=== PATIENT | female | born 1975 | race Caucasian/White ===

== ENCOUNTER → 2018-01-26 15:21 | Outpatient (CLI) | payer OTHER, SELFPAY ==
[2018-01-26 17:11] LABS: Absolute Lymphocyte Count 3.21 X10^3/ul (0.83-4.51); Absolute Neutrophil Count 6.3 X10^3/uL (2.0-7.7); Basophil# 0.03 X10^3/uL; Basophil% 0.3 % (0-1); Eosinophils% 2.8 % (0-5); Hematocrit 43.5 % (37-47); Hemoglobin 15.3 g/dl (12.0-15.0); Lymphocyte # 3.21 X10^3/ul (4.0); Lymphocyte % 29.6 % (19-41); Mean Corp Hgb Conc 35.2 g/gl (32-36); Mean Corpuscular Hgb 32.5 pg (27.0-32.0); Mean Corpuscular Volume 92.4 fL (81-99); Monocyte# 0.94 X10^3/uL; Monocyte% 8.7 % (0-10); Neutrophil # 6.32 X10^3/uL (2.7-7.7); Neutrophil % 58.3 % (47-70); Platelet Count 271 K/mm3 (150-450); RBC Distribution Width CV 12.1 % (11.6-14.6); RBC Distribution Width SD 40.4 fl (35.1-43.9); Red Blood Count 4.71 M/mm3 (4.2-5.4); White Blood Count 10.8 K/mm3 (4.4-11.0)
[2018-01-26 17:47] LABS: POSITIVE COUNT NO; POSITIVE DIFFERENTIAL NO; POSITIVE MORPHOLOGY NO; Thyroid Stim Hormone (TSH) 2.59 uIU/mL (0.358-3.74)
== END ==
PROVIDERS: Visit Provider Nurse Practitioner Women's Health
DX: R53.83 Other fatigue (principal)
CPT/HCPCS: 36415; 84443; 85025

== ENCOUNTER → 2018-02-17 11:28 | Outpatient (CLI) | payer OTHER, SELFPAY ==
--- NOTE | 2018-02-17 11:31 | US_ITS ---
STUDY: ULTRASOUND OF THE FEMALE PELVIS - COMPLETE REASON FOR EXAM: Female, 42 years old. ABNORMAL BLEEDING MERENA IUD TECHNIQUE: Transvaginal COMPARISON: None. FINDINGS: The uterus is retroverted and is in a midline position. The uterus measures 9.4x7.4x6.5 cm. There is a Nabothian cyst of the cervix. The endometrium measures 7.9 mm in thickness, and is hyperechoic. There is no demonstrated endometrial mass. Fibroid visualized measuring 66 x 50 x 40 mm. I.U.D. - The patient does have an I.U.D. The right ovary is visualized. The right ovary measures 3.2x2.1x1.7 cm. There is no right ovarian cyst or ovarian mass. There is no visualized right adnexal mass or complex lesion. There is normal arterial and normal venous vascularity. The left ovary is visualized. The left ovary measures 2.4x1.9x1.6 cm. There is no left ovarian cyst or ovarian mass. There is no visualized left adnexal mass or complex lesion. There is normal arterial and normal venous vascularity. There is no fluid in the cul-de-sac. The pre void volume of the bladder was 869 ml. US/Transvaginal Non- IMPRESSION: Fibroid uterus. An intrauterine device is identified within the uterus. There are Nabothian cysts of the cervix. Electronically Signed: Brown Pena MD at 21:44 EDT , Service support ,
--- NOTE | 2018-02-17 11:31 | US_ITS ---
STUDY: ULTRASOUND OF THE FEMALE PELVIS - COMPLETE REASON FOR EXAM: Female, 42 years old. ABNORMAL BLEEDING MERENA IUD TECHNIQUE: Transvaginal COMPARISON: None. FINDINGS: The uterus is retroverted and is in a midline position. The uterus measures 9.4x7.4x6.5 cm. There is a Nabothian cyst of the cervix. The endometrium measures 7.9 mm in thickness, and is hyperechoic. There is no demonstrated endometrial mass. Fibroid visualized measuring 66 x 50 x 40 mm. I.U.D. - The patient does have an I.U.D. The right ovary is visualized. The right ovary measures 3.2x2.1x1.7 cm. There is no right ovarian cyst or ovarian mass. There is no visualized right adnexal mass or complex lesion. There is normal arterial and normal venous vascularity. The left ovary is visualized. The left ovary measures 2.4x1.9x1.6 cm. There is no left ovarian cyst or ovarian mass. There is no visualized left adnexal mass or complex lesion. There is normal arterial and normal venous vascularity. There is no fluid in the cul-de-sac. The pre void volume of the bladder was 869 ml. US/Pelvic (Non ) IMPRESSION: Fibroid uterus. An intrauterine device is identified within the uterus. There are Nabothian cysts of the cervix. Electronically Signed: Brown Pena MD at 21:44 EDT , Service support ,
== END ==
LOC: US 11:29
PROVIDERS: Referring Provider Nurse Practitioner Women's Health; Visit Provider Nurse Practitioner Women's Health
DX: Z30.431 Encounter for routine checking of intrauterine contraceptive device (principal)
CPT/HCPCS: 76830; 76856; 93976

== ENCOUNTER → 2018-02-18 12:24 | Outpatient (CLI) | payer OTHER, SELFPAY ==
--- NOTE | 2018-02-18 12:26 | BI_ITS ---
MAMMOGRAPHY - BILATERAL SCREENING REASON FOR EXAM: Female, 42 years old. Routine annual screening examination. PERTINENT HISTORY: Grandmother with breast cancer. Aunt with breast cancer. TECHNIQUE: Digital bilateral breast avinash (3D mammographic acquisition) in the CC and MLO projections. 2-D mediolateral oblique (MLO) and craniocaudad (CC) views of both breasts were obtained. CAD: Full Field Digital Mammography with Computer Added Detection was performed. COMPARISON: Comparison is made with prior study dated December 25, 2016 and October 07, 2015. FINDINGS: Breast Composition: The breasts are heterogeneously dense, which may obscure small masses. There are no dominant masses or suspicious calcifications. No other significant abnormalities are identified. There has been no significant change since the prior study. BI/SCREENING MAMM (CAD), BILAT IMPRESSION: Stable bilateral screening mammogram. Yearly follow-up mammogram recommended. (A) ASSESSMENT CATEGORY: BIRADS Category 1: Negative. A letter regarding these results will be sent to the patient by the facility within 30 days. Approximately 10% of breast cancers are not detected by mammography. A normal mammogram should not delay biopsy of a clinically suspicious abnormality. [id number] Electronically Signed: Mk Cornelius MD at 14:21 EDT Tel [phone], Service support ,
== END ==
PROVIDERS: Referring Provider Nurse Practitioner Women's Health; Visit Provider Nurse Practitioner Women's Health
DX: Z12.31 Encounter for screening mammogram for malignant neoplasm of breast (principal)
CPT/HCPCS: 77063; 77067

== ENCOUNTER 2018-09-27 09:59 | Observation (INO) | payer OTHER, SELFPAY ==
[2018-09-27 10:00] VITALS: BP 159/70; PULSE 98; RESP 18; TEMP 37; O2SAT 99; BMI 23.1
[2018-09-27 10:43] VITALS: BP 125/52; PULSE 76; PULSE 89; RESP 16; TEMP 37.4; O2SAT 100
--- NOTE | 2018-09-27 10:46 | ED.VIS.GEN ---
History of Present Illness Chief Complaint: Abscess Informant: Patient Onset: Days Context: Sudden Onset Timing: Continuous Quality: Facial swelling, skin redness dental abscess Location: Right lower molar Current Severity: Moderate Maximum Severity: Moderate Worsened by: Progression of infection Relieved by: Nothing Associated Symptoms: Change in voice and avoid open mouth Narrative: Patient is a 43-year-old woman who was seen at urgent care yesterday for dental infection. She was prescribed clindamycin. She is taking a total of 3 doses. She was seen by dentist. Dental x-rays were obtained. She was informed that she would need root canal. She presents because of swelling, inability to open mouth and change in voice. She denies a traumatic fever, murmur, SPE, IV drug use or being immune suppressed. Patient states noted redness anterior neck this morning. There was no redness yesterday. Prior similar symptoms: Yes Recent Illness/Hospitalization: Yes - Past Medical History (1) No significant past medical history Status: Acute Past Medical History - Allergies and Home Meds Allergies/Adverse Reactions: Allergies Penicillins Allergy (Mild, Verified 09/27/18 10:02) severe vomiting Sulfa (Sulfonamide Antibiotics) Allergy (Mild, Verified 09/27/18 10:02) hives Primary Care Physician: Care Physician,No Primary [Primary Care Provider] - Prior records reviewed: No Past Medical History: None Surgical History: - - Breast biopsy Lives: Spouse/ Significant Other Smoking Status: Current every day smoker Alcohol: Rare Drugs: None Review of Systems General: Denies: Chills, Fever, Subjective, Sweats Eyes: Denies: Visual changes - bilaterally, Blurred Vision - bilaterally, Diplopia ENT: Reports: - - Read narrative. Denies: Bilateral ear pain, Rhinorrhea, Sore throat Cardiovascular: Denies: Chest pain, Palpitations Respiratory: Denies: Dyspnea, Cough, Dyspnea on exertion Gastrointestinal: Denies: Abdominal pain, Nausea, Vomiting Musculoskeletal: Denies: Myalgias, Arthralgias, Neck pain, Back pain, Swelling, Extremity Pain Skin: Reports: Rash, Abscess. Denies: Abrasions, Wounds Neurological: Denies: Headache, Weakness, Parasthesia Hematologic: Denies: Easy bruising, Easy bleeding Allergy: Denies: Uticaria Physical Exam Vital Signs/Narrative: Vital Signs Temp Pulse Resp BP Pulse Ox 09/27/18 10:00 98.6 F 98 18 159/70 H 99 Inital Vital Signs reviewed: Yes General: Well nourished, Well developed, No Acute Distress Head: Normocephalic, Atraumatic Eyes: Perrl, EOMI. Negative for: Pale conjunctiva, Scleral icterus ENT: Moist mucous membranes, No rhinorrhea, TM's clear, - - Able to stick only my index finger between her incisors. There is swelling of the mouth on the right side. Palpation reveals area to be firm. Patient did report her tongue feels raised. There is also soft tissue swelling with firmness near the angle of the mandible on the right side. There is evidence of cellulitis. Trachea is midline. There is no stridor. Neck: Supple, No JVD. Negative for: Nontender, No lymphadenopathy Cardiovascular: Regular rate, Regular rhythm, No murmurs, Normal S1, Normal S2 Respiratory: No distress, CTA bilaterally, Chest nontender Extremities: Nontender, No edema Skin: Normal color, Rash - Described in the neck portion of the physical exam.. Negative for: Cyanosis, Jaundice Neurological: Alert, Oriented x3, Cranial nerves II-XII grossly intact, Normal Strength, Normal Sensation Psychological: Normal affect, Normal Mood Diagnostic/Tx/Re-eval 09/27/18 11:32 CT Neck [Soft Tissue Neck WITH Contrast] [CT] Stat Laboratory Results 09/27/18 09/27/18 09/27/18 10:36 10:36 10:36 WBC 16.1 H RBC 4.60 Hgb 14.7 Hct 42.5 MCV 92.4 MCH 32.0 MCHC 34.6 RDW 13.0 RDW Differential 43.7 Plt Count 276 MPV 10.2 Immature Gran % (Auto) 0.200 Neut % (Auto) 80.0 H Lymph % (Auto) 8.1 L [place] % (Auto) 11.1 H Eos % (Auto) 0.4 Baso % (Auto) 0.2 Absolute Neuts (auto) 12.9 H Absolute Lymphs (auto) 1.30 Total Counted Not Reportable Diff Path Review September Sodium 139 Potassium 3.6 Chloride 109 H Carbon Dioxide 26.0 Anion Gap 4 L BUN 10 Creatinine 0.74 Estim Creat Clear Calc 84.65 Est GFR (MDRD) Af Amer 111 Est GFR (MDRD) Non-Af 92 BUN/Creatinine Ratio 13.6 Glucose 94 Lactic Acid 1.0 Calcium 9.2 - Medical Decision Making Patient has progression of abscess. Concern for masseter muscle space infection. Concern for development of Elieser's angina. Since patient has trismus and failure of appropriate outpatient antibiotics call was placed to Dr. Joy. Spoke with office staff. She states she would call back. She was administered 900 mg clindamycin. Awaiting callback from Dr. Joy regarding imaging and admission. Case was discussed with Dr. Alden Joy. Agrees with CT imaging. He will review images and determine appropriate intervention. Spoke with hospitalist. Plan is to admit to the hospital. With concern for airway, trismus patient has been made n.p.o. ED Disposition - Plan for ED Patient: Diagnosis: Masseter space infection, Dental abscess, Sepsis, Cellulitis and abscess of face Referrals: Care Physician,No Primary [Primary Care Provider] -
[2018-09-27 10:51] LABS: Absolute Neutrophil Count 12.9 X10^3/uL (2.0-7.7); Basophil# 0.03 X10^3/uL; Basophil% 0.2 % (0-1); Eosinophil# 0.06 X10^3/uL; Eosinophils% 0.4 % (0-5); Hematocrit 42.5 % (37-47); Hemoglobin 14.7 g/dl (12.0-15.0); Lymphocyte % 8.1 % (19-41); Mean Corp Hgb Conc 34.6 g/gl (32-36); Mean Corpuscular Volume 92.4 fL (81-99); Mean Platelet Vol. 10.2 fl (6.2-12.0); Monocyte# 1.79 X10^3/uL; Monocyte% 11.1 % (0-10); Neutrophil # 12.87 X10^3/uL (2.7-7.7); Platelet Count 276 K/mm3 (150-450); RBC Distribution Width SD 43.7 fl (35.1-43.9); White Blood Count 16.1 K/mm3 (4.4-11.0)
[2018-09-27 10:52] LABS: Differential Indicated SCAN CRITERIA MET; POSITIVE COUNT NO; POSITIVE DIFFERENTIAL YES; POSITIVE MORPHOLOGY NO
[2018-09-27 11:01] LABS: Anion Gap 4 (5-15); BUN 10 mg/dL (7-18); BUN/Creat Ratio 13.6 RATIO (10-20); Calcium,Total 9.2 mg/dL (8.5-10.1); Chloride 109 mmol/L (98-107); Creatinine, Serum 0.74 mg/dL (0.55-1.02); EST Glomerular Filtration Rate 92 mL/min (>60); Est Glom Filt Rate - Afr Amer 111 mL/min (>60); Estimated Creatinine Clearance 84.65 ml/min; Glucose 94 mg/dL (74-106); Potassium 3.6 mmol/L (3.5-5.1); Sodium Level 139 mmol/L (136-145)
--- NOTE | 2018-09-27 11:32 | CT_ITS ---
STUDY: CT SOFT TISSUE NECK WITH CONTRAST REASON FOR EXAM: Female, 43 years old. Neck swelling and pain. History of dental abscess. RADIATION DOSAGE (If Supplied By Facility): CTDIvol = ( 14.66 ) mGy, DLP = ( 424.51 ) mGycm TECHNIQUE: The patient was scanned in a multi-detector CT scanner. High resolution transaxial imaging was performed following intravenous administration of 75 IV Isovue 300. Sagittal and coronal images were reconstructed. Individualized dose optimization techniques were used for this CT. COMPARISON: None. FINDINGS: Normal bilateral parotid glands. Normal bilateral commissary steward spaces. Normal bilateral parapharyngeal spaces. Normal bilateral carotid spaces. There is inhomogeneous enlargement of the right submandibular gland. Focal area of increased contrast enhancement involving the anterior and inferior aspect of the left submandibular gland with overlying subcutaneous edema on the right side and skin thickening. These may represent focal areas of phlegmon although no focal abscess is seen at this time. Normal visualized nasopharynx. Normal retropharyngeal space. Normal perivertebral space. Normal visualized bilateral faucial tonsils. The visualized tongue, tongue base and oropharynx are normal. The visualized cervical lymph nodes (levels I-) are within normal size limits, and maintain normal morphology. There is no demonstrated solid or cystic mass lesion. There is no abnormal contrast enhancement. Normal epiglottis, bilateral vallecula and hypopharynx. The pre-epiglottic and paraglottic adipose spaces are normal. Normal visualized bilateral piriform sinuses, aryepiglottic folds, vocal cords, and arytenoid-cricoid articulations. Normal subglottic trachea. Normal bilateral lobes of the thyroid gland. Normal visualized pulmonary apices. Partial opacification of the left maxillary sinus. Nodular mucosal thickening of the right maxillary sinus. Beam hardening artifacts limits assessment of the mandibular and maxillary bones. CT/Soft Tissue Neck WITH Contrast IMPRESSION: Inhomogeneous enlargement and enhancement of the right submandibular gland with the surrounding edema suggestive of phlegmon. Overlying skin thickening and infiltration of the subcutaneous fat. Electronically Signed: Mk Cornelius, at 12:26 EDT , Service support ,
--- NOTE | 2018-09-27 12:13 | HP.PCM_ITS ---
History of Present Illness Date of Admission: 09/27/18 Chief Complaint: right jaw swelling and pain The patient is a 43 year old F with no significant past medical history. She was admitted through the ED on 09/27/2018 with a complaint of right jaw swelling and pain. Patient states she is had a toothache and started having right upper jaw pain a few days ago. She called her dentist and was scheduled for an appointment 1 day ago. However symptoms worsen and so she went to an urgent care center where she was started on p.o. clindamycin. She saw her dentist yesterday and was scheduled for 3 Wood canals in 2 days time. However symptoms progressively worsened and swelling got bigger and warmer and she was having difficulty swallowing and drinking due to pain. She did not have any difficulty with breathing or any wheezing or stridor. She also denied any fever chills, nausea vomiting. Review of systems otherwise negative. In the ED, vitals were significant for temperature of 99.3 Fahrenheit. CBC showed leukocytosis of 16.1 and BMP was within normal limits. She had a soft tissue neck CT. She is being admitted to be managed for cellulitis of right jaw. [] Past Medical History Medical History: Medical History (Last Reviewed 03/02/18 @ 13:05 by Bella Garcia) Acute colitis K52.9 Allergies Penicillins Allergy (Mild, Verified 09/27/18 10:02) severe vomiting Sulfa (Sulfonamide Antibiotics) Allergy (Mild, Verified 09/27/18 10:02) hives Home Medications: Ambulatory Orders Medication Instructions Recorded levonorgestrel 20 mcg/24 hours (5 1 insert INTRAUTERINE ONCE 01/26/18 yrs) 52 mg intrauterine device Multivitamin [One-Daily 1 each PO DAILY 09/27/18 Multi-Vitamin] Surgical History: Surgical History (Last Reviewed 03/02/18 @ 13:05 by Bella Garcia) History of lumpectomy of left breast Z98.890 S/P trigger finger release Z98.890 right fing finger Surgical History: no surgical history, - - Breast biopsy 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 Denies: Difficulty Hearing, Head Aches, Sinus Congestion, Sinus Drainage Cardiovascular: Denies: Chest Pain, Palpitations Respiratory: Denies: Cough, Shortness of Breath, Shortness of breath at rest, Shortness of breath upon exertion, Sputum production Gastrointestinal: Denies: Abdominal Pain, Nausea, Vomiting Genitourinary: Denies: Dysuria Musculoskeletal: Denies: Joint Pain, Joint Tenderness Skin: Denies: Rash, Wounds Neurological: Denies: Numbness, Tingling, Focal weakness Psychiatric: Denies: Anxiety, Depression, Homicidal Ideations, Suicidal Ideations Hematologic/ Lymphatic: Denies: Easy Bruising, Easy Bleeding VTE Information - Inpt Only VTE Present on Admission: No VTE Pharm Prophylaxis ordered?: Yes Patient Problems: Active and Suspected Problems (Last Reviewed 03/02/18 @ 13:05 by Bella Garcia) No significant past medical history (Acute) Dental abscess (Acute) Sepsis (Acute) Cellulitis and abscess of face (Acute) - Physical Exam General: Alert, Oriented x3, Cooperative, No apparent distress HEENT: Atraumatic, PERRLA, EOMI, Normocephalic, - Oral: Dry Mucosa, - - right jaw and right submandibular region swollen, tender to touch, with mild differential warmth. No obvious drainage visualised in oral cavity; less than optimal dentition Neck: Supple, No JVD, Negative Carotid Bruits Lungs: Clear to auscultation, Normal air movement, No rhonchi, No wheeze, No rales Cardiovascular: Regular rate, Regular Rhythm, Normal S1, Normal S2, No murmurs Abdomen: Bowel Sounds Present, Soft, Non Tender, Non-Distended, No Hepato- splenomegaly Extremities: No clubbing, No cyanosis, No edema, Capillary Refill Less than 3 Seconds Skin: No rashes, No breakdown Musculoskeletal: No Tenderness to Palpation of Joints or Extremities Lymphatic: No Cervical, Supraclavicular, or Inguinal Adenopathy Neurological: Cranial nerves II-XII grossly intact, Neuro grossly intact, Motor Exam 5/5 strength throughout Psych/Mental Status: Normal Affect, Appropriate, Alert and oriented to time, place, person, mood and affect Vital Signs Temp Pulse Resp BP Pulse Ox 99.3 F H 89 16 125/52 H 100 09/27/18 10:43 09/27/18 10:43 09/27/18 10:43 09/27/18 10:43 09/27/18 10:43 Oxygen Delivery Method Room Air Weight: 135 lb Body Mass Index (BMI) 23.1 Laboratory Tests Past 24 Hrs 09/27/18 09/27/18 09/27/18 10:36 10:36 10:36 WBC 16.1 H RBC 4.60 Hgb 14.7 Hct 42.5 MCV 92.4 MCH 32.0 MCHC 34.6 RDW 13.0 RDW Differential 43.7 Plt Count 276 MPV 10.2 Immature Gran % (Auto) 0.200 Neut % (Auto) 80.0 H Lymph % (Auto) 8.1 L [place] % (Auto) 11.1 H Eos % (Auto) 0.4 Baso % (Auto) 0.2 Absolute Neuts (auto) 12.9 H Absolute Lymphs (auto) 1.30 Total Counted Not Reportable Diff Path Review September foll Sodium 139 Potassium 3.6 Chloride 109 H Carbon Dioxide 26.0 Anion Gap 4 L BUN 10 Creatinine 0.74 Estim Creat Clear Calc 84.65 Est GFR (MDRD) Af Amer 111 Est GFR (MDRD) Non-Af 92 BUN/Creatinine Ratio 13.6 Glucose 94 Lactic Acid 1.0 Calcium 9.2 Diagnostic Data Soft Tissue Neck CT 09/27/18 11:32 IMPRESSION: Inhomogeneous enlargement and enhancement of the right submandibular gland with the surrounding edema suggestive of phlegmon. Overlying skin thickening and infiltration of the subcutaneous fat. Electronically Signed: Mk Cornelius, at 12:26 EDT , Service support , Assessment/Plan All Active Problems (Last Reviewed 03/02/18 @ 13:05 by Bella Garcia) No significant past medical history (Acute) Dental abscess (Acute) Sepsis (Acute) Cellulitis and abscess of face (Acute) 43 y/o female admitted with a complaint of right jaw swelling and pain. 1Right submandibular cellulitis with possible abscess formation * likely due to dental caries as patient says she has been told by her dentist that she needs 3 root canals on * has leucocytosis with wbc of 16.1; had mild fever on admission * CT soft tissue neck: inhomogenous enlargement and enhancement of right submandibular gland with surrounding edema suggestive of phlegmon with overlying skin thickening and infiltration of subtendinous fat * Admit to MedSurg. * Started on IV clindamycin. Will continue. * Consultoral maxillofacial surgeon * Keep n.p.o. for now. * hydrate with IVF * DVT prophylaxis; heparin Code Visit OBSV E&M: 64094 Initial observation care L3
--- NOTE | 2018-09-27 12:51 | CASEMGMT ---
RN CM Assessment Introduced role of RN CM to patient and patient father Myles at bedside.? Patient is alert, oriented and able?to participate in RN CM Assessment. ?Care providers, pharmacy, and demographics verified. Presentation: Dentist- Needs Root Canal, went to yesterday for dental infection and given Rx Clindamycin-took total 3 doses, C/o swelling, inability to open mouth & change in voice. noticed redness to Neck this morning. Admit Dx: Oral Abscess Re-Admit: No Barriers/Issues: None PCP: No PCP, Would like list Specialists: Undercoat Sprayer- Dr Torres & Dr Lira [facility] Insurance: MMO Rx Benefit: Yes? LNOK: Darryl Frankie LW/HPOA: Yes-LW. Would like info on HPOA Living Arrangements:? Lives with her in a SS home, 4 steps to enter ADL?s: Independent with ambulation and ADL's Transportation: Patient drives, DC with father DME: None HHC: None, No preference on Agency if HHC needed. SNF: None Goal: Home DC PLAN: Home with possible HH RN with surgery done to drain Abscess. Myke Bone RNCM
[2018-09-27 13:11] VITALS: BP 111/66; PULSE 78; PULSE 84; RESP 17; TEMP 37.4; O2SAT 100
[2018-09-27 13:34] VITALS: BMI 23.2; BMI 23.9
[2018-09-27] MEDS: Acetaminophen 325 MG Tablet 650 MG PO (13:50)
[2018-09-27] MEDS: 0.9% Normal Saline 1,000 ML 120 ML IV ×2 (13:50→23:42)
--- NOTE | 2018-09-27 17:02 | CON.PCM_ITS ---
Reason for Consult History of Present Illness: The patient is a 43 year old Female admitted for abscess lower jaw from teeth with abscess extending into right submandibular region. Past Medical History Medical History: Medical History (Last Reviewed 03/02/18 @ 13:05 by Bella Garcia) Acute colitis K52.9 Allergies Penicillins Allergy (Mild, Verified 09/27/18 10:02) severe vomiting Sulfa (Sulfonamide Antibiotics) Allergy (Mild, Verified 09/27/18 10:02) hives Home Medications: Ambulatory Orders Medication Instructions Recorded levonorgestrel 20 mcg/24 hours (5 1 insert INTRAUTERINE ONCE 01/26/18 yrs) 52 mg intrauterine device Multivitamin [One-Daily 1 each PO DAILY 09/27/18 Multi-Vitamin] Surgical History: Surgical History (Last Reviewed 03/02/18 @ 13:05 by Bella Garcia) History of lumpectomy of left breast Z98.890 S/P trigger finger release Z98.890 right fing finger Surgical History: no surgical history, - - Breast biopsy 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 Lives: Spouse/ Significant Other Smoking Status: Current every day smoker Tobacco Use: Cigarettes Alcohol: Occasional Drugs: None - *Family History Maternal Family History: Family History (Last Reviewed 03/02/18 @ 13:06 by Bella Garcia) Father Hypertension Grandmother Diabetes Breast cancer Mother Cervical cancer Aunt Breast cancer Patient Problems: Active and Suspected Problems (Last Reviewed 03/02/18 @ 13:05 by Bella Garcia) No significant past medical history (Acute) Dental abscess (Acute) Sepsis (Acute) Cellulitis and abscess of face (Acute) - Physical Exam General: Alert, Oriented x3, Cooperative, No apparent distress HEENT: Atraumatic, EOMI Oral: Moist Mucosa, No Gingival or Mucosal Lesions/ Ulcerations Neck: Supple, No Nodes, Trachea Midline Extremities: No clubbing, No cyanosis, No edema Neurological: Cranial nerves II-XII grossly intact Psych/Mental Status: Normal Affect, Appropriate Vital Signs Temp Pulse Resp BP Pulse Ox 99.3 F H 84 17 111/66 100 09/27/18 13:11 09/27/18 13:11 09/27/18 13:11 09/27/18 13:11 09/27/18 13:11 Oxygen Delivery Method Room Air Weight: 63.231 kg Body Mass Index (BMI) 23.9 Laboratory Tests Past 24 Hrs 09/27/18 09/27/18 09/27/18 10:36 10:36 10:36 WBC 16.1 H RBC 4.60 Hgb 14.7 Hct 42.5 MCV 92.4 MCH 32.0 MCHC 34.6 RDW 13.0 RDW Differential 43.7 Plt Count 276 MPV 10.2 Immature Gran % (Auto) 0.200 Neut % (Auto) 80.0 H Lymph % (Auto) 8.1 L [place] % (Auto) 11.1 H Eos % (Auto) 0.4 Baso % (Auto) 0.2 Absolute Neuts (auto) 12.9 H Absolute Lymphs (auto) 1.30 Total Counted Not Reportable Diff Path Review May foll Sodium 139 Potassium 3.6 Chloride 109 H Carbon Dioxide 26.0 Anion Gap 4 L BUN 10 Creatinine 0.74 Estim Creat Clear Calc 84.65 Est GFR (MDRD) Af Amer 111 Est GFR (MDRD) Non-Af 92 BUN/Creatinine Ratio 13.6 Glucose 94 Lactic Acid 1.0 Calcium 9.2 Assessment/Plan All Active Problems (Last Reviewed 03/02/18 @ 13:05 by Bella Garcia) No significant past medical history (Acute) Dental abscess (Acute) Sepsis (Acute) Cellulitis and abscess of face (Acute) Patient seen and examined and my findings are an odontogenic source for her right submandibular, right sublingual and right masseteric space infection. She is tolerating secretions well and no airway embarassment. Trismus is marked at 10 mm of opening which suggest involvement of deeper fascial plane infection developing. Will allow small sips of water for comfort and strict NPO after midnight for possible I and D in OR tomorrow
[2018-09-27] MEDS: Ketorolac 30 MG/ML Syringe IV (17:55)
[2018-09-27] MEDS: 0.9% NaCl Peripheral Flush Adult/Peds IV (17:55)
[2018-09-27 21:00] VITALS: BP 114/51; PULSE 79; RESP 16; TEMP 37.7; O2SAT 99
[2018-09-28] VITALS (10 sets, daily range): BP systolic 98–125; BP diastolic 45–66; PULSE 68–88; RESP 16; TEMP 36.9–37.8; O2SAT 92–100; BMI 23.8
[2018-09-28] MEDS: Ketorolac 30 MG/ML Syringe IV ×3 (02:30→17:50)
[2018-09-28 05:59] LABS: Absolute Lymphocyte Count 1.91 X10^3/ul (0.83-4.51); Absolute Neutrophil Count 11.1 X10^3/uL (2.0-7.7); Basophil# 0.02 X10^3/uL; Basophil% 0.1 % (0-1); Eosinophil# 0.03 X10^3/uL; Eosinophils% 0.2 % (0-5); Hematocrit 37.7 % (37-47); Hemoglobin 12.8 g/dl (12.0-15.0); Lymphocyte # 1.91 X10^3/ul (4.0); Lymphocyte % 13.4 % (19-41); Mean Corpuscular Hgb 31.4 pg (27.0-32.0); Mean Corpuscular Volume 92.6 fL (81-99); Mean Platelet Vol. 10.6 fl (6.2-12.0); Monocyte% 8.4 % (0-10); Neutrophil % 77.6 % (47-70); Platelet Count 257 K/mm3 (150-450); RBC Distribution Width CV 12.9 % (11.6-14.6); RBC Distribution Width SD 43.2 fl (35.1-43.9); Red Blood Count 4.07 M/mm3 (4.2-5.4); White Blood Count 14.3 K/mm3 (4.4-11.0)
[2018-09-28 06:04] LABS: POSITIVE COUNT NO; POSITIVE DIFFERENTIAL NO; POSITIVE MORPHOLOGY NO
[2018-09-28 06:32] LABS: Anion Gap 9 (5-15); BUN 16 mg/dL (7-18); BUN/Creat Ratio 29.1 RATIO (10-20); Calcium,Total 8.3 mg/dL (8.5-10.1); Chloride 113 mmol/L (98-107); Creatinine, Serum 0.55 mg/dL (0.55-1.02); EST Glomerular Filtration Rate 128 mL/min (>60); Est Glom Filt Rate - Afr Amer 155 mL/min (>60); Estimated Creatinine Clearance 113.89 ml/min; Glucose 70 mg/dL (74-106); Potassium 3.9 mmol/L (3.5-5.1); Sodium Level 143 mmol/L (136-145)
--- NOTE | 2018-09-28 08:53 | PCM.PN.HOSP ---
Patient Problems: Active and Suspected Problems (Last Reviewed 03/02/18 @ 13:05 by Bella Garcia) No significant past medical history (Acute) Dental abscess (Acute) Sepsis (Acute) Cellulitis and abscess of face (Acute) Subjective: Patient seen and examined. She is still does complain of some pain in the area of the jaw swelling. Child has no difficulty with breathing but does complain of pain with swallowing just like before. She denies any fever chills, nausea vomiting, chest pain or diarrhea. Review of systems otherwise negative. General surgeon saw him she is due for I&D today. Labs and vitals reviewed. Vitals/I&O's: Vital Signs Temp Pulse Resp BP Pulse Ox 98.9 F 82 16 120/52 L 97 09/28/18 07:24 09/28/18 07:24 09/28/18 07:24 09/28/18 07:24 09/28/18 07:24 Oxygen Delivery Method Room Air Weight: 139 lb 6.4 oz Body Mass Index (BMI) 23.9 Intake and Output for Last 24 Hours 09/26/18 09/27/18 09/28/18 23:59 23:59 23:59 Intake Total 593 / 593 1631 / 1631 Balance 593 / 593 1631 / 1631 General: Alert, Oriented x3, Cooperative, No apparent distress HEENT: Atraumatic, PERRLA, EOMI, Normocephalic, - Oral: Dry Mucosa, - - right jaw and right submandibular region swollen, tender to touch, with mild differential warmth. Neck: Supple, No JVD, Negative Carotid Bruits Lungs: Clear to auscultation, Normal air movement, No rhonchi, No wheeze, No rales Cardiovascular: Regular rate, Regular Rhythm, Normal S1, Normal S2, No murmurs Abdomen: Bowel Sounds Present, Soft, Non Tender, Non-Distended, No Hepato-splenomegaly Extremities: No clubbing, No cyanosis, No edema, Capillary Refill Less than 3 Seconds Skin: No rashes, No breakdown Musculoskeletal: No Tenderness to Palpation of Joints or Extremities Lymphatic: No Cervical, Supraclavicular, or Inguinal Adenopathy Neurological: Cranial nerves II-XII grossly intact, Neuro grossly intact, Motor Exam 5/5 strength throughout Psych/Mental Status: Normal Affect, Appropriate, Alert and oriented to time, place, person, mood and affect Laboratory Results 09/27/18 10:36: WBC 16.1 H, RBC 4.60, Hgb 14.7, Hct 42.5, MCV 92.4, MCH 32.0, MCHC 34.6, RDW 13.0, RDW Differential 43.7, Plt Count 276, MPV 10.2, Immature Gran % (Auto) 0.200, Neut % (Auto) 80.0 H, Lymph % (Auto) 8.1 L, [place] % (Auto) 11.1 H, Eos % (Auto) 0.4, Baso % (Auto) 0.2, Absolute Neuts (auto) 12.9 H, Absolute Lymphs (auto) 1.30, Total Counted Not Reportable, Diff Path Review September09/27/18 10:36: Sodium 139, Potassium 3.6, Chloride 109 H, Carbon Dioxide 26.0, Anion Gap 4 L, BUN 10, Creatinine 0.74, Estim Creat Clear Calc 84.65, Est GFR (MDRD) Af Amer 111, Est GFR (MDRD) Non-Af 92, BUN/Creatinine Ratio 13.6, Glucose 94, Calcium 9.2 09/27/18 10:36: Lactic Acid 1.0 09/28/18 05:46: WBC 14.3 H, RBC 4.07 L, Hgb 12.8, Hct 37.7, MCV 92.6, MCH 31.4, MCHC 34.0, RDW 12.9, RDW Differential 43.2, Plt Count 257, MPV 10.6, Immature Gran % (Auto) 0.300, Neut % (Auto) 77.6 H, Lymph % (Auto) 13.4 L, [place] % (Auto) 8.4, Eos % (Auto) 0.2, Baso % (Auto) 0.1, Absolute Neuts (auto) 11.1 H, Absolute Lymphs (auto) 1.91, Total Counted Not Reportable 09/28/18 05:46: Sodium 143, Potassium 3.9, Chloride 113 H, Carbon Dioxide 21.0, Anion Gap 9, BUN 16, Creatinine 0.55, Estim Creat Clear Calc 113.89, Est GFR (MDRD) Af Amer 155, Est GFR (MDRD) Non-Af 128, BUN/Creatinine Ratio 29.1 H, Glucose 70 L, Calcium 8.3 L Current Medications Acetaminophen (Tylenol) 650 mg PO Q6H PRN PRN PRN Reason: Mild Pain (1-3)/Temp > 100.7 F Last Admin: 09/27/18 13:50 Dose: 650 mg Dextrose (D50w Syringe) 0 gm IV X1 PRN; Protocol PRN Reason: Hypoglycemia Enoxaparin Sodium (Lovenox) 40 mg SC DAILY@1000 APRIL Glucagon () 1 mg IM .X1 PRN PRN Reason: Hypoglycemia Ketorolac Tromethamine (Toradol) 30 mg IV Q8H APRIL Stop: 09/28/18 17:46 Last Admin: 09/28/18 02:30 Dose: 30 mg Sodium Chloride () 5 - 15 ml IV UD PRN PRN Reason: SALINE FLUSH Last Admin: 09/27/18 17:55 Dose: 10 ml Medical Necessity - Tobacco Use Smoking Status: Current every day smoker Tobacco Use: Cigarettes Assessment/Plan All Active Problems (Last Reviewed 03/02/18 @ 13:05 by Bella Garcia) No significant past medical history (Acute) Dental abscess (Acute) Sepsis (Acute) Cellulitis and abscess of face (Acute) 43 y/o female admitted with a complaint of right jaw swelling and pain. 1. Right submandibular cellulitis and abscess still complains of pain in right jaw area wbc has trended down to 14.3 CT soft tissue neck: inhomogenous enlargement and enhancement of right submandibular gland with surrounding edema suggestive of phlegmon with overlying skin thickening and infiltration of subtendinous fat on IV clindamycin oral surgeon on board; for I& D today keep NPO; continue hydrating with IVF. DVT prophylaxis: heparin Code Visit OBSV E&M: 57287 Subsequent observation care L2
--- NOTE | 2018-09-28 08:57 | PN_ITS ---
Patient Problems: Active and Suspected Problems (Last Reviewed 03/02/18 @ 13:05 by Bella Garcia) No significant past medical history (Acute) Dental abscess (Acute) Sepsis (Acute) Cellulitis and abscess of face (Acute) Subjective: Patient seen and examined. She is still does complain of some pain in the area of the jaw swelling. Child has no difficulty with breathing but does complain of pain with swallowing just like before. She denies any fever chills, nausea vomiting, chest pain or diarrhea. Review of systems otherwise negative. General surgeon saw him she is due for I&D today. Labs and vitals reviewed. Vitals/I&O's: Vital Signs Temp Pulse Resp BP Pulse Ox 98.9 F 82 16 120/52 L 97 09/28/18 07:24 09/28/18 07:24 09/28/18 07:24 09/28/18 07:24 09/28/18 07:24 Oxygen Delivery Method Room Air Weight: 139 lb 6.4 oz Body Mass Index (BMI) 23.9 Intake and Output for Last 24 Hours 09/26/18 09/27/18 09/28/18 23:59 23:59 23:59 Intake Total 593 / 593 1631 / 1631 Balance 593 / 593 1631 / 1631 General: Alert, Oriented x3, Cooperative, No apparent distress HEENT: Atraumatic, PERRLA, EOMI, Normocephalic, - Oral: Dry Mucosa, - - right jaw and right submandibular region swollen, tender to touch, with mild differential warmth. Neck: Supple, No JVD, Negative Carotid Bruits Lungs: Clear to auscultation, Normal air movement, No rhonchi, No wheeze, No ra les Cardiovascular: Regular rate, Regular Rhythm, Normal S1, Normal S2, No murmurs Abdomen: Bowel Sounds Present, Soft, Non Tender, Non-Distended, No Hepato- splenomegaly Extremities: No clubbing, No cyanosis, No edema, Capillary Refill Less than 3 Seconds Skin: No rashes, No breakdown Musculoskeletal: No Tenderness to Palpation of Joints or Extremities Lymphatic: No Cervical, Supraclavicular, or Inguinal Adenopathy Neurological: Cranial nerves II-XII grossly intact, Neuro grossly intact, Motor Exam 5/5 strength throughout Psych/Mental Status: Normal Affect, Appropriate, Alert and oriented to time, place, person, mood and affect Laboratory Results 09/27/18 10:36: WBC 16.1 H, RBC 4.60, Hgb 14.7, Hct 42.5, MCV 92.4, MCH 32.0, MCHC 34.6, RDW 13.0, RDW Differential 43.7, Plt Count 276, MPV 10.2, Immature Gran % (Auto) 0.200, Neut % (Auto) 80.0 H, Lymph % (Auto) 8.1 L, [place] % (Auto) 11.1 H, Eos % (Auto) 0.4, Baso % (Auto) 0.2, Absolute Neuts (auto) 12.9 H, Absolute Lymphs (auto) 1.30, Total Counted Not Reportable, Diff Path Review September09/27/18 10:36: Sodium 139, Potassium 3.6, Chloride 109 H, Carbon Dioxide 26.0, Anion Gap 4 L, BUN 10, Creatinine 0.74, Estim Creat Clear Calc 84.65, Est GFR (MDRD) Af Amer 111, Est GFR (MDRD) Non-Af 92, BUN/Creatinine Ratio 13.6, Glucose 94, Calcium 9.2 09/27/18 10:36: Lactic Acid 1.0 09/28/18 05:46: WBC 14.3 H, RBC 4.07 L, Hgb 12.8, Hct 37.7, MCV 92.6, MCH 31.4, MCHC 34.0, RDW 12.9, RDW Differential 43.2, Plt Count 257, MPV 10.6, Immature Gran % (Auto) 0.300, Neut % (Auto) 77.6 H, Lymph % (Auto) 13.4 L, [place] % (Auto) 8.4, Eos % (Auto) 0.2, Baso % (Auto) 0.1, Absolute Neuts (auto) 11.1 H, Absolute Lymphs (auto) 1.91, Total Counted Not Reportable 09/28/18 05:46: Sodium 143, Potassium 3.9, Chloride 113 H, Carbon Dioxide 21.0, Anion Gap 9, BUN 16, Creatinine 0.55, Estim Creat Clear Calc 113.89, Est GFR (MDRD) Af Amer 155, Est GFR (MDRD) Non-Af 128, BUN/Creatinine Ratio 29.1 H, Glucose 70 L, Calcium 8.3 L Current Medications Acetaminophen (Tylenol) 650 mg PO Q6H PRN PRN PRN Reason: Mild Pain (1-3)/Temp > 100.7 F Last Admin: 09/27/18 13:50 Dose: 650 mg Dextrose (D50w Syringe) 0 gm IV X1 PRN; Protocol PRN Reason: Hypoglycemia Enoxaparin Sodium (Lovenox) 40 mg SC DAILY@1000 APRIL Glucagon () 1 mg IM .X1 PRN PRN Reason: Hypoglycemia Ketorolac Tromethamine (Toradol) 30 mg IV Q8H APRIL Stop: 09/28/18 17:46 Last Admin: 09/28/18 02:30 Dose: 30 mg Sodium Chloride () 5 - 15 ml IV UD PRN PRN Reason: SALINE FLUSH Last Admin: 09/27/18 17:55 Dose: 10 ml Medical Necessity - Tobacco Use Smoking Status: Current every day smoker Tobacco Use: Cigarettes Assessment/Plan All Active Problems (Last Reviewed 03/02/18 @ 13:05 by Bella Garcia) No significant past medical history (Acute) Dental abscess (Acute) Sepsis (Acute) Cellulitis and abscess of face (Acute) 43 y/o female admitted with a complaint of right jaw swelling and pain. 1. Right submandibular cellulitis and abscess * still complains of pain in right jaw area * wbc has trended down to 14.3 * CT soft tissue neck: inhomogenous enlargement and enhancement of right submandibular gland with surrounding edema suggestive of phlegmon with overlying skin thickening and infiltration of subtendinous fat * on IV clindamycin * oral surgeon on board; for I& D today * keep NPO; continue hydrating with IVF. * DVT prophylaxis: heparin Code Visit OBSV E&M: [id number] Subsequent observation care L2
[2018-09-28] MEDS: 0.9% NaCl Peripheral Flush Adult/Peds IV (11:45)
[2018-09-28 13:23] LABS: Internal QC Validated? YES +Cl - CLEAR BKGD; Pregnancy, Urine Negative Negative
[2018-09-28] MEDS: Bupivacaine Mpf 0.5% 30 ML VIAL (15:00)
[2018-09-28 15:02] LABS: Pathologist Review Reviewed
--- NOTE | 2018-09-28 15:31 | PCM.OPRPT ---
Report of Operation Date of Procedure: 09/28/18 Pre-Operative Diagnosis: Right Welcome Desk Agent space abscess Post-Operative Diagnosis: Same Surgery/Procedure Performed:: Incision and drainage right cloth printing inspector spaces Type of Anesthesia:: General Specimen's removed: Purulent exudate sent for cultures Drains: right submandibular and sublingual spaces Estimated Blood Loss (mL): minimal Description of Procedure: Taken to OR after consent obtained. Placed in supine position. Anesthesia induced and oral intubation performed without complications. Draped after sterile prepping. 18 ga needle for aspiration for cultures. Local anestheisa administered by right mandibular block injections. Right submandibular approach with sharp/blunt dissection into right cloth printing inspector spaces and also intra-oral approach to same spaces. Purulent exudate expressed. Drains placed and offending tooth 31 extracted. Sutured drains and intra-oral incisions after copious irrigation. Awakened and extubated and taken to PACU in stable condition. All sponge andneedl counts correct. - Complications None
--- NOTE | 2018-09-28 15:37 | OP.PCM_ITS ---
Report of Operation Date of Procedure: 09/28/18 Pre-Operative Diagnosis: Right Conventional Mortgage Underwriter space abscess Post-Operative Diagnosis: Same Surgery/Procedure Performed:: Incision and drainage right signal worker helper spaces Type of Anesthesia:: General Specimen's removed: Purulent exudate sent for cultures Drains: right submandibular and sublingual spaces Estimated Blood Loss (mL): minimal Description of Procedure: Taken to OR after consent obtained. Placed in supine position. Anesthesia induced and oral intubation performed without complications. Draped after sterile prepping. 18 ga needle for aspiration for cultures. Local anestheisa administered by right mandibular block injections. Right submandibular approach with sharp/blunt dissection into right signal worker helper spaces and also intra-oral approach to same spaces. Purulent exudate expressed. Drains placed and offending tooth 31 extracted. Sutured drains and intra-oral incisions after copious ir rigation. Awakened and extubated and taken to PACU in stable condition. All sponge andneedl counts correct. - Complications None
--- NOTE | 2018-09-28 15:39 | CASEMGMT ---
Social Work Note Per RN ADRIAN Bone's note, pt would like information regarding advanced directives. SW attempted to meet with pt, pt currently off floor for procedure. SW left advanced directives documents and social service rac card on pt's table in room. SW will attempt to meet with pt tomorrow in regards to advanced directives. Nai Márquez FILLING SEPARATOR, FIRE CAPTAIN MARINE
[2018-09-28] MEDS: Acetaminophen 325 MG Tablet 650 MG PO (19:00)
[2018-09-29 02:24] VITALS: BP 102/58; PULSE 57; RESP 16; TEMP 36.6; O2SAT 97
[2018-09-29] MEDS: Acetaminophen 325 MG Tablet 650 MG PO ×2 (05:25→14:58)
[2018-09-29 05:53] LABS: Absolute Lymphocyte Count 0.86 X10^3/ul (0.83-4.51); Absolute Neutrophil Count 12.6 X10^3/uL (2.0-7.7); Hematocrit 35.1 % (37-47); Hemoglobin 12.1 g/dl (12.0-15.0); Lymphocyte # 0.86 X10^3/ul (4.0); Mean Corp Hgb Conc 34.5 g/gl (32-36); Mean Corpuscular Hgb 31.6 pg (27.0-32.0); Mean Corpuscular Volume 91.6 fL (81-99); Mean Platelet Vol. 10.9 fl (6.2-12.0); Monocyte# 0.87 X10^3/uL; Monocyte% 6.1 % (0-10); Neutrophil # 12.58 X10^3/uL (2.7-7.7); Neutrophil % 87.7 % (47-70); Platelet Count 263 K/mm3 (150-450); RBC Distribution Width CV 12.6 % (11.6-14.6); RBC Distribution Width SD 41.7 fl (35.1-43.9); Red Blood Count 3.83 M/mm3 (4.2-5.4); White Blood Count 14.3 K/mm3 (4.4-11.0)
[2018-09-29 06:00] LABS: POSITIVE COUNT NO; POSITIVE DIFFERENTIAL NO; POSITIVE MORPHOLOGY NO
[2018-09-29 06:06] LABS: Anion Gap 9 (5-15); BUN 16 mg/dL (7-18); Calcium,Total 8.6 mg/dL (8.5-10.1); Chloride 110 mmol/L (98-107); Creatinine, Serum 0.59 mg/dL (0.55-1.02); EST Glomerular Filtration Rate 117 mL/min (>60); Est Glom Filt Rate - Afr Amer 142 mL/min (>60); Estimated Creatinine Clearance 106.17 ml/min; Glucose 132 mg/dL (74-106); Potassium 4.3 mmol/L (3.5-5.1); Sodium Level 140 mmol/L (136-145)
[2018-09-29 08:30] VITALS: BP 122/48; PULSE 55; RESP 16; TEMP 37; O2SAT 97
[2018-09-29] MEDS: Enoxaparin 40 MG/0.4 ML Syringe SC (09:24)
--- NOTE | 2018-09-29 10:09 | PCM.PN.HOSP ---
Patient Problems: Active and Suspected Problems (Last Reviewed 03/02/18 @ 13:05 by Bella Garcia) No significant past medical history (Acute) Dental abscess (Acute) Sepsis (Acute) Cellulitis and abscess of face (Acute) Subjective: Patient seen and examined. Pain in right jaw is much better. She had I&D of the right program writer spaces yesterday. Purulent exudate sent for culture. Pain is well controlled. Review of systems otherwise negative. She is able to swallow but with a little pain in her breathing has remained stable. Labs and vitals reviewed. Vitals/I&O's: Vital Signs Temp Pulse Resp BP Pulse Ox 98.6 F 55 L 16 122/48 H 97 09/29/18 08:30 09/29/18 08:30 09/29/18 08:30 09/29/18 08:30 09/29/18 08:30 Oxygen Delivery Method Room Air Weight: 139 lb 5.314 oz Body Mass Index (BMI) 23.8 Intake and Output for Last 24 Hours 09/27/18 09/28/18 09/29/18 23:59 23:59 23:59 Intake Total 593 / 593 2331 / 2331 786 / 786 Output Total 450 / 450 200 / 200 Balance 593 / 593 1881 / 1881 586 / 586 General: Alert, Oriented x3, Cooperative, No apparent distress HEENT: Atraumatic, PERRLA, EOMI, Normocephalic, - Oral: Dry Mucosa, - - right jaw swelling has improved significantly; has dressing over right jaw with drain in situ. Neck: Supple, No JVD, Negative Carotid Bruits Lungs: Clear to auscultation, Normal air movement, No rhonchi, No wheeze, No rales Cardiovascular: Regular rate, Regular Rhythm, Normal S1, Normal S2, No murmurs Abdomen: Bowel Sounds Present, Soft, Non Tender, Non-Distended, No Hepato-splenomegaly Extremities: No clubbing, No cyanosis, No edema, Capillary Refill Less than 3 Seconds Skin: No rashes, No breakdown Musculoskeletal: No Tenderness to Palpation of Joints or Extremities Lymphatic: No Cervical, Supraclavicular, or Inguinal Adenopathy Neurological: Cranial nerves II-XII grossly intact, Neuro grossly intact, Motor Exam 5/5 strength throughout Psych/Mental Status: Normal Affect, Appropriate, Alert and oriented to time, place, person, mood and affect Laboratory Results 09/27/18 10:36: Diff Path Review Reviewed 09/28/18 10:55: Urine Test Negative 09/29/18 05:25: WBC 14.3 H, RBC 3.83 L, Hgb 12.1, Hct 35.1 L, MCV 91.6, MCH 31.6, MCHC 34.5, RDW 12.6, RDW Differential 41.7, Plt Count 263, MPV 10.9, Immature Gran % (Auto) 0.200, Neut % (Auto) 87.7 H, Lymph % (Auto) 6.0 L, [place] % (Auto) 6.1, Eos % (Auto) 0.0, Baso % (Auto) 0.0, Absolute Neuts (auto) 12.6 H, Absolute Lymphs (auto) 0.86, Total Counted Not Reportable 09/29/18 05:25: Sodium 140, Potassium 4.3, Chloride 110 H, Carbon Dioxide 21.0, Anion Gap 9, BUN 16, Creatinine 0.59, Estim Creat Clear Calc 106.17, Est GFR (MDRD) Af Amer 142, Est GFR (MDRD) Non-Af 117, BUN/Creatinine Ratio 27.0 H, Glucose 132 H, Calcium 8.6 Diagnostic Data Soft Tissue Neck CT 09/27/18 11:32 IMPRESSION: Inhomogeneous enlargement and enhancement of the right submandibular gland with the surrounding edema suggestive of phlegmon. Overlying skin thickening and infiltration of the subcutaneous fat. Electronically Signed: Mk Cornelius, at 12:26 EDT , Service support , Current Medications Acetaminophen (Tylenol) 650 mg PO Q6H PRN PRN PRN Reason: Mild Pain (1-3)/Temp > 100.7 F Last Admin: 09/29/18 05:25 Dose: 650 mg Dextrose (D50w Syringe) 0 gm IV X1 PRN; Protocol PRN Reason: Hypoglycemia Enoxaparin Sodium (Lovenox) 40 mg SC DAILY@1000 APRIL Last Admin: 09/29/18 09:24 Dose: 40 mg Glucagon () 1 mg IM .X1 PRN PRN Reason: Hypoglycemia Clindamycin Phosphate 600 mg/ (Dextrose) 54 mls @ 100 mls/hr IV Q6 APRIL Last Admin: 09/29/18 05:26 Dose: 100 mls/hr Sodium Chloride () 5 - 15 ml IV UD PRN PRN Reason: SALINE FLUSH Last Admin: 09/28/18 11:45 Dose: 10 ml Medical Necessity - Tobacco Use Smoking Status: Current every day smoker Tobacco Use: Cigarettes Assessment/Plan All Active Problems (Last Reviewed 03/02/18 @ 13:05 by Bella Garcia) No significant past medical history (Acute) Dental abscess (Acute) Sepsis (Acute) Cellulitis and abscess of face (Acute) 43 y/o female admitted with a complaint of right jaw swelling and pain. 1. Right submandibular cellulitis and abscess s/p I&D; today is POD 1 wbc is 14.3 today on IV clindamycin blood cultures pending; wound cultures and swab pending on clear liquid diet now; advance as tolerated. oral surgeon on board DVT prophylaxis: heparin Disposition: dc home today, to follow up with oral surgeon in his office tomorrow for removal of drains. Will dc home on PO clindamycin for 7 days Code Visit OBSV E&M: [id number] Subsequent observation care L2
--- NOTE | 2018-09-29 10:12 | PN_ITS ---
Patient Problems: Active and Suspected Problems (Last Reviewed 03/02/18 @ 13:05 by Bella Garcia) No significant past medical history (Acute) Dental abscess (Acute) Sepsis (Acute) Cellulitis and abscess of face (Acute) Subjective: Patient seen and examined. Pain in right jaw is much better. She had I&D of the right joint supervisor spaces yesterday. Purulent exudate sent for culture. Pain is well controlled. Review of systems otherwise negative. She is able to swallow but with a little pain in her breathing has remained stable. Labs and vitals reviewed. Vitals/I&O's: Vital Signs Temp Pulse Resp BP Pulse Ox 98.6 F 55 L 16 122/48 H 97 09/29/18 08:30 09/29/18 08:30 09/29/18 08:30 09/29/18 08:30 09/29/18 08:30 Oxygen Delivery Method Room Air Weight: 139 lb 5.314 oz Body Mass Index (BMI) 23.8 Intake and Output for Last 24 Hours 09/27/18 09/28/18 09/29/18 23:59 23:59 23:59 Intake Total 593 / 593 2331 / 2331 786 / 786 Output Total 450 / 450 200 / 200 Balance 593 / 593 1881 / 1881 586 / 586 General: Alert, Oriented x3, Cooperative, No apparent distress HEENT: Atraumatic, PERRLA, EOMI, Normocephalic, - Oral: Dry Mucosa, - - right jaw swelling has improved significantly; has dressing over right jaw with drain in situ. Neck: Supple, No JVD, Negative Carotid Bruits Lungs: Clear to auscultation, Normal air movement, No rhonchi, No wheeze, No rales Cardiovascular: Regular rate, Regular Rhythm, Normal S1, Normal S2, No murmurs Abdomen: Bowel Sounds Present, Soft, Non Tender, Non-Distended, No Hepato- splenomegaly Extremities: No clubbing, No cyanosis, No edema, Capillary Refill Less than 3 Seconds Skin: No rashes, No breakdown Musculoskeletal: No Tenderness to Palpation of Joints or Extremities Lymphatic: No Cervical, Supraclavicular, or Inguinal Adenopathy Neurological: Cranial nerves II-XII grossly intact, Neuro grossly intact, Motor Exam 5/5 strength throughout Psych/Mental Status: Normal Affect, Appropriate, Alert and oriented to time, place, person, mood and affect Laboratory Results 09/27/18 10:36: Diff Path Review Reviewed 09/28/18 10:55: Urine Test Negative 09/29/18 05:25: WBC 14.3 H, RBC 3.83 L, Hgb 12.1, Hct 35.1 L, MCV 91.6, MCH 31.6, MCHC 34.5, RDW 12.6, RDW Differential 41.7, Plt Count 263, MPV 10.9, Immature Gran % (Auto) 0.200, Neut % (Auto) 87.7 H, Lymph % (Auto) 6.0 L, [place] % (Auto) 6.1, Eos % (Auto) 0.0, Baso % (Auto) 0.0, Absolute Neuts (auto) 12.6 H, Absolute Lymphs (auto) 0.86, Total Counted Not Reportable 09/29/18 05:25: Sodium 140, Potassium 4.3, Chloride 110 H, Carbon Dioxide 21.0, Anion Gap 9, BUN 16, Creatinine 0.59, Estim Creat Clear Calc 106.17, Est GFR (MDRD) Af Amer 142, Est GFR (MDRD) Non-Af 117, BUN/Creatinine Ratio 27.0 H, Glucose 132 H, Calcium 8.6 Diagnostic Data Soft Tissue Neck CT 09/27/18 11:32 IMPRESSION: Inhomogeneous enlargement and enhancement of the right submandibular gland with the surrounding edema suggestive of phlegmon. Overlying skin thickening and infiltration of the subcutaneous fat. Electronically Signed: Mk Cornelius, at 12:26 EDT , Service support , Current Medications Acetaminophen (Tylenol) 650 mg PO Q6H PRN PRN PRN Reason: Mild Pain (1-3)/Temp > 100.7 F Last Admin: 09/29/18 05:25 Dose: 650 mg Dextrose (D50w Syringe) 0 gm IV X1 PRN; Protocol PRN Reason: Hypoglycemia Enoxaparin Sodium (Lovenox) 40 mg SC DAILY@1000 APRIL Last Admin: 09/29/18 09:24 Dose: 40 mg Glucagon () 1 mg IM .X1 PRN PRN Reason: Hypoglycemia Clindamycin Phosphate 600 mg/ (Dextrose) 54 mls @ 100 mls/hr IV Q6 APRIL Last Admin: 09/29/18 05:26 Dose: 100 mls/hr Sodium Chloride () 5 - 15 ml IV UD PRN PRN Reason: SALINE FLUSH Last Admin: 09/28/18 11:45 Dose: 10 ml Medical Necessity - Tobacco Use Smoking Status: Current every day smoker Tobacco Use: Cigarettes Assessment/Plan All Active Problems (Last Reviewed 03/02/18 @ 13:05 by Bella Garcia) No significant past medical history (Acute) Dental abscess (Acute) Sepsis (Acute) Cellulitis and abscess of face (Acute) 43 y/o female admitted with a complaint of right jaw swelling and pain. 1. Right submandibular cellulitis and abscess * s/p I&D; today is POD 1 * wbc is 14.3 today * on IV clindamycin * blood cultures pending; wound cultures and swab pending * on clear liquid diet now; advance as tolerated. * oral surgeon on board * DVT prophylaxis: heparin Disposition: dc home today, to follow up with oral surgeon in his office to [place] for removal of drains. Will dc home on PO clindamycin for 7 days Code Visit OBSV E&M: [id number] Subsequent observation care L2
--- NOTE | 2018-09-29 11:45 | CASEMGMT ---
Social Work Note SW in to speak with pt regarding Advanced Directives. SW met with pt, introduced self and role at [facility]. Pt is alert and orientated x4. Pt completed HCPOA, but denied completing LW at this time. Pt states she thinks she already completed LW. SW provided pt with social service rac card in the event she hasn't completed LW and would like to schedule an appointment to complete LW. Pt states understanding. SW placed copy of HCPOA on pt's chart, provided pt with original. Nai Márquez EDUCATION REP, PHILOSOPHY FACULTY
--- NOTE | 2018-09-29 13:05 | PCM.DC ---
- Discharge Diagnoses Current Active Problems: Current Active and Chronic Problems (Last Reviewed 03/02/18 @ 13:05 by Bella Garcia) No significant past medical history (Acute) Dental abscess (Acute) Sepsis (Acute) Cellulitis and abscess of face (Acute) You will use the following diet at home:: Clear liquid Your liquids should be the consistency of: Regular/Thin Discharge Activity: Return to Normal Activity Weight Bearing Status: Weight bearing as tolerated Call your doctor if your incision/area has: Continuous Slow Oozing, Sudden Increased Bleeding, Increased Pain/ Swelling, Increased Redness, Foul Smelling Discharge, Swelling at the incision site Call your doctor if you observe: Fever of 101 or Higher, Shortness of breath Instructions: Abscess Drainage, Discharge Instructions for Cellulitis, ED Dental Abscess Facial Cellulitis Additional Instructions: to drink clear liquids only. Allergies/Adverse Reactions: Allergies Penicillins Allergy (Mild, Verified 09/27/18 10:02) severe vomiting Sulfa (Sulfonamide Antibiotics) Allergy (Mild, Verified 09/27/18 10:02) hives Medications to take at Discharge levonorgestrel 20 mcg/24 hours (5 yrs) 52 mg intrauterine device 1 insert INTRAUTERINE ONCE 01/26/18 Multivitamin [One-Daily Multi-Vitamin] 1 each PO DAILY 09/27/18 Acetaminophen [Tylenol Tablet] 650 mg PO Q6H PRN PRN #20 tablet 09/29/18 Clindamycin HCl 300 mg PO 4X/DAY #28 capsule 09/29/18 The following prescriptions were given: Acetaminophen [Tylenol Tablet] 650 mg PO Q6H PRN PRN #20 tablet PRN Reason: Mild Pain (1-3)/Temp > 100.7 F Clindamycin HCl 300 mg PO 4X/DAY #28 capsule Primary Care Physician: Care Physician,No Primary [Primary Care Provider] - Test Results: Test results from this visit will be discussed in further detail at your follow-up appointment, if applicable. Please Follow Up With: Alden Joy, NUPUR - [phone] When: tomorrow in his office to remove drain Proposed Discharge Date: 09/29/18
--- NOTE | 2018-09-29 13:09 | DCINST_ITS ---
- Discharge Diagnoses Current Active Problems: Current Active and Chronic Problems (Last Reviewed 03/02/18 @ 13:05 by Bella Garcia) No significant past medical history (Acute) Dental abscess (Acute) Sepsis (Acute) Cellulitis and abscess of face (Acute) You will use the following diet at home:: Clear liquid Your liquids should be the consistency of: Regular/Thin Discharge Activity: Return to Normal Activity Weight Bearing Status: Weight bearing as tolerated Call your doctor if your incision/area has: Continuous Slow Oozing, Sudden Increased Bleeding, Increased Pain/ Swelling, Increased Redness, Foul Smelling Discharge, Swelling at the incision site Call your doctor if you observe: Fever of 101 or Higher, Shortness of breath Instructions: Abscess Drainage, Discharge Instructions for Cellulitis, ED Dental Abscess Facial Cellulitis Additional Instructions: to drink clear liquids only. Allergies/Adverse Reactions: Allergies Penicillins Allergy (Mild, Verified 09/27/18 10:02) severe vomiting Sulfa (Sulfonamide Antibiotics) Allergy (Mild, Verified 09/27/18 10:02) hives Medications to take at Discharge levonorgestrel 20 mcg/24 hours (5 yrs) 52 mg intrauterine device 1 insert INTRAUTERINE ONCE 01/26/18 Multivitamin [One-Daily Multi-Vitamin] 1 each PO DAILY 09/27/18 Acetaminophen [Tylenol Tablet] 650 mg PO Q6H PRN PRN #20 tablet 09/29/18 Clindamycin HCl 300 mg PO 4X/DAY #28 capsule 09/29/18 The following prescriptions were given: Acetaminophen [Tylenol Tablet] 650 mg PO Q6H PRN PRN #20 tablet PRN Reason: Mild Pain (1-3)/Temp > 100.7 F Clindamycin HCl 300 mg PO 4X/DAY #28 capsule Primary Care Physician: Care Physician,No Primary [Primary Care Provider] - Test Results: Test results from this visit will be discussed in further detail at your follow- up appointment, if applicable. Please Follow Up With: Alden Joy, NUPUR - [phone] When: tomorrow in his office to remove drain Proposed Discharge Date: 09/29/18
--- NOTE | 2018-09-29 13:13 | PCM.DC.SUM ---
Discharge Date and Diagnosis - Problem List Patient Problems: Active and Suspected Problems (Last Reviewed 03/02/18 @ 13:05 by Bella Garcia) No significant past medical history (Acute) Dental abscess (Acute) Sepsis (Acute) Cellulitis and abscess of face (Acute) Date of Admission: 09/27/18 Date of Discharge: 09/29/18 - Primary Discharge Diagnosis Active and Suspected Problems (Last Reviewed 03/02/18 @ 13:05 by Bella Garcia) No significant past medical history (Acute) Dental abscess (Acute) Sepsis (Acute) Cellulitis and abscess of face (Acute) Hospital Course and Treatment Imaging Results: Diagnostic Data Soft Tissue Neck CT 09/27/18 11:32 IMPRESSION: Inhomogeneous enlargement and enhancement of the right submandibular gland with the surrounding edema suggestive of phlegmon. Overlying skin thickening and infiltration of the subcutaneous fat. 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 She was admitted through the ED on 09/27/2018 with a complaint of right jaw swelling and pain. Patient states she is had a toothache and started having right upper jaw pain a few days prior to presentation. She called her dentist and was scheduled for an appointment 1 day ago. However symptoms worsen and so she went to an urgent care center where she was started on p.o. clindamycin. She saw her dentist yesterday and was scheduled for 3 Wood canals in 2 days time. However symptoms progressively worsened and swelling got bigger and warmer and she was having difficulty swallowing and drinking due to pain. She did not have any difficulty with breathing or any wheezing or stridor. She also denied any fever chills, nausea or vomiting. Review of systems otherwise negative. In the ED, vitals were significant for temperature of 99.3 Fahrenheit. CBC showed leukocytosis of 16.1 and BMP was within normal limits. She had a soft tissue neck CT which showed inhomogenous enlargement and enhancement of the right submandibular gland with surrounding edema suggestive of phlegmon, as well as overlying skin thickening and infiltration of the subcutaneous fat . She was admitted to be managed for cellulitis of right jaw with submandibular abscess. She was started on IV clindamycin. She was hydrated with IV fluids and given pain meds. She went for incision and drainage of the account manager employee benefits space abscess on 09/28/2018. She had a drain left in place after the procedure. Patient tolerated procedure well and remained stable. She was discharged home on 09/29/2018 with a prescription for p.o. clindamycin. She is to follow-up with oral maxillofacial surgeon on 09/30/2018 for possible removal of drains. She is to be on a clear liquid diet until she is evaluated by maxillofacial surgeon. Patient seen and examined. She felt well and only complained of mild sore throat due to intubation for procedure. Pain in the right shoulder improved significantly and purulent exudate had been sent for culture. Review of systems otherwise negative. Labs and vitals reviewed. Home medications reviewed and reconciled. o/e: Vital Signs Height 5 ft 4.17 in Weight: 139 lb 5.314 oz Weight in Pounds 139.3 lbs Pulse Ox 97 Temperature 98.6 F Pulse Rate 55 Respiratory Rate 16 Blood Pressure 122/48 Blood Pressure Position Sitting General: Alert, Oriented x3, Cooperative, No apparent distress HEENT: Atraumatic, PERRLA, EOMI, Normocephalic, - Oral: Dry Mucosa, - - right jaw swelling has improved significantly; has dressing over right jaw with drain in situ. Neck: Supple, No JVD, Negative Carotid Bruits Lungs: Clear to auscultation, Normal air movement, No rhonchi, No wheeze, No rales Cardiovascular: Regular rate, Regular Rhythm, Normal S1, Normal S2, No murmurs Abdomen: Bowel Sounds Present, Soft, Non Tender, Non-Distended, No Hepato-splenomegaly Extremities: No clubbing, No cyanosis, No edema, Capillary Refill Less than 3 Seconds Skin: No rashes, No breakdown Musculoskeletal: No Tenderness to Palpation of Joints or Extremities Lymphatic: No Cervical, Supraclavicular, or Inguinal Adenopathy Neurological: Cranial nerves II-XII grossly intact, Neuro grossly intact, Motor Exam 5/5 strength throughout Psych/Mental Status: Normal Affect, Appropriate, Alert and oriented to time, place, person, mood and affect Plan is to dc hjome today, to follow up with oral maxillofacial surgeon Dr Joy tomorrow. Patient Problems: Active and Suspected Problems (Last Reviewed 03/02/18 @ 13:05 by Bella Garcia) No significant past medical history (Acute) Dental abscess (Acute) Sepsis (Acute) Cellulitis and abscess of face (Acute) - Physical Exam Vital Signs Temp Pulse Resp BP Pulse Ox 98.6 F 55 L 16 122/48 H 97 09/29/18 08:30 09/29/18 08:30 09/29/18 08:30 09/29/18 08:30 09/29/18 08:30 Oxygen Delivery Method Room Air Weight: 139 lb 5.314 oz Body Mass Index (BMI) 23.8 Intake and Output for Last 24 Hours 09/27/18 09/28/18 09/29/18 23:59 23:59 23:59 Intake Total 593 / 593 2331 / 2331 786 / 786 Output Total 450 / 450 200 / 200 Balance 593 / 593 1881 / 1881 586 / 586 Laboratory Tests Past 24 Hrs 09/27/18 09/28/18 09/29/18 10:36 10:55 05:25 WBC 14.3 H RBC 3.83 L Hgb 12.1 Hct 35.1 L MCV 91.6 MCH 31.6 MCHC 34.5 RDW 12.6 RDW Differential 41.7 Plt Count 263 MPV 10.9 Immature Gran % (Auto) 0.200 Neut % (Auto) 87.7 H Lymph % (Auto) 6.0 L [place] % (Auto) 6.1 Eos % (Auto) 0.0 Baso % (Auto) 0.0 Absolute Neuts (auto) 12.6 H Absolute Lymphs (auto) 0.86 Total Counted Not Reportable Diff Path Review Reviewed Sodium Potassium Chloride Carbon Dioxide Anion Gap BUN Creatinine Estim Creat Clear Calc Est GFR (MDRD) Af Amer Est GFR (MDRD) Non-Af BUN/Creatinine Ratio Glucose Calcium Urine Test Negative 09/29/18 05:25 WBC RBC Hgb Hct MCV MCH MCHC RDW RDW Differential Plt Count MPV Immature Gran % (Auto) Neut % (Auto) Lymph % (Auto) [place] % (Auto) Eos % (Auto) Baso % (Auto) Absolute Neuts (auto) Absolute Lymphs (auto) Total Counted Diff Path Review Sodium 140 Potassium 4.3 Chloride 110 H Carbon Dioxide 21.0 Anion Gap 9 BUN 16 Creatinine 0.59 Estim Creat Clear Calc 106.17 Est GFR (MDRD) Af Amer 142 Est GFR (MDRD) Non-Af 117 BUN/Creatinine Ratio 27.0 H Glucose 132 H Calcium 8.6 Urine Test Discharge Diet: - - clear liquid diet till review by surgeon and drains are removed. Discharge Activity: Return to Normal Activity Weight Bearing Status: Weight bearing as tolerated Call your doctor if your incision/area has: Continuous Slow Oozing, Sudden Increased Bleeding, Increased Pain/ Swelling, Increased Redness, Foul Smelling Discharge, Swelling at the incision site Call your doctor if you observe: Fever of 101 or Higher, Shortness of breath Home Medications: Medications to take at Discharge levonorgestrel 20 mcg/24 hours (5 yrs) 52 mg intrauterine device 1 insert INTRAUTERINE ONCE 01/26/18 Multivitamin [One-Daily Multi-Vitamin] 1 each PO DAILY 09/27/18 Acetaminophen [Tylenol Tablet] 650 mg PO Q6H PRN PRN #20 tablet 09/29/18 Clindamycin HCl 300 mg PO 4X/DAY #28 capsule 09/29/18 Following Prescrptions Were Given to Patient: Acetaminophen [Tylenol Tablet] 650 mg PO Q6H PRN PRN #20 tablet PRN Reason: Mild Pain (1-3)/Temp > 100.7 F Clindamycin HCl 300 mg PO 4X/DAY #28 capsule Primary Care Physician: Care Physician,No Primary [Primary Care Provider] - Please Follow Up With: Alden Joy, KIRANS - [phone] When: tomorrow in his office to remove drain Patient Instructions: Abscess Drainage, Discharge Instructions for Cellulitis, ED Dental Abscess Facial Cellulitis Disposition: Home Minutes spent on discharge:: 45 Patient Condition:: Stable Medical Necessity - Tobacco Use Smoking Status: Current every day smoker Tobacco Use: Cigarettes Meaningful Use Info Meaningful Use Diagnoses (Choose all that apply): None applicable Code Visit Inpatient E&M: 03256 Disch Hosp
--- NOTE | 2018-09-29 13:16 | DS.PCM_ITS ---
Discharge Date and Diagnosis - Problem List Patient Problems: Active and Suspected Problems (Last Reviewed 03/02/18 @ 13:05 by Bella Garcia) No significant past medical history (Acute) Dental abscess (Acute) Sepsis (Acute) Cellulitis and abscess of face (Acute) Date of Admission: 09/27/18 Date of Discharge: 09/29/18 - Primary Discharge Diagnosis Active and Suspected Problems (Last Reviewed 03/02/18 @ 13:05 by Bella Garcia) No significant past medical history (Acute) Dental abscess (Acute) Sepsis (Acute) Cellulitis and abscess of face (Acute) Hospital Course and Treatment Imaging Results: Diagnostic Data Soft Tissue Neck CT 09/27/18 11:32 IMPRESSION: Inhomogeneous enlargement and enhancement of the right submandibular gland with the surrounding edema suggestive of phlegmon. Overlying skin thickening and infiltration of the subcutaneous fat. Electronically Signed: Mk Adryan, at 12:26 EDT , Service support , oral maxillofacial surgeon Operations: - - incision and drainage of right hand potter spaces Summary of Care Provided: The patient is a 43 year old F with no significant past medical history. She was admitted through the ED on 09/27/2018 with a complaint of right jaw swelling and pain. Patient states she is had a toothache and started having right upper jaw pain a few days prior to presentation. She called her dentist and was scheduled for an appointment 1 day ago. However symptoms worsen and so she went to an urgent care center where she was started on p.o. clindamycin. She saw her dentist yesterday and was scheduled for 3 Wood canals in 2 days time. However symptoms progressively worsened and swelling got bigger and warmer and she was having difficulty swallowing and drinking due to pain. She did not have any difficulty with breathing or any wheezing or stridor. She also denied any fever chills, nausea or vomiting. Review of systems otherwise negative. In the ED, vitals were significant for temperature of 99.3 Fahrenheit. CBC showed leukocytosis of 16.1 and BMP was within normal limits. She had a soft tissue neck CT which showed inhomogenous enlargement and enhancement of the right submandibular gland with surrounding edema suggestive of phlegmon, as well as overlying skin thickening and infiltration of the subcutaneous fat . She was admitted to be managed for cellulitis of right jaw with submandibular abscess. She was started on IV clindamycin. She was hydrated with IV fluids and given pain meds. She went for incision and drainage of the hand potter space abscess on 09/28/2018. She had a drain left in place after the procedure. Patient tolerated procedure well and remained stable. She was discharged home on 09/29/2018 with a prescription for p.o. clindamycin. She is to follow-up with oral maxillofacial surgeon on 09/30/2018 for possible removal of drains. She is to be on a clear liquid diet until she is evaluated by maxillofacial surgeon. Patient seen and examined. She felt well and only complained of mild sore throat due to intubation for procedure. Pain in the right shoulder improved significantly and purulent exudate had been sent for culture. Review of systems otherwise negative. Labs and vitals reviewed. Home medications reviewed and reconciled. o/e: Vital Signs Height 5 ft 4.17 in Weight: 139 lb 5.314 oz Weight in Pounds 139.3 lbs Pulse Ox 97 Temperature 98.6 F Pulse Rate 55 Respiratory Rate 16 Blood Pressure 122/48 Blood Pressure Position Sitting General: Alert, Oriented x3, Cooperative, No apparent distress HEENT: Atraumatic, PERRLA, EOMI, Normocephalic, - Oral: Dry Mucosa, - - right jaw swelling has improved significantly; has dressing over right jaw with drain in situ. Neck: Supple, No JVD, Negative Carotid Bruits Lungs: Clear to auscultation, Normal air movement, No rhonchi, No wheeze, No rales Cardiovascular: Regular rate, Regular Rhythm, Normal S1, Normal S2, No murmurs Abdomen: Bowel Sounds Present, Soft, Non Tender, Non-Distended, No Hepato- splenomegaly Extremities: No clubbing, No cyanosis, No edema, Capillary Refill Less than 3 Seconds Skin: No rashes, No breakdown Musculoskeletal: No Tenderness to Palpation of Joints or Extremities Lymphatic: No Cervical, Supraclavicular, or Inguinal Adenopathy Neurological: Cranial nerves II-XII grossly intact, Neuro grossly intact, Motor Exam 5/5 strength throughout Psych/Mental Status: Normal Affect, Appropriate, Alert and oriented to time, place, person, mood and affect Plan is to dc hjome today, to follow up with oral maxillofacial surgeon Dr Joy tomorrow. Patient Problems: Active and Suspected Problems (Last Reviewed 03/02/18 @ 13:05 by Bella Garcia) No significant past medical history (Acute) Dental abscess (Acute) Sepsis (Acute) Cellulitis and abscess of face (Acute) - Physical Exam Vital Signs Temp Pulse Resp BP Pulse Ox 98.6 F 55 L 16 122/48 H 97 09/29/18 08:30 09/29/18 08:30 09/29/18 08:30 09/29/18 08:30 09/29/18 08:30 Oxygen Delivery Method Room Air Weight: 139 lb 5.314 oz Body Mass Index (BMI) 23.8 Intake and Output for Last 24 Hours 09/27/18 09/28/18 09/29/18 23:59 23:59 23:59 Intake Total 593 / 593 2331 / 2331 786 / 786 Output Total 450 / 450 200 / 200 Balance 593 / 593 1881 / 1881 586 / 586 Laboratory Tests Past 24 Hrs 09/27/18 09/28/18 09/29/18 10:36 10:55 05:25 WBC 14.3 H RBC 3.83 L Hgb 12.1 Hct 35.1 L MCV 91.6 MCH 31.6 MCHC 34.5 RDW 12.6 RDW Differential 41.7 Plt Count 263 MPV 10.9 Immature Gran % (Auto) 0.200 Neut % (Auto) 87.7 H Lymph % (Auto) 6.0 L [place] % (Auto) 6.1 Eos % (Auto) 0.0 Baso % (Auto) 0.0 Absolute Neuts (auto) 12.6 H Absolute Lymphs (auto) 0.86 Total Counted Not Reportable Diff Path Review Reviewed Sodium Potassium Chloride Carbon Dioxide Anion Gap BUN Creatinine Estim Creat Clear Calc Est GFR (MDRD) Af Amer Est GFR (MDRD) Non-Af BUN/Creatinine Ratio Glucose Calcium Urine Test Negative 09/29/18 05:25 WBC RBC Hgb Hct MCV MCH MCHC RDW RDW Differential Plt Count MPV Immature Gran % (Auto) Neut % (Auto) Lymph % (Auto) [place] % (Auto) Eos % (Auto) Baso % (Auto) Absolute Neuts (auto) Absolute Lymphs (auto) Total Counted Diff Path Review Sodium 140 Potassium 4.3 Chloride 110 H Carbon Dioxide 21.0 Anion Gap 9 BUN 16 Creatinine 0.59 Estim Creat Clear Calc 106.17 Est GFR (MDRD) Af Amer 142 Est GFR (MDRD) Non-Af 117 BUN/Creatinine Ratio 27.0 H Glucose 132 H Calcium 8.6 Urine Test Discharge Diet: - - clear liquid diet till review by surgeon and drains are removed. Discharge Activity: Return to Normal Activity Weight Bearing Status: Weight bearing as tolerated Call your doctor if your incision/area has: Continuous Slow Oozing, Sudden Increased Bleeding, Increased Pain/ Swelling, Increased Redness, Foul Smelling Discharge, Swelling at the incision site Call your doctor if you observe: Fever of 101 or Higher, Shortness of breath Home Medications: Medications to take at Discharge levonorgestrel 20 mcg/24 hours (5 yrs) 52 mg intrauterine device 1 insert INTRAUTERINE ONCE 01/26/18 Multivitamin [One-Daily Multi-Vitamin] 1 each PO DAILY 09/27/18 Acetaminophen [Tylenol Tablet] 650 mg PO Q6H PRN PRN #20 tablet 09/29/18 Clindamycin HCl 300 mg PO 4X/DAY #28 capsule 09/29/18 Following Prescrptions Were Given to Patient: Acetaminophen [Tylenol Tablet] 650 mg PO Q6H PRN PRN #20 tablet PRN Reason: Mild Pain (1-3)/Temp > 100.7 F Clindamycin HCl 300 mg PO 4X/DAY #28 capsule Primary Care Physician: Care Physician,No Primary [Primary Care Provider] - Please Follow Up With: Alden Joy, KIRANS - [phone] When: tomorrow in his office to remove drain Patient Instructions: Abscess Drainage, Discharge Instructions for Cellulitis, ED Dental Abscess Facial Cellulitis Disposition: Home Minutes spent on discharge:: 45 Patient Condition:: Stable Medical Necessity - Tobacco Use Smoking Status: Current every day smoker Tobacco Use: Cigarettes Meaningful Use Info Meaningful Use Diagnoses (Choose all that apply): None applicable Code Visit Inpatient E&M: 25253 Disch Hosp
[2018-09-29 14:56] VITALS: BP 116/58; PULSE 60; RESP 16; TEMP 36.7; O2SAT 99
[2018-09-29] MEDS: 0.9% NaCl Peripheral Flush Adult/Peds IV (17:05)
== END 2018-09-29 18:09 | disposition home or self-care (01) ==
LOC: ED 12:31 → MS3 12:44
PROVIDERS: Anesthesiology; Dentist Oral and Maxillofacial Surgery; Admitting Provider Student in an Organized Health Care Education/Training Program; Emergency Provider Emergency Medicine; Referring Provider Student in an Organized Health Care Education/Training Program; Visit Provider Student in an Organized Health Care Education/Training Program
PROC: (CPT 41009; principal; 2018-09-28 13:50)
DX: K04.7 Periapical abscess without sinus (principal); L03.211 Cellulitis of face; F17.210 Nicotine dependence, cigarettes, uncomplicated
CPT/HCPCS: 41009; 36415; 70491; 80048; 81025; 83605; 85025; 87015; 87040; 87070; 87075; 87076; 87077; 87102; 87116; 87186; 87205; 87206; 96361; 96365; 96366; 96372; 96375; 96376; 99218; 99285; 99406; J7030; J7050; Q9967; A4216; G0378; J2405

== ENCOUNTER → 2019-07-19 10:14 | Outpatient (CLI) | payer OTHER, SELFPAY ==
[2018-09-28 11:55] VITALS: BMI 23.8
--- NOTE | 2019-07-19 10:15 | BI_ITS ---
MAMMOGRAPHY - BILATERAL SCREENING REASON FOR EXAM: Female, 44 years old. Routine annual screening examination. PERTINENT HISTORY: Grandmother had breast cancer TECHNIQUE: Digital bilateral breast schuyler (3D mammographic acquisition) in the CC and MLO projections. 2-D mediolateral oblique (MLO) and craniocaudad (CC) views of both breasts were obtained. CAD: Full Field Digital Mammography with Computer Added Detection was performed. COMPARISON: Previously obtained on 02/11/2020 FINDINGS: Breast Composition: Dense internal breath structures noted in the breasts bilaterally. There are no dominant masses or suspicious calcifications. No other significant abnormalities are identified. BI/SCREEN MAMM (CAD) W/SCHUYLER BILAT IMPRESSION: Stable bilateral screening mammogram. Yearly follow-up mammogram recommended. (A) ASSESSMENT CATEGORY: BIRADS Category 1: Negative. A letter regarding these results will be sent to the patient by the facility within 30 days. Approximately 10% of breast cancers are not detected by mammography. A normal mammogram should not delay biopsy of a clinically suspicious abnormality. [id number] Electronically Signed: Walter Sequeira, at 16:58 EST Tel , Service support ,
== END ==
PROVIDERS: Referring Provider Obstetrics & Gynecology; Visit Provider Obstetrics & Gynecology
DX: Z12.31 Encounter for screening mammogram for malignant neoplasm of breast (principal)
CPT/HCPCS: 77063; 77067

== ENCOUNTER → 2020-05-03 14:28 | Outpatient (CLI) | payer OTHER, SELFPAY ==
[2018-09-28 11:55] VITALS: BMI 23.8
== END ==
PROVIDERS: PCP Internal Medicine; Referring Provider Nurse Practitioner Family; Visit Provider Nurse Practitioner Family
DX: R19.7 Diarrhea, unspecified (principal)
CPT/HCPCS: 87635; U0003

== ENCOUNTER → 2020-05-15 11:05 | Outpatient (CLI) | payer OTHER, SELFPAY ==
[2020-05-15 12:48] LABS: Hematocrit 39.5 % (37-47); Hemoglobin 13.6 g/dL (12.0-15.0); Mean Corp Hgb Conc 34.4 g/dL (32-36); Mean Corpuscular Hgb 31.6 pg (27.0-32.0); Mean Corpuscular Volume 91.9 fL (81-99); Mean Platelet Vol. 10.4 fl (6.2-12.0); Platelet Count 341 K/mm3 (150-450); RBC Distribution Width CV 12.1 % (11.6-14.6); RBC Distribution Width SD 40.6 fl (35.1-43.9); White Blood Count 10.1 K/mm3 (4.4-11.0)
[2020-05-15 13:22] LABS: CRP < 2.90 mg/L (0.0-3.0)
[2020-05-16 20:07] LABS: Endomysial Antibody IgA Negative (Negative)
[2020-05-16 21:39] LABS: Immunoglobulin A 115 mg/dL (87-352); t-Transglutaminase IgA <2 U/mL (0-3)
== END ==
PROVIDERS: PCP Internal Medicine; Referring Provider Internal Medicine Gastroenterology; Visit Provider Internal Medicine Gastroenterology
DX: R19.7 Diarrhea, unspecified (principal)
CPT/HCPCS: 36415; 82784; 83516; 85027; 86140; 86255

== ENCOUNTER → 2020-06-10 10:07 | Outpatient (CLI) | payer OTHER, SELFPAY ==
[2020-06-10 09:51] VITALS: BMI 23.1
[2020-06-10 13:03] LABS: BUN 12 mg/dL (7-18); Creatinine, Serum 0.66 mg/dL (0.55-1.02); Glucose 75 mg/dL (74-106)
[2020-06-10 13:04] LABS: ALB/GLOB Ratio 1.2 RATIO (0.9-2.4); AST(SGOT) 18 U/L (15-37); Alanine Aminotransfer ALT/SGPT 24 U/L (13-56); Albumin, Serum 4.2 g/dL (3.2-5.0); Alkaline Phosphatase 70 U/L (45-117); Anion Gap 5 (5-15); BUN/Creat Ratio 18.3 RATIO (10-20); Calcium,Total 9.1 mg/dL (8.5-10.1); Chloride 104 mmol/L (98-107); EST Glomerular Filtration Rate 104 mL/min (>60); Est Glom Filt Rate - Afr Amer 126 mL/min (>60); Globulin 3.4 g/dL (2.2-4.2); Protein, Total 7.6 g/dL (6.4-8.2); Sodium Level 138 mmol/L (136-145)
== END ==
PROVIDERS: PCP Internal Medicine; Visit Provider Internal Medicine
DX: K52.839 Microscopic colitis, unspecified (principal)
CPT/HCPCS: 36415; 80053

== ENCOUNTER → 2020-07-22 10:24 | Outpatient (CLI) | payer OTHER, SELFPAY ==
[2020-06-10 09:51] VITALS: BMI 23.1
--- NOTE | 2020-07-22 12:00 | NEURO ---
NCS and/or EMG Patient Report Ordering Doctor: AnandadarrelFostersergionorma DATE OF SERVICE: 07/22/20 Indication: Bilateral hand pain, numbness, tingling intermittently. 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 Bracing has helped. Evaluate for median neuropathy across the wrist. Findings: Nerve conduction studies were performed in the right and left upper extremities. The right median motor study recording the abductor pollicis brevis showed a normal amplitude, borderline distal latency and normal conduction velocity. The right ulnar motor study recording the abductor digiti minimi showed a normal amplitude, normal distal latency and normal conduction velocity. No conduction block or focal slowing was present across the elbow. Right median-ulnar lumbrical / interosseous motor latencies showed a prolonged median latency compared to the ulnar. The right median sensory response recording digit two showed a normal amplitude, prolonged latency and slowed conduction velocity. The right ulnar sensory response recording digit five showed a normal amplitude, latency and conduction velocity. The right radial sensory response recording over the extensor snuff box showed a normal amplitude, latency and conduction velocity. The left median motor study recording the abductor pollicis brevis showed a normal amplitude, prolonged distal latency and borderline conduction velocity. The left ulnar motor study recording the abductor digiti minimi showed a normal amplitude, normal distal latency and normal conduction velocity. No conduction block or focal slowing was present across the elbow. Left median-ulnar lumbrical / interosseous motor latencies showed a prolonged median latency compared to the ulnar. The left median sensory response recording digit two showed a normal amplitude, prolonged latency and slowed conduction velocity. The left ulnar sensory response recording digit five showed a normal amplitude, latency and conduction velocity. The left radial sensory response recording over the extensor snuff box showed a normal amplitude, latency and conduction velocity. Needle EMG of the right upper extremity and cervical paraspinal muscles was performed. No denervation was seen in any muscle. The motor units in the abductor pollicis brevis were polyphasic, but otherwise unremarkable. All other examined muscles demonstrated normal motor unit morphology, activation and recruitment patterns. Needle EMG of the left abductor pollicis brevis muscle was performed. No denervation was seen. Motor unit morphology, activation and recruitment patterns were normal. Impression: This is an abnormal study. 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 The pathophysiology is predominately demyelination. These findings would be compatible with the clinical diagnosis of carpal tunnel syndrome. In addition, there is no electrophysiologic evidence of a superimposed cervical radiculopathy in the right upper extremity. Sage Sauceda D.O.
== END ==
LOC: PSN 10:27
PROVIDERS: PCP Internal Medicine; Referring Provider Internal Medicine; Visit Provider Internal Medicine
DX: G56.03 Carpal tunnel syndrome, bilateral upper limbs (principal)
CPT/HCPCS: 95885; 95886; 95913

== ENCOUNTER → 2021-02-11 12:01 | Outpatient (CLI) | payer OTHER, SELFPAY ==
[2021-02-11 13:12] LABS: Prolactin 4.9 ng/mL; Thyroid Stim Hormone (TSH) 2.98 uIU/mL (0.358-3.74)
[2021-02-15 21:19] LABS: Testosterone Free 0.7 pg/mL (0.0-4.2)
[2021-02-17 21:48] LABS: HPV APTIMA, High Risk Negative (Negative)
== END ==
PROVIDERS: PCP Internal Medicine; Referring Provider Nurse Practitioner Women's Health; Visit Provider Nurse Practitioner Women's Health
DX: Z12.4 Encounter for screening for malignant neoplasm of cervix (principal); N92.6 Irregular menstruation, unspecified; L68.0 Hirsutism
CPT/HCPCS: 36415; 82627; 84146; 84402; 84443; 87624; 88175; 82626; G0145

== ENCOUNTER → 2021-02-18 13:22 | Outpatient (CLI) | payer OTHER, SELFPAY ==
--- NOTE | 2021-02-18 13:25 | BI_ITS ---
MAMMOGRAPHY - BILATERAL SCREENING REASON FOR EXAM: Female, 45 years old. Routine annual screening examination. PERTINENT HISTORY: Grandmother with breast cancer. Aunt with breast cancer. TECHNIQUE: Digital bilateral breast schuyler (3D mammographic acquisition) in the CC and MLO projections. 2-D mediolateral oblique (MLO) and craniocaudad (CC) views of both breasts were obtained. CAD: Full Field Digital Mammography with Computer Added Detection was performed. COMPARISON: Comparison is made with prior study dated 07/19/2019 and 02/18/2018. FINDINGS: Breast Composition: The breasts are extremely dense, which lowers the sensitivity of mammography. There are no dominant masses or suspicious calcifications. No other significant abnormalities are identified. There has been no significant change since the prior study. BI/SCRN MAMM (CAD)W/SCHUYLER BILAT IMPRESSION: Stable bilateral screening mammogram. Yearly follow-up mammogram recommended. (A) ASSESSMENT CATEGORY: BIRADS Category 1: Negative. A letter regarding these results will be sent to the patient by the facility within 30 days. Approximately 10% of breast cancers are not detected by mammography. A normal mammogram should not delay biopsy of a clinically suspicious abnormality. [id number] Electronically Signed: Mk Cornelius MD at 15:18 EDT , Service support ,
--- NOTE | 2021-02-18 13:25 | US_ITS ---
STUDY: ULTRASOUND OF THE FEMALE PELVIS - COMPLETE REASON FOR EXAM: Female, 45 years old. AUB -- patient has IUD LMP: 02/04/2021 TECHNIQUE: Transabdominal and Transvaginal TECHNICAL QUALITY: Adequate. COMPARISON: None. FINDINGS: The uterus is retroverted and is in a midline position. The uterus measures 12.8 x 7.7 cm. Normal uterine cervix. The endometrium measures 5 mm in thickness, and is hyperechoic. There is no demonstrated endometrial mass. There is a large posterior fibroid. I.U.D. - The patient does have an I.U.D. Shadowing from fibroid makes it difficult to evaluate location of IUD. The right ovary is visualized. The right ovary measures 3.9 x 2.4 x 2.7 cm. 2.5 x 1.6 x 1.7 cm ovarian cyst. There is no visualized right adnexal mass or complex lesion. There is normal arterial and normal venous vascularity. The left ovary is visualized. The left ovary measures 3.4 x 1.8 x 1.7 cm. There is no left ovarian cyst or ovarian mass. There is no visualized left adnexal mass or complex lesion. There is normal arterial and normal venous vascularity. There is no fluid in the cul-de-sac. The pre void volume of the bladder was 434 ml. US/Transvaginal Non- IMPRESSION: Large uterine fibroid. Normal appearing endometrium. Electronically Signed: Waldemar Art MD at 5:22 EDT Tel , Service support ,
--- NOTE | 2021-02-18 13:25 | US_ITS ---
STUDY: ULTRASOUND OF THE FEMALE PELVIS - COMPLETE REASON FOR EXAM: Female, 45 years old. AUB -- patient has IUD LMP: 02/04/2021 TECHNIQUE: Transabdominal and Transvaginal TECHNICAL QUALITY: Adequate. COMPARISON: None. FINDINGS: The uterus is retroverted and is in a midline position. The uterus measures 12.8 x 7.7 cm. Normal uterine cervix. The endometrium measures 5 mm in thickness, and is hyperechoic. There is no demonstrated endometrial mass. There is a large posterior fibroid. I.U.D. - The patient does have an I.U.D. Shadowing from fibroid makes it difficult to evaluate location of IUD. The right ovary is visualized. The right ovary measures 3.9 x 2.4 x 2.7 cm. 2.5 x 1.6 x 1.7 cm ovarian cyst. There is no visualized right adnexal mass or complex lesion. There is normal arterial and normal venous vascularity. The left ovary is visualized. The left ovary measures 3.4 x 1.8 x 1.7 cm. There is no left ovarian cyst or ovarian mass. There is no visualized left adnexal mass or complex lesion. There is normal arterial and normal venous vascularity. There is no fluid in the cul-de-sac. The pre void volume of the bladder was 434 ml. US/Pelvic (Non ) IMPRESSION: Large uterine fibroid. Normal appearing endometrium. Electronically Signed: Waldemar Art MD at 5:22 EDT Tel , Service support ,
== END ==
PROVIDERS: PCP Internal Medicine; Visit Provider Nurse Practitioner Women's Health
DX: Z12.31 Encounter for screening mammogram for malignant neoplasm of breast (principal); N92.6 Irregular menstruation, unspecified; N85.2 Hypertrophy of uterus
CPT/HCPCS: 76830; 76856; 77063; 77067

== ENCOUNTER 2021-05-20 05:22 | Day surgery (SDC) | payer OTHER, SELFPAY ==
--- NOTE | 2021-05-19 10:37 | EKG12_ITS ---
Test Reason : PREOP Blood Pressure : / mmHG Vent. Rate : 082 BPM Atrial Rate : 082 BPM P-R Int : 132 ms QRS Dur : 082 ms QT Int : 350 ms P-R-T Axes : 070 066 065 degrees QTc Int : 408 ms Normal sinus rhythm Normal ECG Confirmed by MAY MONDRAGON, LÓPEZ ([id number]), purchase request editor KIM MCLAUGHLIN ([id number]) on 05/20/2021 9:22:43 AM Referred By: Brigette Arboleda Confirmed By:LÓPEZ OLVERA MD
[2021-05-19 11:30] LABS: Absolute Lymphocyte Count 0.95 X10^3/uL (0.83-4.51); Absolute Neutrophil Count 4.6 X10^3/uL (2.0-7.7); Basophil# 0.05 X10^3/uL; Basophil% 0.7 % (0-1); Eosinophil# 0.25 X10^3/uL; Eosinophils% 3.7 % (0-5); Hematocrit 42.3 % (37-47); Hemoglobin 14.2 g/dL (12.0-15.0); Lymphocyte # 0.95 X10^3/ul (0.83-4.51); Lymphocyte % 13.9 % (19-41); Mean Corp Hgb Conc 33.6 g/dL (32-36); Mean Corpuscular Hgb 31.3 pg (27.0-32.0); Mean Corpuscular Volume 93.4 fL (81-99); Mean Platelet Vol. 10.4 fl (6.2-12.0); Monocyte# 0.96 X10^3/uL; Monocyte% 14.1 % (0-10); NRBC Flagged by Analyzer 0 % (0-5); Neutrophil % 67.3 % (47-70); Platelet Count 273 K/mm3 (150-450); RBC Distribution Width CV 12.6 % (11.6-14.6); RBC Distribution Width SD 43.4 fl (35.1-43.9); Red Blood Count 4.53 M/mm3 (4.2-5.4); White Blood Count 6.8 K/mm3 (4.4-11.0)
[2021-05-19 11:43] LABS: Magnesium 2.1 mg/dL (1.6-2.6)
[2021-05-20] VITALS (17 sets, daily range): BP systolic 95–114; BP diastolic 48–64; PULSE 60–92; RESP 16–17; TEMP 36.2–37.6; O2SAT 95–100; BMI 22.3
[2021-05-20 06:00] LABS: Internal QC Validated? YES +Cl - CLEAR BKGD; Pregnancy, Urine Negative Negative
[2021-05-20 06:05] LABS: Bedside Glucose 59 mg/dL (70-110)
[2021-05-20] MEDS: Lactated Ringers 1,000 ML 40 ML IV (06:17)
[2021-05-20] MEDS: Enoxaparin 40 MG/0.4 ML Syringe SC (06:18)
[2021-05-20] MEDS: dexAMETHasone 10 MG/ML Vial 8 MG IV (06:19)
[2021-05-20] MEDS: Gabapentin 600 MG Tablet PO (06:19)
[2021-05-20] MEDS: Scopolamine 1mg/72hr Patch 1 PATCH TD (06:19)
[2021-05-20] MEDS: Acetaminophen 500 MG Tablet 1000 MG PO (06:20)
[2021-05-20] MEDS: Celecoxib 200 MG Capsule 400 MG PO (06:20)
[2021-05-20] MEDS: Phenazopyridine 95 MG Tablet 190 MG PO (06:20)
--- NOTE | 2021-05-20 06:44 | PCM.HP.BLA ---
History and Physical Date of Admission: 05/20/21 Vital Signs 05/05/21 15:46 Height 5 ft 4 in Weight: 137 lb BMI 23.5 BP 120/70 Intake Visit Reasons: ART BS Is patient in pain?: No Allergies Penicillins Allergy (Mild, Verified 05/05/21 15:46) severe vomiting Sulfa (Sulfonamide Antibiotics) Allergy (Mild, Verified 05/05/21 15:46) hives Medications levonorgestrel 20 mcg/24 hours (7 yrs) 52 mg intrauterine device 1 insert INTRAUTERINE ONCE 01/26/18 [History Confirmed 05/05/21] multivitamin 1 ea PO DAILY 09/27/18 [History Confirmed 05/05/21] diphenhydramine HCl 25 mg capsule 25 mg PO QHS PRN 06/10/20 [History Confirmed 05/05/21] fexofenadine 60 mg tablet 60 mg PO BID PRN 06/10/20 [History Confirmed 05/05/21] omeprazole 40 mg capsule,delayed release 40 mg PO DAILY #90 cap 09/09/20 [Rx Confirmed 05/05/21] dicyclomine 20 mg tablet 20 mg PO TID PRN #90 tablet 10/03/20 [Rx Confirmed 05/05/21] Post menopausal: No Patient : No : No [facility] Medical History Acute colitis Arthritis Back problem bladder/ uti infection Enlarged uterus Sciatica Seasonal allergies Shoulder pain Surgical History History of dental surgery History of endoscopy History of lumpectomy of left breast S/P trigger finger release Family History Father Hypertension Grandmother Diabetes Breast cancer Mother Cervical cancer Aunt Breast cancer Social History Smoking Status: Current every day smoker alcohol intake: current details: occasionally substance use type: does not use caffeine: Yes what type of physical activity do you participate in: other details: work- [employer] seatbelt use: always do you feel safe at home: Yes additional social history: [employer] Patient works at [employer] KARIE Details: AURE CARRERA is a 45 year old who presents for preop visit planning hysterectomy for enlarged uterus with multiple fibroids Female Reproductive History Menopausal Symptoms: No hot flashes, No night sweats, No difficulty concentrating and No change in libido Pregancy History 1 Elective abortions Hx Para Spontaneous abortions Hx # Term Pregnancies Ectopic pregnancies Hx # Pregnancies Multiple births # of living children Past Pregnancies Del. Date Name GA/Weeks Outcome Route Bth Weight Infant Gen [facility] F[facility] Unknown Radha-2001 ROS Const Constitutional: Denies fatigue, night sweats, weight gain or weight loss ENT ENT: Reports system reviewed and no additional complaints, except as documented Cardio Card: Denies chest pain Resp Resp: Denies cough or dyspnea GI GI: Reports as per HPI and change in stool character; Denies constipation, nausea or vomiting : Reports as per HPI; Denies hot flashes, nipple discharge, vaginal discharge, vaginal dryness, vaginal odor or vaginal pruritus Musc Musc: Denies arthralgias, back pain or muscle weakness Skin Skin/Breast: Denies alopecia, change in hair, dry skin, breast mass, breast pain, breast skin changes or nipple discharge Neuro Neuro: Reports system reviewed and no additional complaints, except as documented Psych Psych: Reports system reviewed and no additional complaints, except as documented; Denies change in libido or difficulty concentrating Endo Endo: Denies cold intolerance, excessive sweating, heat intolerance or polydipsia Guillermo/Lymph Hematologic/Lymphatic: Denies easy bleeding, Denies easy bruising and Denies lymphadenopathy Exam Const General: cooperative, healthy appearing, comfortable, no acute distress and well developed Orientation: alert [facility] Head: normal to inspection and normocephalic Ears: hearing grossly normal bilaterally and external ears normal Nose: external nose normal and nares normal Face and sinus: normal facial exam Neck Neck: normal visual inspection and no lymphadenopathy Thyroid: thyroid normal Chest Chest palpation & inspection: normal inspection of the chest Resp Effort & Inspection: normal respiratory effort Auscultation: clear to auscultation bilaterally Cardio Rate: regular rate Rhythm: regular rhythm Heart Sounds: S1 normal and S2 normal GI Inspection: normal to inspection and non-distended Palpation: soft and no hepatosplenomegaly General: bladder normal to palpation External Female Exam: normal external appearance and normal appearance of the urethra Urethra: normal appearance of the urethra, normal palpation and no discharge Speculum Exam - Vagina: normal appearance of the vagina and normal vaginal discharge Speculum Exam - Cervix: normal appearance of the cervix and nontender Bimanual Exam- Vagina & Uterus: normal bimanual exam, bladder normal to palpation, No tender, uterine mobility normal, normal palpation, non-tender, displaced, enlarged (14 week with posterior fibroid) and nodular Bimanual Exam- Adnexa, other: normal adnexae, adnexae mobile, no masses and normal Pelvic Support: normal Musc Other: gross motor intact no deficits, full bilateral strength Skin General: no rashes or lesions noted Neuro General: patient alert, patient awake, moves all extremities and no focal motor deficits Motor: muscle tone normal throughout Extrem General: normal to inspection and no pedal edema Psych Appearance: grossly normal Mental Status: mental status grossly normal Affect: normal affect Speech and Movement: speech and movement normal Coding Level of Care Code No Charge Diagnoses Enlarged uterus N85.2 Assessment and Plan Assessment and Plan (1) Enlarged uterus: Status: Acute Comment: 12 cm with 6 cm fibroid, iud in. plan [facility] Plan - Dr. Brigette Arboleda MD: After discussing the patient's diagnosis and treatment plan options, patient wishes to proceed with surgical management. I have discussed with the patient the risks, benefits, and alternatives of the procedure which include but are not limited to risks of anesthesia, bleeding, infection, possible damage to bowel, bladder, or surrounding vasculature which could lead to additional surgery to evaluate any complications. Patient agrees to procedure and wishes to proceed. ACOG/uptodate references given for additional information regarding procedure. UPDATE- I have seen the patient and performed any clinically relevant updates to the history and physical exam. Brigette Arboleda MD
--- NOTE | 2021-05-20 07:30 | HYST_PTH ---
PATIENT: AURE CARRERA LOC: [facility] [place] U#:[id number] AGE/SX: 45/F ROOM: RE05/20/[address]: Dr. Brigette Arboleda MD : [id number] BED: DIS: 05/20/2021 SPEC #: [id number] RECD: 05/20/21 11:38 STATUS: ALEXIS GARZA #: [id number] AMY: 05/20/21 07:[address]: Brigette Arboleda DEPT: SURGICAL PATHOLOGY RECD BY: Bhavana Perez ENTERED: 05/20/21 13:08 SP TYPE: HYSTERECT OTHR DR: Dr. Nino Pearson MD Tissues: Uterus, NOS Procedures: Surgery Specimen Level V HEADER OPERATION: ERAS, laparoscopic assisted vaginal hysterectomy, bilateral salpingectomy PRE-OP DIAGNOSIS: Enlarged uterus TISSUE SUBMITTED: Uterus, cervix and bilateral fallopian tubes MICROSCOPIC DIAGNOSIS Uterus, cervix and bilateral fallopian tubes, vaginal hysterectomy and bilateral salpingectomy: Cervix ? chronic inflammation. Endometrium ? consistent with exogenous hormone effects. Myometrium ? intramural and subserosal leiomyomas (largest measuring 4 cm in diameter). - Focal adenomyosis. Bilateral fallopian tubes - no pathologic diagnosis. SJ:reilly 05/21/2021 MICROSCOPIC DESCRIPTION Slides are reviewed. GROSS DESCRIPTION Received in fixative is one container labeled with the patient's name and designated uterus, cervix, bilateral fallopian tubes. The specimen consists of a hysterectomy specimen consisting of uterus with cervix and attached bilateral fallopian tubes. The uterus with cervix weighs 173 gm and measures 9 x 7 x 7 cm. The body of the uterus is deformed due to presence of masses. A few subserosal masses are also noted. The serosal surface is thompson, glistening. The ectocervical mucosa is congested. The external os is slit-like in contour. The endocervical canal measures 3 cm in length and the endocervical mucosa is unremarkable. The endometrial cavity measures 4.4 cm in length and up to 3 cm in width. The endometrium is thompson, glistening without any mass lesion and measures 0.1 cm in thickness. Sections of the uterine wall reveal multiple intramural and subserosal nodular masses. The largest mass is intramural in location and measures 4 cm in diameter. The largest mass is present in the posterior uterine wall. The uninvolved uterine wall measures up to 2.5 cm in thickness. Sections of these masses reveal thompson whorled cut surfaces without areas of hemorrhage, necrosis or cystic degeneration. The right fallopian tube measures 6.5 cm in length and 0.5 cm in diameter. The fimbrial end is identified. Sections reveal unremarkable cut surfaces. The left fallopian tube is similar appearance to right and measures 6 cm in length and 0.7 cm in diameter. Fight Manager sections are submitted in ten cassettes as follows: 1??anterior cervix, 2 - posterior cervix, 3 & 4 - anterior uterine wall, 5 & 6 - posterior uterine wall, largest nodular mass, 8 - smaller and intermediate sized intramural and subserosal nodular masses, 9 - right fallopian tube, 10 - left fallopian tube. / KRISTOPHER:reilly 05/20/21 TC:1 CPT: 88991
--- NOTE | 2021-05-20 07:34 | OP.PCM_ITS ---
Problems Associated Problem List Diagnoses (1) Enlarged uterus: Report of Operation Date of Procedure: 05/20/21 Pre-Operative Diagnosis: AUB Post-Operative Diagnosis: same Surgery/Procedure Performed:: JAMES Description of Surgical Findings:: enlarged fibroid uterus brush washer: Venessa Wade Type of Anesthesia: General Specimen's removed: uterus, tubes Drains: tucker Estimated Blood Loss (mL): 50 Fluids Replaced: crystalloid Description of Procedure: Patient received preoperative antibiotics and SCDs were on preoperatively. Patient was taken back to the operating room and placed in the dorsal lithotomy position. General anesthesia was induced and patient was prepped and draped in normal sterile fashion. Uterine manipulator was placed inside the uterus and Tucker catheter placed in the bladder. The umbilicus was grasped with towel clamps and an intraumbilical incision was made after injecting with quarter percent Marcaine and a Veress needle entered into the abdomen confirmed to be intra-abdominal with a low opening pressure. Abdomen was insufflated with CO2 gas and the Veress needle removed and the 5 mm trocar was placed under direct visualization without complication. Right and left lower quadrants were transilluminated and injected with quarter percent Marcaine and 5 mm ports placed under direct visualization. Pelvis was well visualized see operative findings for additional information. Bilateral fallopian tubes were identified and transected with the LigaSure device across the mesosalpinx to the level of the utero-ovarian ligament which was also transe cted with the LigaSure device. The broad ligament was opened up by transecting the round ligament bilaterally and skeletonizing the uterine vessels bilaterally and creating a bladder flap using the LigaSure device. The uterine arteries were transected bilaterally with good visualization of the bladder and the ureters were seen to be inferior lateral to the operative area. Attention was then paid to the vaginal portion of the procedure and the cervix was grasped with Chasity clamps and circumferentially injected with dilute vasopressin. A circumferential incision was made and the vaginal mucosa was mobilized off posteriorly and the cul-de-sac entered into sharply and a longneck speculum placed. The anterior cul-de-sac was then identified and entered into sharply. The uterosacral ligaments were clamped cut and suture ligated with 0 Monocryl bilaterally followed by the cardinal ligaments which were clamped cut and suture ligated bilaterally with 0 Monocryl. The uterus serially descended and was removed without difficulty. Pelvic sidewall pedicles were checked and noted to have excellent hemostasis. The vaginal mucosa was reapproximated incorporating the posterior peritoneum. This was reapproximated using 0 Vicryl [id number] sutures. Excellent hemostasis was noted. The pelvis and cul-de-sac were well visualized and no significant active bleeding noted but some raw areas were seen on the peritoneum and therefore floseal was applied. Pressure was taken down and the areas visualized and noted of excellent hemostasis. All ports were removed under direct visualization without complication and the abdomen was desufflated of air. The instruments were removed from the abdomen and the vaginal sweep was negative. Port sites on the abdomen were closed with 4-0 Monocryl interrupted sutures and Steri's and windows were applied. She was awoken and taken recovery in stable condition. Grafts/Implants Used: none Complications none Admit VTE Documentation VTE Present on Admission: No VTE Mechan Device Prophylaxis: SCD's VTE Pharm Prophylaxis ordered?: Yes Procedures Urinary/Genital 52xxx-59xxx: 46096 LAVH+BS/O <250gr Uterus
--- NOTE | 2021-05-20 07:35 | PCM.DC ---
Discharge Instructions Diet Discharge Diet: No restrictions Activity May resume sexual activity in: 6 weeks Weight Bearing Status: Full weight bearing Dressing / Incision Call your doctor if your incision/area has: Continuous Slow Oozing, Sudden Increased Bleeding, Increased Pain/ Swelling, Increased Redness and Foul Smelling Discharge Call your doctor if you observe: Fever of 101 or Higher, Using more than 1 pad per hour, Shortness of breath, Chest pain and Uncontrolled pain Suture Line Care: Avoid Pulling/Pushing and Avoid Pinching/Bending Remove Dressing in: 1 week (if present) Cleanse incision/area with: Soap & Water and Keep Dressing Clean & Dry Follow Up Care Please Follow Up With: Brigette Arboleda MD When: Call to make an appointment with your doctor for a postop visit in 2 and 6 weeks. Test Results: Test results from this visit will be discussed in further detail at your follow-up appointment, if applicable. Discharge Plan Admission Primary Reason for Your Visit: HYSTERECTOMY Attending Provider: Brigette Arboleda Primary Care Provider: Nino Pearson Discharge Orders/Prescriptions Prescriptions: New naproxen 250 MG tablet 250 - 500 mg PO Q8H PRN PRN (Reason: MILD PAIN) Qty: 30 RF: 1 oxycodone-acetaminophen [Percocet] 5-325 mg tablet 1 tab PO Q6H PRN (Reason: pain) 7 Days Qty: 20 RF: 0 Continued multivitamin 1 EACH powder in packet 1 ea PO DAILY RF: 0 No Action levonorgestrel [Mirena] 20 mcg/24 hr (5 years) intrauterine device 1 insert Intrauterine ONCE RF: 0 Referrals / Follow Up: Nino Pearson MD [Primary Care Provider] - Disposition Disposition (needs filled in before D/C Order can be placed): Home, Self Care
[2021-05-20] MEDS: Vasopressin 20 UNITS/ML Vial (08:30)
[2021-05-20] MEDS: Bupivacaine 0.25% 30 ML Vial (09:00)
[2021-05-20] MEDS: Ondansetron 4 MG/2 ML Vial IV (09:13)
[2021-05-20] MEDS: Lactated Ringers 1,000 ML 70 ML IV (10:23)
[2021-05-20] MEDS: Ketorolac 30 MG/ML Syringe IV (10:26)
[2021-05-20 12:25] LABS: Hematocrit 35.8 % (37-47); Hemoglobin 12.1 g/dL (12.0-15.0); Mean Corp Hgb Conc 33.8 g/dL (32-36); Mean Corpuscular Hgb 31.4 pg (27.0-32.0); Mean Platelet Vol. 10.5 fl (6.2-12.0); Platelet Count 205 K/mm3 (150-450); RBC Distribution Width CV 12.4 % (11.6-14.6); RBC Distribution Width SD 42.5 fl (35.1-43.9); Red Blood Count 3.85 M/mm3 (4.2-5.4); White Blood Count 6.3 K/mm3 (4.4-11.0)
[2021-05-20 13:49] LABS: Hematocrit 35.9 % (37-47); Hemoglobin 12.2 g/dL (12.0-15.0); Mean Corpuscular Hgb 31.6 pg (27.0-32.0); Mean Platelet Vol. 10.2 fl (6.2-12.0); Platelet Count 211 K/mm3 (150-450); RBC Distribution Width CV 12.7 % (11.6-14.6); RBC Distribution Width SD 43.3 fl (35.1-43.9); Red Blood Count 3.86 M/mm3 (4.2-5.4); White Blood Count 6.2 K/mm3 (4.4-11.0)
[2021-05-20] MEDS: Lactated Ringers 1,000 ML 999 ML IV (15:30)
== END 2021-05-20 17:55 | disposition home or self-care (01) ==
LOC: SDC 05:23 → AC 05:23
PROVIDERS: Anesthesiology; PCP Internal Medicine; Referring Provider Obstetrics & Gynecology; Visit Provider Obstetrics & Gynecology
PROC: 0UT9FZZ Resection of Uterus, Via Natural or Artificial Opening With Percutaneous Endoscopic Assistance (ICD-10-PCS; CPT 58552; principal; 2021-05-20 07:05)
DX: N93.9 Abnormal uterine and vaginal bleeding, unspecified (principal); D25.9 Leiomyoma of uterus, unspecified; N80.0 Endometriosis of uterus; F17.200 Nicotine dependence, unspecified, uncomplicated; Z79.3 Long term (current) use of hormonal contraceptives; Z88.0 Allergy status to penicillin; Z88.2 Allergy status to sulfonamides; Z97.5 Presence of (intrauterine) contraceptive device
CPT/HCPCS: 58552; 36415; 81025; 82962; 83735; 85025; 85027; 86850; 86900; 86901; 87426; 88307; 93005; C9803; J7120; J2405; J3475

== ENCOUNTER → 2022-02-20 | Outpatient (CLI) | payer BC, SELFPAY ==
--- NOTE | 2022-02-20 10:41 | BI_ITS ---
MAMMOGRAPHY - BILATERAL SCREENING REASON FOR EXAM: Female, 46 years old. Routine annual screening examination. PERTINENT HISTORY: Grandmother with breast cancer. Aunt with breast cancer. Remote left excisional breast biopsy and left stereotactic breast biopsy. TECHNIQUE: Digital bilateral breast schuyler (3D mammographic acquisition) in the CC and MLO projections. 2-D mediolateral oblique (MLO) and craniocaudad (CC) views of both breasts were obtained. CAD: Full Field Digital Mammography with Computer Added Detection was performed. COMPARISON: Comparison is made with prior study dated 02/18/2021 and 07/19/2019. FINDINGS: Breast Composition: The breasts are extremely dense, which lowers the sensitivity of mammography. There are no dominant masses or suspicious calcifications. No other significant abnormalities are identified. There has been no significant change since the prior study. BI/SCRN MAMM (CAD)W/SCHUYLER BILAT IMPRESSION: Stable bilateral screening mammogram. Yearly follow-up mammogram recommended. (A) ASSESSMENT CATEGORY: BIRADS Category 1: Negative. A letter regarding these results will be sent to the patient by the facility within 30 days. Approximately 10% of breast cancers are not detected by mammography. A normal mammogram should not delay biopsy of a clinically suspicious abnormality. [id number] Electronically Signed: Mk Cornelius MD at 12:02 EDT ,
== END | disposition home or self-care (01) ==
LOC: OPBI 10:41
PROVIDERS: PCP Internal Medicine; Visit Provider Obstetrics & Gynecology
DX: Z12.31 Encounter for screening mammogram for malignant neoplasm of breast (principal); Z92.89 Personal history of other medical treatment; Z80.3 Family history of malignant neoplasm of breast
CPT/HCPCS: 77063; 77067

== ENCOUNTER → 2022-11-11 | Outpatient (CLI) | payer BC, SELFPAY ==
--- NOTE | 2022-11-11 14:21 | RAD_ITS ---
EXAM: XR PELVIS, 1 OR 2 VIEWS CLINICAL INDICATION: PSORIATIC ARTHROPATHY TECHNIQUE: Frontal view of the pelvis. COMPARISON: No relevant prior studies available. FINDINGS: BONES/JOINTS: Unremarkable. No displaced fracture. No destructive or sclerotic lesions. Note that overlapping bowel shadows may however obscure fine detail. Sacroiliac joints are unremarkable. No widening of the pubic symphysis. The articular structures are unremarkable. SOFT TISSUES: Unremarkable. No soft tissue swelling or gas. VASCULATURE: Multiple phleboliths in the pelvis. RAD/Pelvis 1 or 2 Views IMPRESSION: No acute findings in the pelvis. No significant arthritic changes. Electronically Signed: Khoi Alaniz MD at 2:39 EDT ,
[2022-11-11 17:44] LABS: Absolute Lymphocyte Count 2.84 X10^3/uL (0.83-4.51); Absolute Neutrophil Count 4.6 X10^3/uL (2.0-7.7); Basophil# 0.07 X10^3/uL; Basophil% 0.8 % (0-1); Eosinophil# 0.23 X10^3/uL; Eosinophils% 2.8 % (0-5); Hematocrit 42.5 % (37-47); Hemoglobin 14.3 g/dL (12.0-15.0); Lymphocyte # 2.84 X10^3/ul (0.83-4.51); Mean Corp Hgb Conc 33.6 g/dL (32-36); Mean Corpuscular Hgb 31.1 pg (27.0-32.0); Mean Corpuscular Volume 92.4 fL (81-99); Mean Platelet Vol. 10.8 fl (6.2-12.0); Monocyte# 0.55 X10^3/uL; Monocyte% 6.6 % (0-10); NRBC Flagged by Analyzer 0 % (0-5); Neutrophil # 4.64 X10^3/uL (2.7-7.7); Neutrophil % 55.6 % (47-70); Platelet Count 282 K/mm3 (150-450); RBC Distribution Width CV 12.1 % (11.6-14.6); RBC Distribution Width SD 41.2 fl (35.1-43.9); White Blood Count 8.4 K/mm3 (4.4-11.0)
[2022-11-11 17:55] LABS: Erythrocyte Sedimentation Rate 1 mm/hr (0-30)
[2022-11-11 18:15] LABS: ALB/GLOB Ratio 1.2 RATIO (0.9-2.4); AST(SGOT) 17 U/L (15-37); Alanine Aminotransfer ALT/SGPT 18 U/L (13-56); Albumin, Serum 4.4 g/dL (3.2-5.0); Alkaline Phosphatase 79 U/L (45-117); Anion Gap 7 (5-15); BUN 10 mg/dL (7-18); BUN/Creat Ratio 13.4 RATIO (10-20); CRP < 2.90 mg/L (0.0-3.0); Chloride 105 mmol/L (98-107); Creatinine, Serum 0.75 mg/dL (0.55-1.02); EST Glomerular Filtration Rate 88 mL/min (>60); Est Glom Filt Rate - Afr Amer 107 mL/min (>60); Globulin 3.6 g/dL (2.2-4.2); Glucose 85 mg/dL (74-106); Potassium 3.6 mmol/L (3.5-5.1); Sodium Level 140 mmol/L (136-145)
[2022-11-11 20:15] LABS: Hepatitis B Surface Antibody Non-Reactive; Hepatitis B Surface Antigen Non-Reactive (Nonreactive); Hepatitis C Antibody Non-Reactive (Nonreactive)
[2022-11-12 14:54] LABS: Rheumatoid Factor < 10.0 IU/mL (<15)
[2022-11-13 14:10] LABS: ANTINUCLEAR ANTIBODIES DIRECT Negative (Negative)
[2022-11-13 20:07] LABS: CCP IgG Antibodies 1 units (0-19); QNTFERON TB Mitogen Value > 10.00 IU/mL (.); QNTFERON TB Nil Value 0 IU/mL (.); QNTFERON TB1+ Ag Value 0.04 IU/mL (.); QNTFERON TB2+ Ag Value 0.02 IU/mL (.); QNTIFERON TB Positive Criteria Negative (Negative)
== END | disposition home or self-care (01) ==
LOC: MTLAB 14:19
PROVIDERS: PCP Internal Medicine; Referring Provider Internal Medicine Rheumatology; Visit Provider Internal Medicine Rheumatology
DX: L40.59 Other psoriatic arthropathy (principal); L40.8 Other psoriasis; Z87.19 Personal history of other diseases of the digestive system; Q66.70 Congenital pes cavus, unspecified foot
CPT/HCPCS: 36415; 72170; 80053; 85025; 85652; 86038; 86140; 86200; 86431; 86480; 86706; 86803; 87340

== ENCOUNTER → 2023-03-09 | Outpatient (CLI) | payer BC, SELFPAY ==
[2023-03-09 17:34] LABS: Absolute Lymphocyte Count 3.37 X10^3/uL (0.83-4.51); Absolute Neutrophil Count 4.8 X10^3/uL (2.0-7.7); Basophil# 0.06 X10^3/uL; Basophil% 0.7 % (0-1); Eosinophil# 0.21 X10^3/uL; Eosinophils% 2.3 % (0-5); Hematocrit 40.4 % (37-47); Hemoglobin 13.8 g/dL (12.0-15.0); Lymphocyte # 3.37 X10^3/ul (0.83-4.51); Lymphocyte % 36.6 % (19-41); Mean Corp Hgb Conc 34.2 g/dL (32-36); Mean Corpuscular Hgb 31.7 pg (27.0-32.0); Mean Corpuscular Volume 92.7 fL (81-99); Mean Platelet Vol. 10.4 fl (6.2-12.0); Monocyte# 0.71 X10^3/uL; Monocyte% 7.7 % (0-10); NRBC Flagged by Analyzer 0 % (0-5); Neutrophil # 4.82 X10^3/uL (2.7-7.7); Neutrophil % 52.4 % (47-70); Platelet Count 285 K/mm3 (150-450); RBC Distribution Width CV 12.9 % (11.6-14.6); Red Blood Count 4.36 M/mm3 (4.2-5.4); White Blood Count 9.2 K/mm3 (4.4-11.0)
[2023-03-09 18:11] LABS: ALB/GLOB Ratio 1.1 RATIO (0.9-2.4); AST(SGOT) 12 U/L (15-37); Alanine Aminotransfer ALT/SGPT 19 U/L (13-56); Alkaline Phosphatase 69 U/L (45-117); Anion Gap 4 (5-15); BUN 10 mg/dL (7-18); BUN/Creat Ratio 13.8 RATIO (10-20); Calcium,Total 9.4 mg/dL (8.5-10.1); Chloride 108 mmol/L (98-107); Creatinine, Serum 0.73 mg/dL (0.55-1.02); EST Glomerular Filtration Rate 91 mL/min (>60); Est Glom Filt Rate - Afr Amer 110 mL/min (>60); Globulin 3.5 g/dL (2.2-4.2); Glucose 106 mg/dL (74-106); Potassium 3.4 mmol/L (3.5-5.1); Protein, Total 7.5 g/dL (6.4-8.2); Sodium Level 140 mmol/L (136-145)
== END | disposition home or self-care (01) ==
LOC: MTLAB 15:03
PROVIDERS: PCP Internal Medicine; Referring Provider Internal Medicine Rheumatology; Visit Provider Internal Medicine Rheumatology
DX: L40.59 Other psoriatic arthropathy (principal); Z79.899 Other long term (current) drug therapy; L40.8 Other psoriasis
CPT/HCPCS: 36415; 80053; 85025

== ENCOUNTER → 2023-03-29 | Outpatient (CLI) | payer BC, SELFPAY ==
[2023-03-29 15:10] LABS: Absolute Lymphocyte Count 2.48 X10^3/uL (0.83-4.51); Absolute Neutrophil Count 4.9 X10^3/uL (2.0-7.7); Basophil# 0.06 X10^3/uL; Basophil% 0.7 % (0-1); Eosinophil# 0.22 X10^3/uL; Eosinophils% 2.7 % (0-5); Hematocrit 40.6 % (37-47); Hemoglobin 13.6 g/dL (12.0-15.0); Lymphocyte # 2.48 X10^3/ul (0.83-4.51); Mean Corp Hgb Conc 33.5 g/dL (32-36); Mean Corpuscular Hgb 31.3 pg (27.0-32.0); Mean Corpuscular Volume 93.3 fL (81-99); Mean Platelet Vol. 10.7 fl (6.2-12.0); Monocyte# 0.58 X10^3/uL; NRBC Flagged by Analyzer 0 % (0-5); Neutrophil % 59.4 % (47-70); Platelet Count 336 K/mm3 (150-450); RBC Distribution Width CV 12.7 % (11.6-14.6); RBC Distribution Width SD 43.7 fl (35.1-43.9); Red Blood Count 4.35 M/mm3 (4.2-5.4); White Blood Count 8.3 K/mm3 (4.4-11.0)
[2023-03-29 15:32] LABS: ALB/GLOB Ratio 1.1 RATIO (0.9-2.4); AST(SGOT) 12 U/L (15-37); Alanine Aminotransfer ALT/SGPT 16 U/L (13-56); Albumin, Serum 3.7 g/dL (3.2-5.0); Alkaline Phosphatase 75 U/L (45-117); Anion Gap 5 (5-15); BUN 12 mg/dL (7-18); BUN/Creat Ratio 17.4 RATIO (10-20); Calcium,Total 9.4 mg/dL (8.5-10.1); Chloride 108 mmol/L (98-107); Creatinine, Serum 0.69 mg/dL (0.55-1.02); EST Glomerular Filtration Rate 97 mL/min (>60); Est Glom Filt Rate - Afr Amer 117 mL/min (>60); Globulin 3.5 g/dL (2.2-4.2); Glucose 110 mg/dL (74-106); Potassium 3.7 mmol/L (3.5-5.1); Protein, Total 7.2 g/dL (6.4-8.2); Sodium Level 141 mmol/L (136-145)
== END | disposition home or self-care (01) ==
LOC: MTLAB 12:38
PROVIDERS: PCP Internal Medicine; Referring Provider Internal Medicine Rheumatology; Visit Provider Internal Medicine Rheumatology
DX: L40.59 Other psoriatic arthropathy (principal); Z79.899 Other long term (current) drug therapy; L40.8 Other psoriasis; Z87.19 Personal history of other diseases of the digestive system
CPT/HCPCS: 36415; 80053; 85025

== ENCOUNTER 2023-06-28 09:22 | Emergency (ER) | payer BC, SELFPAY ==
[2023-06-28 09:23] VITALS: BP 121/65; PULSE 75; RESP 16; TEMP 36.7; O2SAT 99
--- NOTE | 2023-06-28 09:37 | EDS_ITS ---
HPI History of Present Illness HPI Narrative: 47-year-old female past medical history of psoriatic arthritis presents with right hip pain and sciatica since last Wednesday, almost a week ago. She denies any fevers or chills, no nausea or vomiting, no loss of bowel or bladder, no saddle anesthesia. She has had problems with sciatica in the past and thinks that it is flared up because she is now having a burning pain which radiates down her right leg to her foot consistent with her previous sciatica. She had been diagnosed and sees a data management analyst and got a shot of Cosentyx which she felt was ineffective. She states she takes ibuprofen for the pain in her right hip that seems to be getting worse with movement and walking, and the pain returns after the ibuprofen wears off. She has taken prednisone in the past for flares of her arthritis in the past. She works at [employer] (formerly [employer] and had aches and pains throughout her body before which she thought were just general, before she was diagnosed with psoriasis. Chief Complaint: Lower Extremity Injury PFSH PFS Medical History Acute colitis Alcohol use Arthritis Back problem bladder/ uti infection Enlarged uterus Heartburn History of IBS Leg cramps Restless legs Sciatica Seasonal allergies Shoulder pain Smoker Wears glasses Home Medications multivitamin 1 ea PO DAILY 09/27/18 [History Last Taken Unknown] prednisone 20 mg tablet 40 mg (2 x 20 mg) PO DAILY #14 tabs 06/28/23 [Rx Last Taken Unknown] Allergy/AdvReac Type Severity Reaction Status Date / Time Penicillins Allergy Mild severe Verified 06/28/23 09:25 vomiting Sulfa (Sulfonamide Allergy Mild hives Verified 06/28/23 09:25 Antibiotics) Family History Father Hypertension Grandmother Diabetes Breast cancer Mother Cervical cancer Aunt Breast cancer Surgical History History of dental surgery History of endoscopy History of incision and drainage History of lumpectomy of left breast S/P laparoscopic assisted vaginal hysterectomy (LAVH) (~05/20/21) S/P trigger finger release Social History Smoking Status: Current every day smoker tobacco type: cigarettes alcohol intake: current details: occasionally substance use type: does not use caffeine: Yes what type of physical activity do you participate in: other details: work- [employer] seatbelt use: always do you feel safe at home: Yes additional social history: [employer] Patient works at [employer] ROS Narrative Constitutional: No fever, no chills. HEENT: No sore throat. No neck pain. No loss of vision. No rhinorrhea. Cardiovascular: No chest pain. No palpitations. No pedal edema. Respiratory: No cough, no shortness of breath. Abdominal: No abdominal pain. No nausea. No vomiting. Genitourinary: No dysuria. No hematuria. Musculoskeletal: No myalgias. Right hip pain. No low back pain. Positive radicular pain right leg. Neurologic: No headaches. No dizziness. No lightheadedness. Right leg and lumbar radicular pain/sciatica. No saddle anesthesia. No loss of bowel or bladder. Skin: No rash. No change in color. Psychiatric: No depression. No anxiety. EXAM Physical Exam Narrative Exam Narrative: Afebrile. Vital signs noted. HEENT: Normocephalic. Atraumatic. PERRL, EOMI. Neck soft and supple. No point tenderness or step off. Cardiovascular: Regular rate and rhythm. No murmurs, rubs, or gallops appreciated. Respiratory: No tachypnea. Lungs clear to auscultation bilaterally. Gastrointestinal: Abdomen soft, nontender, with normoactive bowel sounds. No rebound or guarding. Neurological: Awake. Alert. Nonfocal, nonlateralizing. Straight leg raising negative bilaterally without cross symptoms. Skin: No rash. Normal color. No pallor. Musculoskeletal: No pedal edema. Full range of motion extremities. Feels tightness and pulling in her right buttocks with movement of her right lower extremity. Mild tenderness in right sciatic notch. EHL intact bilaterally. Mild tenderness to palpation right intertrochanter bursa area. Const Vital Signs: 06/28/23 09:23 Temperature 98.0 F Temperature Source Temporal Pulse Rate 75 Respiratory Rate 16 Blood Pressure 121/65 H Blood Pressure Mean 83 Pulse Ox 99 Oxygen Delivery Method Room Air MDM MDM MDM Narrative Medical decision making narrative: In the differential diagnosis is sciatica, intertrochanteric bursitis, versus occult hip fracture. I have low suspicion for cauda equina because she has no red flag signs. I discussed with her the use of prednisone which she has taken in the past. She was given a 40 mg dose here in the emergency department. I do feel x-rays are indicated to help rule out fracture but there is no evidence of clinical dislocation of her right hip. Additionally, I do feel that steroids may help with her intertrochanteric bursitis as well as her sciatica. X-rays of the right hip and pelvis interpreted by myself independently shows no evidence of fracture or dislocation. I reviewed the radiology report which shows findings suggestive of calcific bursitis overlying the greater trochanter of the right proximal femur. This is where the patient is having pain and we had discussed the possibility of intertrochanteric bursitis. After 40 mg of prednisone here, she states that her lower leg pain is improving. I do feel that she has both sciatica and bursitis of her right hip. I wrote her prescription for steroid burst for the next 7 days of 40 mg. She will call her data management analyst today as well. I feel she can be discharged safely home with follow-up. Return instructions to the emergency department were reviewed. Disposition is discharged home in stable condition. History & Record Review Discussion w/independent historian: Patient and Family (Spouse) Additional record(s) reviewed:: Prior ED visit (Noncontributory to current chief complaint.) Lab Data Attestation: I reviewed the patient's lab results. Radiography Diagnostic Testing: Clinical Impression(s) from Imaging Studies Hip/Pelvis X-Ray 06/28/23 09:37 IMPRESSION: Findings suggestive of calcific bursitis overlying the greater trochanter of the proximal right femur. Electronically Signed: Mk Cornelius MD at 10:13 EST , Discharge Plan Triage Chief Complaint: Lower Extremity Injury ED Provider: Mark Hamilton Dx/Rx/DC Orders Clinical Impression: Bursitis of hip, right, Sciatica Instructions: ED Bursitis, ED Sciatica Prescriptions: New prednisone 20 mg tablet 40 mg PO DAILY Qty: 14 0RF No Action multivitamin 1 EACH powder in packet 1 ea PO DAILY Primary Care Provider: Nino Pearson Referrals: Nino Pearson MD [Primary Care Provider] - 3-5 Days Activity Restrictions/Additional Instructions: Follow up with your Watch Train Inspector within the next week. Disposition Disposition: Home, Self Care
--- NOTE | 2023-06-28 09:37 | RAD_ITS ---
STUDY: X-RAY - PELVIS AND RIGHT HIP REASON FOR EXAM: Female, 47 years old. 2 week history of pain. No known injury. TECHNIQUE: 3 views of the pelvis and hip. COMPARISON: Comparison is made with prior study dated November 11, 2022. FINDINGS: There is a non-specific bowel gas pattern. There are multiple calcified phleboliths. Normal bilateral iliac wings, sacroiliac joints and visualized sacrum. Normal bilateral superior and inferior pubic rami. Normal pubic symphysis. Normal bilateral ischial tuberosities. Normal visualized femoral head. Normal acetabulum. Normal hip joint. There is a 1.4 cm x 1.1 cm bony density adjacent to the greater trochanter of the proximal right femur suggestive of a calcific bursitis. RAD/HIP, UNI W/ Pelvis 2-3 Views IMPRESSION: Findings suggestive of calcific bursitis overlying the greater trochanter of the proximal right femur. Electronically Signed: Mk Cornelius MD at 10:13 EST ,
[2023-06-28] MEDS: predniSONE 20 MG Tablet 40 MG PO (09:48)
== END 2023-06-28 10:34 | disposition home or self-care (01) ==
PROVIDERS: Emergency Provider Emergency Medicine; PCP Internal Medicine; Visit Provider Emergency Medicine
DX: M70.71 Other bursitis of hip, right hip (principal); M54.30 Sciatica, unspecified side; F17.200 Nicotine dependence, unspecified, uncomplicated; L40.9 Psoriasis, unspecified
CPT/HCPCS: 73502; 99282

== ENCOUNTER → 2023-07-22 | Outpatient (CLI) | payer BC, SELFPAY ==
[2023-07-22 11:02] LABS: Bacteria 0 SEEN /hpf (None Seen); Mucous, Urine 0 SEEN /hpf (<or=2+); Squamous Epithelial Cells - UA 0 SEEN /hpf (5-10)
[2023-07-22 12:39] LABS: Color, Urine Yellow (Yellow); Glucose, Dipstick Normal (Normal); Ketone-Dipstick Negative (Negative); Leukocyte Esterase-Dipstick Negative /ul (Negative); Nitrite-Dipstick Negative (Negative); Occult Blood-Urine 50 /ul (Negative); Protein-Dipstick 15 mg/dl (Negative); Urine Bilirubin Dipstick Negative (Negative); Urine Clarity Clear (Clear); Urine Urobilinogen Normal (Normal); Urine pH 6.5 (5.0 - 8.0)
[2023-07-22 13:04] LABS: Red Blood Cells-Urine 5-10 SEEN /hpf (0-5); White Blood Cells 0-5 SEEN /hpf (0-5)
--- OUTSIDE RECORDS SUMMARY | 2023-07-22 17:49 | XMS RPT_ITS | CCD ---
Author Name Unknown Address [address] [place] [address] Organization [facility] Care Team Providers Care Home Insurance Agent Name Role Phone Brigette Arboleda MD Unavailable [phone] Pankaj ROACH, Lucia Jones Unavailable Brigette Arboleda MD Unavailable [phone] Allergies Allergy Classification Reported Allergen(s) Allergy Type Date of Onset Reaction(s) Facility (2 sources) Penicillin V Drug Allergy 12-23-19 17 [facility] (2 sources) Sulfamethoxazole / Trimethoprim Drug Allergy 12-23-19 17 [facility] (1 source) Penicillins; Translations: [PENICILLINS] Propensity to adverse reactions to drug (disorder) 11-19-19 07 [facility] Repository (1 source) Sulfonamides (Antibiotic); Translations: [SULFA (SULFONAMIDE ANTIBIOTICS)] Propensity to adverse reactions to drug (disorder) 11-19-19 07 [facility] Repository Medications Completed/Discontinued Medications Medication Drug Class(es) Dates Sig (Normalized) Sig (Original) MULTIPLE VITAMINS-MINERALS (2 sources) Start: 12-22-2016 take 1 tablet by mouth once daily MULTIVITAMIN ADULT TABS One tablet by mouth daily MULTIPLE VITAMINS-MINERALS [id number] Lucia Lira NP Drug Treatment Unknown - unknown (1 source) No information available. Problems Active Problems Problem Classification Problem Date Documented Da te Episodic/Chronic Unclassified (1 source) Screening mammography ; Translations: [Encounter for screening mammogram for malignant neoplasm of breast] Onset: 12-17-2016 12-18-2016 Past or Other Problems Problem Classification Problem Date Documented Da te Episodic/Chronic Nonmalignant breast conditions (4 sources) Pain of breast; Translations: [Breast lump] Onset: 12-22-2016 12-22-2016 Episodic Results Test Name Value Interpretation Reference Range Facil it Vital Signs Date Time Vital Sign Value Performing Clinician Facility 12-22-2016 13:07-0400 BMI (Body Mass Index) 23.89 kg/m2 Lucia Lira NP [facility] 12-22-2016 13:07-0400 Body Temperature 98.7 [degF] Lucia Lira NP [facility] 12-22-2016 13:07-0400 BP Diastolic 65 mm[Hg] Lucia Lira NP [facility] 12-22-2016 13:07-0400 BP Systolic 109 mm[Hg] Lucia Lira NP [facility] 12-22-2016 13:07-0400 Height 162.56 cm Lucia Lira NP [facility] 12-22-2016 13:07-0400 Pulse (Heart Rate) 77 /min Lucia Lira NP [facility] 12-22-2016 13:07-0400 Respiratory Rate 16 /min Lucia Lira NP [facility] 12-22-2016 13:07-0400 Weight 63.14 kg Lucia Lira NP [facility] Encounters Encounter Date Encounter Type Care Provider Facility Start: 09-26-2018 End: 09-28-2018 Patient encounter procedure [facility] Start: 02-04-2018 End: 02-04-2018 Patient encounter procedure [facility] Procedures Date Procedure Procedure Detail Performing Clinician Start: 12-22-2016 Gynecologic examination Routine gynecological exam Lucia Lira NP Start: 12-17-2016 Screening mammography Screening mammogram for breast cancer Lucia Lira NP Plan of Treatment Date Care Activity Detail Author Start: 12-22-2016 End: 12-22-2016 Appointment Appointment [facility] Start: 12-22-2016 End: 12-22-2016 Mammogram, both breasts Mammogram, Diagnostic, both breasts [facility] Start: 12-22-2016 End: 12-22-2016 Us exam, breast(s) US Breast(s) [facility] Start: 12-17-2016 End: 12-18-2016 Mammogram, screening Mammogram-Bilateral, Screening, Bilateral [facility] Summary Purpose Family History No Family History Records Found Advance Directives No Advanced Directives Records Found Additional Source Comments INFORMATION SOURCE (unrecogn ized section and content) FOR RECORDS PERTAINING TO PATIENTS WHO ARE OR HAVE BEEN ENROLLED IN A CHEMICAL DEPENDENCY/SUBSTANCEABUSE PROGRAM, SOME INFORMATION MAY BE OMITTED. This clinical summary was aggregated from multiple sources. Caution should be exercised in using it in the provision of clinical care. This summary normalizes information from multiple sources, and as a consequence, information in this document may materially change the coding, format and clinical context of patient data. In addition, data may be omitted in some cases. CLINICAL DECISIONS SHOULD BE BASED ON THE PRIMARY CLINICAL RECORDS. [facility] [employer] provides no warranty or guarantee of the accuracy or completeness of information in this document.
== END | disposition home or self-care (01) ==
LOC: LABSPEC 11:01
PROVIDERS: PCP Internal Medicine; Referring Provider Physician Assistant; Visit Provider Physician Assistant
DX: R39.15 Urgency of urination (principal)
CPT/HCPCS: 81001; 87086; 87088

== ENCOUNTER → 2023-07-29 | Outpatient (CLI) | payer BC, SELFPAY ==
[2023-07-29 12:07] LABS: Absolute Lymphocyte Count 3.05 X10^3/uL (0.83-4.51); Absolute Neutrophil Count 4.4 X10^3/uL (2.0-7.7); Basophil# 0.06 X10^3/uL; Basophil% 0.7 % (0-1); Eosinophils% 2.4 % (0-5); Hematocrit 39.1 % (37-47); Hemoglobin 13.2 g/dL (12.0-15.0); Lymphocyte # 3.05 X10^3/ul (0.83-4.51); Lymphocyte % 36.8 % (19-41); Mean Corp Hgb Conc 33.8 g/dL (32-36); Mean Corpuscular Hgb 31.1 pg (27.0-32.0); Mean Platelet Vol. 10.3 fl (6.2-12.0); Monocyte# 0.56 X10^3/uL; Monocyte% 6.8 % (0-10); NRBC Flagged by Analyzer 0 % (0-5); Neutrophil # 4.39 X10^3/uL (2.7-7.7); Neutrophil % 53.1 % (47-70); Platelet Count 297 K/mm3 (150-450); RBC Distribution Width CV 12.5 % (11.6-14.6); RBC Distribution Width SD 42.3 fl (35.1-43.9); Red Blood Count 4.25 M/mm3 (4.2-5.4); White Blood Count 8.3 K/mm3 (4.4-11.0)
[2023-07-29 13:27] LABS: ALB/GLOB Ratio 1.1 RATIO (0.9-2.4); AST(SGOT) 21 U/L (15-37); Alanine Aminotransfer ALT/SGPT 21 U/L (13-56); Albumin, Serum 3.9 g/dL (3.2-5.0); Alkaline Phosphatase 76 U/L (45-117); Anion Gap 8 (5-15); BUN 7 mg/dL (7-18); BUN/Creat Ratio 10.1 RATIO (10-20); Calcium,Total 9.8 mg/dL (8.5-10.1); Chloride 105 mmol/L (98-107); Creatinine, Serum 0.69 mg/dL (0.55-1.02); EST Glomerular Filtration Rate 96 mL/min (>60); Est Glom Filt Rate - Afr Amer 116 mL/min (>60); Globulin 3.4 g/dL (2.2-4.2); Glucose 73 mg/dL (74-106); Potassium 4.2 mmol/L (3.5-5.1); Protein, Total 7.3 g/dL (6.4-8.2); Sodium Level 140 mmol/L (136-145)
== END | disposition home or self-care (01) ==
LOC: MTLAB 09:41
PROVIDERS: PCP Internal Medicine; Referring Provider Internal Medicine Rheumatology; Visit Provider Internal Medicine Rheumatology
DX: L40.59 Other psoriatic arthropathy (principal); Z79.899 Other long term (current) drug therapy; L40.8 Other psoriasis
CPT/HCPCS: 36415; 80053; 85025

== ENCOUNTER → 2023-11-29 | Outpatient (CLI) | payer BC, SELFPAY ==
[2023-11-29 12:35] LABS: Absolute Lymphocyte Count 2.48 X10^3/uL (0.83-4.51); Absolute Neutrophil Count 4.5 X10^3/uL (2.0-7.7); Basophil# 0.07 X10^3/uL; Basophil% 0.9 % (0-1); Eosinophil# 0.31 X10^3/uL; Eosinophils% 3.9 % (0-5); Hemoglobin 13.8 g/dL (12.0-15.0); Lymphocyte # 2.48 X10^3/ul (0.83-4.51); Lymphocyte % 31.1 % (19-41); Mean Corp Hgb Conc 33.7 g/dL (32-36); Mean Corpuscular Hgb 31.2 pg (27.0-32.0); Mean Corpuscular Volume 92.8 fL (81-99); Mean Platelet Vol. 10.8 fl (6.2-12.0); Monocyte# 0.65 X10^3/uL; Monocyte% 8.1 % (0-10); NRBC Flagged by Analyzer 0 % (0-5); Neutrophil # 4.45 X10^3/uL (2.7-7.7); Neutrophil % 55.7 % (47-70); Platelet Count 285 K/mm3 (150-450); RBC Distribution Width CV 12.5 % (11.6-14.6); RBC Distribution Width SD 43.2 fl (35.1-43.9); Red Blood Count 4.42 M/mm3 (4.2-5.4)
[2023-11-29 12:53] LABS: ALB/GLOB Ratio 1.2 RATIO (0.9-2.4); AST(SGOT) 18 U/L (15-37); Alanine Aminotransfer ALT/SGPT 22 U/L (13-56); Albumin, Serum 3.8 g/dL (3.2-5.0); Alkaline Phosphatase 78 U/L (45-117); Anion Gap 4 (5-15); BUN 13 mg/dL (7-18); BUN/Creat Ratio 19.1 RATIO (10-20); Calcium,Total 9.2 mg/dL (8.5-10.1); Chloride 109 mmol/L (98-107); Creatinine, Serum 0.68 mg/dL (0.55-1.02); EST Glomerular Filtration Rate 98 mL/min (>60); Est Glom Filt Rate - Afr Amer 118 mL/min (>60); Globulin 3.3 g/dL (2.2-4.2); Glucose 113 mg/dL (74-106); Potassium 3.9 mmol/L (3.5-5.1); Protein, Total 7.1 g/dL (6.4-8.2); Sodium Level 140 mmol/L (136-145)
== END | disposition home or self-care (01) ==
LOC: MTLAB 11:00
PROVIDERS: PCP Internal Medicine; Referring Provider Internal Medicine Rheumatology; Visit Provider Internal Medicine Rheumatology
DX: L40.59 Other psoriatic arthropathy (principal); Z79.899 Other long term (current) drug therapy
CPT/HCPCS: 36415; 80053; 85025

== ENCOUNTER → 2024-03-28 | Outpatient (CLI) | payer BC, SELFPAY ==
[2024-04-01 08:13] LABS: QNTFERON TB Mitogen Value > 10.00 IU/mL (.); QNTFERON TB Nil Value 0 IU/mL (.); QNTFERON TB1+ Ag Value 0.01 IU/mL (.); QNTFERON TB2+ Ag Value 0 IU/mL (.); QNTIFERON TB Positive Criteria Negative (Negative)
== END | disposition home or self-care (01) ==
LOC: MTLAB 09:43
PROVIDERS: PCP Internal Medicine; Referring Provider Internal Medicine Rheumatology; Visit Provider Internal Medicine Rheumatology
DX: L40.59 Other psoriatic arthropathy (principal); Z79.899 Other long term (current) drug therapy
CPT/HCPCS: 36415; 86480

== ENCOUNTER → 2024-07-13 | Outpatient (CLI) | payer BC, SELFPAY ==
[2024-07-13 12:33] LABS: Absolute Lymphocyte Count 2.92 X10^3/uL (0.83-4.51); Absolute Neutrophil Count 5.8 X10^3/uL (2.0-7.7); Basophil# 0.08 X10^3/uL; Basophil% 0.8 % (0-1); Eosinophil# 0.17 X10^3/uL; Eosinophils% 1.8 % (0-5); Hematocrit 38.4 % (37-47); Hemoglobin 12.9 g/dL (12.0-15.0); Lymphocyte # 2.92 X10^3/ul (0.83-4.51); Lymphocyte % 30.6 % (19-41); Mean Corp Hgb Conc 33.6 g/dL (32-36); Mean Corpuscular Hgb 30.9 pg (27.0-32.0); Mean Corpuscular Volume 92.1 fL (81-99); Mean Platelet Vol. 11.1 fl (6.2-12.0); Monocyte% 5.2 % (0-10); NRBC Flagged by Analyzer 0 % (0-5); Neutrophil # 5.84 X10^3/uL (2.7-7.7); Neutrophil % 61.3 % (47-70); Platelet Count 367 K/mm3 (150-450); RBC Distribution Width CV 12.6 % (11.6-14.6); RBC Distribution Width SD 42.3 fl (35.1-43.9); Red Blood Count 4.17 M/mm3 (4.2-5.4); White Blood Count 9.5 K/mm3 (4.4-11.0)
[2024-07-13 12:39] LABS: AST(SGOT) 13 U/L (15-37); Alanine Aminotransfer ALT/SGPT 16 U/L (13-56); Albumin, Serum 3.7 g/dL (3.2-5.0); Alkaline Phosphatase 79 U/L (45-117); Anion Gap 5 (5-15); BUN 7 mg/dL (7-18); BUN/Creat Ratio 10.7 RATIO (10-20); Calcium,Total 9.5 mg/dL (8.5-10.1); Chloride 107 mmol/L (98-107); Creatinine, Serum 0.65 mg/dL (0.55-1.02); EST Glomerular Filtration Rate 103 mL/min (>60); Est Glom Filt Rate - Afr Amer 124 mL/min (>60); Globulin 3.8 g/dL (2.2-4.2); Glucose 87 mg/dL (74-106); Potassium 3.7 mmol/L (3.5-5.1); Protein, Total 7.5 g/dL (6.4-8.2); Sodium Level 140 mmol/L (136-145)
== END | disposition home or self-care (01) ==
LOC: MTLAB 09:40
PROVIDERS: PCP Internal Medicine; Referring Provider Internal Medicine Rheumatology; Visit Provider Internal Medicine Rheumatology
DX: L40.59 Other psoriatic arthropathy (principal); Z79.899 Other long term (current) drug therapy
CPT/HCPCS: 36415; 80053; 85025

== ENCOUNTER → 2024-08-30 | Outpatient (CLI) | payer BC, SELFPAY ==
[2024-08-30 18:01] LABS: Absolute Lymphocyte Count 3.45 X10^3/uL (0.83-4.51); Absolute Neutrophil Count 4.5 X10^3/uL (2.0-7.7); Basophil# 0.07 X10^3/uL; Basophil% 0.8 % (0-1); Eosinophil# 0.27 X10^3/uL; Hematocrit 41.1 % (37-47); Hemoglobin 14.1 g/dL (12.0-15.0); Lymphocyte # 3.45 X10^3/ul (0.83-4.51); Lymphocyte % 38.3 % (19-41); Mean Corp Hgb Conc 34.3 g/dL (32-36); Mean Corpuscular Hgb 30.8 pg (27.0-32.0); Mean Corpuscular Volume 89.7 fL (81-99); Mean Platelet Vol. 10.7 fl (6.2-12.0); Monocyte# 0.71 X10^3/uL; Monocyte% 7.9 % (0-10); NRBC Flagged by Analyzer 0 % (0-5); Neutrophil # 4.49 X10^3/uL (2.7-7.7); Neutrophil % 49.9 % (47-70); Platelet Count 316 K/mm3 (150-450); RBC Distribution Width CV 12.2 % (11.6-14.6); RBC Distribution Width SD 40.6 fl (35.1-43.9); Red Blood Count 4.58 M/mm3 (4.2-5.4)
[2024-08-30 18:25] LABS: ALB/GLOB Ratio 1.5 RATIO (0.9-2.4); AST(SGOT) 30 U/L (<=31); Alanine Aminotransfer ALT/SGPT 31 U/L (<=34); Albumin, Serum 4.7 g/dL (3.5-5.0); Alkaline Phosphatase 88 U/L (35-104); Anion Gap 12 (5-15); BUN 13 mg/dL (4-19); BUN/Creat Ratio 17.6 RATIO (10-20); Chloride 104 mmol/L (98-108); Creatinine, Serum 0.71 mg/dL (0.70-1.20); EST Glomerular Filtration Rate 103 (>60); Ferritin 156 ng/mL (22-378); Free T3 3.2 pg/mL (2.18-3.98); Globulin 3.1 g/dL (2.2-4.2); Glucose 80 mg/dL (70-99); Potassium 3.9 mmol/L (3.3-5.1); Protein, Total 7.8 g/dL (5.9-8.4); Sodium Level 141 mmol/L (133-145); Total Bilirubin 0.43 mg/dL (0.00-1.30); Vitamin D,25 Hydroxy 26.2 ng/mL (30-100)
[2024-09-04 10:07] LABS: Anti-Nuclear Antibody Test Negative (.); Anti-dsDNA Ab 1 IU/mL (0-9)
[2024-09-05 02:07] LABS: Thyroid Peroxidase AB 509 IU/mL (0-34); Zinc, WHOLE BLOOD 535 ug/dL (440-860)
== END | disposition home or self-care (01) ==
LOC: MTLAB 14:26
PROVIDERS: PCP Internal Medicine; Referring Provider Physician Assistant; Visit Provider Physician Assistant
DX: L40.0 Psoriasis vulgaris (principal); L65.9 Nonscarring hair loss, unspecified
CPT/HCPCS: 36415; 80053; 82306; 82728; 84439; 84443; 84481; 84630; 85025; 86038; 86225; 86376

== ENCOUNTER → 2024-09-26 | Outpatient (CLI) | payer BC, SELFPAY ==
[2024-09-26 12:51] LABS: Erythrocyte Sedimentation Rate 2 mm/hr (0-30)
[2024-09-26 13:29] LABS: CRP < 3.00 mg/L (0.0-3.0)
[2024-09-27 09:08] LABS: ANTINUCLEAR ANTIBODIES DIRECT Negative (Negative)
== END | disposition home or self-care (01) ==
LOC: BIMLAB 09:12
PROVIDERS: PCP Internal Medicine; Visit Provider Internal Medicine
DX: R94.6 Abnormal results of thyroid function studies (principal); L40.9 Psoriasis, unspecified; E55.9 Vitamin D deficiency, unspecified
CPT/HCPCS: 36415; 82784; 83516; 84432; 84439; 84443; 84482; 85652; 86038; 86140; 86225; 86235; 86255; 86376; 86800

== ENCOUNTER → 2024-10-03 | Outpatient (CLI) | payer BC, SELFPAY ==
--- NOTE | 2024-10-03 10:15 | BI_ITS ---
EXAM: SCRN MAMM (CAD)W/SCHUYLER BILAT DATE: 10/03/2024 CLINICAL HISTORY: F, Age 49 y/o , BREAST CANCER SCREENING Remote left excisional breast biopsy and left stereotactic breast biopsy. Grandmother with breast cancer. Aunt with breast cancer. BREAST CANCER RISK ASSESSMENT: Not assessed. TECHNIQUE: Bilateral screening digital breast tomosynthesis with 2D and 3D images. Computer aided detection. COMPARISON: Prior exam(s) dated February 20, 2022.. FINDINGS: TISSUE DENSITY: The breast tissue is extremely dense which lowers the sensitivity of mammography. Bilateral Breast Mammographic Findings: No significant masses, calcifications or other abnormalities are identified. No suspicious masses, areas of developing architectural distortion, or suspicious calcifications. There has been no significant interval change. BI/SCRN MAMM (CAD)W/SCHUYLER BILAT IMPRESSION: OVERALL FINAL ASSESSMENT: BIRADS 1 NEGATIVE RECOMMENDATION: Routine annual follow-up in 1 Year A letter with findings and recommendations will be mailed to the patient. Reading Location: [facility]
== END | disposition home or self-care (01) ==
LOC: OPBI 10:09
PROVIDERS: PCP Internal Medicine; Referring Provider Internal Medicine; Visit Provider Internal Medicine
DX: Z12.31 Encounter for screening mammogram for malignant neoplasm of breast (principal); Z80.3 Family history of malignant neoplasm of breast
CPT/HCPCS: 77063; 77067

== ENCOUNTER → 2024-12-15 | Outpatient (CLI) | payer BC, SELFPAY ==
[2024-12-15 12:30] LABS: Hematocrit 39.0 % (37-47); Hemoglobin 13.5 g/dL (12.0-15.0); Immature Granulocytes Count 0.030 X10^3/uL (0.0-0.0); Mean Corp Hgb Conc 34.6 g/dL (32-36); Mean Corpuscular Volume 90.1 fL (81-99); Mean Platelet Vol. 11.2 fl (6.2-12.0); NRBC Flagged by Analyzer 0 % (0-5); Platelet Count 285 K/mm3 (150-450); RBC Distribution Width CV 12.8 % (11.6-14.6); RBC Distribution Width SD 42.7 fl (35.1-43.9); Red Blood Count 4.33 M/mm3 (4.2-5.4); White Blood Count 9.5 K/mm3 (4.4-11.0)
[2024-12-15 13:17] LABS: AST(SGOT) 19 U/L (<=31); Alanine Aminotransfer ALT/SGPT 11 U/L (<=34); Albumin, Serum 4.6 g/dL (3.5-5.0); Alkaline Phosphatase 79 U/L (35-104); Anion Gap 10 (5-15); BUN 8 mg/dL (4-19); BUN/Creat Ratio 10.6 RATIO (10-20); Calcium,Total 10.0 mg/dL (7.6-11.0); Carbon Dioxide 25.7 mmol/L (21.0-32.0); Chloride 104 mmol/L (98-108); Globulin 2.6 g/dL (2.2-4.2); Glucose 83 mg/dL (70-99); Potassium 4.9 mmol/L (3.3-5.1)
== END | disposition home or self-care (01) ==
LOC: MTLAB 09:46
PROVIDERS: PCP Internal Medicine; Referring Provider Internal Medicine Rheumatology; Visit Provider Internal Medicine Rheumatology
DX: L40.59 Other psoriatic arthropathy (principal); Z79.899 Other long term (current) drug therapy
CPT/HCPCS: 36415; 80053; 85025

== ENCOUNTER → 2024-12-25 | Outpatient (CLI) | payer BC, SELFPAY ==
--- NOTE | 2024-12-25 10:43 | RAD_ITS ---
PROCEDURE: HIPS B/L MIN 2 VIEWS W/ PELVIS 12/25/2024 REASON FOR EXAM: PSORIATIC ARTHROPATHY TECHNIQUE: HIPS B/L MIN 2 VIEWS W/ PELVIS COMPARISON: 11/11/2022 FINDINGS: Intact pelvic ring. No hip osteoarthritis. No acute bone or soft tissue pathology. RAD/Hips B/L min 2 views w/ Pelvis IMPRESSION: Unremarkable exam [facility]
[2024-12-30 14:08] LABS: Thyroxin Bind Glob (TBG) 27 ug/mL (13-39)
== END | disposition home or self-care (01) ==
PROVIDERS: PCP Internal Medicine; Referring Provider Internal Medicine Rheumatology; Visit Provider Internal Medicine Rheumatology
DX: L40.59 Other psoriatic arthropathy (principal); L40.8 Other psoriasis; Z79.899 Other long term (current) drug therapy; E06.3 Autoimmune thyroiditis
CPT/HCPCS: 36415; 73521; 84442; 84443; 84482; 86376

== ENCOUNTER → 2025-01-17 | Outpatient (CLI) | payer BC, SELFPAY ==
[2025-01-22 07:07] LABS: Calprotectin, Stool 363 ug/g (0-120)
== END | disposition home or self-care (01) ==
LOC: MTLAB 11:36
PROVIDERS: PCP Internal Medicine; Referring Provider Student in an Organized Health Care Education/Training Program; Visit Provider Student in an Organized Health Care Education/Training Program
DX: K58.0 Irritable bowel syndrome with diarrhea (principal)
CPT/HCPCS: 83993; 87177; 87209; 87329; 87493; 87506

== ENCOUNTER 2025-02-26 05:58 | Day surgery (SDC) | payer BC, SELFPAY ==
[2025-02-26] VITALS (8 sets, daily range): BP systolic 97–113; BP diastolic 52–60; PULSE 65–72; RESP 14–16; TEMP 36.1–36.3; O2SAT 99–100; BMI 21.2
--- OUTSIDE RECORDS SUMMARY | 2025-02-26 06:02 | XMS RPT_ITS | CCD ---
Author Organization [facility] Care Team Providers Care [employer] Name Role Phone Brigette Arboleda MD Unavailable [phone] Pankaj STERILE PREPARATION TECHNICIAN, Lucia S Unavailable [phone] Brigette Arboleda MD Unavailable [phone] Dr. Nino Pearson Primary Care Provider [phone] Dr. Nino Pearson Referring Provider [phone] JEB Roach Attending Provider [phone] Dr. Nino Pearson Primary Care Provider [phone] Dr. Nino Pearson Referring Provider [phone] JEB Roach Attending Provider [phone] Dr. Nino Pearson MD Primary Care Provider Dr. Nino Pearson MD Referring Provider [phone] Naya Pham Attending Provider Dr. Kaylin Perez MD Attending Provider Dr. Kaylin Perez MD Referring Provider Nash Schwarz Attending Provider Alyssa Aguirre PA-C Attending Provider Alyssa Aguirre PA-C Referring Provider Dr. Nino Pearson MD Primary Care Provider Dr. Nino Pearson MD Referring Provider [phone] Oleghe MD, Dr. Oneill Attending Provider [phone] Michel MONDRAGON, Dr. Oneill Primary Care Provider Michel MONDRAGON, Dr. Oneill Referring Provider [phone] Ana MONDRAGON, Dr. Ewing Attending Provider Ana MONDRAGON, Dr. Ewing Referring Provider Michel MONDRAGON, Dr. Oneill Primary Care Provider Ungerer STERILE PREPARATION TECHNICIAN-C, Danielle Attending Provider [phone] Lucy Thompson Attending Provider Ungerer STERILE PREPARATION TECHNICIAN-C, Danielle Referring Provider [phone] Michel MONDRAGON, Dr. Oneill Primary Care Provider Michel MONDRAGON, Dr. Oneill Attending Provider [phone] Michel MONDRAGON, Dr. Oneill Referring Provider [phone] Lucy Thompson Referring Provider King ALANNA, Dr. Mcallister Attending Provider Oleghe, Efewongbe Referring Unavailable Oleghe, Efewongbe Primary Care Unavailable Nash Schwarz Attending Unavailable Sushil Birch Attending Unavailable Oleghe, Efewongbe Primary Care Unavailable Oleghe, Efewongbe Primary Care Unavailable Alyssa Leone Referring Unavailable Alyssa Leone Attending Unavailable Oleghe, Efewongbe Primary Care Unavailable Oleghe, Efewongbe Referring Unavailable Oleghe, Efewongbe Attending Unavailable Oleghe, Efewongbe Primary Care Unavailable Oleghe, Efewongbe Referring Unavailable Danielle Gaitan Attending Unavailable Oleghe, Efewongbe Primary Care Unavailable Lucy Gamez Attending Unavailable Ungerer Danielle Referring Unavailable Oleghe, Efewongbe Referring Unavailable Esvin Vega Attending Unavailable Oleghe, Efewongbe Primary Care Unavailable Oleghe, Efewongbe Referring Unavailable Naya Barrios Attending Unavailable Oleghe, Efewongbe Primary Care Unavailable Oleghe, Efewongbe Referring Unavailable Oleghe, Efewongbe Attending Unavailable Oleghe, Efewongbe Primary Care Unavailable Oleghe, Efewongbe Referring Unavailable Oleghe, Efewongbe Attending Unavailable Oleghe, Efewongbe Primary Care Unavailable Oleghe, Efewongbe Attending Unavailable Oleghe, Efewongbe Primary Care Unavailable Vellanki, Kaylin Referring Unavailable Vellanki, Kaylin Attending Unavailable Oleghe, Efewongbe Primary Care Unavailable Oleghe, Efewongbe Primary Care Unavailable Vellanki, Kaylin Attending Unavailable Vellanki, Kaylin Referring Unavailable Oleghe, Efewongbe Primary Care Unavailable Atanasov, Lucy Referring Unavailable Atanasov, Lucy Attending Unavailable Vellanki, Kaylin Referring Unavailable Vellanki, Kaylin Attending Unavailable Oleghe, Efewongbe Primary Care Unavailable Vellanki, Kaylin Referring Unavailable Vellanki, Kaylin Attending Unavailable Oleghe, Efewongbe Primary Care Unavailable Allergies Allergy Classification Reported Allergen(s) Allergy Type Date of Onset Reaction(s) Facility (2 sources) Penicillin V Drug Allergy 12-23-19 17 [facility] (2 sources) Sulfamethoxazole / Trimethoprim Drug Allergy 12-23-19 17 [facility] (17 sources) Penicillins; Translations: [PENICILLINS] Propensity to adverse reactions to drug (disorder) 11-19-19 07 severe vomiting [facility] Rep[facility] (17 sources) Sulfonamides (Antibiotic); Translations: [SULFA (SULFONAMIDE ANTIBIOTICS)] Propensity to adverse reactions to drug (disorder) 11-19-19 07 hives [facility] Repository Medications Current Medications Medication Drug Class(es) Dates Sig (Normalized) Sig (Original) cholecalciferol 0.01 mg oral capsule (4 sources) Vitamin D Start: 01-08-2025 take 1 capsule by mouth once daily Cholecalciferol (Vitamin D3) 10 mcg (400 unit) capsule Active 10 ug PO daily January 08, 2025 12:00am Clobetasol (14 sources) Corticosteroid Start: 01-08-2025 Clobetasol 0.025 % cream Active 1 NMA TOPICAL daily as needed January 08, 2025 3:00pm Start: 05-19-2024 End: 01-08-2025 Clobetasol 0.025 % cream Dis continued 1 NMA TOPICAL daily May 19, 2024 1:00am January 08, 2025 3:01pm Start: 05-19-2024 Clobetasol 0.0 25 % cream Active 1 NMA TOPICAL daily May 19, 2024 1:00am fluocinolone acetonide 0.1 mg/ml otic solution (14 sources) Corticosteroid Start: 01-08-2025 Fluocinolone A cetonide Oil 0.01 % drops Active NMA OTIC as needed January 08, 2025 3:00pm Start: 05-19-2024 End: 01-08-2025 Fluocinolone Acetonide Oil 0 .01 % drops Discontinued NMA OTIC May 19, 2024 1:00am January 08, 2025 3:01pm ketoconazole 20 mg/ml medicated shampoo (20 sources) Azole Antifungal Start: 01-08-2025 Ketoconazole 2 % shampoo Active TOPICAL as needed January 08, 2025 3:00pm Start: 05-19-2024 End: 01-08-2025 Ketoconazole 2 % shampoo Dis continued TOPICAL May 19, 2024 1:00am January 08, 2025 3:01pm Start: 05-19-2024 End: 01-08-2025 Ketoconazole 2 % cream Disco ntinued NMA TOPICAL daily May 19, 2024 1:00am January 08, 2025 3:00pm levothyroxine sodium 0.05 mg oral tablet (2 sources) l-Thyroxine Start: 01-23-2025 take 1 tablet by mouth once daily Levothyroxine (Euthyrox) 50 mcg tablet Active 50 ug PO daily 90 January 23, 2025 12:00am Multivitamin 1 EACH powder in packet (10 sources) Start: 09-27-2018 Multivitamin 1 EACH powder in packet Active 1 NMA PO DAILY September 27, 2018 12:00am Multivitamin preparation (5 sources) Start: 09-27-2018 Multivitamin A ctive 1 EACH PO DAILY September 26, 2018 11:00pm Start: 09-27-2018 Multivitamin A ctive 1 EACH PO DAILY September 27, 2018 12:00am mupirocin 0.02 mg/mg topical ointment (14 sources) RNA Synthetase Inhibitor Antibacterial Start: 01-08-2025 Mupirocin 2 % ointment Active 1 NMA TOPICAL THREE TIMES A DAY as needed January 08, 2025 3:00pm Impetigo bullosa Bullous impetigo Start: 05-19-2024 End: 01-08-2025 Mupirocin 2 % ointment Disco ntinued 1 NMA TOPICAL THREE TIMES A DAY 50 0 May 19, 2024 1:00am January 08, 2025 3:01pm Impetigo bullosa Bullous impetigo Start: 05-19-2024 Mupirocin 2 % ointment Active 1 NMA TOPICAL THREE TIMES A DAY 50 0 May 19, 2024 1:00am Impetigo bullosa Bullous impetigo Start: 05-19-2024 Mupirocin 2 % ointment Active 1 NMA TOPICAL THREE TIMES A DAY 50 May 19, 2024 1:00am 24 hr nicotine 0.583 mg/hr transdermal system (9 sources) Cholinergic Nicotinic Agonist Start: 09-22-2024 apply 1 dose transdermal route every twenty-four hours Nicotine 14 mg/24 hr patch 24 hour Active 1 NMA TD daily 28 September 22, 2024 12:00am predniSONE 10 mg oral tablet (18 sources) Start: 01-23-2025 take 1 tablet by mouth once daily as needed Prednisone 10 mg tablet Active 10 mg PO DAILY as needed for Flare Up January 23, 2025 1:02pm Start: 01-08-2025 End: 01-23-2025 take 2 tablets by mouth once daily, then take 1 tablet by mouth once daily, then take 0.5 tablet by mouth once daily Prednisone 10 mg tablet Discontinued 10 mg PO As Directed 14 January 08, 2025 12:00am January 23, 2025 1:02pm Take 2 tablets daily x 4 days, then 1 tablet daily x 4 days, then 1/2 tablet daily x 4 days Start: 06-28-2023 End: 07-22-2023 take 2 tablets by mouth once daily Prednisone 20 mg tablet Discontinued 40 mg PO DAILY 14 June 28, 2023 1:00am July 22, 2023 11:00am Start: 06-28-2023 End: 07-22-2023 take 40 mg by mouth once daily Prednisone Discontinued 40 MG PO DAILY June 28, 2023 1:00am July 22, 2023 11:00am Risankizumab-Rzaa (10 sources) Start: 05-19-2024 Risankizumab-R zaa (Niranjani) 150 mg/mL pen injector Active mg SC May 19, 2024 1:00am Completed/Discontinued Medications Medication Drug Class(es) Dates Sig (Normalized) Sig (Original) acetaminophen 325 mg oral tablet (15 sources) Start: 09-29-2018 End: 04-25-2020 Acetaminophen 325 MG tablet Discontinued 650 mg PO EVERY 6 HOURS NEEDED as needed for Mild Pain (1-3)/Temp > 100.7 F 20 0 September 29, 2018 12:00am April 25, 2020 9:45am Start: 09-29-2018 End: 04-25-2020 take 650 mg by mouth every six hours as needed Acetaminophen Discontinued 650 MG PO EVERY 6 HOURS NEEDED September 29, 2018 12:00am April 25, 2020 9:45am acetaminophen 325 mg / oxyCODONE hydrochloride 5 mg oral tablet (15 sources) Opioid Agonist Start: 05-20-2021 End: 06-04-2021 Oxycodone-Acetaminophen (Percocet) 5-325 mg tablet Discontinued 1 {tbl} PO EVERY 6 HOURS as needed for pain 20 7 0 May 20, 2021 June 04, 2021 11:52am Status post laparoscopy-assisted vaginal hysterectomy Acquired absence of both cervix and uterus azithromycin 250 mg oral tablet (10 sources) Macrolide Antimicrobial Start: 08-15-2024 End: 09-22-2024 Azithromycin 250 mg tablet Discontinued 250 mg PO .COMPLEX 12 0 August 15, 2024 12:00am September 22, 2024 9:39am 2 tablets (500 mg) on day 1, then 1 tablet daily on days 2 through 11 budesonide 3 mg delayed release oral capsule (15 sources) Corticosteroid Start: 07-30-2020 End: 09-09-2020 Budesonide 3 mg capsule,delayed,extend.relea se Discontinued NMA PO July 30, 2020 1:00am September 09, 2020 9:52am Start: 07-30-2020 End: 09-09-2020 Budesonide Discontinued EACH PO July 30, 2020 1:00am September 09, 2020 9:52am clindamycin 300 mg oral capsule (20 sources) Lincosamide Antibacterial Start: 12-07-2023 End: 12-14-2023 take 1 capsule by mouth every six hours Clindamycin Hcl 300 mg capsule Discontinued 300 mg PO EVERY 6 HOURS 28 7 0 December 07, 2023 12:00am December 13, 2023 12:00am December 14, 2023 12:05am Start: 09-29-2018 End: 04-25-2020 take 1 capsule by mouth four times daily Clindamycin Hcl 300 MG capsule Discontinued 300 mg PO 4 TIMES DAILY 28 0 September 29, 2018 12:00am April 25, 2020 9:45am dicyclomine hydrochloride 20 mg oral tablet (15 sources) Anticholinergic Start: 09-09-2020 End: 10-03-2020 take 1 tablet by mouth three times daily as needed Dicyclomine 20 mg tablet Discontinued 20 mg PO THREE TIMES A DAY as needed for abdominal discomfort 90 1 September 09, 2020 12:00am October 03, 2020 5:48pm diphenhydrAMINE hydrochloride 25 mg oral capsule (15 sources) Histamine-1 Receptor Antagonist Start: 04-25-2020 End: 06-10-2020 take 1 capsule by mouth at bedtime Diphenhydramine Hcl (Benadryl) 25 mg capsule Discontinued 25 mg PO AT BEDTIME April 25, 2020 1:00am June 10, 2020 10:57am DULoxetine 20 mg delayed release oral capsule (10 sources) Serotonin and Norepinephrine Reuptake Inhibitor Start: 12-07-2023 End: 09-22-2024 take 1 capsule by mouth twice daily Duloxetine 20 mg capsule,delayed release(DR/EC) Discontinued 20 mg PO TWICE A DAY December 07, 2023 12:00am September 22, 2024 9:39am estradiol 1 mg oral tablet (15 sources) Estrogen Start: 02-11-2021 End: 02-11-2021 take 1 tablet by mouth once daily Estradiol (Estrace) 1 mg tablet Discontinued 1 mg PO daily 30 0 February 11, 2021 12:00am February 11, 2021 11:45am fexofenadine hydrochloride 60 mg oral tablet (15 sources) Histamine-1 Receptor Antagonist Start: 04-25-2020 End: 06-10-2020 take 1 tablet by mouth twice daily Fexofenadine (Astrid Allergy) 60 mg tablet Discontinued 60 mg PO TWICE A DAY April 25, 2020 1:00am June 10, 2020 10:57am levonorgestrel 0.080063 mg/hr intrauterine system (15 sources) Progestin, Progestin-containing Intrauterine Device Start: 01-26-2018 End: 06-04-2021 Levonorgestrel (Mirena) 20 mcg/24 hr (5 years) intrauterine device Discontinued 1 NMA INTRA-UTER ONCE January 26, 2018 12:00am June 04, 2021 11:53am Start: 01-26-2018 End: 06-04-2021 Levonorgestrel (Mirena) 20 m cg/24 hr (5 years) intrauterine device Discontinued 1 INSERT INTRA-UTER ONCE January 26, 2018 12:00am June 04, 2021 11:53am methylPREDNISolone 4 mg oral tablet (15 sources) Corticosteroid Start: 04-24-2020 End: 06-10-2020 take 1 tablet by mouth once Methylprednisolone (Medrol (Rock)) 4 mg tablets,dose pack Discontinued 0 PO per package directions 21 April 24, 2020 1:00am June 10, 2020 10:56am PO PER PKG DIR MULTIPLE VITAMINS-MINERALS (2 sources) Start: 12-22-2016 take 1 tablet by mouth once daily MULTIVITAMIN ADULT TABS One tablet by mouth daily MULTIPLE VITAMINS-MINERALS [id number] Lucia Lira STERILE PREPARATION TECHNICIAN naproxen 250 mg oral tablet (15 sources) Nonsteroidal Anti-inflammatory Drug Start: 05-20-2021 End: 06-04-2021 take 250-500 mg by mouth every eight hours as needed for pain Naproxen 250 MG tablet Discontinued 250 - 500 mg PO EVERY 8 HOURS NEEDED as needed for MILD PAIN 22 06May 20, 2021 1:00am June 04, 2021 11:52am Drug Treatment Unknown - unknown (1 source) No information available. Cvjpa-8u-Xqp-Epa-Fish Oil-D3 350 mg-400 mg- 1,000 unit capsule (6 sources) Start: 12-25-2024 End: 01-08-2025 Kbect-8z-Wqy-Epa-Fish Oil-D3 350 mg-400 mg- 1,000 unit capsule Discontinued NMA PO daily December 25, 2024 12:00am January 08, 2025 3:01pm Start: 12-25-2024 Gygqz-6m-Otx-E pa-Fish Oil-D3 350 mg-400 mg- 1,000 unit capsule Active NMA PO daily December 25, 2024 12:00am prednisoLONE 10 mg disintegrating oral tablet (20 sources) Corticosteroid Start: 12-07-2023 End: 01-23-2025 take 1 tablet by mouth every other day as needed Prednisolone Sodium Phosphate 10 mg tablet,disintegrating Discontinued 10 mg PO every other day as needed January 08, 2025 3:01pm January 23, 2025 1:02pm Start: 12-07-2023 End: 09-22-2024 Prednisolone Acetate 1 % gricelda ps,suspension Discontinued 1 NMA OPHTHALMIC TWICE A DAY December 07, 2023 12:00am September 22, 2024 9:39am Secukinumab (10 sources) Interleukin-17A Antagonist Start: 12-07-2023 End: 05-19-2024 Secukinumab (Cosentyx Unoready Pen) 300 mg/2 mL (150 mg/mL) pen injector Discontinued 300 mg SC every 4 weeks December 07, 2023 12:00am May 19, 2024 10:42am Problems Active Problems Problem Classification Problem Date Documented Da te Episodic/Chronic Administrative/social admission (16 sources) Counseling procedure with explicit context; Translations: [Tobacco abuse counseling] 09-22-2024 Episodic Disorders of teeth and jaw (20 sources) Dental abscess; Translations: [Periapical abscess without sinus] 09-27-2018 Episodic Genitourinary symptoms and ill-defined conditions (14 sources) Urgent desire to urinate; Translations: [Urgency of urination] 07-22-2023 Episodic Menstrual disorders (15 sources) Irregular periods; Translations: [Irregular menstruation, unspecified] 06-30-2021 Chronic Noninfectious gastroenteritis (15 sources) Microscopic colitis; Translations: [Microscopic colitis, unspecified] 06-10-2020 Chronic Nutritional deficiencies (15 sources) Vitamin D deficiency; Translations: [Vitamin D deficiency, unspecified] Onset: 09-22-2024 09-22-2024 Chronic Other connective tissue disease (12 sources) Bursitis of right hip; Translations: [Other bursitis of hip, right hip] 07-06-2023 Episodic Other gastrointestinal disorders (10 sources) H/O: Disorder; Translations: [Personal history of other diseases of the digestive system] 12-07-2023 Episodic Other gastrointestinal disorders (15 sources) Diarrhea; Translations: [Diarrhea, unspecified] Episodic Other gastrointestinal disorders (8 sources) History of irritable bowel syndrome; Translations: [Personal history of other diseases of the digestive system] 01-08-2025 Episodic Other gastrointestinal disorders (1 source) Diarrhea, unspecified; Translations: [Diarrhea, unspecified] Onset: 01-24-2025 Episodic Other gastrointestinal disorders (1 source) Personal history of other diseases of the digestive system; Translations: [Personal history of other diseases of the digestive system] Onset: 01-08-2025 Episodic Other inflammatory condition of skin (20 sources) Psoriasis; Translations: [Psoriasis, unspecified] 09-22-2024 Chronic Other inflammatory condition of skin (1 source) Other psoriatic arthropathy; Translations: [Other psoriatic arthropathy] Onset: 01-02-2025 Chronic Other inflammatory condition of skin (1 source) Psoriasis, unspecified; Translations: [Psoriasis, unspecified] Onset: 09-22-2024 Chronic Other inflammatory condition of skin (1 source) Psoriasis vulgaris; Translations: [Psoriasis vulgaris] Onset: 09-05-2024 Chronic Other nervous system disorders (15 sources) Carpal tunnel syndrome; Translations: [Carpal tunnel syndrome, bilateral upper limbs] 06-10-2020 Chronic Other skin disorders (15 sources) Hirsutism; Translations: [Hirsutism] 02-11-2021 Episodic Other skin disorders (11 sources) Eruption; Translations: [Rash and other nonspecific skin eruption] 05-19-2024 Episodic Residual codes; unclassified (16 sources) Family history of malignant neoplasm of lung; Translations: [Family history of malignant neoplasm of trachea, bronchus and lung] 09-22-2024 Episodic Residual codes; unclassified (10 sources) Tobacco user; Translations: [Tobacco use] 12-25-2024 Episodic Septicemia (except in labor) (15 sources) Sepsis; Translations: [Sepsis, unspecified organism] 09-27-2018 Episodic Skin and subcutaneous tissue infections (16 sources) Cellulitis and abscess of face; Translations: [Cellulitis of face] Onset: 01-08-2025 09-27-2018 Episodic Spondylosis; intervertebral disc disorders; other back problems (12 sources) Sciatica; Translations: [Sciatica, unspecified side] 07-06-2023 Episodic Thyroid disorders (15 sources) Sky thyroiditis; Translations: [Autoimmune thyroiditis] Onset: 01-23-2025 10-09-2024 Chronic Unclassified (1 source) Screening mammography ; Translations: [Encounter for screening mammogram for malignant neoplasm of breast] Onset: 12-17-2016 12-18-2016 Unclassified (15 sources) No history of clinical finding in subject; Translations: [No significant past medical history] 09-27-2018 Unclassified (4 sources) History of irritable bowel syndrome Unclassified (4 sources) R19.7 - Diarrhea, unspecified,Z87.19 - Personal history of other diseases of the digestive system Past or Other Problems Problem Classification Problem Date Documented Da te Episodic/Chronic Nonmalignant breast conditions (4 sources) Pain of breast; Translations: [Breast lump] Onset: 12-22-2016 12-22-2016 Episodic Other screening for suspected conditions (not mental disorders or infectious disease) (18 sources) Thyroid function tests abnormal; Translations: [Abnormal results of thyroid function studies] Onset: 10-02-2024 09-22-2024 Episodic Residual codes; unclassified (15 sources) History of vaginal hysterectomy; Translations: [Acquired absence of both cervix and uterus] Onset: 04-23-2021 06-04-2021 Episodic Comment on above: BSfibroid AUB Urinary tract infections (15 sources) Urinary tract infections 12-21-2021 Results Test Name Value Interpretation Reference Range Facility [id number] 01-24-2025 M7400.3302 TESTING PERFORMED AT [facility]. ORIGINAL REPORT ON FILE IN LAB CONTAINS ADDITIONAL TEST SITE INFORMATION. Giardia Lamblia EIA NEGATIVE Normal [facility] Comment on above: Performed By: #### L 100.0100, L500.4050 #### [facility] Laboratory [address] [place], [address] Ova and Parasites 8623on OP OVA AND PARASITES EX AM, ROUTINE These results were obtained using wet preparation(s) and trichrome stained smear. This test does not include testing for Crytosporidium parvum, Cyclospora, or Microsporidia. One negative specimen does not rule out the possibility of a parasitic infection. TESTING PERFORMED AT [facility]. ORIGINAL REPORT ON FILE IN LAB CONTAINS ADDITIONAL TEST SITE INFORMATION. Ova/Parasite Exam NO OVA, CYSTS, OR PARASITES FOUND. Normal [facility] Comment on above: Performed By: #### L 100.0100, L500.4050 #### [facility] Laboratory [address] [place], [address] Endocrinology Visit Reporton 01-23-2025 Endocrinology Visit Report [facility] [address] [place] [address] OFFICE VISIT Date of Service: 01/23/25 MR#: [id number] Acct: [id number] Name: AURE CARRERA Rep #: [id number] : 1975 Provider: Jim Jaimes Age/Sex: 49/F [place] [facility] [place]: Signed Intake Vital Signs 09/22/24 09:41 01/08/25 15:05 01/23/25 12:58 Height 5 ft 4 in 5 ft 4 in 5 ft 4 in Weight: 132 lb BMI 22.6 BP 103/64 Blood Pressure Location Lt brachial Position Sitting Pulse 71 Pulse Source Monitor Pulse Oximetry (%) 97 Oxygen Delivery Method room air Intake Visit Reasons: Thyroid Chief Complaint: Thyroid 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 Accompanied by: Self Is patient in pain?: No Allergies Penicillins Allergy (Mild, Verified 01/23/25 12:58) severe vomiting Sulfa (Sulfonamide Antibiotics) Allergy (Mild, Verified 01/23/25 12:58) hives Medications ???Medication ???Instructions ???Recorded ???Confirmed ???Type multivitamin 1 ea PO DAILY 09/27/18 01/23/25 Hi story risankizumab-rzaa 150 mg/mL mg subcut 05/19/24 01/23/25 Histor y subcutaneous pen injector (Skyrizi) nicotine 14 mg/24 hr daily 1 patch transdermal QDAY #28 ea 01/23/25 Rx transdermal patch cholecalciferol (vitamin D3) 10 10 mcg PO QDAY 01/08/25 01/23/25 H istory mcg (400 unit) capsule clobetasol 0.025 % topical cream 1 applic topical QDAY PRN 01/08/25 01/23/25 History fluocinolone acetonide oil 0.01 % drp otic (ear) PRN 01/08/2501/23 History ear drops ketoconazole 2 % shampoo topical PRN 01/08/25 01/23/25 Hist ory mupirocin 2 % topical ointment 1 applic topical TID PRN 01/08/25 01/23/25 History levothyroxine 50 mcg tablet 50 mcg PO QDAY #90 tabs 01/23/25 0 01/23/25 Rx (Euthyrox) prednisone 10 mg tablet 10 mg PO DAILY PRN Flare Up History PFSH Medical History Tobacco abuse Sky thyroiditis Family history of lung cancer Health care maintenance Tobacco abuse counseling Vitamin D deficiency Psoriasis Abnormal thyroid function test Wears glasses Alcohol use Restless legs History of IBS Heartburn Smoker Leg cramps Enlarged uterus Shoulder pain Sciatica bladder/ uti infection Back problem Arthritis Seasonal allergies Acute colitis Surgical History S/P laparoscopic assisted vaginal hysterectomy (LAV[facility]) ( 05/20/21) History of incision and drainage History of endoscopy History of dental surgery S/P trigger finger release History of lumpectomy of left breast Family History Father Hypertension Grandmother Diabetes Breast cancer Mother Cervical cancer Aunt Breast cancer Social History Smoking Status: Current every day smoker tobacco type: cigarettes alcohol intake: current alcohol intake frequency: a few times a month details: occasionally substance use type: does not use caffeine: Yes what type of physical activity do you participate in: other details: work- [employer] seatbelt use: always do you feel safe at home: Yes additional social history: [employer] Patient works at [employer] HPI HPI Chief Complaint: Thyroid Details: AURE CARRERA, is a 49 F who presents to the office today for evaluation and management of thyroid. She has known autoimmune disease: psoriasis and microscopic colitis. She has been under a lot of stress. She has lost 5 pounds, she has joint pain and diarrhea. No FMH of thyroid disease. TSH 1.6 TPO 433 She knows about leaky gut syndrome. ROS Const Constitutional: Positive for fatigue; No weakness, weight change or change in appetite Eyes Eyes: No change in vision ENT ENT: No hearing loss, nasal congestion or difficulty swallowing Cardio Cardiology: Positive for palpitations; No chest pain at rest, chest pain with exertion or shortness of breath Musc Musculoskeletal: Positive for joint pain; No numbness Neuro Neurology: No weakness, memory loss or numbness Psych Psychiatric: No change in appetite, No memory loss and No Thoughts of harming yourself/Others Resp Respiratory: No cough or chest congestion Gastro GI: Positive for diarrhea and heartburn; No difficulty swallowing Genitourinary-Female: No burning urination Skin Skin: Positive for itchy eyes; No wounds Endo Endocrine: Positive for fatigue; No weight change Aller/Imm Allergy/Immunologic: Positive for itchy eyes Exam Const General: cooperative, healthy appearing, comfortable, no acute distress, well developed and not cushingoid Nutritional Appearance: well nourished (more content not included)... Normal [facility] Calprotectin, Stoolon [address] 363 ug/g Abnormal 0-120 [facility] Comment on above: Result Comment: Conc entration Interpretation Follow-Up < 5 - 50 ug/g Normal None >50 -120 ug/g Borderline Re-evaluate in 4-6 weeks >120 ug/g Abnormal Repeat as clinically indicated Performed at: [facility] [address] [id number] [employer] Worker: Daxa Hernandez MD, Phone: [phone] Performed By: #### L 3400.8000 #### [facility] Laboratory [address] [place], [address] ENTERIC PATHOGEN PANEL STOOL on 01-18-2025 EP PANEL Normal Reference Ran ge = Not Detected Nucleic acid amplification test method Not detected for Campylobacter group, Salmonella species, Shigella species, Vibrio Group, Yersinia enterocolitica, EHEC (Shiga Toxin 1, Shiga Toxin 2), Norovirus Gl/Gll, and Rotavirus A. Other common stool pathogens are not detected on this panel include: Aeromonas/Plesiomonas or parasites. Order testing for these organisms separately if suspected. This is an amplified DNA test which makes it both specific and sensitive. CAMPYLOBACTER Not Detected Norovirus Not Detected Rotavirus Not Detected Salmonella Not Detected Shiga Toxin Not Detected Shigella sp. Not Detected VIBRIO Not Detected Yersinia Not Detected Normal [facility] Comment on above: Performed By: #### L 3400.8000 #### [facility] Laboratory [address] [facility] [place], [address] CDIFF (PCR)on 01-17-2025 CDIFF Pending [phone] [id number] Presumptive Negative *for epidemiolologic???use C. Diff PCR Negative- No toxigenic C. Diff Detected Normal [facility] Comment on above: Performed By: #### L 3400.8000 #### [facility] Laboratory [address] [place], [address] Calprotectin stoolOrdered By : Lucy Gamez on 01-17-2025 Calprotectin stool 363 ug/g High 0-120 [facility] Comment on above: Concentration Interp retation Follow-Up< 5 - 50 ug/g Normal None>50 -120 ug/g Borderline Re-evaluate in 4-6 weeks >120 ug/g Abnormal Repeat as clinically indicatedPerformed at: [facility] [address] [id number] Director: Daxa Hernandez MD, Phone: [phone] Clostridium difficile detect ion by polymerase chain reactionOrdered By: Lucy Gamez on 01-17-2025 C. difficile DNA CRISTOPHER+probe Ql (Unsp spec) [facility] Gastroenterology Visit Repor ton 01-11-2025 Gastroenterology Visit Report [facility] [address] [place] [address] OFFICE VISIT Date of Service: 01/11/25 MR#: [id number] Acct: [id number] Name: AURE CARRERA Rep #: [id number] : 1975 Provider: JEB Garcia Age/Sex: 49/F Location: [facility] Status: Signed Intake Vital Signs 01/08/25 15:05 Height 5 ft 4 in Weight: 134 lb BMI 23.0 BP 110/74 Blood Pressure Location Rt brachial Position Sitting Respiration 16 Pulse 65 Pulse Source Monitor Temp 97.4 F L Temp Source Temporal Pulse Oximetry (%) 96 Oxygen Delivery Method room air Intake Visit Reasons: Diarrhea Chief Complaint: Diarrhea Allergies Penicillins Allergy (Mild, Verified 01/08/25 14:59) severe vomiting Sulfa (Sulfonamide Antibiotics) Allergy (Mild, Verified 01/08/25 14:59) hives Medications ???Medication ???Instructions ???Recorded ???Confirmed ???Type multivitamin 1 ea PO DAILY 09/27/18 01/11/25 Hi story risankizumab-rzaa 150 mg/mL mg subcut 05/19/24 01/11/25 Histor y subcutaneous pen injector (Skyrizi) nicotine 14 mg/24 hr daily 1 patch transdermal QDAY #28 ea 01/11/25 Rx transdermal patch cholecalciferol (vitamin D3) 10 10 mcg PO QDAY 01/08/25 01/11/25 H istory mcg (400 unit) capsule clobetasol 0.025 % topical cream 1 applic topical QDAY PRN 01/08/25 01/11/25 History fluocinolone acetonide oil 0.01 % drp otic (ear) PRN 01/08/2501/11 History ear drops ketoconazole 2 % shampoo topical PRN 01/08/25 01/11/25 Hist ory mupirocin 2 % topical ointment 1 applic topical TID PRN 01/08/25 01/11/25 History prednisolone sodium phosphate 10 10 mg PO Q OTHER DAY PRN 01/08/25 01/11/25 History mg disintegrating tablet prednisone 10 mg tablet 10 mg PO DIRECTED #14 tabs 12/2201/11/25 Rx PFSH Medical History Tobacco abuse Sky thyroiditis Family history of lung cancer Health care maintenance Tobacco abuse counseling Vitamin D deficiency Psoriasis Abnormal thyroid function test Wears glasses Alcohol use Restless legs History of IBS Heartburn Smoker Leg cramps Enlarged uterus Shoulder pain Sciatica bladder/ uti infection Back problem Arthritis Seasonal allergies Acute colitis Surgical History S/P laparoscopic assisted vaginal hysterectomy (LAVH) ( 05/20/21) History of incision and drainage History of endoscopy History of dental surgery S/P trigger finger release History of lumpectomy of left breast Family History Father Hypertension Grandmother Diabetes Breast cancer Mother Cervical cancer Aunt Breast cancer Social History (Updated 01/11/25 @ 11:39 by Erin Lopez) Smoking Status: Current every day smoker tobacco type: cigarettes Smoking packs per day: 0.5 Smoking cigarettes per day: 10.0 alcohol intake: current alcohol intake frequency: a few times a month details: occasionally substance use type: does not use caffeine: Yes what type of physical activity do you participate in: other details: work- [employer] seatbelt use: always do you feel safe at home: Yes additional social history: [employer] Patient works at [employer] HPI HPI Chief Complaint: Diarrhea Details: AURE CARRERA, is a 49 F who presents to the office today for establishment. Patient referred from her primary care provider for diarrhea for 1 month. Patient has a past medical history of microscopic colitis. She has undergone 2 colonoscopies in the past that have both showed microscopic colitis. In the past she has been treated with prednisone and possibly budesonide. For 1 month now she has had urgent watery loose stools after each meal. It is not associated with abdominal pain, blood in her stool, nausea or vomiting. She does not have nocturnal symptoms. Patient is currently on a prednisone taper given to her by her primary care provider which has made her stools more applesauce like. She has had a lot of stress in her life with her mother recently following and her father passing away a few months ago. ROS Const Constitutional: Positive for fatigue and weight change (weight loss); No fever(s) ENT ENT: No difficulty swallowing Gastro GI: Positive for abdominal pain, bloating, change in bowel habits, diarrhea, heartburn and excessive flatus; No belching, change in stool character, coffee ground emesis, constipation, cramping, difficulty swallowing, feeling full early, incontinent of stools, Vomiting blood/hematemesis, Blood in stool, loose stools, Black,tarry stools, nausea/dyspepsia, pain with swallowing, vomiting or other Musc Musculoskeletal: Positive for joint pain, (more content not included)... Normal [facility] Internal Medicine Office Vis tamanna 01-08-2025 Internal Medicine Office Visit [facility] [address] [place] [address] [place] [address] OFFICE VISIT Date of Service: 01/08/25 MR#: [id number] Acct: [id number] Name: AURE CARRERA Rep #: [id number] : 1975 Provider: MO thomson Age/Sex: 49/F Location: [facility] Status: Signed Intake Vital Signs 12/25/24 14:22 01/08/25 15:05 Height 5 ft 4 in 5 ft 4 in Weight: 136 lb 4 oz 134 lb BMI 23.3 23.0 BP 130/78 H 110/74 Blood Pressure Location Lt brachial Rt brachial Position Sitting Sitting Respiration 16 16 Pulse 89 65 Pulse Source Monitor Monitor Temp 97.7 F L 97.4 F L Temp Source Temporal Temporal Pulse Oximetry (%) 98 96 Oxygen Delivery Method room air room air Intake Visit Reasons: ACUTE-SEVERE DIARRHEA 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 Accompanied by: Self Is patient in pain?: No Allergies Penicillins Allergy (Mild, Verified 01/08/25 14:59) severe vomiting Sulfa (Sulfonamide Antibiotics) Allergy (Mild, Verified 01/08/25 14:59) hives Medications ???Medication ???Instructions ???Recorded ???Confirmed ???Type multivitamin 1 ea PO DAILY 09/27/18 01/08/25 Hi story risankizumab-rzaa 150 mg/mL mg subcut 05/19/24 01/08/25 Histor y subcutaneous pen injector (Skyrizi) nicotine 14 mg/24 hr daily 1 patch transdermal QDAY #28 ea 01/08/25 Rx transdermal patch cholecalciferol (vitamin D3) 10 10 mcg PO QDAY 01/08/25 01/08/25 H istory mcg (400 unit) capsule clobetasol 0.025 % topical cream 1 applic topical QDAY PRN 01/08/25 01/08/25 History fluocinolone acetonide oil 0.01 % drp otic (ear) PRN 01/08/2501/08 History ear drops ketoconazole 2 % shampoo topical PRN 01/08/25 01/08/25 Hist ory mupirocin 2 % topical ointment 1 applic topical TID PRN 01/08/25 History prednisolone sodium phosphate 10 10 mg PO Q OTHER DAY PRN 01/08/25 01/08/25 History mg disintegrating tablet prednisone 10 mg tablet 10 mg PO DIRECTED #14 tabs 12/2201/08/25 Rx PFSH Medical History (Updated 01/08/25 @ 15:35 by MO Reddy) Tobacco abuse Sky thyroiditis Family history of lung cancer Health care maintenance Tobacco abuse counseling Vitamin D deficiency Psoriasis Abnormal thyroid function test Wears glasses Alcohol use Restless legs History of IBS Heartburn Smoker Leg cramps Enlarged uterus Shoulder pain Sciatica bladder/ uti infection Back problem Arthritis Seasonal allergies Acute colitis Surgical History S/P laparoscopic assisted vaginal hysterectomy (LAVH) ( 05/20/21) History of incision and drainage History of endoscopy History of dental surgery S/P trigger finger release History of lumpectomy of left breast Family History Father Hypertension Grandmother Diabetes Breast cancer Mother Cervical cancer Aunt Breast cancer Social History Smoking Status: Current every day smoker tobacco type: cigarettes alcohol intake: current details: occasionally substance use type: does not use caffeine: Yes what type of physical activity do you participate in: other details: work- [employer] seatbelt use: always do you feel safe at home: Yes additional social history: [employer] Patient works at [employer] HPI Details: AURE CARRERA, is a 49 F who presents to the office today for diarrhea. Patient with a history of microscopic colitis. In the past this was treated with prednisone. Recently she was on a course of prednisone for bursitis and then diarrhea started shortly after discontinuation of the prednisone dose. She is also on Skyrizi for psoriatic arthritis she does have a history of IBS.She denies any abdominal pain. Denies nausea or vomiting. States diarrhea episodes are 2-3 times a day and have been recurrent for the last month. She has not noticed any dietary intake that makes symptoms any better or worse. She states stool was very thin liquid at times does not notice any mucus or blood in the stool. Does not notice oil or greasy appearance of the stool. Previously she had seen Dr. Nguyen and had 2 colonoscopies for similar symptoms. ROS Const Constitutional: Positive for fatigue; No body ache, excessive sweating, fever(s), frequent falls, headache(s), snoring, weakness, weight change, sleep problems or change in appetite Eyes Eyes: No blurry vision, change in vision, vision loss, dry eyes, eye pain or Light sensitivity ENT ENT: No abnormal hearing, ear or mastoid pain, tinnitus, nasal congestion, headache(s), neck pain or sore throat Resp Respiratory: No cough, excessive phlegm production, hemoptysis, shortness of breath, snoring or wheezing Cardio Cardiology: No sonja (more content not included)... Normal [facility] T3 Reverseon 12-30-2024 T3 REVERSE 17.2 ng/dL Normal 9.2-24.1 [facility] Comment on above: Order Comment: Test( s) 452118-Lvkphdb T3, Serumwas developed and its performance characteristicsdetermined by [facility]. It has not been cleared or approvedby the Food and Drug Administration.N Performed By: #### L 100.0100, L500.4050 #### [facility] Laboratory [address] [place], [address] Thyroid Peroxidase ABon 08-0 THYR PEROX AB 433 IU/mL High 0-34 [facility] Comment on above: Order Comment: Test( s) 185174-Szvcmlz T3, Serumwas developed and its performance characteristicsdetermined by [employer]. It has not been cleared or approvedby the Food and Drug Administration. Result Comment: Perf ormed at: [address] [id number] [employer] Worker: Daxa Hernandez MD, Phone: [phone] Performed at: [address] [id number] [employer] Worker: Alden Garcia PhD, Phone: [phone] Performed By: #### L 100.0100, L500.4050 #### [facility] Laboratory [address] [place], [address] Thyroxin Bind Glob (TBG)on 0 12-30-2024 THYROXIN B GLOB 27 ug/mL Normal 13-39 [facility] Comment on above: Order Comment: Test( s) 660676-Jvwbprn T3, Serumwas developed and its performance characteristicsdetermined by [employer]. It has not been cleared or approvedby the Food and Drug Administration. Performed By: #### L 100.0100, L500.4050 #### [facility] Laboratory [address] [place], [address] Hips B/L min 2 views w/ Pelv matthew 12-25-2024 Hips B/L min 2 views w/ Pelvis [facility] Imaging Services [address] [place] [address] Hips B/L min 2 views w/ Pelvis MR#: [id number] Acct: [id number] Name: FRANKIEAURE INDIO Rep #: [id number] : 1975 F 49 From: Steven Riley MD PCP: Dr. Nino Pearson MD Status: REG CLI Study: Hips B/L min 2 views w/ Pelvis Date of Exam: 0 12/25/24 Exam# [id number] Ordering Dr: Kaylin Perez MD PROCEDURE: HIPS B/L MIN 2 VIEWS W/ PELVIS 12/25/2024 REASON FOR EXAM: PSORIATIC ARTHROPATHY TECHNIQUE: HIPS B/L MIN 2 VIEWS W/ PELVIS COMPARISON: 11/11/2022 FINDINGS: Intact pelvic ring. No hip osteoarthritis. No acute bone or soft tissue pathology. RAD/Hips B/L min 2 views w/ Pelvis IMPRESSION: Unremarkable exam Reading Location: [place] [address] CC: Dr. Nino Pearson MD; Dr. Kaylin Perez MD Boiler Cleaner: Signed Normal [facility] Internal Medicine Office Vis ito 12-25-2024 Internal Medicine Office Visit [facility] [address] [place] [address] [place] [address] OFFICE VISIT Date of Service: 12/25/24 MR#: [id number] Acct: [id number] Name: AURE CARRERA Rep #: [id number] : 1975 Provider: Dr. 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 Accompanied by: Self Is patient in pain?: No Allergies Penicillins Allergy (Mild, Verified 12/25/24 14:19) severe vomiting Sulfa (Sulfonamide Antibiotics) Allergy (Mild, Verified 12/25/24 14:19) hives Medications ???Medication ???Instructions ???Recorded ???Confirmed ???Type multivitamin 1 ea PO DAILY 09/27/18 12/25/24 Hi story prednisolone sodium phosphate 10 10 mg PO Q OTHER DAY 12/07/2309/15 History mg disintegrating tablet clobetasol 0.025 % topical cream 1 applic topical QDAY 05/19/2409/15 History fluocinolone acetonide oil 0.01 % drp otic (ear) 05/19/24 12/25/24 History ear drops ketoconazole 2 % shampoo topical 05/19/24 12/25/24 History ketoconazole 2 % topical cream applic topical QDAY 05/19/2412/25 History mupirocin 2 % topical ointment 1 applic topical TID #50 grams 12/25/24 Rx risankizumab-rzaa 150 mg/mL mg subcut 05/19/24 12/25/24 Histor y subcutaneous pen injector (Gay) nicotine 14 mg/24 hr daily 1 patch transdermal QDAY #28 ea 12/25/24 Rx transdermal patch tbmch-3x-iyf-epa-fish oil-vit D3 cap PO QDAY 12/25/24 12/25/24 Hist ory 350 mg-400 mg-1,000 unit capsule Nurse's Note: denies any concerns at this time [facility] Medical History (Updated 12/25/24 @ 16:[address] Nino Pearson MD) Tobacco abuse Sky thyroiditis Family history of lung cancer Health care maintenance Tobacco abuse counseling Vitamin D deficiency Psoriasis Abnormal thyroid function test Wears glasses Alcohol use Restless legs History of IBS Heartburn Smoker Leg cramps Enlarged uterus Shoulder pain Sciatica bladder/ uti infection Back problem Arthritis Seasonal allergies Acute colitis Surgical History S/P laparoscopic assisted vaginal hysterectomy (LAVH) ( 05/20/21) History of incision and drainage History of endoscopy History of dental surgery S/P trigger finger release History of lumpectomy of left breast Family History Father Hypertension Grandmother Diabetes Breast cancer Mother Cervical cancer Aunt Breast cancer Social History Smoking Status: Current every day smoker tobacco type: cigarettes alcohol intake: current details: occasionally substance use type: does not use caffeine: Yes what type of physical activity do you participate in: other details: work- [employer] seatbelt use: always do you feel safe at home: Yes additional social history: [employer] Patient works at [employer] HPI Chief Complaint: Follow-up chronic conditions Details: AURE CARRERA, is a 49 F who presents to the office today for follow-up. No acute concerns at this time. Nicotine patch prescribed for smoking cessation at her last visit. She is yet to actually begin use of it. She states that she is worried about what will happen if and when she quits. She states that smoking helps with her stress. She however states that she is trying to break habits. History of Sky's thyroiditis. Still reports fatigue. Has an appointment scheduled with endocrinology next month. Other chronic medical conditions are largely stable. ROS Const Constitutional: Positive for fatigue; No body ache, excessive sweating, fever(s), frequent falls, headache(s), snoring, weakness, weight change, sleep problems or change in appetite Eyes Eyes: No blurry vision, change in vision, vision loss, dry eyes, eye pain or Light sensitivity ENT ENT: No abnormal hearing, ear or mastoid pain, tinnitus, nasal congestion, headache(s), neck pain or sore throat Resp Respiratory: No cough, excessive phlegm production, hemoptysis, shortness of breath, snoring or wheezing Cardio Cardiology: No chest pain at rest, chest pain with exertion, excessive sweating, shortness of breath, dyspnea on exertion, lightheadedness, orthopnea or palpitations Gastro GI: No abdominal pain, change in bowel habits, c (more content not included)... Normal [facility] Serum or plasma thyroperoxid ase antibody assay (units/volume)Ordered By: Nino Pearson on 12-25-2024 TPO Ab Qn 433 [IU]/mL High 0-34 [facility] Comment on above: Performed at: [facility] gerardo [address] [id number] Director: Daxa Hernandez MD, Phone: [phone] at: [facility] [place]Jam[place] [address] [place], [place] [id number] Director: Alden Garcia PhD, Phone: [phone] Serum or plasma thyroxine bi nding globulin (TBG) measurement (mass/volume)Ordered By: Nino Pearson on 12-25-2024 TBG [Mass/Vol] 27 ug/mL 13-39 [facility] TSH DL <= 0.005 mIU/L QnOrde red By: Nino Pearson on 12-25-2024 TSH Qn 1.640 uIU/mL 0.300-4.20 0 [facility] Thyroid Stim Hormone (TSH)on 12-25-2024 TSH 1.640 uIU/mL Normal 0.300-4.20 0 [facility] Comment on above: Performed By: #### L 100.0100, L500.4050 #### [facility] Laboratory [address] [place] [address], [address] Absolute lymphocyte countOrd ered By: Kaylin Perez on 12-15-2024 Lymphocytes Auto (Unsp spec) [#/Vol] 3.43 10*3/uL 0.83-4.51 [facility] Absolute neutrophil countOrd ered By: Kaylin Perez on 12-15-2024 Neutrophils (Bld) [#/Vol] 5.2 10*3/uL 2.0-7.7 [facility] Anion gap in Serum or Plasma Ordered By: Kaylin Perez on 12-15-2024 Anion gap [Moles/Vol] 10 mmol/L 5-15 [facility] Automated lymphocyte count a s percentage of total leukocytesOrdered By: Kaylin Perez on 12-15-2024 Lymphocytes/100 WBC Auto (Unsp spec) 36.0 % - [facility] BUN/creatinine ratioOrdered By: Kaylin Perez on 12-15-2024 Urea nitrogen/Creatinine [Mass ratio] 10.6 mg/mg 10-20 [facility] Basophil percentageOrdered B y: Kaylin Perez on 12-15-2024 Basophils/100 WBC (Bld) 0.6 % 0-1 [facility] Bilirubin, totalOrdered By: Kaylin Perez on 12-15-2024 Bilirubin [Mass/Vol] 0.67 mg/dL 0.00-1.30 [facility] CBC W/Diff, Automatedon 11-22 Absolute Lymph 3.43 X10 3/uL Normal 0.83-4.51 [facility] Comment on above: Performed By: #### L 100.0100, L500.4050 #### [facility] Laboratory [address] [place], [address] Absolute Neut 5.2 X10 3/uL Normal 2.0-7.7 [facility] Comment on above: Performed By: #### L 100.0100, L500.4050 #### [facility] Laboratory [address] [place], [address] Basophils/100 WBC (Bld) 0.6 % Normal 0-1 [facility] Comment on above: Performed By: #### L 100.0100, L500.4050 #### [facility] Laboratory [address] [place], [address] Eosinophils/100 WBC (Bld) 2.0 % Normal 0-5 [facility] Comment on above: Performed By: #### L 100.0100, L500.4050 #### [facility] Laboratory [address] [place], [address] Erythrocyte distribution width (RBC) [Ratio] 12.8 % Normal 11.6-14.6 [facility] Comment on above: Performed By: #### L 100.0100, L500.4050 #### [facility] Laboratory [address] [place], [address] Hematocrit (Bld) [Volume fraction] 39.0 % Normal 37-47 [facility] Comment on above: Performed By: #### L 100.0100, L500.4050 #### [facility] [facility] [address] [place], [address] Hemoglobin (Bld) [Mass/Vol] 13.5 g/dL Normal 12.0-15.0 [facility] Comment on above: Performed By: #### L 100.0100, L500.4050 #### [facility] [address] [place], [address] IG% 0.300 Normal 0.0-0.9 [facility] Comment on above: Result Comment: IG% - Immature Granulocytes (promyelocytes, myelocytes and metamyelocytes) > 1% indicates that a LEFT SHIFT is Present. Performed By: #### L 100.0100, L500.4050 #### [facility] [address] [place], [address] Lymphocytes/100 WBC (Bld) 36.0 % Normal 19-41 [facility] [place] Comment on above: Performed By: #### L 100.0100, L500.4050 #### [facility] [address] [place], [address] MCH (RBC) [Entitic mass] 31.2 pg Normal 27.0-32.0 [facility] Comment on above: Performed By: #### L 100.0100, L500.4050 #### [facility] [address] [place], [address] MCHC (RBC) [Mass/Vol] 34.6 g/dL Normal 32-36 [facility] Comment on above: Performed By: #### L 100.0100, L500.4050 #### [facility] [address] [place], [address] MCV (RBC) [Entitic vol] 90.1 fL Normal 81-99 [facility] Comment on above: Performed By: #### L 100.0100, L500.4050 #### [facility] [address] [place], [address] Monocytes/100 WBC (Bld) 6.3 % Normal 0-10 [facility] [place] Comment on above: Performed By: #### L 100.0100, L500.4050 #### [facility] [address] [place], [address] Neutrophils/100 WBC (Bld) 54.8 % Normal 47-70 [facility] [place] Comment on above: Performed By: #### L 100.0100, L500.4050 #### [facility] [address] [place], [address] Nucleated RBC (Bld) [#/Vol] 0 10*3/uL Normal 0-5 [facility] [place] Comment on above: Performed By: #### L 100.0100, L500.4050 #### [facility] [address] [place], [address] Platelet mean volume (Bld) [Entitic vol] 11.2 fL Normal 6.2-12.0 [facility] [place] Comment on above: Performed By: #### L 100.0100, L500.4050 #### [facility] [address] [place], [address] Platelets (Bld) [#/Vol] 285 10*3/uL Normal 150-450 [facility] [place] Comment on above: Performed By: #### L 100.0100, L500.4050 #### [facility] [address] [place], [address] RBC (Bld) [#/Vol] 4.33 10*6/uL Normal 4.2-5.4 [facility] Comment on above: Performed By: #### L 100.0100, L500.4050 #### [facility] [address] [place], [address] RDW SD 42.7 fl Normal 35.1-43.9 [facility] [place] Comment on above: Performed By: #### L 100.0100, L500.4050 #### [facility] [address] [place], [address] WBC (Bld) [#/Vol] 9.5 10*3/uL Normal 4.4-11.0 [facility] Comment on above: Performed By: #### L 100.0100, L500.4050 #### [facility] [address] [place], [address] Carbon dioxide, total [Moles /volume] in Central venous bloodOrdered By: Kaylin Perez on 12-15-2024 CO2 [Moles/Vol] 25.7 mmol/L 21.0-32.0 [facility] Chloride assayOrdered By: Jeb Perez on 12-15-2024 Chloride [Moles/Vol] 104 mmol/L 98-108 [facility] Comprehensive Metabolic Prof ilon 12-15-2024 Albumin [Mass/Vol] 4.6 g/dL Normal 3.5-5.0 [facility] Comment on above: Performed By: #### L 100.0100, L500.4050 #### [facility] [address] [place], [address] Albumin/Globulin [Mass ratio] 1.8 {ratio} Normal 0.9-2.4 [facility] [place] Comment on above: Performed By: #### L 100.0100, L500.4050 #### [facility] [address] [place], [address] ALK PHOS 79 U/L Normal 35-104 [facility] Comment on above: Performed By: #### L 100.0100, L500.4050 #### [facility] [address] [place], [address] ALT [Catalytic activity/Vol] 11 U/L Normal <=34 [facility] Comment on above: Performed By: #### L 100.0100, L500.4050 #### [facility] [address] [place], [address] AST [Catalytic activity/Vol] 19 U/L Normal <=31 [facility] Comment on above: Performed By: #### L 100.0100, L500.4050 #### [facility] [address] [place], [address] Bilirubin [Mass/Vol] 0.67 mg/dL Normal 0.00-1.30 [facility] Comment on above: Performed By: #### L 100.0100, L500.4050 #### [facility] [address] [place], [address] BUN/CRE 10.6 RATIO Normal 10-20 [facility] Comment on above: Performed By: #### L 100.0100, L500.4050 #### [facility] [address] [place], [address] Calcium [Mass/Vol] 10.0 mg/dL Normal 7.6-11.0 [facility] Comment on above: Performed By: #### L 100.0100, L500.4050 #### [facility] [address] [place], [address] Chloride [Moles/Vol] 104 mmol/L Normal 98-108 [facility] Comment on above: Performed By: #### L 100.0100, L500.4050 #### [facility] [address] [place], [address] CO2 [Moles/Vol] 25.7 mmol/L Normal 21.0-32.0 [facility] Comment on above: Performed By: #### L 100.0100, L500.4050 #### [facility] [address] [place], [address] Creatinine [Mass/Vol] 0.77 mg/dL Normal 0.70-1.20 [facility] Comment on above: Performed By: #### L 100.0100, L500.4050 #### [facility] [address] [place], [address] GAP 10 Normal 5-15 [facility] Comment on above: Performed By: #### L 100.0100, L500.4050 #### [facility] [address] [place], [address] GFR/1.73 sq M.predicted among non-blacks MDRD (S/P/Bld) [Vol rate/Area] 95 mL/min/{1.73_m2} Normal >60 [facility] Comment on above: Result Comment: mL/m in/1.73m2 CKD-EPI Creatinine Equation (2020) Performed By: #### L 100.0100, L500.4050 #### [facility] [address] [place], [address] Globulin (S) [Mass/Vol] 2.6 g/dL Normal 2.2-4.2 [facility] Comment on above: Performed By: #### L 100.0100, L500.4050 #### [facility] [address] [place], [address] Glucose [Mass/Vol] 83 mg/dL Normal 70-99 [facility] Comment on above: Performed By: #### L 100.0100, L500.4050 #### [facility] [address] [place], [address] Potassium [Moles/Vol] 4.9 mmol/L Normal 3.3-5.1 [facility] Comment on above: Performed By: #### L 100.0100, L500.4050 #### [facility] [address] [place], [address] Sodium [Moles/Vol] 140 mmol/L Normal 133-145 [facility] Comment on above: Performed By: #### L 100.0100, L500.4050 #### [facility] [address] [place], [address] T PROT 7.1 g/dL Normal 5.9-8.4 [facility] Comment on above: Performed By: #### L 100.0100, L500.4050 #### [facility] [address] [place], [address] Urea nitrogen [Mass/Vol] 8 mg/dL Normal 4-19 [facility] Comment on above: Performed By: #### L 100.0100, L500.4050 #### [facility] [address] [place], [address] Eosinophil percentageOrdered By: Kaylin Perez on 12-15-2024 Eosinophils/100 WBC (Bld) 2.0 % 0-5 [facility] Erythrocyte distribution wid th ratioOrdered By: Kaylin Perez on 12-15-2024 Erythrocyte distribution width (RBC) [Ratio] 12.8 % 11.6-14.6 [facility] Erythrocyte distribution wid th standard deviationOrdered By: Kaylin Perez on 12-15-2024 Erythrocyte distribution width (RBC) [Ratio] 42.7 fl 35.1-43.9 [facility] Glomerular filtration rate ( GFR) estimation/1.73 sq m using serum, plasma, or whole bOrdered By: Kaylin Perez on 12-15-2024 GFR/1.73 sq M.predicted among non-blacks MDRD (S/P/Bld) [Vol rate/Area] 95 mL/min/{1.73_m2} >60 [facility] Comment on above: mL/min/1.73m2 CKD-EP I Creatinine Equation (2020) Hematocrit Auto (Bld) [Volum e fraction]Ordered By: Kaylin Perez on 12-15-2024 Hematocrit (Bld) [Volume fraction] 39.0 % 37-47 [facility] Hemoglobin measurementOrdere d By: Kaylin Perez on 12-15-2024 Hemoglobin (Bld) [Mass/Vol] 13.5 g/dL 12.0-15.0 [facility] Immature granulocytes/100 WB C Auto (Bld)Ordered By: Kaylin Perez on 12-15-2024 Immature granulocytes/100 WBC (Bld) 0.300 % 0.0-0.9 [facility] Comment on above: IG% - Immature Granu locytes (promyelocytes, myelocytes and metamyelocytes) > 1% indicates that a LEFT SHIFT is Present. Laboratory - Chemistry and C hemistry - challengeOrdered By: Kaylin Perez on 12-15-2024 AST [Catalytic activity/Vol] 19 U/L <32 [facility] MCV (mean corpuscular volume ) determinationOrdered By: Kaylin Perez on 12-15-2024 MCV (RBC) [Entitic vol] 90.1 fL 81-99 [facility] Mean corpuscular hemoglobin (MCH) determinationOrdered By: Kaylin Perez on 12-15-2024 MCH (RBC) [Entitic mass] 31.2 pg 27.0-32.0 [facility] Mean corpuscular hemoglobin concentration (MCHC) determinationOrdered By: Kaylin Perez on 12-15-2024 MCHC (RBC) [Mass/Vol] 34.6 g/dL 32-36 [facility] Mean platelet volume determi nationOrdered By: Kaylin Perez on 12-15-2024 Platelet mean volume (Bld) [Entitic vol] 11.2 fL 6.2-12.0 [facility] Monocyte percentageOrdered B y: Kaylin Perez on 12-15-2024 Monocytes/100 WBC (Bld) 6.3 % 0-10 [facility] Neutrophil percentageOrdered By: Kaylin Perez on 12-15-2024 Neutrophils/100 WBC (Bld) 54.8 % 47-70 [facility] Nucleated red blood cell per centageOrdered By: Kaylin Perez on 12-15-2024 Nucleated RBC/100 WBC (Bld) [Ratio] 0 % 0-5 [facility] Platelet countOrdered By: Jeb Perez on 12-15-2024 Platelets (Bld) [#/Vol] 285 10*3/uL 150-450 [facility] Potassium measurement (mass/ volume)Ordered By: Kaylin Perez on 12-15-2024 Potassium (Unsp spec) [Mass/Vol] 4.9 mmol/L 3.3-5.1 [facility] RBC Auto (Bld) [#/Vol]Ordere d By: Kaylin Perez on 12-15-2024 RBC (Bld) [#/Vol] 4.33 10*6/uL 4.2-5.4 [facility] Serum creatinine measurement (mass/volume)Ordered By: Kaylin Perez on 12-15-2024 Creatinine [Mass/Vol] 0.77 mg/dL 0.70-1.20 [facility] Serum globulin measurementOr dered By: Kaylin Perez on 12-15-2024 Globulin (S) [Mass/Vol] 2.6 g/dL 2.2-4.2 [facility] Serum glucose measurement (m ass/volume)Ordered By: Kaylin Perez on 12-15-2024 Glucose [Mass/Vol] 83 mg/dL 70-99 [facility] Serum or plasma alanine smith otransferase (ALT) measurementOrdered By: Kaylin Perez on 12-15-2024 ALT [Catalytic activity/Vol] 11 U/L <35 [facility] Serum or plasma albumin bianca urement (mass/volume)Ordered By: Kaylin Perez on 12-15-2024 Albumin [Mass/Vol] 4.6 g/dL 3.5-5.0 [facility] Serum or plasma albumin/glob ulin mass ratioOrdered By: Kaylin Perez on 12-15-2024 Albumin/Globulin [Mass ratio] 1.8 {ratio} 0.9-2.4 [facility] Serum or plasma alkaline ronnell sphatase measurementOrdered By: Kaylin Perez on 12-15-2024 ALP [Catalytic activity/Vol] 79 U/L 35-104 [facility] Serum or plasma calcium bianca urement (mass/volume)Ordered By: Kaylin Perez on 12-15-2024 Calcium [Mass/Vol] 10.0 mg/dL 7.6-11.0 [facility] Serum or plasma urea nitroge n measurement (mass/volume)Ordered By: Kaylin Perez on 12-15-2024 Urea nitrogen [Mass/Vol] 8 mg/dL 4-19 [facility] Sodium levelOrdered By: Speedy Perez on 12-15-2024 Sodium [Moles/Vol] 140 mmol/L 133-145 [facility] Total proteinOrdered By: Jose Perez on 12-15-2024 Protein [Mass/Vol] 7.1 g/dL 5.9-8.4 [facility] White blood cell (WBC) count Ordered By: Kaylin Perez on 12-15-2024 WBC (Bld) [#/Vol] 9.5 10*3/uL 4.4-11.0 [facility] Celiac AB,Comprehensiveon ANTIGLIADIN IGA 6 units Normal 0-19 [facility] Comment on above: Order Comment: Test( s) 704990-Eqchppx T3, Serumwas developed and its performance characteristicsdetermined by [facility]. It has not been cleared or approvedby the Food and Drug Administration. Result Comment: Nega tive 0 - 19 Weak Positive 20 - 30 Moderate to Strong Positive >30 Performed By: #### L 100.0100, L500.4050 #### [facility] [address] [facility] [address] ANTIGLIADIN IGG 2 units Normal 0-19 [facility] Comment on above: Order Comment: Test( s) 523073-Rfjhcjb T3, Serumwas developed and its performance characteristicsdetermined by [facility]. It has not been cleared or approvedby the Food and Drug Administration. Result Comment: Nega tive 0 - 19 Weak Positive 20 - 30 Moderate to Strong Positive >30 Performed By: #### L 100.0100, L500.4050 #### [facility] [address] [place], [place], [address] ENDOMYSIAL IGA Negative Normal Negative [facility] Comment on above: Order Comment: Test( s) 893867-Stizash T3, Serumwas developed and its performance characteristicsdetermined by [facility]. It has not been cleared or approvedby the Food and Drug Administration. Performed By: #### L 100.0100, L500.4050 #### [facility] [address] [place], [place], [address] IMMUNOGLOB A QN 135 mg/dL Normal 87-352 [facility] Comment on above: Order Comment: Test( s) 061516-Oxbwlie T3, Serumwas developed and its performance characteristicsdetermined by [facility]. It has not been cleared or approvedby the Food and Drug Administration. Performed By: #### L 100.0100, L500.4050 #### [facility] [address] [place], [place], [address] tTG IGA <2 Normal 0-3 [facility] Comment on above: Order Comment: Test( s) 706413-Mpazbut T3, Serumwas developed and its performance characteristicsdetermined by [facility]. It has not been cleared or approvedby the Food and Drug Administration. Result Comment: Nega tive 0 - 3 Weak Positive 4 - 10 Positive >10 Tissue Transglutaminase (tTG) has been identified as the endomysial antigen. Studies have demonstr- ated that endomysial IgA antibodies have over 99% specificity for gluten sensitive enteropathy. Performed By: #### L 100.0100, L500.4050 #### [facility] [address] [place], [place], [address] tTG IGG 3 U/mL Normal 0-5 [facility] Comment on above: Order Comment: Test( s) 766702-Prwggft T3, Serumwas developed and its performance characteristicsdetermined by [facility]. It has not been cleared or approvedby the Food and Drug Administration. Result Comment: Nega tive 0 - 5 Weak Positive 6 - 9 Positive >9 Performed By: #### L 100.0100, L500.4050 #### [facility] [address] [place], [place], [address] T3 Reverseon 10-05-2024 T3 REVERSE 12.0 ng/dL Normal 9.2-24.1 [facility] Comment on above: Order Comment: Test( s) 338200-Hfzqjqw T3, Serumwas developed and its performance characteristicsdetermined by [facility]. It has not been cleared or approvedby the Food and Drug Administration.UNKN Performed By: #### L 100.0100, L500.4050 #### [facility] [address] [place], [address] Thyroglobulin w/Anti-TG ABon 10-05-2024 Anti-TG AB 28.7 IU/mL High 0.0-0.9 [facility] Comment on above: Order Comment: Test( s) 846052-Xseghdu T3, Serumwas developed and its performance characteristicsdetermined by [facility]. It has not been cleared or approvedby the Food and Drug Administration. Result Comment: Thyr oglobulin Antibody measured by [employer] It should be noted that the presence of thyroglobulin antibodies may not be pathogenic nor diagnostic, especially at very low levels. The assay manager cash has found that four percent of individuals without evidence of thyroid disease or autoimmunity will have positive TgAb levels up to 4 IU/mL. Performed By: #### L 100.0100, L500.4050 #### [facility] [address] [place], [address] TG-HODAN 14 ng/mL Normal . [facility] Comment on above: Order Comment: Test( s) 394253-Pwciamk T3, Serumwas developed and its performance characteristicsdetermined by [facility]. It has not been cleared or approvedby the Food and Drug Administration. Result Comment: This test was developed and its performance characteristics determined by [facility]. It has not been cleared or approved by the Food and Drug Administration. Reference Range: Pubertal Children and Adults: <40 According to the National Academy of Clinical [employer]ochemistry, the reference interval for Thyroglobulin (TG) should be related to euthyroid patients and not for patients who underwent thyroidectomy. TG reference intervals for these patients depend on the residual mass of the thyroid tissue left after surgery. Establishing a post-operative baseline is recommended. The assay quantitation limit is 2.0 ng/mL. Performed By: #### L 100.0100, L500.4050 #### [facility] [address] [place], [address] Thyroid Peroxidase ABon - THYR PEROX AB 395 IU/mL High 0-34 [facility] Comment on above: Order Comment: Test( s) 067544-Owzrvjs T3, Serumwas developed and its performance characteristicsdetermined by [facility]. It has not been cleared or approvedby the Food and Drug Administration. Result Comment: Perf ormed at: [address] [id number] [employer] Worker: Alden Garcia PhD, Phone: [phone] Performed at: [address] [id number] [employer] Worker: Daxa Hernandez MD, Phone: [phone] Performed at: [facility] [address] [place] [id number] [employer] Worker: Sammy Collazo MD, Phone: [phone] Performed By: #### L 100.0100, L500.4050 #### [facility] [address] [facility] [place], [address] Breast imaging reportOrdered By: Mk Cornelius on 10-03-2024 Study report [facility] [address] [place] [address] SCRN MAMM (CAD)W/SCHUYLER BILAT MR#: [id number] Acct: [id number] Name: AURE CARRERA Rep #: [id number] : 1975 F 49 From: Talib Cornelius MD PCP: Dr. Nino Pearson MD Status: R EG CLI Study:SCRN MAMM (CAD)W/SCHUYLER BILAT Date of Exa m: 10/03/24 Exam# [id number] Ordering Dr: Kenny Pearson MD EXAM: SCRN MAMM (CAD)W/SCHUYLER BILAT DATE: 10/03/2024 CLINICAL HISTORY: F, Age 49 y/o , BREAST CANCER SCREENING Remote left excisional breast biopsy and left stereotactic breast biopsy. Grandmother with breast cancer. Aunt with breast cancer. BREAST CANCER RISK ASSESSMENT: Not assessed. TECHNIQUE: Bilateral screening digital breast tomosynthesis with 2D and 3D images. Computeraided detection. COMPARISON: Prior exam(s) dated February 20, 2022.. FINDINGS: TISSUE DENSITY: The breast tissue is extremely dense which lowers the sensitivity of mammography. Bilateral Breast Mammographic Findings: No significant masses, calcifications or other abnormalities are identified. No suspicious masses, areas of developing architectural distortion, or suspicious calcifications. There has been no significant interval change. BI/SCRN MAMM (CAD)W/SCHUYLER BILAT IMPRESSION: OVERALL FINAL ASSESSMENT: BIRADS 1 NEGATIVE RECOMMENDATION: Routine annual follow-up in 1 Year A letter with findings and recommendations will be mailed to the patient. Reading Location: [id number] CC: Dr. Nino Pearson MD ~ Boiler Cleaner: Signed [facility] SCRN MAMM (CAD)W/SCHUYLER BILATo n 10-03-2024 SCRN MAMM (CAD)W/SCHUYLER BILAT [facility] Imaging Services [address] [place] [id number] SCRN MAMM (CAD)W/SCHUYLER BILAT MR#: [id number] Acct: [id number] Name: AUER CARRERA Rep #: [id number] : 1975 F 49 From: Mk kruger MD PCP: Dr. Nino Pearson MD Status: [facility] Study: SCRN MAMM (CAD)W/SCHUYLER BILAT Date of Exam: 09/21 08/15 Exam# [id number] Ordering Dr: Nino Pearson MD EXAM: SCRN MAMM (CAD)W/SCHUYLER BILAT DATE: 10/03/2024 CLINICAL HISTORY: F, Age 49 y/o , BREAST CANCER SCREENING Remote left excisional breast biopsy and left stereotactic breast biopsy. Grandmother with breast cancer. Aunt with breast cancer. BREAST CANCER RISK ASSESSMENT: Not assessed. TECHNIQUE: Bilateral screening digital breast tomosynthesis with 2D and 3D images. Computer aided detection. COMPARISON: Prior exam(s) dated February 20, 2022.. FINDINGS: TISSUE DENSITY: The breast tissue is extremely dense which lowers the sensitivity of mammography. Bilateral Breast Mammographic Findings: No significant masses, calcifications or other abnormalities are identified. No suspicious masses, areas of developing architectural distortion, or suspicious calcifications. There has been no significant interval change. BI/SCRN MAMM (CAD)W/SCHUYLER BILAT IMPRESSION: OVERALL FINAL ASSESSMENT: BIRADS 1 NEGATIVE RECOMMENDATION: Routine annual follow-up in 1 Year A letter with findings and recommendations will be mailed to the patient. Reading Location: [id number] CC: Dr. Nino Pearson MD Boiler Cleaner: Signed Normal [facility] [place] w/ Reflex Mult Confirmon 09-28-2024 ANTI-DNA (DS)AB TNP Normal [facility] Comment on above: Performed By: #### L 100.0100, L500.4050 #### [facility] Laboratory [address] [place], [address] CRPon 09-26-2024 C-REACTIVE PROT < 3.00 Normal 0.0-3.0 [facility] Comment on above: Performed By: #### L 100.0100, L500.4050 #### [facility] Laboratory [address] [place], [address] Erythrocyte Sed Rateon 09-26 SED RATE 2 mm/hr Normal 0-30 [facility] Comment on above: Performed By: #### L 100.0100, L500.4050 #### [facility] [place] Laboratory [address] [place], [address] Erythrocyte sedimentation ra teOrdered By: Nino Pearson on 09-26-2024 ESR (Bld) [Velocity] 2 mm/h 0-30 [facility] No Panel InformationOrdered By: Nino Pearson on 09-26-2024 Tissue Transglutaminase IgG Ab 3 U/mL 0-5 [facility] Comment on above: Negative 0 - 5 Weak Positive 6 - 9 Positive >9 Serum DNA double strand anti body assay (units/volume)Ordered By: Nino Pearson on 09-26-2024 DNA double strand Ab Qn (S) TNP [facility] Comment on above: Test not performed Serum Scl-70 antibody assay (units/volume)Ordered By: Nino Pearson on 09-26-2024 SCL-70 extractable nuclear [facility]n [facility] Test not performed Serum or plasma C reactive p rotein measurement (mass/volume)Ordered By: Nino Pearson on 09-26-2024 CRP [Mass/Vol] mg/L 0.0-3.0 [facility] Serum or plasma thyroperoxid ase antibody assay (units/volume)Ordered By: Nino Pearson on 09-26-2024 TPO Ab Qn 395 [IU]/mL High 0-34 [facility] Comment on above: Performed at: [address] [id number] Director: Alden Garcia PhD, Phone: [phone] at: [employer] [facility] [id number] Director: Daxa Hernandez MD, Phone: [phone] at: ES [facility] [employer] [address] [id number] Director: Sammy Collazo MD, Phone: [phone] Serum tissue transglutaminas e (tTG) IgA antibody assay (units/volume)Ordered By: Nino Pearson on 09-26-2024 tTG IgA Qn (S) <2 U/mL 0-3 [facility] Comment on above: Negative 0 - 3 Weak Positive 4 - 10 Positive >10 Tissue Transglutaminase (tTG) has been identified as the endomysial antigen. Studies have demonstr- ated that endomysial IgA antibodies have over 99% specificity for gluten sensitive enteropathy. T4 Free Directon 09-26-2024 T4 FREE DIRECT 1.00 ng/dL Normal 0.76-1.46 [facility] Comment on above: Order Comment: UNK Performed By: #### L 100.0100, L500.4050 #### [facility] Laboratory [address] [place], [address] T4 freeOrdered By: Nino Pearson on 09-26-2024 Free T4 [Mass/Vol] 1.00 ng/dL 0.76-1.46 [facility] TSH DL <= 0.005 mIU/L QnOrde red By: Nino Pearson on 09-26-2024 TSH Qn 4.030 uIU/mL 0.300-4.20 0 [facility] Thyroglobulin measurement by radioimmunoassay (HODAN)Ordered By: Nino Pearson on 09-26-2024 Thyroglobulin Ab HODAN Qn (S) 14 ng/mL . [facility] Comment on above: This test was develo ped and its performance characteristicsdetermined by [facility]. It has not been cleared or approvedby the Food and Drug Administration.Reference Range:Pubertal Childrenand Adults: <40According to the National Academy of Clinical Biochemistry,the reference interval for Thyroglobulin (TG) should berelated to euthyroid patients and not for patients whounderwent thyroidectomy. TG reference intervals for thesepatients depend on the residual mass of the thyroid tissueleft after surgery. Establishing a post-operative baselineis recommended. The assay quantitation limit is 2.0 ng/mL. Thyroid Stim Hormone (TSH)on 09-26-2024 TSH 4.030 uIU/mL Normal 0.300-4.20 0 [facility] Comment on above: Performed By: #### L 100.0100, L500.4050 #### [facility] Laboratory [facility] [address] [place], [place], [address] Internal Medicine Office Vis iton 09-22-2024 Internal Medicine Office Visit [facility] [address] [place] [address] [place] [address] OFFICE VISIT Date of Service: 09/22/24 MR#: [id number] Acct: [id number] Name: AURE CARRERA Rep #: [id number] : 1975 Provider: Dr. Nino khan MD Age/Sex: 49/F Location: [facility] Status: Signed Intake Vital Signs 08/15/24 09:49 09/22/24 09:41 Height 5 ft 4 in 5 ft 4 in Weight: 137 lb BMI 23.5 BP 98/62 Blood Pressure Location Lt brachial Position Sitting Respiration 16 Pulse 63 Pulse Source Monitor Temp 97.8 F Temp Source Temporal Pulse Oximetry (%) 99 Oxygen Delivery Method room air Intake Visit Reasons: DISCUSS LABS Chief Complaint: DISCUSS LABS Is patient in pain?: No Allergies Penicillins Allergy (Mild, Verified 09/22/24 09:39) severe vomiting Sulfa (Sulfonamide Antibiotics) Allergy (Mild, Verified 09/22/24 09:39) hives Medications ???Medication ???Instructions ???Recorded ???Confirmed ???Type multivitamin 1 ea PO DAILY 09/27/18 09/22/24 Hi story prednisolone sodium phosphate 10 10 mg PO Q OTHER DAY 12/07/2307/18 History mg disintegrating tablet clobetasol 0.025 % topical cream 1 applic topical QDAY 05/19/2407/18 History fluocinolone acetonide oil 0.01 % drp otic (ear) 05/19/24 09/22/24 History ear drops ketoconazole 2 % shampoo topical 05/19/24 09/22/24 History ketoconazole 2 % topical cream applic topical QDAY 05/19/2409/22 History mupirocin 2 % topical ointment 1 applic topical TID #50 grams 09/22/24 Rx risankizumab-rzaa 150 mg/mL mg subcut 05/19/24 09/22/24 Histor y subcutaneous pen injector (Gay) nicotine 14 mg/24 hr daily 1 patch transdermal QDAY #28 ea 09/22/24 Rx transdermal patch Nurse's Note: REPORTS ABNORMAL THYROID LABS THAT [facility] DID RECENTLY. [facility] Medical History (Updated 09/22/24 @ 11:[address] Nino Pearson MD) Family history of lung cancer Health care maintenance Tobacco abuse counseling Vitamin D deficiency Psoriasis Abnormal thyroid function test Wears glasses Alcohol use Restless legs History of IBS Heartburn Smoker Leg cramps Enlarged uterus Shoulder pain Sciatica bladder/ uti infection Back problem Arthritis Seasonal allergies Acute colitis Surgical History S/P laparoscopic assisted vaginal hysterectomy (LAVH) ( 05/20/21) History of incision and drainage History of endoscopy History of dental surgery S/P trigger finger release History of lumpectomy of left breast Family History Father Hypertension Grandmother Diabetes Breast cancer Mother Cervical cancer Aunt Breast cancer Social History Smoking Status: Current every day smoker tobacco type: cigarettes alcohol intake: current details: occasionally substance use type: does not use caffeine: Yes what type of physical activity do you participate in: other details: work- [employer] seatbelt use: always do you feel safe at home: Yes additional social history: [employer] Patient works at [employer] HPI HPI Chief Complaint: DISCUSS LABS Details: AURE CARRERA, is a 49 F who presents to the office today to discuss some concerns/recent labs. Recently had labs ordered by her target setter due to concern for fatigue and hair loss. Thyroid peroxidase came back elevated. History of psoriatic arthritis. Also prior history of colitis. TSH and free T4 were within range. She reports significant fatigue, joint aches and overall feeling of unwell. She admits that she has had some stressors but believes that she is in a better place now. Vitamin D level also came back slightly low. She takes a multivitamin daily. No diarrhea, nausea, vomiting or significant change in bowel habit. Smokes. Smokes about half a pack a day. She would like to quit smoking. Father following stage IV lung cancer. She understands the risk involved and would like to quit Not up-to-date with age-appropriate screening last mammogram was a few years ago. Has had 2 colonoscopies with the last colonoscopy about 3 years ago. This was done by Dr. Nguyen. History of hysterectomy. ROS Const Constitutional: Positive for fatigue; No body ache, chills, excessive sweating, fever(s), frequent falls, headache(s), snoring, weakness, sleep problems or change in appetite Eyes Eyes: No blurry vision, change in vision, bulging eyes, floaters, visual disturbances or Light sensitivity ENT ENT: No abnormal hearing, ear or mastoid pain, tinnitus, balance problems, nosebleed/epistaxis, nasal congestion, nasal discharge, headache(s), neck pain or sore throat Resp Respiratory: No cough, excessive phlegm pr (more content not included)... Normal [facility] Thyroid Peroxidase ABon - THYR PEROX AB 509 IU/mL High 0-34 [facility] Comment on above: Order Comment: Test( s) [id number], Whole Bloodwas developed and its performance characteristicsdetermined by [employer] [employer]. It has not been cleared or approvedby the Food and Drug Administration. Result Comment: Perf ormed at: [facility] [id number] [employer] Worker: Daxa Hernandez MD, Phone: [phone] Performed at: [address] [id number] [employer] Worker: Alden Garcia PhD, Phone: [phone] Performed By: #### L 100.0100, L500.4050 #### [facility] Laboratory [address] [facility] [place], [address] Zinc, WHOLE BLOODon 09-06-19 Zinc Whole Bld 535 ug/dL Normal 440-860 [facility] Comment on above: Order Comment: Test( s) [id number], Whole Bloodwas developed and its performance characteristicsdetermined by [facility]. It has not been cleared or approvedby the Food and Drug Administration. Performed By: #### L 100.0100, L500.4050 #### [facility] Laboratory [address] [facility] [place], [address] Anti-dsDNA Abon 09-04-2024 ANTI-DNA (DS)AB 1 IU/mL Normal 0-9 [facility] Comment on above: Result Comment: Nega tive <5 Equivocal 5 - 9 Positive >9 AMENDED REPORT 09/04/24 1007 dsDNA AB previously reported as: Test not performed Performed By: #### L 500.4050, L3100.5500, L503.6550, L3300.9910, L501.86614, L100.0100, L506.1001, L3100.7950, L506.0400, L501.9520, L3300.6900 #### [facility] Laboratory [address] [place], [place], [id number] Antinuclear Antibody, IFAon 09-04-2024 MO, IFA Negative Normal . [facility] Comment on above: Result Comment: Nega tive <1:80 Borderline 1:80 Positive >1:80 ICAP nomenclature: AC-0 For more information about Hep-2 cell patterns use [employer].org, the official website for the International Consensus on Antinuclear Antibody (MO) Patterns (ICAP). Speckled cytoplasmic fluorescence is present. The antibodies noted in this pattern may be associated with, but not restricted to, primary biliary cirrhosis (PBC), polymyositis and dermatomyositis (PM/DM), and/or systemic lupus erythematosus (SLE). Performed at: [address] [id number] [employer] Worker: Alden Garcia PhD, Phone: [phone] Performed By: #### L 100.1123, L510.4481 #### [facility] Laboratory [address] [place], [place], [address] Absolute lymphocyte countOrd ered By: Alyssa Aguirre on 08-30-2024 Lymphocytes Auto (Unsp spec) [#/Vol] 3.45 10*3/uL 0.83-4.51 [facility] Absolute neutrophil countOrd ered By: Alyssa Aguirre on 08-30-2024 Neutrophils (Bld) [#/Vol] 4.5 10*3/uL 2.0-7.7 [facility] Anion gap in Serum or Plasma Ordered By: Alyssa Aguirre on 08-30-2024 Anion gap [Moles/Vol] 12 mmol/L 5-15 [facility] Antinuclear antibody (MO) a ssayOrdered By: Alyssa Aguirre on 08-30-2024 Anti-Nuclear Antibody Screen Negative . [facility] Comment on above: Negative <1:80 Borde rline 1:80 Positive >1:80ICAP nomenclature: AC-0For more information about Hep-2 cell patterns useANABlueCavaerBlue Badge Style.org, the official website for theInternational Consensus on Antinuclear Antibody (MO)Patterns (ICAP).Speckled cytoplasmic fluorescence is present. Theantibodies noted in this pattern may be associated with,but not restricted to, primary biliary cirrhosis (PBC),polymyositis and dermatomyositis (PM/DM), and/or systemiclupus erythematosus (SLE).Performed at: - [facility] [id number] Director: Alden Garcia PhD, Phone: [phone] Automated lymphocyte count a s percentage of total leukocytesOrdered By: Alyssa Aguirre on 08-30-2024 Lymphocytes/100 WBC Auto (Unsp spec) 38.3 % - [facility] BUN/creatinine ratioOrdered By: Alyssa Aguirre on 08-30-2024 Urea nitrogen/Creatinine [Mass ratio] 17.6 mg/mg 10- [facility] Basophil percentageOrdered B y: Alyssa Aguirre on 08-30-2024 Basophils/100 WBC (Bld) 0.8 % 0-1 [facility] Bilirubin, totalOrdered By: Alyssa Aguirre on 08-30-2024 Bilirubin [Mass/Vol] 0.43 mg/dL 0.00-1.30 [facility] CBC W/Diff, Automatedon Absolute Lymph 3.45 X10 3/uL Normal 0.83-4.51 [facility] Comment on above: Performed By: #### L 500.4050, L3100.5500, L503.6550, L3300.9910, L501.90393, L100.0100, L506.1001, L3100.7950, L506.0400, L501.9520, L3300.6900 #### [facility] Laboratory [address] [facility] [place], [address] Absolute Neut 4.5 X10 3/uL Normal 2.0-7.7 [facility] Comment on above: Performed By: #### L 500.4050, L3100.5500, L503.6550, L3300.9910, L501.53793, L100.0100, L506.1001, L3100.7950, L506.0400, L501.9520, L3300.6900 #### [facility] Laboratory [address] [place], [address] (653) Basophils/100 WBC (Bld) 0.8 % Normal 0-1 [facility] Comment on above: Performed By: #### L 500.4050, L3100.5500, L503.6550, L3300.9910, L501.02781, L100.0100, L506.1001, L3100.7950, L506.0400, L501.9520, L3300.6900 #### [facility] Laboratory [address] [facility] [place], [address] (707) Eosinophils/100 WBC (Bld) 3.0 % Normal 0-5 [facility] Comment on above: Performed By: #### L 500.4050, L3100.5500, L503.6550, L3300.9910, L501.58071, L100.0100, L506.1001, L3100.7950, L506.0400, L501.9520, L3300.6900 #### [facility] Laboratory [address] [facility] [place], [address] (136) Erythrocyte distribution width (RBC) [Ratio] 12.2 % Normal 11.6-14.6 [facility] Comment on above: Performed By: #### L 500.4050, L3100.5500, L503.6550, L3300.9910, L501.47088, L100.0100, L506.1001, L3100.7950, L506.0400, L501.9520, L3300.6900 #### [facility] Laboratory [address] [facility] [place], [address] (601) Hematocrit (Bld) [Volume fraction] 41.1 % Normal 37-47 [facility] Comment on above: Performed By: #### L 500.4050, L3100.5500, L503.6550, L3300.9910, L501.24096, L100.0100, L506.1001, L3100.7950, L506.0400, L501.9520, L3300.6900 #### [facility] Laboratory [address] [place], [address] Hemoglobin (Bld) [Mass/Vol] 14.1 g/dL Normal 12.0-15.0 [facility] Comment on above: Performed By: #### L 500.4050, L3100.5500, L503.6550, L3300.9910, L501.53097, L100.0100, L506.1001, L3100.7950, L506.0400, L501.9520, L3300.6900 #### [facility] Laboratory [address] [place], [address] IG% 0.100 Normal 0.0-0.9 [facility] Comment on above: Result Comment: IG% - Immature Granulocytes (promyelocytes, myelocytes and metamyelocytes) > 1% indicates that a LEFT SHIFT is Present. Performed By: #### L 500.4050, L3100.5500, L503.6550, L3300.9910, L501.74726, L100.0100, L506.1001, L3100.7950, L506.0400, L501.9520, L3300.6900 #### [facility] Laboratory [address] [place], [address] Lymphocytes/100 WBC (Bld) 38.3 % Normal 19-41 [facility] Comment on above: Performed By: #### L 500.4050, L3100.5500, L503.6550, L3300.9910, L501.96082, L100.0100, L506.1001, L3100.7950, L506.0400, L501.9520, L3300.6900 #### [facility] Laboratory [address] [place], [address] MCH (RBC) [Entitic mass] 30.8 pg Normal 27.0-32.0 [facility] Comment on above: Performed By: #### L 500.4050, L3100.5500, L503.6550, L3300.9910, L501.06327, L100.0100, L506.1001, L3100.7950, L506.0400, L501.9520, L3300.6900 #### [facility] Laboratory [address] [place], [address] MCHC (RBC) [Mass/Vol] 34.3 g/dL Normal 32-36 [facility] Comment on above: Performed By: #### L 500.4050, L3100.5500, L503.6550, L3300.9910, L501.30797, L100.0100, L506.1001, L3100.7950, L506.0400, L501.9520, L3300.6900 #### [facility] Laboratory [address] [place], [place], [phone] MCV (RBC) [Entitic vol] 89.7 fL Normal 81-99 [facility] Comment on above: Performed By: #### L 500.4050, L3100.5500, L503.6550, L3300.9910, L501.04342, L100.0100, L506.1001, L3100.7950, L506.0400, L501.9520, L3300.6900 #### [facility] Laboratory [address] [place], [place], [phone] ([phone]) Monocytes/100 WBC (Bld) 7.9 % Normal 0-10 [facility] Comment on above: Performed By: #### L 500.4050, L3100.5500, L503.6550, L3300.9910, L501.67615, L100.0100, L506.1001, L3100.7950, L506.0400, L501.9520, L3300.6900 #### [facility] Laboratory [address] [place], [address] Neutrophils/100 WBC (Bld) 49.9 % Normal 47-70 [facility] Comment on above: Performed By: #### L 500.4050, L3100.5500, L503.6550, L3300.9910, L501.44948, L100.0100, L506.1001, L3100.7950, L506.0400, L501.9520, L3300.6900 #### [facility] Laboratory [address] [place], [address] Nucleated RBC (Bld) [#/Vol] 0 10*3/uL Normal 0-5 [facility] Comment on above: Performed By: #### L 500.4050, L3100.5500, L503.6550, L3300.9910, L501.17360, L100.0100, L506.1001, L3100.7950, L506.0400, L501.9520, L3300.6900 #### [facility] Laboratory [address] [place], [address] Platelet mean volume (Bld) [Entitic vol] 10.7 fL Normal 6.2-12.0 [facility] Comment on above: Performed By: #### L 500.4050, L3100.5500, L503.6550, L3300.9910, L501.56916, L100.0100, L506.1001, L3100.7950, L506.0400, L501.9520, L3300.6900 #### [facility] Laboratory [address] [place], [address] Platelets (Bld) [#/Vol] 316 10*3/uL Normal 150-450 [facility] Comment on above: Performed By: #### L 500.4050, L3100.5500, L503.6550, L3300.9910, L501.38370, L100.0100, L506.1001, L3100.7950, L506.0400, L501.9520, L3300.6900 #### [facility] Laboratory [address] [place], [address] (594) RBC (Bld) [#/Vol] 4.58 10*6/uL Normal 4.2-5.4 [facility] Comment on above: Performed By: #### L 500.4050, L3100.5500, L503.6550, L3300.9910, L501.42667, L100.0100, L506.1001, L3100.7950, L506.0400, L501.9520, L3300.6900 #### [facility] Laboratory [address] [place], [address] (550) RDW SD 40.6 fl Normal 35.1-43.9 [facility] Comment on above: Performed By: #### L 500.4050, L3100.5500, L503.6550, L3300.9910, L501.85707, L100.0100, L506.1001, L3100.7950, L506.0400, L501.9520, L3300.6900 #### [facility] Laboratory [address] [facility] [address] [address] [address] [place], [place], [phone] WBC (Bld) [#/Vol] 9.0 10*3/uL Normal 4.4-11.0 [facility] Comment on above: Performed By: #### L 500.4050, L3100.5500, L503.6550, L3300.9910, L501.98343, L100.0100, L506.1001, L3100.7950, L506.0400, L501.9520, L3300.6900 #### [facility] Laboratory [address] [facility] [place], [address] Carbon dioxide, total [Moles /volume] in Central venous bloodOrdered By: Alyssa Aguirre on 08-30-2024 CO2 [Moles/Vol] 25.0 mmol/L 21.0-32.0 [facility] [place] Chloride assayOrdered By: Hernan Aguirre on 08-30-2024 Chloride [Moles/Vol] 104 mmol/L 98-108 [facility] Comprehensive Metabolic Prof ilon 08-30-2024 Albumin [Mass/Vol] 4.7 g/dL Normal 3.5-5.0 [facility] Comment on above: Performed By: #### L 500.4050, L3100.5500, L503.6550, L3300.9910, L501.14535, L100.0100, L506.1001, L3100.7950, L506.0400, L501.9520, L3300.6900 #### [facility] [place] Laboratory [address] [place], [address] Albumin/Globulin [Mass ratio] 1.5 {ratio} Normal 0.9-2.4 [facility] [place] Comment on above: Performed By: #### L 500.4050, L3100.5500, L503.6550, L3300.9910, L501.62524, L100.0100, L506.1001, L3100.7950, L506.0400, L501.9520, L3300.6900 #### [facility] [place] Laboratory [address] [place], [place], [id number] ALK PHOS 88 U/L Normal 35-104 [facility] Comment on above: Performed By: #### L 500.4050, L3100.5500, L503.6550, L3300.9910, L501.97974, L100.0100, L506.1001, L3100.7950, L506.0400, L501.9520, L3300.6900 #### [facility] [place] Laboratory [address] [place], [place], [id number] ALT [Catalytic activity/Vol] 31 U/L Normal <=34 [facility] Comment on above: Performed By: #### L 500.4050, L3100.5500, L503.6550, L3300.9910, L501.46164, L100.0100, L506.1001, L3100.7950, L506.0400, L501.9520, L3300.6900 #### [facility] [place] Laboratory [address] [place], [address] AST [Catalytic activity/Vol] 30 U/L Normal <=31 [facility] [place] Comment on above: Performed By: #### L 500.4050, L3100.5500, L503.6550, L3300.9910, L501.82099, L100.0100, L506.1001, L3100.7950, L506.0400, L501.9520, L3300.6900 #### [facility] [place] Laboratory [address] [place], [address] Bilirubin [Mass/Vol] 0.43 mg/dL Normal 0.00-1.30 [facility] Comment on above: Performed By: #### L 500.4050, L3100.5500, L503.6550, L3300.9910, L501.92189, L100.0100, L506.1001, L3100.7950, L506.0400, L501.9520, L3300.6900 #### [facility] [place] Laboratory [address] [place], [address] BUN/CRE 17.6 RATIO Normal 10-20 [facility] [place] Comment on above: Performed By: #### L 500.4050, L3100.5500, L503.6550, L3300.9910, L501.21313, L100.0100, L506.1001, L3100.7950, L506.0400, L501.9520, L3300.6900 #### [facility] [place] Laboratory [address] [place], [address] Calcium [Mass/Vol] 10.0 mg/dL Normal 7.6-11.0 [facility] Comment on above: Performed By: #### L 500.4050, L3100.5500, L503.6550, L3300.9910, L501.68362, L100.0100, L506.1001, L3100.7950, L506.0400, L501.9520, L3300.6900 #### [facility] [place] Laboratory [address] [place], [address] Chloride [Moles/Vol] 104 mmol/L Normal 98-108 [facility] Comment on above: Performed By: #### L 500.4050, L3100.5500, L503.6550, L3300.9910, L501.50139, L100.0100, L506.1001, L3100.7950, L506.0400, L501.9520, L3300.6900 #### [facility] [place] Laboratory [address] [place], [address] CO2 [Moles/Vol] 25.0 mmol/L Normal 21.0-32.0 [facility] [place] Comment on above: Performed By: #### L 500.4050, L3100.5500, L503.6550, L3300.9910, L501.81058, L100.0100, L506.1001, L3100.7950, L506.0400, L501.9520, L3300.6900 #### [facility] [place] Laboratory [address] [place], [address] Creatinine [Mass/Vol] 0.71 mg/dL Normal 0.70-1.20 [facility] Comment on above: Performed By: #### L 500.4050, L3100.5500, L503.6550, L3300.9910, L501.66296, L100.0100, L506.1001, L3100.7950, L506.0400, L501.9520, L3300.6900 #### [facility] Laboratory [address] [place], [address] GAP 12 Normal 5-15 [facility] [place] Comment on above: Performed By: #### L 500.4050, L3100.5500, L503.6550, L3300.9910, L501.47690, L100.0100, L506.1001, L3100.7950, L506.0400, L501.9520, L3300.6900 #### [facility] [place] Laboratory [address] [place], [place], [phone] (599) GFR/1.73 sq M.predicted among non-blacks MDRD (S/P/Bld) [Vol rate/Area] 103 mL/min/{1.73_m2} Normal >60 [facility] [place] Comment on above: Result Comment: mL/m in/1.73m2 CKD-EPI Creatinine Equation (2020) Performed By: #### L 500.4050, L3100.5500, L503.6550, L3300.9910, L501.42627, L100.0100, L506.1001, L3100.7950, L506.0400, L501.9520, L3300.6900 #### [facility] Laboratory [address] [place], [address] Globulin (S) [Mass/Vol] 3.1 g/dL Normal 2.2-4.2 [facility] Comment on above: Performed By: #### L 500.4050, L3100.5500, L503.6550, L3300.9910, L501.58047, L100.0100, L506.1001, L3100.7950, L506.0400, L501.9520, L3300.6900 #### [facility] [place] Laboratory [address] [place], [place], [phone] (989) Glucose [Mass/Vol] 80 mg/dL Normal 70-99 [facility] Comment on above: Performed By: #### L 500.4050, L3100.5500, L503.6550, L3300.9910, L501.66072, L100.0100, L506.1001, L3100.7950, L506.0400, L501.9520, L3300.6900 #### [facility] Laboratory [address] [place], [address] Potassium [Moles/Vol] 3.9 mmol/L Normal 3.3-5.1 [facility] Comment on above: Performed By: #### L 500.4050, L3100.5500, L503.6550, L3300.9910, L501.08778, L100.0100, L506.1001, L3100.7950, L506.0400, L501.9520, L3300.6900 #### [facility] [place] Laboratory [address] [place], [address] Sodium [Moles/Vol] 141 mmol/L Normal 133-145 [facility] Comment on above: Performed By: #### L 500.4050, L3100.5500, L503.6550, L3300.9910, L501.41526, L100.0100, L506.1001, L3100.7950, L506.0400, L501.9520, L3300.6900 #### [facility] Laboratory [address] [place], [place], [id number] T PROT 7.8 g/dL Normal 5.9-8.4 [facility] Comment on above: Performed By: #### L 500.4050, L3100.5500, L503.6550, L3300.9910, L501.10224, L100.0100, L506.1001, L3100.7950, L506.0400, L501.9520, L3300.6900 #### [facility] [place] Laboratory [address] [place], [address] Urea nitrogen [Mass/Vol] 13 mg/dL Normal 4-19 [facility] Comment on above: Performed By: #### L 500.4050, L3100.5500, L503.6550, L3300.9910, L501.57811, L100.0100, L506.1001, L3100.7950, L506.0400, L501.9520, L3300.6900 #### [facility] [place] Laboratory [address] [place], [address] DNA double strand Ab Qn (S)O rdered By: Alyssa Aguirre on 08-30-2024 Anti-Double Strand DNA Antibody 1 IU/mL 0-9 [facility] [place] Comment on above: Negative <5 Equivoca l 5 - 9 Positive >9Previous reported result: TNP IU/mLEdited by: MARTIN on 09/04/24:1007 AMENDED REPORT 09/04/24 1007 dsDNA AB previously reported as: Test not performed Eosinophil percentageOrdered By: Alyssa Aguirre on 08-30-2024 Eosinophils/100 WBC (Bld) 3.0 % 0-5 [facility] Erythrocyte distribution wid th (RBC) [Ratio]Ordered By: Alyssa on 08-30-2024 Erythrocyte distribution width (RBC) [Entitic vol] 40.6 fL 35.1-43.9 [facility] [place] Erythrocyte distribution wid th ratioOrdered By: Alyssaoneyda Terrellf on 08-30-2024 Erythrocyte distribution width (RBC) [Ratio] 12.2 % 11.6-14.6 [facility] Erythrocyte distribution wid th standard deviationOrdered By: Alyssa [place] on 08-30-2024 Erythrocyte distribution width (RBC) [Ratio] 40.6 fl 35.1-43.9 [facility] Ferritinon 08-30-2024 Ferritin [Mass/Vol] 156 ng/mL Normal 22-378 [facility] Comment on above: Performed By: #### L 100.0100, L500.4050 #### [facility] [place] Laboratory [address] [place], [address] Free T3on 08-30-2024 Free T3 [Mass/Vol] 3.2 pg/mL Normal 2.18-3.98 [facility] Comment on above: Performed By: #### L 500.4050, L3100.5500, L503.6550, L3300.9910, L501.06999, L100.0100, L506.1001, L3100.7950, L506.0400, L501.9520, L3300.6900 #### [facility] [place], [address] Free N0Opkbdci By: Alyssa snow on 08-30-2024 Free T3 [Mass/Vol] 3.2 pg/mL 2.18-3.98 [facility] Free Triiodothyronine (T3) pg/dL 3.2 pg/mL 2.18-3.98 [facility] [place] GFR/1.73 sq M.predicted inna g non-blacks MDRD (S/P/Bld) [Vol rate/Area]Ordered By: Alyssa Aguirre on 08-30-2024 Estimated GFR (MDRD) Non-Af Amer 103 >60 [facility] [place] Comment on above: mL/min/1.73m2 CKD-EP I Creatinine Equation (2020) Glomerular filtration rate ( GFR) estimation/1.73 sq m using serum, plasma, or whole bOrdered By: Alyssa Aguirre on 08-30-2024 GFR/1.73 sq M.predicted among non-blacks MDRD (S/P/Bld) [Vol rate/Area] 103 mL/min/{1.73_m2} >60 [facility] [place] Comment on above: mL/min/1.73m2 CKD-EP I Creatinine Equation (2020) Hematocrit Auto (Bld) [Volum e fraction]Ordered By: Alyssa Aguirre on 08-30-2024 Hematocrit (Bld) [Volume fraction] 41.1 % 37-47 [facility] [place] Hemoglobin measurementOrdere d By: Alyssa Aguirre on 08-30-2024 Hemoglobin (Bld) [Mass/Vol] 14.1 g/dL 12.0-15.0 [facility] [place] Immature granulocytes/100 WB C Auto (Bld)Ordered By: Alyssa Aguirre on 08-30-2024 Immature granulocytes/100 WBC (Bld) 0.100 % 0.0-0.9 [facility] Comment on above: IG% - Immature Granu locytes (promyelocytes, myelocytes and metamyelocytes) > 1% indicates that a LEFT SHIFT is Present. Laboratory - Chemistry and C hemistry - challengeOrdered By: Alyssa Aguirre on 08-30-2024 AST [Catalytic activity/Vol] 30 U/L <32 [facility] [place] Lymphocytes Auto (Unsp spec) [#/Vol]Ordered By: Alyssa Aguirre on 08-30-2024 Lymphocytes (Bld) [#/Vol] 3.45 10*3/uL 0.83-4.51 [facility] [place] Lymphocytes/100 WBC Auto (Un sp spec)Ordered By: Alyssa Aguirre on 08-30-2024 Lymphocytes/100 WBC (Bld) 38.3 % 19-41 [facility] MCV (mean corpuscular volume ) determinationOrdered By: Alyssa Aguirre on 08-30-2024 MCV (RBC) [Entitic vol] 89.7 fL 81-99 [facility] Mean corpuscular hemoglobin (MCH) determinationOrdered By: Alyssa Aguirre on 08-30-2024 MCH (RBC) [Entitic mass] 30.8 pg 27.0-32.0 [facility] Mean corpuscular hemoglobin concentration (MCHC) determinationOrdered By: Alyssa Aguirre on 08-30-2024 MCHC (RBC) [Mass/Vol] 34.3 g/dL 32-36 [facility] Mean platelet volume determi nationOrdered By: Alyssa Aguirre on 08-30-2024 Platelet mean volume (Bld) [Entitic vol] 10.7 fL 6.2-12.0 [facility] Monocyte percentageOrdered B y: Alyssa Aguirre on 08-30-2024 Monocytes/100 WBC (Bld) 7.9 % 0-10 [facility] Neutrophil percentageOrdered By: Alyssa Aguirre on 08-30-2024 Neutrophils/100 WBC (Bld) 49.9 % 47-70 [facility] Nucleated red blood cell per centageOrdered By: Alyssa Aguirre on 08-30-2024 Nucleated RBC/100 WBC (Bld) [Ratio] 0 % 0-5 [facility] Platelet countOrdered By: Hernan Aguirre on 08-30-2024 Platelets (Bld) [#/Vol] 316 10*3/uL 150-450 [facility] [place] Potassium (Unsp spec) [Mass/ Vol]Ordered By: Alyssa Aguirre on 08-30-2024 Potassium [Moles/Vol] 3.9 mmol/L 3.3-5.1 [facility] Potassium measurement (mass/ volume)Ordered By: Alyssa Aguirre on 08-30-2024 Potassium (Unsp spec) [Mass/Vol] 3.9 mmol/L 3.3-5.1 [facility] RBC Auto (Bld) [#/Vol]Ordere d By: Alyssa Aguirre on 08-30-2024 RBC (Bld) [#/Vol] 4.58 10*6/uL 4.2-5.4 [facility] Serum DNA double strand anti body assay (units/volume)Ordered By: Alyssa Aguirre on 08-30-2024 DNA double strand Ab Qn (S) 1 [IU]/mL 0-9 [facility] [place] Comment on above: Negative <5 Equivoca l 5 - 9 Positive >9Previous reported result: TNP IU/mLEdited by: MARTIN on 09/04/24:1007 AMENDED REPORT 09/04/24 1007 dsDNA AB previously reported as: Test not performed Serum creatinine measurement (mass/volume)Ordered By: Alyssa Aguirre on 08-30-2024 Creatinine [Mass/Vol] 0.71 mg/dL 0.70-1.20 [facility] Serum globulin measurementOr dered By: Alyssa Aguirre on 08-30-2024 Globulin (S) [Mass/Vol] 3.1 g/dL 2.2-4.2 [facility] Serum glucose measurement (m ass/volume)Ordered By: Alyssa Aguirre on 08-30-2024 Glucose [Mass/Vol] 80 mg/dL 70-99 [facility] Serum or plasma alanine smith otransferase (ALT) measurementOrdered By: Alyssa Aguirre on 08-30-2024 ALT [Catalytic activity/Vol] 31 U/L <35 [facility] Serum or plasma albumin bianca urement (mass/volume)Ordered By: Alyssa Aguirre on 08-30-2024 Albumin [Mass/Vol] 4.7 g/dL 3.5-5.0 [facility] Serum or plasma albumin/glob ulin mass ratioOrdered By: Alyssa Aguirre on 08-30-2024 Albumin/Globulin [Mass ratio] 1.5 {ratio} 0.9-2.4 [facility] [place] Serum or plasma alkaline ronnell sphatase measurementOrdered By: Alyssa Aguirre on 08-30-2024 ALP [Catalytic activity/Vol] 88 U/L 35-104 [facility] [place] Serum or plasma calcium bianca urement (mass/volume)Ordered By: Alyssa Aguirre on 08-30-2024 Calcium [Mass/Vol] 10.0 mg/dL 7.6-11.0 [facility] Serum or plasma ferritin aleta surement (mass/volume)Ordered By: Alyssa Aguirre on 08-30-2024 Ferritin [Mass/Vol] 156 ng/mL 22-378 [facility] Serum or plasma thyroperoxid ase antibody assay (units/volume)Ordered By: Alyssa Aguirre on 08-30-2024 TPO Ab Qn 509 [IU]/mL High 0-34 [facility] Comment on above: Performed at: [employer] [address] [id number] Director: Daxa Hernandez MD, Phone: [phone] at: - [facility] [id number] Director: Alden Garcia PhD, Phone: [phone] Serum or plasma urea nitroge n measurement (mass/volume)Ordered By: Alyssa Aguirre on 08-30-2024 Urea nitrogen [Mass/Vol] 13 mg/dL 4-19 [facility] Sodium levelOrdered By: Regino Montero on 08-30-2024 Sodium [Moles/Vol] 141 mmol/L 133-145 [facility] T4 Free Directon 08-30-2024 T4 FREE DIRECT 1.10 ng/dL Normal 0.76-1.46 [facility] Comment on above: Performed By: #### L 100.0100, L500.4050 #### [facility] Laboratory [address] [place], [address] T4 freeOrdered By: Alyssa snow on 08-30-2024 Free T4 [Mass/Vol] 1.10 ng/dL 0.76-1.46 [facility] TPO Ab QnOrdered By: Alyssa Aguirre on 08-30-2024 Thyroid Peroxidase Antibodies 509 IU/mL High 0-34 [facility] Comment on above: Performed at: [address] [id number] Director: Daxa Hernandez MD, Phone: [phone] at: - [facility] [address] [id number] Director: Alden Garcia PhD, Phone: [phone] TSH DL <= 0.005 mIU/L QnOrde red By: Alyssa Aguirre on 08-30-2024 Thyroid Stimulating Hormone (TSH) 2.800 uIU/mL 0.300-4.20 0 [facility] TSH Qn 2.800 uIU/mL 0.300-4.20 0 [facility] Thyroid Stim Hormone (TSH)on 08-30-2024 TSH 2.800 uIU/mL Normal 0.300-4.20 0 [facility] Comment on above: Performed By: #### L 100.0100, L500.4050 #### [facility] Laboratory [address] [place], [address] Total proteinOrdered By: Valencia Aguirre on 08-30-2024 Protein [Mass/Vol] 7.8 g/dL 5.9-8.4 [facility] Vitamin D, 25-hydroxyOrdered By: Alyssa Aguirre on 08-30-2024 Vitamin D 25-Hydroxy 26.2 ng/mL Low 30-100 [facility] Comment on above: Vitamin D StatusDefi ciency: <20 ng/mL (50nmol/L)Insufficiency: 20-30 ng/mL (50-75 nmol/L)Sufficiency: 30-100 ng/mL (75-250 nmol/L)Toxicity: >100 ng/mL (>250 nmol/L) Vitamin D,25 Hydroxyon 08-30 Vitamin D 25-OH 26.2 ng/mL Low 30-100 [facility] Comment on above: Result Comment: Brenda min D Status Deficiency: <20 ng/mL (50nmol/L) Insufficiency: 20-30 ng/mL (50-75 nmol/L) Sufficiency: 30-100 ng/mL (75-250 nmol/L) Toxicity: >100 ng/mL (>250 nmol/L) Performed By: #### L 100.0100, L500.4050 #### [facility] Laboratory [address] [place], [address] White blood cell (WBC) count Ordered By: Alyssa Aguirre on 08-30-2024 WBC (Bld) [#/Vol] 9.0 10*3/uL 4.4-11.0 [facility] Zinc WBOrdered By: Alyssa Green af on 08-30-2024 Whole Blood Zinc 535 ug/dL 440-860 [facility] Urgent Care Visit Reporton 0 08-15-2024 Urgent Care Visit Report [facility] [address] [place], [place] [address] OFFICE VISIT Date of Service: 08/15/24 MR#: [id number] Acct: [id number] Name: AURE CARRERA Rep #: [id number] : 1975 Provider: JEB Mclaughlin Age/Sex: 49/F Location: [facility] Status: Signed Intake Vital Signs 08/15/24 09:49 Height 5 ft 4 in BP 110/58 L Blood Pressure Location Lt brachial Position Sitting Respiration 14 Pulse 62 Pulse Source NIBP Temp 98.2 F Temp Source Oral Pulse Oximetry (%) 98 Oxygen Delivery Method room air Intake Visit Reasons: L EAR PAIN Chief Complaint: left ear pain 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 left neck soreness. denies fever, ST, [place], cough. hx ear infections. on immunosuppressant, concerned for infection [facility] Medical History Wears glasses Alcohol use Restless legs History of IBS Heartburn Smoker Leg cramps Enlarged uterus Shoulder pain Sciatica bladder/ uti infection Back problem Arthritis Seasonal allergies Acute colitis Surgical History S/P laparoscopic assisted vaginal hysterectomy (LAVH) ( 05/20/21) History of incision and drainage History of endoscopy History of dental surgery S/P trigger finger release History of lumpectomy of left breast Family History Father Hypertension Grandmother Diabetes Breast cancer Mother Cervical cancer Aunt Breast cancer Social History Smoking Status: Current every day smoker tobacco type: cigarettes alcohol intake: current details: occasionally substance use type: does not use caffeine: Yes what type of physical activity do you participate in: other details: work- [employer] seatbelt use: always do you feel safe at home: Yes additional social history: [employer] Patient works at [employer] HPI Chief Complaint: left ear pain Details: AURE CARRERA, is a 49 F who presents to the office today for [facility] evaluation at [facility] for approximately 1-week history of progressively worsening left facial pressure/congestion with purulent postnasal drip, and left ear pressure. No complaints of fever, chills, myalgias, fatigue, runny nose, or nausea/vomiting/diarrhea. No complaints of chest pain/shortness of breath/dyspnea on exertion. No close contacts with similar complaints. No other associated symptoms and no other alleviating/aggravating factors. PMH: Psoriatic arthritis which was well-controlled with Skyrizi ROS Const Constitutional: No other (as above) Exam Const General: cooperative, healthy appearing and no acute distress Nutritional Appearance: average body habitus Orientation: alert, awake and oriented x3 HENMT Head: normal to inspection Ears: hearing grossly normal bilaterally, external ears normal, TM's normal bilaterally and EAC's normal Nose: external nose normal, nares normal, septum normal and no nasal discharge Face and sinus: normal facial exam, bilateral maxillary sinus palpable nontender (Though left maxillary fullness to palpation) and face symmetric Mouth: oral mucosae normal, lip normal, tongue normal and oropharynx normal Throat: posterior oropharynx normal, tonsils normal, uvula midline and postnasal drainage (scant amount purulent) Eyes General: appearance normal, both eyes and all related structures Neck Neck: normal visual inspection, full ROM, no meningeal signs, supple and lymphadenopathy (L>R anterior cervical lymph node swelling/tender to palpation) Neck mass: No Thyroid: thyroid normal Chest Chest palpation inspection: normal inspection of the chest Resp Effort Inspection: normal respiratory effort and able to speak in complete sentences Auscultation: Bilateral: Clear to Auscultation Cardio Palpation: normal PMI Rate: regular rate Rhythm: regular rhythm Heart Sounds: S1 normal, S2 normal, no gallops, no murmurs and no rubs Pulses: radial pulses present GI Inspection: normal to inspection Skin General: no rashes or lesions noted Neuro General: patient alert, patient awake and patient oriented x3 Cognition: normal cognition Speech: speech normal Psych Appearance: grossly normal Mental Status: mental status grossly normal Mood: congruent mood Affect: normal affect Speech and Movement: speech and mov (more content not included)... Normal [facility] Absolute lymphocyte countOrd ered By: Kaylin Perez on 07-13-2024 Lymphocytes Auto (Unsp spec) [#/Vol] 2.92 10*3/uL 0.83-4.51 [facility] Absolute neutrophil countOrd ered By: Kaylintd Perez on 07-13-2024 Neutrophils (Bld) [#/Vol] 5.8 10*3/uL 2.0-7.7 [facility] [place] Albumin to globulin ratioOrd ered By: Kaylintd Perez on 07-13-2024 Albumin/Globulin [Mass ratio] 1.0 {ratio} 0.9-2.4 [facility] [place] Automated lymphocyte count a s percentage of total leukocytesOrdered By: Kaylin Perez on 07-13-2024 Lymphocytes/100 WBC Auto (Unsp spec) 30.6 % 19-41 [facility] [place] Basophil percentageOrdered B y: Kaylin Perez on 07-13-2024 Basophils/100 WBC (Bld) 0.8 % 0-1 [facility] [place] Bilirubin, totalOrdered By: Kaylin Perez on 07-13-2024 Bilirubin [Mass/Vol] 0.40 mg/dL 0.20-1.00 [facility] Comment on above: For patients on eltr ombopag therapy, use of Dimension [place] TBIL is not recommended. Blood urea nitrogen (BUN)/cr eatinine ratioOrdered By: Kaylin Perez on 07-13-2024 Urea nitrogen/Creatinine [Mass ratio] 10.7 mg/mg 03-12 [facility] [place] CBC W/Diff, Automatedon 06-25 Absolute Lymph 2.92 X10 3/uL Normal 0.83-4.51 [facility] [place] Comment on above: Performed By: #### L 100.0100, L500.4050 #### [facility] [place] Laboratory [address] [place], [address] Absolute Neut 5.8 X10 3/uL Normal 2.0-7.7 [facility] [place] Comment on above: Performed By: #### L 100.0100, L500.4050 #### [facility] [place] Laboratory [address] [place], [address] Basophils/100 WBC (Bld) 0.8 % Normal 0-1 [facility] [place] Comment on above: Performed By: #### L 100.0100, L500.4050 #### [facility] [place] Laboratory [address] [place], [address] Eosinophils/100 WBC (Bld) 1.8 % Normal 0-5 [facility] [place] Comment on above: Performed By: #### L 100.0100, L500.4050 #### [facility] [place] Laboratory [address] [place], [address] Erythrocyte distribution width (RBC) [Ratio] 12.6 % Normal 11.6-14.6 [facility] [place] Comment on above: Performed By: #### L 100.0100, L500.4050 #### [facility] [place] Laboratory [address] [place], [address] Hematocrit (Bld) [Volume fraction] 38.4 % Normal 37-47 [facility] [place] Comment on above: Performed By: #### L 100.0100, L500.4050 #### [facility] [place] Laboratory [address] [place], [address] Hemoglobin (Bld) [Mass/Vol] 12.9 g/dL Normal 12.0-15.0 [facility] [place] Comment on above: Performed By: #### L 100.0100, L500.4050 #### [facility] [place] Laboratory [address] [place], [address] IG% 0.300 Normal 0.0-0.9 [facility] [place] Comment on above: Result Comment: IG% - Immature Granulocytes (promyelocytes, myelocytes and metamyelocytes) > 1% indicates that a LEFT SHIFT is Present. Performed By: #### L 100.0100, L500.4050 #### [facility] [place] Laboratory [address] [place], [address] Lymphocytes/100 WBC (Bld) 30.6 % Normal 19-41 [facility] [place] Comment on above: Performed By: #### L 100.0100, L500.4050 #### [facility] [place] Laboratory [address] [place], [address] MCH (RBC) [Entitic mass] 30.9 pg Normal 27.0-32.0 [facility] [place] Comment on above: Performed By: #### L 100.0100, L500.4050 #### [facility] [place] Laboratory [address] [place], [address] MCHC (RBC) [Mass/Vol] 33.6 g/dL Normal 32-36 [facility] Comment on above: Performed By: #### L 100.0100, L500.4050 #### [facility] [place] Laboratory [address] [place], [address] MCV (RBC) [Entitic vol] 92.1 fL Normal 81-99 [facility] [place] Comment on above: Performed By: #### L 100.0100, L500.4050 #### [facility] [place] Laboratory [address] [place], [address] Monocytes/100 WBC (Bld) 5.2 % Normal 0-10 [facility] [place] Comment on above: Performed By: #### L 100.0100, L500.4050 #### [facility] [place] Laboratory [address] [place], [address] Neutrophils/100 WBC (Bld) 61.3 % Normal 47-70 [facility] [place] Comment on above: Performed By: #### L 100.0100, L500.4050 #### [facility] [place] Laboratory [address] [place], [address] Nucleated RBC (Bld) [#/Vol] 0 10*3/uL Normal 0-5 [facility] [place] Comment on above: Performed By: #### L 100.0100, L500.4050 #### [facility] [place] Laboratory [address] [place], [address] Platelet mean volume (Bld) [Entitic vol] 11.1 fL Normal 6.2-12.0 [facility] [place] Comment on above: Performed By: #### L 100.0100, L500.4050 #### [facility] [place] Laboratory [address] [place], [address] Platelets (Bld) [#/Vol] 367 10*3/uL Normal 150-450 [facility] [place] Comment on above: Performed By: #### L 100.0100, L500.4050 #### [facility] [place] Laboratory [address] [place], [address] RBC (Bld) [#/Vol] 4.17 10*6/uL Low 4.2-5.4 [facility] Comment on above: Performed By: #### L 100.0100, L500.4050 #### [facility] [place] Laboratory [address] [place], [address] RDW SD 42.3 fl Normal 35.1-43.9 [facility] [place] Comment on above: Performed By: #### L 100.0100, L500.4050 #### [facility] [place] Laboratory [address] [place], [address] WBC (Bld) [#/Vol] 9.5 10*3/uL Normal 4.4-11.0 [facility] Comment on above: Performed By: #### L 100.0100, L500.4050 #### [facility] [place] Laboratory [address] [place], [address] Carbon dioxide measurementOr dered By: Kaylin Perez on 07-13-2024 CO2 [Moles/Vol] 29.0 mmol/L 21.0-32.0 [facility] [place] Chloride measurementOrdered By: Kaylin Perez on 07-13-2024 Chloride [Moles/Vol] 107 mmol/L 98-107 [facility] Comprehensive Metabolic Prof ilon 07-13-2024 Albumin [Mass/Vol] 3.7 g/dL Normal 3.2-5.0 [facility] Comment on above: Performed By: #### L 100.0100, L500.4050 #### [facility] [place] Laboratory [address] [place], [address] Albumin/Globulin [Mass ratio] 1.0 {ratio} Normal 0.9-2.4 [facility] [place] Comment on above: Performed By: #### L 100.0100, L500.4050 #### [facility] [place] Laboratory [address] [place], [address] ALK P 79 U/L Normal 45-117 [facility] [place] Comment on above: Performed By: #### L 100.0100, L500.4050 #### [facility] [place] Laboratory [address] [place], [address] ALT [Catalytic activity/Vol] 16 U/L Normal 13-56 [facility] [place] Comment on above: Performed By: #### L 100.0100, L500.4050 #### [facility] [place] Laboratory [address] [place], [address] AST [Catalytic activity/Vol] 13 U/L Low 15-37 [facility] [place] Comment on above: Performed By: #### L 100.0100, L500.4050 #### [facility] [place] Laboratory [address] [place], [address] Bilirubin [Mass/Vol] 0.40 mg/dL Normal 0.20-1.00 [facility] Comment on above: Result Comment: For patients on eltrombopag therapy, use of Dimension [place] TBIL is not recommended. Performed By: #### L 100.0100, L500.4050 #### [facility] [place] Laboratory [address] [place], [address] BUN/CRE 10.7 RATIO Normal 10-20 [facility] [place] Comment on above: Performed By: #### L 100.0100, L500.4050 #### [facility] [place] Laboratory [address] [place], [address] CA,Total 9.5 mg/dL Normal 8.5-10.1 [facility] [place] Comment on above: Performed By: #### L 100.0100, L500.4050 #### [facility] [place] Laboratory [address] [place], [address] Chloride [Moles/Vol] 107 mmol/L Normal 98-107 [facility] Comment on above: Performed By: #### L 100.0100, L500.4050 #### [facility] [place] Laboratory [address] [place], [address] CO2 [Moles/Vol] 29.0 mmol/L Normal 21.0-32.0 [facility] [place] Comment on above: Performed By: #### L 100.0100, L500.4050 #### [facility] [place] Laboratory [address] [place], [address] Creatinine [Mass/Vol] 0.65 mg/dL Normal 0.55-1.02 [facility] Comment on above: Result Comment: The validity of the calculated GFR GFRAA in patients over 70 years has not been determined. Clinical correlation is essential. Performed By: #### L 100.0100, L500.4050 #### [facility] [place] Laboratory [address] [place], [address] EST GFR - AA 124 mL/min Normal >60 [facility] [place] Comment on above: Result Comment: Afri can Canadian GFR Calc Performed By: #### L 100.0100, L500.4050 #### [facility] Laboratory [address] [place], [address] GAP 5 Normal 5-15 [facility] [place] Comment on above: Performed By: #### L 100.0100, L500.4050 #### [facility] Laboratory [address] [place], [address] GFR/1.73 sq M.predicted among non-blacks MDRD (S/P/Bld) [Vol rate/Area] 103 mL/min/{1.73_m2} Normal >60 [facility] [place] Comment on above: Result Comment: Non- GFR Calc Performed By: #### L 100.0100, L500.4050 #### [facility] Laboratory [address] [place], [address] Globulin (S) [Mass/Vol] 3.8 g/dL Normal 2.2-4.2 [facility] [place] Comment on above: Performed By: #### L 100.0100, L500.4050 #### [facility] [place] Laboratory [address] [place], [address] Glucose [Mass/Vol] 87 mg/dL Normal 74-106 [facility] Comment on above: Performed By: #### L 100.0100, L500.4050 #### [facility] [place] Laboratory [address] [place], [address] Potassium [Moles/Vol] 3.7 mmol/L Normal 3.5-5.1 [facility] Comment on above: Performed By: #### L 100.0100, L500.4050 #### [facility] [place] Laboratory [address] [place], [address] Sodium [Moles/Vol] 140 mmol/L Normal 136-145 [facility] Comment on above: Performed By: #### L 100.0100, L500.4050 #### [facility] [place] Laboratory [address] [place], [address] T PROT 7.5 g/dL Normal 6.4-8.2 [facility] [place] Comment on above: Performed By: #### L 100.0100, L500.4050 #### [facility] [place] Laboratory [address] [place], [address] Urea nitrogen [Mass/Vol] 7 mg/dL Normal 7-18 [facility] [place] Comment on above: Performed By: #### L 100.0100, L500.4050 #### [facility] [place] Laboratory [address] [place], [address] Eosinophil percentageOrdered By: Kaylin Perez on 07-13-2024 Eosinophils/100 WBC (Bld) 1.8 % 0-5 [facility] [place] Erythrocyte distribution wid th (RBC) [Ratio]Ordered By: Kaylin Perez on 07-13-2024 Erythrocyte distribution width (RBC) [Entitic vol] 42.3 fL 35.1-43.9 [facility] [place] Erythrocyte distribution wid th ratioOrdered By: Kaylin Perez on 07-13-2024 Erythrocyte distribution width (RBC) [Ratio] 12.6 % 11.6-14.6 [facility] [place] Erythrocyte distribution wid th standard deviationOrdered By: Kyalin Perez on 07-13-2024 Erythrocyte distribution width (RBC) [Ratio] 42.3 fl 35.1-43.9 [facility] [place] Estimated glomerular filtrat ion rate (GFR) AmericanOrdered By: Kaylin Perez on 07-13-2024 Estimated GFR (MDRD) Amer 124 mL/min >60 [facility] [place] Comment on above: GFR Calc Glomerular filtration rate ( GFR) estimationOrdered By: Kaylin Perez on 07-13-2024 Estimated GFR (MDRD) Non-Af Amer 103 mL/min >60 [facility] [place] Comment on above: Non- GFR Calc GFR/1.73 sq M.predicted among non-blacks MDRD (S/P/Bld) [Vol rate/Area] 103 mL/min/{1.73_m2} >60 [facility] [place] Comment on above: Non- GFR Calc Glucose measurementOrdered B y: Kaylin Perez on 07-13-2024 Glucose [Mass/Vol] 87 mg/dL 74-106 [facility] Hematocrit Auto (Bld) [Volum e fraction]Ordered By: Kaylin Perez on 07-13-2024 Hematocrit (Bld) [Volume fraction] 38.4 % 37-47 [facility] [place] Hemoglobin measurementOrdere d By: Kaylin Perez on 07-13-2024 Hemoglobin (Bld) [Mass/Vol] 12.9 g/dL 12.0-15.0 [facility] [place] Immature granulocytes/100 WB C Auto (Bld)Ordered By: Kaylin Perez on 07-13-2024 Immature granulocytes/100 WBC (Bld) 0.300 % 0.0-0.9 [facility] [place] Comment on above: IG% - Immature Granu locytes (promyelocytes, myelocytes and metamyelocytes) > 1% indicates that a LEFT SHIFT is Present. Laboratory - Chemistry and C hemistry - challengeOrdered By: Kaylin Perez on 07-13-2024 AST [Catalytic activity/Vol] 13 U/L Low 15-37 [facility] [place] Lymphocytes Auto (Unsp spec) [#/Vol]Ordered By: Kaylin Perez on 07-13-2024 Lymphocytes (Bld) [#/Vol] 2.92 10*3/uL 0.83-4.51 [facility] [place] Lymphocytes/100 WBC Auto (Un sp spec)Ordered By: Kaylin Perez on 07-13-2024 Lymphocytes/100 WBC (Bld) 30.6 % 19-41 [facility] [place] MCV (mean corpuscular volume ) determinationOrdered By: Kaylin Perez on 07-13-2024 MCV (RBC) [Entitic vol] 92.1 fL 81-99 [facility] [place] Mean corpuscular hemoglobin (MCH) determinationOrdered By: Kaylin Perez on 07-13-2024 MCH (RBC) [Entitic mass] 30.9 pg 27.0-32.0 [facility] [place] Mean corpuscular hemoglobin concentration (MCHC) determinationOrdered By: Kaylin Perez on 07-13-2024 MCHC (RBC) [Mass/Vol] 33.6 g/dL 32-36 [facility] Mean platelet volume determi nationOrdered By: Kaylin Perez on 07-13-2024 Platelet mean volume (Bld) [Entitic vol] 11.1 fL 6.2-12.0 [facility] [place] Monocyte percentageOrdered B y: Kaylin Perez on 07-13-2024 Monocytes/100 WBC (Bld) 5.2 % 0-10 [facility] [place] Neutrophil percentageOrdered By: Kaylin Perez on 07-13-2024 Neutrophils/100 WBC (Bld) 61.3 % 47-70 [facility] [place] Nucleated red blood cell per centageOrdered By: Kaylin Perez on 07-13-2024 Nucleated RBC/100 WBC (Bld) [Ratio] 0 % 0-5 [facility] [place] Platelet countOrdered By: Jeb Perez on 07-13-2024 Platelets (Bld) [#/Vol] 367 10*3/uL 150-450 [facility] [place] Potassium measurementOrdered By: Kaylin Perez on 07-13-2024 Potassium [Moles/Vol] 3.7 mmol/L 3.5-5.1 [facility] RBC Auto (Bld) [#/Vol]Ordere d By: Kaylin Perez on 07-13-2024 RBC (Bld) [#/Vol] 4.17 10*6/uL Low 4.2-5.4 [facility] Serum anion gap measurementO rdered By: Kaylin Perez on 07-13-2024 Anion gap [Moles/Vol] 5 mmol/L 5-15 [facility] Serum globulin measurementOr dered By: Kaylin Perez on 07-13-2024 Globulin (S) [Mass/Vol] 3.8 g/dL 2.2-4.2 [facility] [place] Serum or plasma alanine smith otransferase (ALT) measurementOrdered By: Kaylin Perez on 07-13-2024 ALT [Catalytic activity/Vol] 16 U/L 13-56 [facility] [place] Serum or plasma albumin bianca urement (mass/volume)Ordered By: Kaylin Perez on 07-13-2024 Albumin [Mass/Vol] 3.7 g/dL 3.2-5.0 [facility] Serum or plasma alkaline ronnell sphatase measurementOrdered By: Kaylin Perez on 07-13-2024 ALP [Catalytic activity/Vol] 79 U/L 45-117 [facility] [place] Serum or plasma calcium bianca urement (mass/volume)Ordered By: Kaylin Perez on 07-13-2024 Calcium [Mass/Vol] 9.5 mg/dL 8.5-10.1 [facility] Serum or plasma creatinine m easurement (mass/volume)Ordered By: Kaylin Perez on 07-13-2024 Creatinine [Mass/Vol] 0.65 mg/dL 0.55-1.02 [facility] Comment on above: The validity of the calculated GFR & GFRAA in patients over 70 years has not been determined. Clinical correlation is essential. Serum or plasma urea nitroge n measurement (mass/volume)Ordered By: Kaylin Perez on 07-13-2024 Urea nitrogen [Mass/Vol] 7 mg/dL 7-18 [facility] Sodium levelOrdered By: Speedy Perez on 07-13-2024 Sodium [Moles/Vol] 140 mmol/L 136-145 [facility] Total proteinOrdered By: Jose Perez on 07-13-2024 Protein [Mass/Vol] 7.5 g/dL 6.4-8.2 [facility] White blood cell (WBC) count Ordered By: Kaylin Perez on 07-13-2024 WBC (Bld) [#/Vol] 9.5 10*3/uL 4.4-11.0 [facility] Urgent Care Visit Reporton 1 07-20-2023 Urgent Care Visit Report [facility] [address], [address] [place] [id number] OFFICE VISIT Date of Service: 05/19/24 MR#: [id number] Acct: [id number] Name: AURE CARRERA Rep #: [id number] : 1975 Provider: [place] rodgers Age/Sex: 48/F Location: [facility] Status: Signed Intake Vital Signs 12/07/23 11:28 05/18/24 10:50 Height 5 ft 4 in 5 ft 4 in Weight: 130 lb 130 lb 1 oz BMI 22.3 22.3 BP 110/74 110/60 Blood Pressure Location Rt brachial Position Sitting Sitting Respiration 16 Pulse 75 62 Pulse Source Monitor Temp 98.0 F 98.3 F Temp Source Temporal Oral Pulse Oximetry (%) 98 99 Oxygen Delivery Method room air room air Intake Visit Reasons: Psoriasis Chief Complaint: rash Allergies Penicillins Allergy (Mild, Verified 05/19/24 09:40) severe vomiting Sulfa (Sulfonamide Antibiotics) Allergy (Mild, Verified 05/19/24 09:40) hives Medications ???Medication ???Instructions ???Recorded ???Confirmed ???Type multivitamin 1 ea PO DAILY 09/27/18 12/07/23 History duloxetine 20 mg capsule,delayed 20 mg PO BID 12/07/23 12/07/23 History release prednisolone acetate 1 % eye 1 drp ophthalmic (eye) BID 12/07/23 12/07/23 History drops,suspension prednisolone sodium phosphate 10 10 mg PO Q OTHER DAY 12/07/23 12/07/23 History mg disintegrating tablet clobetasol 0.025 % topical cream 1 applic topical QDAY 05/19/24 05/19/24 History fluocinolone acetonide oil 0.01 % drp otic (ear) 05/19/24 05/19/24 History ear drops ketoconazole 2 % shampoo topical 05/19/24 05/19/24 History ketoconazole 2 % topical cream applic topical QDAY 05/19/24 05/19/24 History mupirocin 2 % topical ointment 1 applic topical TID #50 grams 05/19/24 05/19/24 Rx risankizumab-rzaa 150 mg/mL mg subcut 05/19/24 05/19/24 History subcutaneous pen injector (Skyrizi) Nurse's Note: Patient is having a Psoriasis flare up. Patient [facility] Wednesday and was given Steroids. [facility] Medical History Wears glasses Alcohol use Restless legs History of IBS Heartburn Smoker Leg cramps Enlarged uterus Shoulder pain Sciatica bladder/ uti infection Back problem Arthritis Seasonal allergies Acute colitis Surgical History S/P laparoscopic assisted vaginal hysterectomy (LAVH) ( 05/20/21) History of incision and drainage History of endoscopy History of dental surgery S/P trigger finger release History of lumpectomy of left breast Family History Father Hypertension Grandmother Diabetes Breast cancer Mother Cervical cancer Aunt Breast cancer Social History Smoking Status: Current every day smoker tobacco type: cigarettes alcohol intake: current details: occasionally substance use type: does not use caffeine: Yes what type of physical activity do you participate in: other details: work- [employer] seatbelt use: always do you feel safe at home: Yes additional social history: [employer] Patient works at [employer] HPI HPI Chief Complaint: rash Details: AURE CARRERA, is a 48 F who presents to the office today for evaluation of rash to anterior portion of neck. History of psoriasis. She was recently seen at another urgent care and told rash was potentially psoriasis flair up. She was given 5 day course of prednisone 10 mg and instructed to apply Aquaphor to affected areas. She reports blisters to anterior neck, hairline to posterior neck, and folds of eyelids. Reports they will fill up like a pimple and pop. Reports since starting prednisone she has had improvement to swelling of eyelids, but denies improvement to area of concern of her neck. States this is not consistent with her typical psoriasis flair up. She is on currently on Skyrizi with dermatology; unfortunately she is unable to get in to see them for a couple weeks. She denies any recent changes to detergents, lotions, makeup, perfumes, diet, etc. She is a smoker. She works for [employer] and reports significant increase in stress over the holiday season. Denies any fevers, chills, MERINO, body aches, etc. ROS Const Constitutional: No fever(s) or headache(s) ENT ENT: No sinus pressure, nasal discharge, headache(s) or sore throat Resp Respiratory: No cough Skin Skin: Positive for lesions Neuro Neurology: No headache(s) Exam Const General: cooperative, healthy appearing, comfortable and no acute distress [facility] Head: normal to inspection Ears: hearing grossly normal bilaterally Nose: external nose normal Face and sinus: normal facial exam Eyes Eyelids: eyelid abnormality right up (more content not included)... Normal [facility] [place] Quantiferon TB-Gold+on 04-01 QFT MITOGEN SANTI > 10.00 Normal . [facility] [place] Comment on above: Performed By: #### [id number] 3400.8000 #### [facility] [place] Laboratory [address] [place], [place], [phone] QFT NIL VALUE 0 IU/mL Normal . [facility] [place] Comment on above: Performed By: #### L 3400.8000 #### [facility] [place] Laboratory [address] [place], [place], [phone] QFT TB GOLD+ Comment Normal . [facility] [place] Comment on above: Result Comment: Saul tiFERON-TB Gold Plus is a qualitative indirect test for M tuberculosis infection (including disease) and is intended for use in conjunction with risk assessment, radiography, and other medical and diagnostic evaluations. The QuantiFERON-TB Gold Plus result is determined by subtracting the Nil value from either TB antigen (Ag) value. The Mitogen tube serves as a control for the test. Performed By: #### L 3400.8000 #### [facility] [place] Laboratory [address] [place], [place], [phone] QFT TB POS CRIT Negative Normal Negative [facility] [place] Comment on above: Result Comment: No r esponse to M tuberculosis antigens detected. Infection with M tuberculosis is unlikely, but high risk individuals should be considered for additional testing (ATS/IDSA/CDC Clinical Practice Guidelines, 2017). The reference range is an Antigen minus Nil result of <0.35 IU/mL. The specimen received for QuantiFERON testing was incubated by the ordering institution. Specific procedures outlined in our Directory of Services and in the package insert for the QuantiFERON Gold (In Tube) test must be followed to enable for proper stimulation of cells for the production of interferon gamma. Chemiluminescence immunoassay methodology Performed at: [address] [id number] [employer] Worker: Alden Garcia PhD, Phone: [phone] Performed By: #### L 3400.8000 #### [facility] [place] Laboratory [address] [place], [address] QFT TB1+ AG SANTI 0.01 IU/mL Normal . [facility] [place] Comment on above: Performed By: #### [id number] 3400.8000 #### [facility] [place] Laboratory [address] [place], [address] QFT TB2+ AG SANTI 0 IU/mL Normal . [facility] [place] Comment on above: Performed By: #### L 3400.8000 #### [facility] [place] Laboratory [address] [place], [address] Absolute lymphocyte countOrd ered By: Kaylin Perez on 07-29-2023 Lymphocytes Auto (Unsp spec) [#/Vol] 3.05 10*3/uL 0.83-4.51 [facility] [place] Automated lymphocyte count a s percentage of total leukocytesOrdered By: Kaylin Perez on 07-29-2023 Lymphocytes/100 WBC Auto (Unsp spec) 36.8 % 19-41 [facility] [place] Basophil percentageOrdered B y: Kaylin Perez on 07-29-2023 Basophils/100 WBC (Bld) 0.7 % 0-1 [facility] [place] Bilirubin [Mass/Vol] 0.60 mg/dL 0.20-1.00 [facility] Comment on above: For patients on eltr ombopag therapy, use of Dimension [place] TBIL is not recommended. Chloride [Moles/Vol] 105 mmol/L 98-107 [facility] Eosinophils/100 WBC (Bld) 2.4 % 0-5 [facility] [place] Glucose [Mass/Vol] 73 mg/dL 74-106 [facility] Hemoglobin (Bld) [Mass/Vol] 13.2 g/dL 12.0-15.0 [facility] [place] Monocytes/100 WBC (Bld) 6.8 % 0-10 [facility] [place] Neutrophils (Bld) [#/Vol] 4.4 10*3/uL 2.0-7.7 [facility] [place] Neutrophils/100 WBC (Bld) 53.1 % 47-70 [facility] [place] Potassium [Moles/Vol] 4.2 mmol/L 3.5-5.1 [facility] Protein [Mass/Vol] 7.3 g/dL 6.4-8.2 [facility] Sodium [Moles/Vol] 140 mmol/L 136-145 [facility] WBC (Bld) [#/Vol] 8.3 10*3/uL 4.4-11.0 [facility] Determination of erythrocyte mean corpuscular volume (MCV)Ordered By: Kaylin Perez on 07-29-2023 MCV (RBC) [Entitic vol] 92.0 fL 81-99 [facility] [place] Erythrocyte distribution wid th ratioOrdered By: Kaylin Perez on 07-29-2023 Erythrocyte distribution width (RBC) [Ratio] 12.5 % 11.6-14.6 [facility] [place] Erythrocyte distribution wid th standard deviationOrdered By: Kaylin Ana on 07-29-2023 Erythrocyte distribution width (RBC) [Entitic vol] 42.3 fL 35.1-43.9 [facility] [place] Hematocrit Auto (Bld) [Volum e fraction]Ordered By: Kaylin Perez on 07-29-2023 Hematocrit (Bld) [Volume fraction] 39.1 % 37-47 [facility] [place] Immature granulocytes/100 WB C Auto (Bld)Ordered By: Kaylin Perez on 07-29-2023 Immature granulocytes/100 WBC (Bld) 0.200 % 0.0-0.9 [facility] [place] Comment on above: IG% - Immature Granu locytes (promyelocytes, myelocytes and metamyelocytes) > 1% indicates that a LEFT SHIFT is Present. Laboratory - Chemistry and C hemistry - challengeOrdered By: Kaylin Perez on 07-29-2023 Albumin/Globulin [Mass ratio] 1.1 {ratio} 0.9-2.4 [facility] [place] ALP [Catalytic activity/Vol] 76 U/L 45-117 [facility] [place] ALT [Catalytic activity/Vol] 21 U/L 13-56 [facility] [place] CO2 [Moles/Vol] 27.0 mmol/L 21.0-32.0 [facility] [place] Globulin (S) [Mass/Vol] 3.4 g/dL 2.2-4.2 [facility] [place] Urea nitrogen/Creatinine [Mass ratio] 10.1 mg/mg 10-20 [facility] [place] Laboratory - Hematology and Cell countsOrdered By: Kaylin Perez on 07-29-2023 MCH (RBC) [Entitic mass] 31.1 pg 27.0-32.0 [facility] [place] MCHC (RBC) [Mass/Vol] 33.8 g/dL 32-36 [facility] Nucleated RBC/100 WBC (Bld) [Ratio] 0 % 0-5 [facility] [place] Platelet mean volume (Bld) [Entitic vol] 10.3 fL 6.2-12.0 [facility] [place] Platelets (Bld) [#/Vol] 297 10*3/uL 150-450 [facility] [place] No Panel InformationOrdered By: Kaylin Perez on 07-29-2023 Estimated GFR (MDRD) Amer 116 mL/min >60 [facility] [place] Comment on above: GFR Calc Estimated GFR (MDRD) Non-Af Amer 96 mL/min >60 [facility] [place] Comment on above: Non- GFR Calc RBC Auto (Bld) [#/Vol]Ordere d By: Kaylin Perez on 07-29-2023 RBC (Bld) [#/Vol] 4.25 10*6/uL 4.2-5.4 [facility] Serum or plasma calcium bianca urement (mass/volume)Ordered By: Kaylin Perez on 07-29-2023 Calcium [Mass/Vol] 9.8 mg/dL 8.5-10.1 [facility] Serum or plasma creatinine m easurement (mass/volume)Ordered By: Kaylin Perez on 07-29-2023 Creatinine [Mass/Vol] 0.69 mg/dL 0.55-1.02 [facility] Comment on above: The validity of the calculated GFR & GFRAA in patients over 70 years has not been determined. Clinical correlation is essential. Serum or plasma urea nitroge n measurement (mass/volume)Ordered By: Kaylin Perez on 07-29-2023 Urea nitrogen [Mass/Vol] 7 mg/dL 7-18 [facility] [place] Thin prep Papanicolaou smear with manual screeningOrdered By: Kaylin Perez on 07-29-2023 Thin prep Papanicolaou smear with manual screening 3.9 g/dL 3.2-5.0 [facility] [place] Thin prep Papanicolaou smear with manual screening 21 U/L 15-37 [facility] [place] Thin prep Papanicolaou smear with manual screening 8 5-15 [facility] [place] Basophil percentageOrdered B y: Clarence Dumont on 07-22-2023 Basophil percentage 0-5 SEEN /hpf 0-5 [facility] Bilirubin Test strip Ql (U)O rdered By: Clarence Dumont on 07-22-2023 Bilirubin Ql (U) Negative Negative [facility] [place] Culture, urineOrdered By: Td Dumont on 07-22-2023 Bacteria identified Cx Nom (U) Mixed Gram Pos & Gram Neg Org [facility] [place] Bacteria identified Cx Nom (U) Mixed Gram Pos & Gram Neg Org [facility] [place] Ketones Test strip Ql (U)Ord ered By: Clarence Dumont on 07-22-2023 Ketones Ql (U) Negative Negative [facility] [place] Mucus LM Ql (Urine sed)Order ed By: Clarence Dumont on 07-22-2023 Mucus Ql (Urine sed) 0 SEEN /hpf [facility] Nitrite Test strip Ql (U)Ord ered By: Clarence Dumont on 07-22-2023 Nitrite Ql (U) Negative Negative [facility] [place] No Panel InformationOrdered By: Clarence Dumont on 07-22-2023 Urine RBC 5-10 SEEN /hpf 0-5 [facility] [place] Protein Test strip Ql (U)Ord ered By: Clarence Dumont on 07-22-2023 Protein Ql (U) 15 mg/dl Negative [facility] [place] Squamous epithelial cells de tection in urine sediment by light microscopyOrdered By: Clarence Dumont on 07-22-2023 Epithelial cells.squamous LM Ql (Urine sed) 0 SEEN /hpf 5-10 [facility] [place] Urine blood detectionOrdered By: Clarence Dumont on 07-22-2023 RBC Ql (U) 50 /ul Negative [facility] [place] Urine clarityOrdered By: Darrell Dumont on 07-22-2023 Clarity (U) Clear Clear [facility] [place] Urine color determinationOrd ered By: Clarence Dumont on 07-22-2023 Color (U) Yellow Yellow [facility] [place] Urine glucose detectionOrder ed By: Clarence Dumont on 07-22-2023 Glucose Ql (U) Normal mg/dl Normal [facility] [place] Urine leukocyte esterase det ection by dipstickOrdered By: Clarence Dumont on 07-22-2023 Leukocyte esterase Test strip Ql (U) Negative Negative [facility] [place] Urine pHOrdered By: Clarence Dumont on 07-22-2023 pH (U) 6.5 [pH] 5.0 - 8.0 [facility] [place] Urine sediment bacteria coun t by microscopy (number/high power field)Ordered By: Clarence Dumont on 07-22-2023 Bacteria LM.HPF (Urine sed) [#/Area] 0 /[HPF] None Seen [facility] [place] Urine specific gravity measu rementOrdered By: Clarence Dumont on 07-22-2023 Specific gravity (U) [Rel density] 1.010 1.002-1.03 0 [facility] [place] Urine urobilinogen measureme ntOrdered By: Clarence Dumont on 07-22-2023 Urobilinogen Ql (U) Normal mg/dl Normal [facility] Absolute lymphocyte countOrd ered By: Kaylin Perez on 03-29-2023 Lymphocytes Auto (Unsp spec) [#/Vol] 2.48 10*3/uL 0.83-4.51 [facility] [place] Basophil percentageOrdered B y: Kaylin Perez on 03-29-2023 Basophils/100 WBC (Bld) 0.7 % 0-1 [facility] [place] Bilirubin [Mass/Vol] 0.30 mg/dL 0.20-1.00 [facility] Comment on above: For patients on eltr ombopag therapy, use of Dimension [place] TBIL is not recommended. Chloride [Moles/Vol] 108 mmol/L 98-107 [facility] Eosinophils/100 WBC (Bld) 2.7 % 0-5 [facility] [place] Glucose [Mass/Vol] 110 mg/dL 74-106 [facility] Comment on above: Fasting Glucose resu lt from 100 to 125 mg/dL suggests IMPAIRED HOMEOSTASIS per A.D.A. criteria. Neutrophils (Bld) [#/Vol] 4.9 10*3/uL 2.0-7.7 [facility] [place] Neutrophils/100 WBC (Bld) 59.4 % 47-70 [facility] [place] Potassium [Moles/Vol] 3.7 mmol/L 3.5-5.1 [facility] Protein [Mass/Vol] 7.2 g/dL 6.4-8.2 [facility] Sodium [Moles/Vol] 141 mmol/L 136-145 [facility] WBC (Bld) [#/Vol] 8.3 10*3/uL 4.4-11.0 [facility] Blood erythrocytes count (nu mber/volume)Ordered By: Kaylin Perez on 03-29-2023 RBC (Bld) [#/Vol] 4.35 10*6/uL 4.2-5.4 [facility] Blood hemoglobin measurement (mass/volume)Ordered By: Kaylin Perez on 03-29-2023 Hemoglobin (Bld) [Mass/Vol] 13.6 g/dL 12.0-15.0 [facility] [place] Blood lymphocytes/100 leukoc ytesOrdered By: Kaylin Perez on 03-29-2023 Lymphocytes/100 WBC (Bld) 30.0 % 19-41 [facility] [place] Blood monocytes/100 leukocyt esOrdered By: Kaylin Perez on 03-29-2023 Monocytes/100 WBC (Bld) 7.0 % 0-10 [facility] [place] Blood platelet mean volumeOr dered By: Kaylin Perez on 03-29-2023 Platelet mean volume (Bld) [Entitic vol] 10.7 fL 6.2-12.0 [facility] [place] Determination of erythrocyte mean corpuscular volume (MCV)Ordered By: Kaylin Perez on 03-29-2023 MCV (RBC) [Entitic vol] 93.3 fL 81-99 [facility] [place] Hematocrit Auto (Bld) [Volum e fraction]Ordered By: Kaylin Perez on 03-29-2023 Hematocrit (Bld) [Volume fraction] 40.6 % 37-47 [facility] [place] Laboratory - Chemistry and C hemistry - challengeOrdered By: Kaylin Perez on 03-29-2023 ALP [Catalytic activity/Vol] 75 U/L 45-117 [facility] [place] ALT [Catalytic activity/Vol] 16 U/L 13-56 [facility] [place] CO2 [Moles/Vol] 28.0 mmol/L 21.0-32.0 [facility] [place] Globulin (S) [Mass/Vol] 3.5 g/dL 2.2-4.2 [facility] [place] Urea nitrogen/Creatinine [Mass ratio] 17.4 mg/mg 10-20 [facility] [place] Laboratory - Hematology and Cell countsOrdered By: Kaylintd Perez on 03-29-2023 Erythrocyte distribution width (RBC) [Entitic vol] 43.7 fL 35.1-43.9 [facility] [place] Erythrocyte distribution width (RBC) [Ratio] 12.7 % 11.6-14.6 [facility] [place] Immature granulocytes/100 WBC (Bld) 0.200 % 0.0-0.9 [facility] [place] Comment on above: IG% - Immature Granu locytes (promyelocytes, myelocytes and metamyelocytes) > 1% indicates that a LEFT SHIFT is Present. MCH (RBC) [Entitic mass] 31.3 pg 27.0-32.0 [facility] [place] Nucleated RBC/100 WBC (Bld) [Ratio] 0 % 0-5 [facility] [place] MCHC Auto (RBC) [Mass/Vol]Or dered By: Kaylintd Perez on 03-29-2023 MCHC (RBC) [Mass/Vol] 33.5 g/dL 32-36 [facility] No Panel InformationOrdered By: Kaylin Perez on 03-29-2023 Estimated GFR (MDRD) Amer 117 mL/min >60 [facility] [place] Comment on above: GFR Calc Estimated GFR (MDRD) Non-Af Amer 97 mL/min >60 [facility] [place] Comment on above: Non- GFR Calc Platelets bldOrdered By: Jose Perez on 03-29-2023 Platelets (Bld) [#/Vol] 336 10*3/uL 150-450 [facility] [place] Serum or plasma albumin bianca urement (mass/volume)Ordered By: Kaylin Perez on 03-29-2023 Albumin [Mass/Vol] 3.7 g/dL 3.2-5.0 [facility] Serum or plasma albumin/glob ulin mass ratioOrdered By: Kaylin Perez on 03-29-2023 Albumin/Globulin [Mass ratio] 1.1 {ratio} 0.9-2.4 [facility] [place] Serum or plasma calcium bianca urement (mass/volume)Ordered By: Kaylin Perez on 03-29-2023 Calcium [Mass/Vol] 9.4 mg/dL 8.5-10.1 [facility] Serum or plasma creatinine m easurement (mass/volume)Ordered By: Kaylin Perez on 03-29-2023 Creatinine [Mass/Vol] 0.69 mg/dL 0.55-1.02 [facility] Comment on above: The validity of the calculated GFR & GFRAA in patients over 70 years has not been determined. Clinical correlation is essential. Serum or plasma urea nitroge n measurement (mass/volume)Ordered By: Kaylin Perez on 03-29-2023 Urea nitrogen [Mass/Vol] 12 mg/dL 7-18 [facility] [place] Thin prep Papanicolaou smear with manual screeningOrdered By: Kaylin Perez on 03-29-2023 Thin prep Papanicolaou smear with manual screening 12 U/L 15-37 [facility] [place] Thin prep Papanicolaou smear with manual screening 5 5-15 [facility] [place] Absolute lymphocyte countOrd ered By: Kaylin Perez on 03-09-2023 Lymphocytes Auto (Unsp spec) [#/Vol] 3.37 10*3/uL 0.83-4.51 [facility] [place] Basophil percentageOrdered B y: Kaylin Perez on 03-09-2023 Basophils/100 WBC (Bld) 0.7 % 0-1 [facility] [place] Bilirubin [Mass/Vol] 0.40 mg/dL 0.20-1.00 [facility] Comment on above: For patients on eltr ombopag therapy, use of Dimension [place] TBIL is not recommended. Chloride [Moles/Vol] 108 mmol/L 98-107 [facility] Eosinophils/100 WBC (Bld) 2.3 % 0-5 [facility] [place] Glucose [Mass/Vol] 106 mg/dL 74-106 [facility] Comment on above: Fasting Glucose resu lt from 100 to 125 mg/dL suggests IMPAIRED HOMEOSTASIS per A.D.A. criteria. Neutrophils (Bld) [#/Vol] 4.8 10*3/uL 2.0-7.7 [facility] [place] Neutrophils/100 WBC (Bld) 52.4 % 47-70 [facility] [place] Potassium [Moles/Vol] 3.4 mmol/L 3.5-5.1 [facility] Protein [Mass/Vol] 7.5 g/dL 6.4-8.2 [facility] Sodium [Moles/Vol] 140 mmol/L 136-145 [facility] WBC (Bld) [#/Vol] 9.2 10*3/uL 4.4-11.0 [facility] Blood erythrocytes count (nu mber/volume)Ordered By: Kaylin Perez on 03-09-2023 RBC (Bld) [#/Vol] 4.36 10*6/uL 4.2-5.4 [facility] Blood hemoglobin measurement (mass/volume)Ordered By: Kaylin Perez on 03-09-2023 Hemoglobin (Bld) [Mass/Vol] 13.8 g/dL 12.0-15.0 [facility] [place] Blood lymphocytes/100 leukoc ytesOrdered By: Kaylin Perez on 03-09-2023 Lymphocytes/100 WBC (Bld) 36.6 % 19-41 [facility] [place] Blood monocytes/100 leukocyt esOrdered By: Kaylin Perez on 03-09-2023 Monocytes/100 WBC (Bld) 7.7 % 0-10 [facility] [place] Blood platelet mean volumeOr dered By: Kaylin Perez on 03-09-2023 Platelet mean volume (Bld) [Entitic vol] 10.4 fL 6.2-12.0 [facility] [place] Determination of erythrocyte mean corpuscular volume (MCV)Ordered By: Kaylin Perez on 03-09-2023 MCV (RBC) [Entitic vol] 92.7 fL 81-99 [facility] [place] Hematocrit Auto (Bld) [Volum e fraction]Ordered By: Kaylintd Perez on 03-09-2023 Hematocrit (Bld) [Volume fraction] 40.4 % 37-47 [facility] [place] Laboratory - Chemistry and C hemistry - challengeOrdered By: Kaylintd Perez on 03-09-2023 ALP [Catalytic activity/Vol] 69 U/L 45-117 [facility] [place] ALT [Catalytic activity/Vol] 19 U/L 13-56 [facility] [place] CO2 [Moles/Vol] 28.0 mmol/L 21.0-32.0 [facility] [place] Globulin (S) [Mass/Vol] 3.5 g/dL 2.2-4.2 [facility] [place] Urea nitrogen/Creatinine [Mass ratio] 13.8 mg/mg 10-20 [facility] [place] Laboratory - Hematology and Cell countsOrdered By: [facility] Ana on 03-09-2023 Erythrocyte distribution width (RBC) [Entitic vol] 44.0 fL 35.1-43.9 [facility] [place] Erythrocyte distribution width (RBC) [Ratio] 12.9 % 11.6-14.6 [facility] [place] Immature granulocytes/100 WBC (Bld) 0.300 % 0.0-0.9 [facility] [place] Comment on above: IG% - Immature Granu locytes (promyelocytes, myelocytes and metamyelocytes) > 1% indicates that a LEFT SHIFT is Present. MCH (RBC) [Entitic mass] 31.7 pg 27.0-32.0 [facility] [place] Nucleated RBC/100 WBC (Bld) [Ratio] 0 % 0-5 [facility] [place] MCHC Auto (RBC) [Mass/Vol]Or dered By: Kaylintd Perez on 03-09-2023 MCHC (RBC) [Mass/Vol] 34.2 g/dL 32-36 [facility] No Panel InformationOrdered By: Kaylintd Perez on 03-09-2023 Estimated GFR (MDRD) Amer 110 mL/min >60 [facility] [place] Comment on above: GFR Calc Estimated GFR (MDRD) Non-Af Amer 91 mL/min >60 [facility] [place] Comment on above: Non- GFR Calc Platelets bldOrdered By: Jose Perez on 03-09-2023 Platelets (Bld) [#/Vol] 285 10*3/uL 150-450 [facility] [place] Serum or plasma albumin bianca urement (mass/volume)Ordered By: Kaylin Perez on 03-09-2023 Albumin [Mass/Vol] 4.0 g/dL 3.2-5.0 [facility] Serum or plasma albumin/glob ulin mass ratioOrdered By: Kaylin Perez on 03-09-2023 Albumin/Globulin [Mass ratio] 1.1 {ratio} 0.9-2.4 [facility] Serum or plasma calcium bianca urement (mass/volume)Ordered By: Kaylin Perez on 03-09-2023 Calcium [Mass/Vol] 9.4 mg/dL 8.5-10.1 [facility] Serum or plasma creatinine m easurement (mass/volume)Ordered By: Kaylin Perez on 03-09-2023 Creatinine [Mass/Vol] 0.73 mg/dL 0.55-1.02 [facility] Comment on above: The validity of the calculated GFR & GFRAA in patients over 70 years has not been determined. Clinical correlation is essential. Serum or plasma urea nitroge n measurement (mass/volume)Ordered By: Kaylin Perez on 03-09-2023 Urea nitrogen [Mass/Vol] 10 mg/dL 7-18 [facility] [place] Thin prep Papanicolaou smear with manual screeningOrdered By: Kaylin Perez on 03-09-2023 Thin prep Papanicolaou smear with manual screening 12 U/L 15-37 [facility] [place] Thin prep Papanicolaou smear with manual screening 4 5-15 [facility] [place] CNOVon 09-26-2018 CNOV Office Visit ([facility] ) -- AURE CARRERA ([id number]) 1975 F Date Time Provider Department 09/26/18 7:00 AM [facility] During your visit today, we recorded the following information about you: Temperature Pulse Respiration Blood pressure 98.4 degrees 72/minute 16/minute 118/70 [address] APRN.CNP 09/26/2018 7:18 AM Addendum ASSESSMENT/PLAN: 1. Tooth pain - ICD9: 525.9, ICD10: K08.89 Start Clindamycin today You can take an OTC probiotic such as Florajen, Culturelle or Align to help with stomach upset/loose stool that you may get as a side effect of the antibiotic. Tylenol (generic acetaminophen) 500 mg-2 tabs every 8 hrs. as needed for fever and aches Ibuprofen 600 mg (3-200mg tablets) every 6 hours Warm/cool compresses to area for comfort. Follow - up with Dentist as soon as possible for further treatment Katharina Lane APRN.TYRONE 09/26/2018 7:56 AM Signed Subjective The history is provided by the patient. No biblical languages professor was used. ROMY Carrera is a 43 year old female who presents today for CC of right jaw swelling and tooth pain. The swelling started this morning, but the tooth pain has been for 4 days. She has a dental liz/slightly broken tooth where she is having the pain. She denies any fever. She has been using ibuprofen with slight relief. BP 118/70 Pulse 72 Temp 36.9 ?C (98.4 ?F) (Tympanic) Resp 16 Wt 62.1 kg (137 lb) BMI 23.41 kg/m? Social History Socioeconomic History Marital status: Spouse name: Not on file Number of children: Not on file Years of education: Not on file Highest education level: Not on file Social Needs Financial resource strain: Not on file Food insecurity - worry: Not on file Food insecurity - inability: Not on file Transportation needs - medical: Not on file Transportation needs - non-medical: Not on file Occupational History Occupation: [employer] Employer: [employer] Tobacco Use Smoking status: Current Every Day Smoker Packs/day: 0.50 Years: 14.00 Pack years: 7 Types: Cigarettes Smokeless tobacco: Never Used Substance and Sexual Activity Alcohol use: Yes Alcohol/week: 1.5 oz Types: 1 Cans of Beer (12oz) per week Comment: occasionally Drug use: No Sexual activity: Yes Partners: Male control/protection: Surgical Comment: vasectomy Other Topics Concerns: Not on file Social History Narrative Not on file PAST MEDICAL HISTORY Diagnosis Date - Psoriasis - Ulcerative colitis (HCC) 03/2015 I have confirmed and edited as necessary, the [facility] Review of Systems Constitutional: Negative for chills and fever. HENT: Negative for sore throat. Dental pain, jaw swelling Musculoskeletal: Positive for myalgias (right jaw area). Neurological: Loss of consciousness: All other systems reviewed and are negative. Objective Physical Exam Constitutional: She is oriented to person, place, and time and well-developed, well-nourished, and in no distress. HENT: Mouth/Throat: Pulmonary/Chest: Effort normal. Lymphadenopathy: Head (right side): Submandibular adenopathy present. No submental, no tonsillar and no preauricular adenopathy present. Head (left side): No submental, no submandibular, no tonsillar and no preauricular adenopathy present. Right cervical: No superficial cervical adenopathy present. Left cervical: No superficial cervical adenopathy present. Neurological: She is alert and oriented to person, place, and time. Skin: Skin is warm and dry. Psychiatric: Affect normal. Nursing note and vitals reviewed. ASSESSMENT/PLAN: 1. Tooth pain - ICD9: 525.9, ICD10: K08.89 Start Clindamycin today You can take an OTC probiotic such as Florajen, Culturelle or Align to help with stomach upset/loose stool that you may get as a side effect of the antibiotic. Tylenol (generic acetaminophen) 500 mg-2 tabs every 8 hrs. as needed for fever and aches Ibuprofen 600 mg (3-200mg tablets) every 6 hours Follow - up with Dentist as soon as possible for further treatment Diagnosis and treatment plan were discussed and questions were answered to the patient's satisfaction. Pt acknowledged understanding of concepts and follow up plan. Specific signs and symptoms that would indicate the need for higher level of care were discussed in detail warranting prompt ER evaluation. Katharina Lane APRN.TYRONE Referring Provider: SELF [[id number]] Allergies As of Date: 09/26/2018 Noted Allergy Reaction PENICILLINS 11/18/2006 8 - GI Upset SULFA (SULFONAMIDE ANTIBIOTICS) 11/18/2006 4 - Hives Date Reviewed: 09/26/2018 Reviewed by: Duyen Tony LPN - Fully Assessed Reason for Visit: tooth abscess [Other] Cmt: x 4 days Primary Visit Diagnosis:Tooth pain [K08.89] Order(s):clindamycin (CLEOCIN) 300 mg capsuleTake 1 capsule by mouth four times daily.Disp: 40 capsuleRfl: 0 Prescriptions as of 09/26/2018 Sig: LEVONORGESTREL 20 MCG/24 HOUR* Inserted in office MULTIVITAMIN ORAL Take by mouth. CLINDAMYCIN HCL 300 MG CAPSULE Take 1 capsule by mouth four * * ASPIRIN 325 MG TABLET,DELAYED* Take 325 mg by mouth as neede* Problem List As Of Date 09/26/2018 Noted Resolved Menorrhagia with regular cycle [N92.0] INVALID FOR* Lichen sclerosus et atrophicus [L90.0] INVALID FOR* Other instructions from your clinician: ASSESSMENT/PLAN: 1. Tooth pain - ICD9: 525.9, ICD10: K08.89 Start Clindamycin today You can take an OTC probiotic such as Florajen, Culturelle or Align to help with stomach upset/loose stool that you may get as a side effect of the antibiotic. Tylenol (generic acetaminophen) 500 mg-2 tabs every 8 hrs. as needed for fever and aches Ibuprofen 600 mg (3-200mg tablets) every 6 hours Warm/cool compresses to area for comfort. Follow - up with Dentist as soon as possible for further treatment Prescriptions ordered this encounter Disp Refills Start End CLINDAMYCIN HCL 300 MG CAPSULE 40 c* 0 09/26/2018 Route: ORAL Sig: Take 1 capsule by mouth four times daily. Encounter Status:Closed by KATHARINA LANE CNP on 09/26/18 Normal [facility] PROGRESSon 09-26-2018 Protein mass conc HNO ID: [id number] Author: Katharina Amaral) Domingo Service: ? Author Type: Nurse Practitioner Type: Progress Notes Filed: 09/26/2018 7:56 AM Note Text: Subjective The history is provided by the patient. No biblical languages professor was used. HPI Aure Carrera is a 43 year old female who presents today for CC of right jaw swelling and tooth pain. The swelling started this morning, but the tooth pain has been for 4 days. She has a dental liz/slightly broken tooth where she is having the pain. She denies any fever. She has been using ibuprofen with slight relief. BP 118/70 Pulse 72 Temp 36.9 ?C (98.4 ?F) (Tympanic) Resp 16 Wt 62.1 kg (137 lb) BMI 23.41 kg/m? Social History Socioeconomic History Marital status: Spouse name: Not on file Number of children: Not on file Years of education: Not on file Highest education level: Not on file Social Needs Financial resource strain: Not on file Food insecurity - worry: Not on file Food insecurity - inability: Not on file Transportation needs - medical: Not on file Transportation needs - non-medical: Not on file Occupational History Occupation: [employer] Employer: [employer] Tobacco Use Smoking status: Current Every Day Smoker Packs/day: 0.50 Years: 14.00 Pack years: 7 Types: Cigarettes Smokeless tobacco: Never Used Substance and Sexual Activity Alcohol use: Yes Alcohol/week: 1.5 oz Types: 1 Cans of Beer (12oz) per week Comment: occasionally Drug use: No Sexual activity: Yes Partners: Male control/protection: Surgical Comment: vasectomy Other Topics Concerns: Not on file Social History Narrative Not on file PAST MEDICAL HISTORY Diagnosis Date - Psoriasis - Ulcerative colitis (HCC) 03/2015 I have confirmed and edited as necessary, the [facility] Review of Systems Constitutional: Negative for chills and fever. HENT: Negative for sore throat. Dental pain, jaw swelling Musculoskeletal: Positive for myalgias (right jaw area). Neurological: Loss of consciousness: All other systems reviewed and are negative. Objective Physical Exam Constitutional: She is oriented to person, place, and time and well-developed, well-nourished, and in no distress. HENT: Mouth/Throat: Pulmonary/Chest: Effort normal. Lymphadenopathy: Head (right side): Submandibular adenopathy present. No submental, no tonsillar and no preauricular adenopathy present. Head (left side): No submental, no submandibular, no tonsillar and no preauricular adenopathy present. Right cervical: No superficial cervical adenopathy present. Left cervical: No superficial cervical adenopathy present. Neurological: She is alert and oriented to person, place, and time. Skin: Skin is warm and dry. Psychiatric: Affect normal. Nursing note and vitals reviewed. ASSESSMENT/PLAN: 1. Tooth pain - ICD9: 525.9, ICD10: K08.89 Start Clindamycin today You can take an OTC probiotic such as Florajen, Culturelle or Align to help with stomach upset/loose stool that you may get as a side effect of the antibiotic. Tylenol (generic acetaminophen) 500 mg-2 tabs every 8 hrs. as needed for fever and aches Ibuprofen 600 mg (3-200mg tablets) every 6 hours Follow - up with Dentist as soon as possible for further treatment Diagnosis and treatment plan were discussed and questions were answered to the patient's satisfaction. Pt acknowledged understanding of concepts and follow up plan. Specific signs and symptoms that would indicate the need for higher level of care were discussed in detail warranting prompt ER evaluation. Katharina Lane APRN.TYRONE Normal [facility] CNOVon 02-04-2018 CNOV Office Visit ([facility] ) -- AURE CARRERA ([id number]) 1975 F Date Time Provider Department 02/04/18 7:45 AM CHELITA AVALOS ([facility]) [facility] During your visit today, we recorded the following information about you: Temperature Pulse Respiration Blood pressure 98.5 degrees 72/minute 16/minute 92/62 Weight 63 kg Chelita Avalos APRN.CNP 02/04/2018 8:16 AM Signed Subjective HPI Aure Lagunas Frankie is a 42 year old female who presents with left flank and back pain and cramping for the past 2 days. She denies fever. She did not take any medication at home for symptoms. Review of Systems Constitutional: Negative. Negative for chills and fever. Gastrointestinal: Positive for nausea (last night). Genitourinary: Positive for flank pain, frequency and hematuria. Negative for dysuria. Musculoskeletal: Positive for back pain. BP 92/62 Pulse 72 Temp 36.9 ?C (98.5 ?F) (Tympanic) Resp 16 Wt 63 kg (139 lb) BMI 23.75 kg/m? PAST MEDICAL HISTORY Diagnosis Date - Psoriasis - Ulcerative colitis (HCC) 03/2015 PAST SURGICAL HISTORY Procedure Laterality Date - PAST SURGICAL HISTORY OF Right hand ring finger (trigger finger) - REMOVAL OF TONSILS,<12 Y/O Tonsillectomy ALLERGIES Penicillins; Sulfa (Sulfonamide Antibiotics) MEDICATIONS levonorgestrel (MIRENA) 20 mcg/24 hr (5 years) IUD Inserted in office MULTIVITAMIN ORAL Take by mouth. clobetasol (TEMOVATE) 0.05 % ointment Apply thin layer to area bid X 2 weeks, then daily X 2 weeks then prn aspirin, enteric coated 325 mg ORAL EC tablet Take 325 mg by mouth as needed. FAMILY HISTORY Problem Relation Age of Onset - Cervical Cancer Mother - Ischemic Heart Disease Paternal Grandmother - Breast Cancer Maternal Grandmother Social History Substance Use Topics - Smoking status: Current Every Day Smoker Packs/day: 0.50 Years: 14.00 Types: Cigarettes - Smokeless tobacco: Never Used - Alcohol use 1.5 oz/week 1 Cans of Beer (12oz) per week Comment: occasionally Objective Physical Exam Constitutional: She is well-developed, well-nourished, and in no distress. Cardiovascular: Normal rate and regular rhythm. Pulmonary/Chest: Effort normal and breath sounds normal. Abdominal: Soft. There is no hepatosplenomegaly. There is tenderness in the suprapubic area. There is no CVA tenderness. Neurological: She is alert. Skin: Skin is warm and dry. Nursing note and vitals reviewed. Component Latest Ref Rng AND Units 02/04/2018 GLUCOSE UA (POCT) Negative mg/dL Negative BILIRUBIN UA (POCT) Negative Negative KETONE UA (POCT) Negative mg/dL Negative SPECIFIC GRAVITY UA (POCT) 1.005 - 1.030 1.010 HEMOGLOBIN/BLOOD UA (POCT) Negative Small (A) PH UA (POCT) 4.5 - 8.0 7.0 PROTEIN UA (POCT) Negative mg/dL Negative UROBILINOGEN UA (POCT) Normal E.U./dL 0.2 NITRITE UA (POCT) Negative Negative LEUKOCYTES UA (POCT) Negative Trace (A) COLOR UA (POCT) Yellow CLARITY UA (POCT) Clear ASSESSMENT/PLAN: 1. Acute cystitis with hematuria - ICD9: 595.0, ICD10: N30.01 (primary diagnosis) - NITROFURANTOIN MONOHYDRATE AND MACROCRYSTAL 100 MG ORAL CAP 2. Acute left-sided low back pain without sciatica - ICD9: 724.2, ICD10: M54.5 - UA DIP, URINE (POC) - URINE CULTURE - Follow-up with your PCP in 3-5 days if symptoms have not improved or sooner if symptoms worsen - Discussed red flags and need for immediate medical evaluation if any occur. - Discussed supportive care treatment with fluids, rest and analgesia. - Discussed expected course of illness ANN-MARIE Franklin APRN.CNP 02/04/2018 8:11 AM Signed [facility] PATIENT INFO BLADDER INFECTION OVERVIEW Bladder infections are one of the most common infections, causing symptoms of burning with urination and needing to urinate frequently. A bladder infection is a type of urinary tract infection (UTI). Bladder infections are more common is women than men. Most women have an uncomplicated bladder infection that is easily treated with a short course of antibiotics. In men, bladder infections may also affect the prostate gland, and a longer course of treatment may be needed. BLADDER INFECTION CAUSES The urinary tract includes the kidneys (which filter urine), ureters (the tube that carries urine from the kidneys to the bladder), the bladder (which stores urine), and urethra (the tube that carries urine out of the bladder). Bacteria do not normally live in these areas. However, bacteria normally live close to the urethra in women and men who are not circumcised. Bladder infections occur when bacteria travel up the urethra into the bladder. Factors that increase the risk of developing a bladder infection include: ? Vaginal sex ? Use of spermicides ? History of past bladder infections ? Diabetes In men, not being circumcised or having anal sex increase the risk of bladder infections. BLADDER INFECTION SYMPTOMS The typical symptoms of a bladder infection include: ? Pain or burning when urinating ? Frequent need to urinate ? Urgent need to urinate ? Blood in the urine Fever, back pain, nausea, or vomiting are not common symptoms of a bladder infection, but can occur in people with a kidney infection (pyelonephritis). If you have these symptoms, you should call your doctor or nurse immediately. Is it a bladder infection or something else? ? Burning with urination can also occur in people with vaginitis (eg, yeast infection) or urethritis (inflammation of the urethra). For this reason, it is important to call your healthcare provider before assuming you have a bladder infection. BLADDER INFECTION DIAGNOSIS Simple bladder infections are usually diagnosed based upon your symptoms alone. However, most patients, especially those who have bladder infection symptoms for the first time, should see a healthcare provider for urine testing. Urine culture ? A urine culture is a test that uses a sample of urine to try and grow bacteria in a laboratory. It usually requires about 48 hours to get results. However, a urine culture is not always required to diagnose a bladder infection. Urine culture is often recommended if: ? You have never had a bladder infection before ? You have symptoms that are not typical for bladder infection ? You have had resistant bladder infections before ? You have frequent bladder infections ? You do not begin to feel better within 24 to 48 hours after starting antibiotics ? You are BLADDER INFECTION TREATMENT Bladder infection ? In young, healthy adolescents and adults with a bladder infection, the usual treatment includes a three to seven day course of antibiotics. The typical drugs chosen are: trimethoprim-sulfamethoxaz ole (Bactrim?), nitrofurantoin (Macrobid?), ciprofloxacin (Cipro?) or levofloxacin (Levaquin?). In men, the infection may involve your prostate gland and treatment is usually given for at least 7 days. Your symptoms should begin to resolve within one day after starting treatment. It is important to take the full course of antibiotics to completely eliminate the infection. If your symptoms persist for more than two or three days after starting treatment, call your healthcare provider. If needed, you can take a prescription medication that numbs the bladder and urethra (phenazopyridine [Pyridium?]) to reduce the burning pain of some UTIs. A similar medication is available without a prescription (eg, Uristat). Both medications change the color of the urine (usually blue or orange) and can interfere with laboratory testing. You should not take these medications for more than 48 hours due to the risk of side effects. These medications do not treat the infection and must be taken along with an antibiotic. Some providers recommend drinking more fluids while treating bladder infections to help flush bacteria from the bladder. Others believe that drinking more fluids may dilute the antibiotic in the bladder and make the medication less effective. No studies have been performed to address this issue. There are also no good studies on the effectiveness of cranberry juice for treating a bladder infection; we do not recommend using cranberry juice to treat bladder infections. Follow-up care ? Follow-up testing is not needed in healthy, young men or women with a bladder infection if symptoms resolve. women are usually asked to have a repeat urine culture one to two weeks after treatment has ended to make sure the bacteria are no longer in the urine. RECURRENT BLADDER INFECTIONS Bladder infections versus other causes ? Some adults, especially women, develop bladder infections frequently. In this case, it is important to confirm that your symptoms (eg, pain or burning, frequency, and urgency) are caused by a bladder infection. Symptoms are usually similar from one infection to another. The best way to confirm an infection is to have a urine culture. If your urine culture is negative for infection, other causes of pain, burning, and frequency should be investigated. There is no reason to take antibiotics if your urine culture is negative. Need for further testing ? If you continue to develop bladder infections, you may require further testing. If you continue to notice blood in your urine after your bladder infection has cleared, you should have further testing. Preventing recurrent UTIs ? Women with recurrent urinary tract infections may be advised to take steps to prevent bladder infections, including one or more of the following: Changes in control ? Women who develop frequent bladder infections and use spermicides, particularly those who also use a diaphragm, may be encouraged to use an alternate method of control. Cranberry products ? Taking cranberry juice or cranberry tablets has been promoted as one way to help prevent frequent bladder infections. However, this has not been proven. Drinking more fluid and urinating after intercourse ? Although studies have not proven that drinking more fluids or urinating soon after intercourse can prevent infection, some healthcare providers recommend these measures since they are not harmful. Drinking more fluid may help to wash out bacteria that enter the bladder. Postmenopausal women ? Postmenopausal women who develop recurrent bladder infections may benefit from using vaginal estrogen. Vaginal estrogen is available in a flexible ring that is worn in the vagina for three months (eg, Estring?), a small tablet (Vagifem?), or a cream (eg, Premarin? or Estrace?). Vaginal estrogen is discussed in more detail in a separate topic review. Antibiotics ? A preventive antibiotic treatment may be recommended if you repeatedly develop bladder infections and have not responded to other preventive measures. Antibiotics are highly effective in preventing recurrent bladder infections and can be taken in several different ways. ? Preventive antibiotic ? You can take a low dose of an antibiotic once per day or three times per week for six months to several years. ? Antibiotics following intercourse ? In women who develop urinary tract infections after sex, taking a single low dose antibiotic after intercourse can help to prevent bladder infections. ? Self-treatment ? A plan to begin antibiotics at the first sign of a bladder infection may be recommended in some situations. Before starting this regimen, it is important that you have had testing (urine cultures) to confirm that your symptoms are caused by a bladder infection; some people have symptoms of a bladder infection but do not actually have an infection. Referring Provider: SELF [200] Allergies As of Date: 02/04/2018 Noted Allergy Reaction PENICILLINS 11/18/2006 8 - GI Upset SULFA (SULFONAMIDE ANTIBIOTICS) 11/18/2006 4 - Hives Date Reviewed: 02/04/2018 Reviewed by: Chelita ([facility]) Estella - Fully Assessed Reason for Visit: Low Back Pain [126] Cmt: under rib cage pain and hematuria x yesterday Primary Visit Diagnosis:Acute cystitis with hematuria [N30.01] Other Visit Diagnosis:Acute left-sided low back pain without sciatica [M54.5] Order(s):UA DIP, URINE (POC) [[id number]] Order #: [id number] #:[id number] -LAB URINE CULTURE [SQURCUL] Order #: [id number] nitrofurantoin monohydrate and macrocrystal (MACROBID) 100 mg capsuleTake 1 capsule by mouth twice daily with meals for 7 days.Disp: 14 capsuleRfl: 0 Prescriptions as of 02/04/2018 Sig: LEVONORGESTREL 20 MCG/24 HR (* Inserted in office MULTIVITAMIN ORAL Take by mouth. NITROFURANTOIN MONOHYDRATE AND * Take 1 capsule by mouth twice* * ASPIRIN 325 MG TABLET,DELAYED* Take 325 mg by mouth as neede* Problem List As Of Date 02/04/2018 Noted Resolved Menorrhagia with regular cycle [N92.0] INVALID FOR* Lichen sclerosus et atrophicus [L90.0] INVALID FOR* Other instructions from your clinician: [facility] PATIENT INFO BLADDER INFECTION OVERVIEW Bladder infections are one of the most common infections, causing symptoms of burning with urination and needing to urinate frequently. A bladder infection is a type of urinary tract infection (UTI). Bladder infections are more common is women than men. Most women have an uncomplicated bladder infection that is easily treated with a short course of antibiotics. In men, bladder infections may also affect the prostate gland, and a longer course of treatment may be needed. BLADDER INFECTION CAUSES The urinary tract includes the kidneys (which filter urine), ureters (the tube that carries urine from the kidneys to the bladder), the bladder (which stores urine), and urethra (the tube that carries urine out of the bladder). Bacteria do not normally live in these areas. However, bacteria normally live close to the urethra in women and men who are not circumcised. Bladder infections occur when bacteria travel up the urethra into the bladder. Factors that increase the risk of developing a bladder infection include: ? Vaginal sex ? Use of spermicides ? History of past bladder infections ? Diabetes In men, not being circumcised or having anal sex increase the risk of bladder infections. BLADDER INFECTION SYMPTOMS The typical symptoms of a bladder infection include: ? Pain or burning when urinating ? Frequent need to urinate ? Urgent need to urinate ? Blood in the urine Fever, back pain, nausea, or vomiting are not common symptoms of a bladder infection, but can occur in people with a kidney infection (pyelonephritis). If you have these symptoms, you should call your doctor or nurse immediately. Is it a bladder infection or something else? ? Burning with urination can also occur in people with vaginitis (eg, yeast infection) or urethritis (inflammation of the urethra). For this reason, it is important to call your healthcare provider before assuming you have a bladder infection. BLADDER INFECTION DIAGNOSIS Simple bladder infections are usually diagnosed based upon your symptoms alone. However, most patients, especially those who have bladder infection symptoms for the first time, should see a healthcare provider for urine testing. Urine culture ? A urine culture is a test that uses a sample of urine to try and grow bacteria in a laboratory. It usually requires about 48 hours to get results. However, a urine culture is not always required to diagnose a bladder infection. Urine culture is often recommended if: ? You have never had a bladder infection before ? You have symptoms that are not typical for bladder infection ? You have had resistant bladder infections before ? You have frequent bladder infections ? You do not begin to feel better within 24 to 48 hours after starting antibiotics ? You are BLADDER INFECTION TREATMENT Bladder infection ? In young, healthy adolescents and adults with a bladder infection, the usual treatment includes a three to seven day course of antibiotics. The typical drugs chosen are: trimethoprim-sulfamethoxaz ole (Bactrim?), nitrofurantoin (Macrobid?), ciprofloxacin (Cipro?) or levofloxacin (Levaquin?). In men, the infection may involve your prostate gland and treatment is usually given for at least 7 days. Your symptoms should begin to resolve within one day after starting treatment. It is important to take the full course of antibiotics to completely eliminate the infection. If your symptoms persist for more than two or three days after starting treatment, call your healthcare provider. If needed, you can take a prescription medication that numbs the bladder and urethra (phenazopyridine [Pyridium?]) to reduce the burning pain of some UTIs. A similar medication is available without a prescription (eg, Uristat). Both medications change the color of the urine (usually blue or orange) and can interfere with laboratory testing. You should not take these medications for more than 48 hours due to the risk of side effects. These medications do not treat the infection and must be taken along with an antibiotic. Some providers recommend drinking more fluids while treating bladder infections to help flush bacteria from the bladder. Others believe that drinking more fluids may dilute the antibiotic in the bladder and make the medication less effective. No studies have been performed to address this issue. There are also no good studies on the effectiveness of cranberry juice for treating a bladder infection; we do not recommend using cranberry juice to treat bladder infections. Follow-up care ? Follow-up testing is not needed in healthy, young men or women with a bladder infection if symptoms resolve. women are usually asked to have a repeat urine culture one to two weeks after treatment has ended to make sure the bacteria are no longer in the urine. RECURRENT BLADDER INFECTIONS Bladder infections versus other causes ? Some adults, especially women, develop bladder infections frequently. In this case, it is important to confirm that your symptoms (eg, pain or burning, frequency, and urgency) are caused by a bladder infection. Symptoms are usually similar from one infection to another. The best way to confirm an infection is to have a urine culture. If your urine culture is negative for infection, other causes of pain, burning, and frequency should be investigated. There is no reason to take antibiotics if your urine culture is negative. Need for further testing ? If you continue to develop bladder infections, you may require further testing. If you continue to notice blood in your urine after your bladder infection has cleared, you should have further testing. Preventing recurrent UTIs ? Women with recurrent urinary tract infections may be advised to take steps to prevent bladder infections, including one or more of the following: Changes in control ? Women who develop frequent bladder infections and use spermicides, particularly those who also use a diaphragm, may be encouraged to use an alternate method of control. Cranberry products ? Taking cranberry juice or cranberry tablets has been promoted as one way to help prevent frequent bladder infections. However, this has not been proven. Drinking more fluid and urinating after intercourse ? Although studies have not proven that drinking more fluids or urinating soon after intercourse can prevent infection, some healthcare providers recommend these measures since they are not harmful. Drinking more fluid may help to wash out bacteria that enter the bladder. Postmenopausal women ? Postmenopausal women who develop recurrent bladder infections may benefit from using vaginal estrogen. Vaginal estrogen is available in a flexible ring that is worn in the vagina for three months (eg, Estring?), a small tablet (Vagifem?), or a cream (eg, Premarin? or Estrace?). Vaginal estrogen is discussed in more detail in a separate topic review. Antibiotics ? A preventive antibiotic treatment may be recommended if you repeatedly develop bladder infections and have not responded to other preventive measures. Antibiotics are highly effective in preventing recurrent bladder infections and can be taken in several different ways. ? Preventive antibiotic ? You can take a low dose of an antibiotic once per day or three times per week for six months to several years. ? Antibiotics following intercourse ? In women who develop urinary tract infections after sex, taking a single low dose antibiotic after intercourse can help to prevent bladder infections. ? Self-treatment ? A plan to begin antibiotics at the first sign of a bladder infection may be recommended in some situations. Before starting this regimen, it is important that you have had testing (urine cultures) to confirm that your symptoms are caused by a bladder infection; some people have symptoms of a bladder infection but do not actually have an infection. Prescriptions ordered this encounter Disp Refills Start End NITROFURANTOIN MONOHYDRATE AND MACROCR* 14 c* 0 02/04/2018 02/11/2018 Route: ORAL Sig: Take 1 capsule by mouth twice daily with meals for 7 days. Medications Discontinued During This Encounter clobetasol (TEMOVATE) 0.05 % ointment 15 g 2 11/16/2016 02/04/2018 Sig: Apply thin layer to area bid X 2 weeks, then daily X 2 weeks then prn Patient not taking: Reported on 02/04/2018 Disc: Reason for discontinue is not on file. Letter Text Chelita Avalos APRN.[facility] Urgent Care [address] [facility] [address] Dept: [phone] 02/04/2018 Aure Carrera [address] [id number] To Whom it May Concern: This is to certify that Aure Carrera was seen at our office for medical care. Aure may return to work on 02/05/2018. If you have any questions please feel free to call. Sincerely: Chelita Avalos APRN.[facility] Encounter Status:Closed by CHELITA AVALOS on 02/04/18 Normal [facility] PROGRESSon 02-04-2018 Protein mass conc HNO ID: [id number] Author: Chelita ([facility]) Estella Service: (none) Author Type: Nurse Practitioner Type: Progress Notes Filed: 02/04/2018 8:16 AM Note Text: Subjective HPI Aure Carrera is a 42 year old female who presents with left flank and back pain and cramping for the past 2 days. She denies fever. She did not take any medication at home for symptoms. Review of Systems Constitutional: Negative. Negative for chills and fever. Gastrointestinal: Positive for nausea (last night). Genitourinary: Positive for flank pain, frequency and hematuria. Negative for dysuria. Musculoskeletal: Positive for back pain. BP 92/62 Pulse 72 Temp 36.9 ?C (98.5 ?F) (Tympanic) Resp 16 Wt 63 kg (139 lb) BMI 23.75 kg/m? PAST MEDICAL HISTORY Diagnosis Date - Psoriasis - Ulcerative colitis (HCC) 03/2015 PAST SURGICAL HISTORY Procedure Laterality Date - PAST SURGICAL HISTORY OF Right hand ring finger (trigger finger) - REMOVAL OF TONSILS,<12 Y/O Tonsillectomy ALLERGIES Penicillins; Sulfa (Sulfonamide Antibiotics) MEDICATIONS levonorgestrel (MIRENA) 20 mcg/24 hr (5 years) IUD Inserted in office MULTIVITAMIN ORAL Take by mouth. clobetasol (TEMOVATE) 0.05 % ointment Apply thin layer to area bid X 2 weeks, then daily X 2 weeks then prn aspirin, enteric coated 325 mg ORAL EC tablet Take 325 mg by mouth as needed. FAMILY HISTORY Problem Relation Age of Onset - Cervical Cancer Mother - Ischemic Heart Disease Paternal Grandmother - Breast Cancer Maternal Grandmother Social History Substance Use Topics - Smoking status: Current Every Day Smoker Packs/day: 0.50 Years: 14.00 Types: Cigarettes - Smokeless tobacco: Never Used - Alcohol use 1.5 oz/week 1 Cans of Beer (12oz) per week Comment: occasionally Objective Physical Exam Constitutional: She is well-developed, well-nourished, and in no distress. Cardiovascular: Normal rate and regular rhythm. Pulmonary/Chest: Effort normal and breath sounds normal. Abdominal: Soft. There is no hepatosplenomegaly. There is tenderness in the suprapubic area. There is no CVA tenderness. Neurological: She is alert. Skin: Skin is warm and dry. Nursing note and vitals reviewed. Component Latest Ref Rng AND Units 02/04/2018 GLUCOSE UA (POCT) Negative mg/dL Negative BILIRUBIN UA (POCT) Negative Negative KETONE UA (POCT) Negative mg/dL Negative SPECIFIC GRAVITY UA (POCT) 1.005 - 1.030 1.010 HEMOGLOBIN/BLOOD UA (POCT) Negative Small (A) PH UA (POCT) 4.5 - 8.0 7.0 PROTEIN UA (POCT) Negative mg/dL Negative UROBILINOGEN UA (POCT) Normal E.U./dL 0.2 NITRITE UA (POCT) Negative Negative LEUKOCYTES UA (POCT) Negative Trace (A) COLOR UA (POCT) Yellow CLARITY UA (POCT) Clear ASSESSMENT/PLAN: 1. Acute cystitis with hematuria - ICD9: 595.0, ICD10: N30.01 (primary diagnosis) - NITROFURANTOIN MONOHYDRATE AND MACROCRYSTAL 100 MG ORAL CAP 2. Acute left-sided low back pain without sciatica - ICD9: 724.2, ICD10: M54.5 - UA DIP, URINE (POC) - URINE CULTURE - Follow-up with your PCP in 3-5 days if symptoms have not improved or sooner if symptoms worsen - Discussed red flags and need for immediate medical evaluation if any occur. - Discussed supportive care treatment with fluids, rest and analgesia. - Discussed expected course of illness Chelita Avalos APRN.RETENTION MANAGER Normal [facility] Urine Cultureon 02-04-2018 Bacteria identified Cx Nom (U) Sp. Request/Comment: - Specimen received in preservative Culture Result - No growth (<1,000 CFU/ml) Normal [facility] Comment on above: Performed By: #### U RCUL #### [facility] [address] [place] [address] Office Visit: Annualon 12-22 Fall risk assessment No [facility] Protein mass conc Done [facility] Tobacco smoking status [facility] Never [facility] Tobacco smoking status [facility] Current every day smoker [facility] Vital Signs Date Time Vital Sign Value Performing Clinician Facility 01-23-2025 12:58-0400 Body height 162.[address] Nino Pearson MD Work Phone: [facility] [place] 01-23-2025 12:58-0400 Body mass index (BMI) [Ratio] 22.6 kg/m2 Dr. Nino Pearson MD Work Phone: [facility] [place] 01-23-2025 12:58-0400 Body weight 59.[address] Nino Pearson MD Work Phone: [facility] [place] 01-23-2025 12:58-0400 Diastolic blood pressure 64 mm[Hg] Dr. Nino Pearson MD Work Phone: [facility] [place] 01-23-2025 12:58-0400 Heart rate 71 /min Dr. Nino Pearson MD Work Phone: [facility] [place] 01-23-2025 12:58-0400 SaO2% (BldA) [Mass fraction] 97 % Dr. Nino Pearson MD Work Phone: [facility] [place] 01-23-2025 12:58-0400 Systolic blood pressure 103 mm[Hg] Dr. Nino Pearson MD Work Phone: [facility] [place] 01-08-2025 15:05-0400 Body height 162.[address] Nino Pearson MD Work Phone: [facility] [place] 01-08-2025 15:05-0400 Body mass index (BMI) [Ratio] 23 kg/m2 Dr. Nino Pearson MD Work Phone: [facility] [place] 01-08-2025 15:05-0400 Body temperature 97.4 [degF] Dr. Nino Pearson MD Work Phone: [facility] [place] 01-08-2025 15:05-0400 Body weight 60.[address] Nino Pearson MD Work Phone: [facility] [place] 01-08-2025 15:05-0400 Diastolic blood pressure 74 mm[Hg] Dr. Nino Pearson MD Work Phone: [facility] [place] 01-08-2025 15:05-0400 Heart rate 65 /min Dr. Nino Pearson MD Work Phone: [facility] [place] 01-08-2025 15:05-0400 Respiratory rate 16 /min Dr. Nino Pearson MD Work Phone: [facility] [place] 01-08-2025 15:05-0400 SaO2% (BldA) [Mass fraction] 96 % Dr. Nino Pearson MD Work Phone: [facility] [place] 01-08-2025 15:05-0400 Systolic blood pressure 110 mm[Hg] Dr. Nino Pearson MD Work Phone: [facility] [place] 12-25-2024 14:22-0400 Body height 162.[address] Nino Pearson MD Work Phone: [facility] [place] 12-25-2024 14:22-0400 Body mass index (BMI) [Ratio] 23.3 kg/m2 Dr. Nino Pearson MD Work Phone: [facility] [place] 12-25-2024 14:22-0400 Body temperature 97.7 [degF] Dr. Nino Pearson MD Work Phone: [facility] [place] 12-25-2024 14:22-0400 Body weight 61.[address] Nino Pearson MD Work Phone: [facility] [place] 12-25-2024 14:22-0400 Diastolic blood pressure 78 mm[Hg] Dr. Nino Pearson MD Work Phone: [facility] [place] 12-25-2024 14:22-0400 Heart rate 89 /min Dr. Nino Pearson MD Work Phone: [facility] [place] 12-25-2024 14:22-0400 Respiratory rate 16 /min Dr. Nino Pearson MD Work Phone: [facility] [place] 12-25-2024 14:22-0400 SaO2% (BldA) [Mass fraction] 98 % Dr. Nino Pearson MD Work Phone: [facility] [place] 12-25-2024 14:22-0400 Systolic blood pressure 130 mm[Hg] Dr. Nino Pearson MD Work Phone: [facility] [place] 09-22-2024 09:41-0400 Body height 162.[address] Nino Pearson MD Work Phone: [facility] [place] 09-22-2024 09:41-0400 Body mass index (BMI) [Ratio] 23.5 kg/m2 Dr. Nino Pearson MD Work Phone: [facility] [place] 09-22-2024 09:41-0400 Body temperature 97.8 [degF] Dr. Nino Pearson MD Work Phone: [facility] [place] 09-22-2024 09:41-0400 Body weight 62.[address] Nino Pearson MD Work Phone: [facility] [place] 09-22-2024 09:41-0400 Diastolic blood pressure 62 mm[Hg] Dr. Nino Pearson MD Work Phone: [facility] [place] 09-22-2024 09:41-0400 Heart rate 63 /min Dr. Nino Pearson MD Work Phone: [facility] [place] 09-22-2024 09:41-0400 Respiratory rate 16 /min Dr. Nino Pearson MD Work Phone: [facility] [place] 09-22-2024 09:41-0400 SaO2% (BldA) [Mass fraction] 99 % Dr. Nino Pearson MD Work Phone: [facility] [place] 09-22-2024 09:41-0400 Systolic blood pressure 98 mm[Hg] Dr. Nino Pearson MD Work Phone: [facility] [place] 08-15-2024 09:49-0400 Body height 162.[address] Nino Pearson MD Work Phone: [facility] [place] 08-15-2024 09:49-0400 Body temperature 98.2 [degF] Dr. Nino Pearson MD Work Phone: [facility] [place] 08-15-2024 09:49-0400 Diastolic blood pressure 58 mm[Hg] Dr. Nino Pearson MD Work Phone: [facility] [place] 08-15-2024 09:49-0400 Heart rate 62 /min Dr. Nino Pearson MD Work Phone: [facility] [place] 08-15-2024 09:49-0400 Respiratory rate 14 /min Dr. Nion Pearson MD Work Phone: [facility] [place] 08-15-2024 09:49-0400 SaO2% (BldA) [Mass fraction] 98 % Dr. Nino Pearson MD Work Phone: [facility] [place] 08-15-2024 09:49-0400 Systolic blood pressure 110 mm[Hg] Dr. Nino Pearson MD Work Phone: [facility] [place] 05-18-2024 10:50-0500 Body mass index (BMI) [Ratio] 22.3 kg/m2 Dr. Nino Pearson MD Work Phone: [facility] [place] 05-18-2024 10:50-0500 Body temperature 98.3 [degF] Dr. Nino Pearson MD Work Phone: [facility] [place] 05-18-2024 10:50-0500 Body weight 58.[address] Nino Pearson MD Work Phone: [facility] [place] 05-18-2024 10:50-0500 Diastolic blood pressure 60 mm[Hg] Dr. Nino Pearson MD Work Phone: [facility] [place] 05-18-2024 10:50-0500 Heart rate 62 /min Dr. Nino Pearson MD Work Phone: [facility] [place] 05-18-2024 10:50-0500 SaO2% (BldA) [Mass fraction] 99 % Dr. Nino Pearson MD Work Phone: [facility] [place] 05-18-2024 10:50-0500 Systolic blood pressure 110 mm[Hg] Dr. Nino Pearson MD Work Phone: [facility] [place] 07-22-2023 10:02-0500 Body height 162.[address] Nino Pearson Work Phone: [facility] [place] 07-22-2023 10:02-0500 Body mass index (BMI) [Ratio] 23.3 kg/m2 Dr. Nino Pearson Work Phone: [facility] [place] 07-22-2023 10:02-0500 Body temperature 97.3 [degF] Dr. Nino Pearson Work Phone: [facility] [place] 07-22-2023 10:02-0500 Body weight 61.[address] Nino Pearson Work Phone: [facility] [place] 07-22-2023 10:02-0500 Diastolic blood pressure 66 mm[Hg] Dr. Nino Pearson Work Phone: [facility] [place] 07-22-2023 10:02-0500 Heart rate 74 /min Dr. Nino Pearson Work Phone: [facility] [place] 07-22-2023 10:02-0500 Respiratory rate 16 /min Dr. Nino Pearson Work Phone: [facility] [place] 07-22-2023 10:02-0500 SaO2% (BldA) [Mass fraction] 98 % Dr. Nino Pearson Work Phone: [facility] [place] 07-22-2023 10:02-0500 Systolic blood pressure 118 mm[Hg] Dr. Nino Pearson Work Phone: [facility] [place] 06-28-2023 09:23-0500 Body temperature 98 [degF] Dr. Nino Pearson Work Phone: [facility] [place] 06-28-2023 09:23-0500 Diastolic blood pressure 65 mm[Hg] Dr. Nino Pearson Work Phone: [facility] [place] 06-28-2023 09:23-0500 Heart rate 75 /min Dr. Nino Pearson Work Phone: [facility] [place] 06-28-2023 09:23-0500 Respiratory rate 16 /min Dr. Nino Pearson Work Phone: [facility] [place] 06-28-2023 09:23-0500 SaO2% (BldA) [Mass fraction] 99 % Dr. Nino Pearson Work Phone: [facility] [place] 06-28-2023 09:23-0500 Systolic blood pressure 121 mm[Hg] Dr. Nino Pearson Work Phone: [facility] [place] 12-22-2016 13:07-0400 BMI (Body Mass Index) 23.89 kg/m2 Lucia Lira NP [facility] 12-22-2016 13:07-0400 Body Temperature 98.7 [degF] Lucia Lira NP [facility] 12-22-2016 13:07-0400 BP Diastolic 65 mm[Hg] Lucia Lira NP [facility] 12-22-2016 13:07-0400 BP Systolic 109 mm[Hg] Lucia Lira NP [facility] 12-22-2016 13:07-0400 Height 162.56 cm Lucia Lira NP [facility] 12-22-2016 13:07-0400 Pulse (Heart Rate) 77 /min Lucia Lira NP [facility] 12-22-2016 13:07-0400 Respiratory Rate 16 /min Lucia Lira NP [facility] 12-22-2016 13:07-0400 Weight 63.14 kg Lucia Lira NP [facility] Encounters Encounter Date Encounter Type Care Provider Facility Start: 02-26-2025 ambulatory Sushil Friend Facility :[facility] [place] Start: 01-23-2025 End: 01-23-[address] Esvin Vega MD -[facility] Work Phone: Start: 01-23-2025 End: 01-23-[address] Nino Pearson MD Work Phone: -[facility] Start: 01-17-2025 End: 01-17-[address] Nino Pearson MD Work Phone: -[facility] Start: 01-17-2025 End: 01-17-2025 Patient encounter procedure Lucy RUSS -[facility] Work Phone: Start: 01-17-2025 End: 01-17-2025 ambulatory Nino Pearson Facility:[facility] Start: 01-11-2025 End: 01-11-2025 Patient encounter procedure Lucy RUSS -[facility] Work Phone: Start: 01-11-2025 End: 01-11-[address] Nino Pearson MD Work Phone: -[facility] Start: 01-08-2025 End: 01-08-2025 Patient encounter procedure Danielle HASSAN -[facility] Work Phone: Start: 01-08-2025 End: 01-08-[address] Nino Pearson MD Work Phone: -[facility] Start: 12-25-2024 End: 12-25-[address] Nino Pearson MD -[facility] Work Phone: Start: 12-25-2024 End: 12-25-[address] Nino Pearson MD Work Phone: -[facility] Start: 12-25-2024 End: 12-25-[address] Nino Pearson MD Work Phone: -[facility] Start: 12-25-2024 End: 12-25-[address] Kaylin Perez MD -[facility] [place] Work Phone: Start: 12-25-2024 End: 12-25-2024 ambulatory Nino Pearson Facility:[facility] Start: 12-15-2024 End: 12-15-[address] Nino Pearson MD Work Phone: -[facility] [place] Start: 12-15-2024 End: 12-15-[address] Kaylin Perez MD -[facility] [place] Work Phone: Start: 12-15-2024 End: 12-15-2024 ambulatory Kaylin Perez Facility:[facility] Start: 10-03-2024 End: 10-03-[address] Nino Pearson MD Work Phone: [facility] Work Phone: Start: 10-03-2024 End: 10-03-[address] Nino Pearson MD -Outpatient Breast Imaging Work Phone: Start: 10-03-2024 End: 10-03-2024 ambulatory Nino Pearson Facility:[facility] Start: 09-26-2024 End: 09-26-[address] Nino Pearson MD Work Phone: [facility] Work Phone: Start: 09-26-2024 End: 09-26-[address] Nino Pearson MD -[facility] Start: 09-26-2024 End: 09-26-2024 ambulatory Nino Pearson Facility:[facility] Start: 09-22-[address] Nino Pearson MD Work Phone: [facility] Start: 09-22-2024 End: 09-22-[address] Nino Pearson MD -[facility] Work Phone: Start: 09-22-2024 End: 09-22-[address] Nino Pearson MD [facility] Start: 09-22-2024 End: 09-22-2024 ambulatory [facility] Facility:[facility] Start: 08-30-2024 End: 08-30-[address] Nino Pearson MD Work Phone: [facility] Work Phone: Start: 08-30-2024 End: 08-30-2024 Patient encounter procedure Alyssa Aguirre PA-C -Laboratory, [place] Work Phone: Start: 08-30-2024 End: 08-30-2024 ambulatory [facility] Facility:[facility] Start: 08-15-2024 End: 08-15-2024 Patient encounter procedure Nash Gonzalez PA -[facility] Work Phone: Start: 08-15-2024 End: 08-15-2024 ambulatory [facility] Facility:[facility] Start: 07-13-2024 End: 07-13-[address] Kaylin Perez MD -Laboratory, [place] Work Phone: Start: 07-13-2024 End: 07-13-2024 ambulatory [facility] Facility:[facility] Start: 05-19-2024 End: 05-19-2024 Patient encounter procedure Naya Barrios NP-C -[facility] Work Phone: Start: 05-19-2024 End: 05-19-2024 ambulatory [facility] Facility:[facility] Start: 03-28-2024 End: 03-28-2024 ambulatory [facility] Facility:[facility] Start: 07-29-2023 End: 07-29-[address] Nino Pearson Work Phone: [facility] Work Phone: Start: 07-29-2023 End: 07-29-[address] Nino Pearson Work Phone: [facility] Work Phone: Start: 07-22-2023 End: 07-22-[address] Nino Pearson Work Phone: [facility] Work Phone: Start: 07-22-2023 End: 07-22-[address] Nino Pearson Work Phone: [facility] Work Phone: Start: 07-22-2023 End: 07-22-[address] Nino Pearson Work Phone: [facility] Work Phone: Start: 06-28-2023 End: 06-28-2023 Emergency department patient visit Dr. Nino Pearson Work Phone: [facility]-Emergency Department Work Phone: Start: 03-29-2023 End: 03-29-2023 ambulatory [facility] Work Phone: Start: 03-29-2023 End: 03-29-2023 Patient encounter procedure [facility] [place] Work Phone: Start: 03-09-2023 End: 03-09-2023 ambulatory [facility] Work Phone: Start: 03-09-2023 End: 03-09-2023 Patient encounter procedure [facility] [place] Work Phone: Start: 02-20-2022 End: 02-20-2022 ambulatory [facility] Work Phone: Start: 02-20-2022 End: 02-20-2022 Patient encounter procedure [facility]-Outpatient Breast Imaging Start: 09-26-2018 End: 09-28-2018 Patient encounter procedure [facility] Start: 02-04-2018 End: 02-04-2018 Patient encounter procedure [facility] Procedures Date Procedure Procedure Detail Performing Clinician Start: 01-17-[address] Foster Pearson MD Work Phone: Start: 01-17-[address] Nino Pearson MD Work Phone: Start: 01-17-2025 Iadna-dna/rna gi pthgn multiplex probe tq 6-11 Dr. Nino Pearson MD Work Phone: Start: 12-25-[address] Nino Pearson MD Work Phone: Start: 12-25-2024 Plain x-ray of pelvis and lower extremity Dr. Nino Pearson MD Work Phone: Start: 10-03-[address] Nino Pearson MD Work Phone: Start: 09-26-[address] Nino Pearson MD Work Phone: Comment on above: Performed at: [id number] [place], [place] [id number] Director: Alden Garcia PhD, Phone: [phone] Start: 09-26-2024 Antibody to extractable nuclear antigen measurement Dr. Nino Pearson MD Work Phone: Comment on above: Test not performed Start: 09-26-2024 Antibody to SARITA-[address] Juarez Pearson MD Work Phone: Comment on above: Test not performed Start: 09-26-2024 Antibody to lupus La protein measurement Dr. Nino Pearson MD Work Phone: Comment on above: Test not performed Start: 09-26-2024 Antibody to SS-A measurement Dr. Juarez Pearson MD Work Phone: Comment on above: Test not performed Start: 09-26-[address] Nino Pearson MD Work Phone: Comment on above: Test not performed Start: 09-26-2024 Endomysial antibody IgA level Dr. Harini Pearson MD Work Phone: Start: 09-26-2024 Gliadin antibody, IgA measurement Dr. Nino Pearson MD Work Phone: Comment on above: Negative 0 - 19 Weak Positive 20 - 30 Mo derate to Strong Positive >30 Start: 09-26-2024 Gliadin antibody, IgG measurement Dr. Nino Pearson MD Work Phone: Comment on above: Negative 0 - 19 Weak Positive 20 - 30 Mo derate to Strong Positive >30 Start: 09-26-2024 Measurement of immunoglobulin A in serum specimen Dr. Nino Pearson MD Work Phone: Start: 09-26-2024 FIELD ASSISTANT antibody measurement Dr. Nino Pearson MD Work Phone: Comment on above: Test not performed Start: 09-26-[address] Nino Pearson MD Work Phone: Start: 09-26-[address] Nino Pearson MD Work Phone: Comment on above: Thyroglobulin Antibody measured by Siri OakleyMethodologyIt should be noted that the presence of thyroglobulinantibodies may not be pathogenic nor diagnostic, especiallyat very low levels. The assay manager cash has found thatfour percent of individuals without evidence of thyroiddisease or autoimmunity will have positive TgAb levels upto 4 IU/mL. Start: 08-30-[address] Nino Pearson MD Work Phone: Comment on above: Negative <1:80 Borderline 1:80 Positive >1:80ICAP nomenclature: AC-0For more information about Hep-2 cell patterns useANApatterns.org, the official website for theInternational Consensus on Antinuclear Antibody ([place])Patterns (ICAP).Speckled cytoplasmic fluorescence is present. Theantibodies noted in this pattern may be associated with,but not restricted to, primary biliary cirrhosis (PBC),polymyositis and dermatomyositis (PM/DM), and/or systemiclupus erythematosus (SLE).Performed at: [address] [id number] Director: Alden Garcia PhD, Phone: [phone] Start: 08-30-[address] Nino Pearson MD Work Phone: Start: 08-30-2024 Vitamin D, 25-hydroxy measurement Dr. Nino Pearson MD Work Phone: Comment on above: Vitamin D StatusDeficiency: <20 ng/mL (5 0nmol/L)Insufficiency: 20-30 ng/mL (50-75 nmol/L)Sufficiency: 30-100 ng/mL (75-250 nmol/L)Toxicity: >100 ng/mL (>250 nmol/L) Start: 07-13-2024 Measurement of renal function Dr. Harini Pearson MD Work Phone: Comment on above: GFR Calc Start: 07-22-[address] Nino Pearson Work Phone: Start: 06-28-2023 Plain x-ray of pelvis and lower extremity Dr. Nino Pearson Work Phone: Start: 02-20-2022 Screening mammography Start: 12-22-2016 Gynecologic examination Routine gynecological exam Lucia Lira STERILE PREPARATION TECHNICIAN Start: 12-17-2016 Screening mammography Screening mammogram for breast cancer Lucia Lira STERILE PREPARATION TECHNICIAN Plan of Treatment Date Care Activity Detail Author Start: 01-17-2025 Giardia Antigen (NELLI) Giardia Antigen (NELLI) [facility] Start: 01-17-2025 Ova and Parasites Ova and Parasites [facility] Start: 01-17-2025 [facility] Start: 12-25-2024 Thyroid stimulating hormone measurement [facility] Start: 12-25-2024 Thyroperoxidase Ab [Units/volume] in Serum or Plasma [facility] Start: 12-25-2024 Thyroxine binding globulin measurement [facility] Start: 12-25-2024 Triiodothyronine (T3).reverse [Mass/volume] in Serum or Plasma [facility] Start: 12-25-2024 Plain x-ray of pelvis and lower extremity Hips B/L min 2 views w/ Pelvis [facility] Start: 12-25-2024 XR Pelvis and Hip - bilateral Views [facility] Start: 10-03-2024 MG Breast - bilateral Screening [facility] Start: 09-26-2024 Laboratory test [facility] Start: 09-26-2024 Thyroglobulin and Thyrogobulin Ab panel - Serum or Plasma [facility] Start: 09-26-2024 Thyroperoxidase Ab [Units/volume] in Serum or Plasma [facility] Start: 09-26-2024 Triiodothyronine (T3).reverse [Mass/volume] in Serum or Plasma [facility] Start: 06-28-2023 [facility] Start: 12-22-2016 End: 12-22-2016 Appointment Appointment [facility] Start: 12-22-2016 End: 12-22-2016 Mammogram, both breasts Mammogram, Diagnostic, both breasts [facility] Start: 12-22-2016 End: 12-22-2016 Us exam, breast(s) US Breast(s) [facility] Start: 12-17-2016 End: 12-18-2016 Mammogram, screening Mammogram-Bilateral, Screening, Bilateral [facility] Giardia lamblia anti gen assay [facility] Gliadin peptide IgA Ab [Units/volume] in Serum [facility] Gliadin peptide IgG Ab [Units/volume] in Serum [facility] Measurement of immunoglobulin A in serum specimen [facility] Ova OR parasites identification [facility] Patient Education ED Bursitis ED Sciatica [facility] Work Phone: Patient referral [facility] Work Phone: T4 free measurement [facility] T4 free measurement [facility] Thyroglobulin antibo dy measurement [facility] Thyroid stimulating hormone measurement [facility] Tissue transglutamin ase IgA Ab [Units/volume] in Serum [facility] Payers Date Payer Category Payer Self-pay [id number] 2024 Unknown [id number] Unknown [facility] [id number] Unknown [facility] [id number] Unknown [id number] 2.16.8 [id number] Unknown [id number] 2.16.8 [id number] Unknown [id number] 2.16.8 [id number] Unknown [id number] 2.16.8 [id number] Unknown [id number] 2.16.8 [id number] Unknown [id number] 2.16.8 [id number] Unknown [id number] 2.16.8 [id number] Unknown [id number] 2.16.8 [id number] Unknown [id number] 2.16.8 [id number] Unknown [id number] 2.16.8 [id number] Unknown [id number] 2.16.8 [id number] Unknown [id number] 2.16.8 [id number] Unknown [id number] 2.16.8 [id number] Unknown [id number] 2.16.8 [id number] Unknown [id number] 2.16.8 [id number] Unknown [id number] 2.16.8 [id number] Social History Date Type Detail Facility Start: 06-30-2021 End: 07-22-2023 Tobacco smoking status LAIS Unknown if ever smoked [facility] Start: 09-27-2018 Occasional [facility] Start: 09-27-2018 None [facility] Start: 09-27-2018 Spouse/ Signif icant Other [facility] Start: 09-29-2018 Cigarettes [facility] Start: 1975 Sex Assigned At Female [facility] Start: 08-15-2024 End: 01-11-2025 Tobacco smoking status NHIS Smokes tobacco daily (finding) [facility] Start: 09-05-2024 Sex Female (finding) [facility] Medical Equipment Procedure Code Equipment Code Equipment Origin al Text Equipment Identifier Dates Laparoscopy with vaginal hysterectomy SEALANT,FLOSEAL HEMOSTATIC 5ML FDA Start: 05-20-2021 Laparoscopy with vaginal hysterectomy SEALANT,FLOSEAL HEMOSTATIC 5ML FDA Start: 05-20-2021 Laparoscopy with vaginal hysterectomy SEALANT,FLOSEAL HEMOSTATIC 5ML FDA Start: 05-20-2021 Laparoscopy with vaginal hysterectomy SEALANT,FLOSEAL HEMOSTATIC 5ML FDA Start: 05-20-2021 Laparoscopy with vaginal hysterectomy SEALANT,FLOSEAL HEMOSTATIC 5ML FDA Start: 05-20-2021 Laparoscopy with vaginal hysterectomy SEALANT,FLOSEAL HEMOSTATIC 5ML FDA Start: 05-20-2021 Laparoscopy with vaginal hysterectomy SEALANT,FLOSEAL HEMOSTATIC 5ML FDA Start: 05-20-2021 Laparoscopy with vaginal hysterectomy SEALANT,FLOSEAL HEMOSTATIC 5ML FDA Start: 05-20-2021 Laparoscopy with vaginal hysterectomy SEALANT,FLOSEAL HEMOSTATIC 5ML FDA Start: 05-20-2021 Laparoscopy with vaginal hysterectomy SEALANT,FLOSEAL HEMOSTATIC 5ML FDA Start: 05-20-2021 Laparoscopy with vaginal hysterectomy SEALANT,FLOSEAL HEMOSTATIC 5ML FDA Start: 05-20-2021 Laparoscopy with vaginal hysterectomy SEALANT,FLOSEAL HEMOSTATIC 5ML FDA Start: 05-20-2021 Laparoscopy with vaginal hysterectomy SEALANT,FLOSEAL HEMOSTATIC 5ML FDA Start: 05-20-2021 Laparoscopy with vaginal hysterectomy SEALANT,FLOSEAL HEMOSTATIC 5ML FDA Start: 05-20-2021 Laparoscopy with vaginal hysterectomy SEALANT,FLOSEAL HEMOSTATIC 5ML FDA Start: 05-20-2021 Clinical Notes 05-19-2024 to 12-26-2024 Note Date & Type Note Facility 12-26-2024 Radiology Diagnostic study note [facility] Imaging Services [address] [place] [address] Hips B/L min 2 views w/ Pelvis MR#: [id number] Acct: [id number] Name: AURE CARRERA Rep #: [id number] : 1975 F 49 From: Cici Riley MD PCP: Dr. Nino Pearson MD Status: R EG CLI Study:Hips B/L min 2 views w/ Pelvis Date of Exam: 12/25/24 Exam# [id number] Ordering Dr: Kaylin Perez MD PROCEDURE: HIPS B/L MIN 2 VIEWS W/ PELVIS 12/25/2024 REASON FOR EXAM: PSORIATIC ARTHROPATHY TECHNIQUE: HIPS B/L MIN 2 VIEWS W/ PELVIS COMPARISON: 11/11/2022 FINDINGS: Intact pelvic ring. No hip osteoarthritis. No acute bone or soft tissue pathology. RAD/Hips B/L min 2 views w/ Pelvis IMPRESSION: Unremarkable exam Reading Location: [facility] CC: Dr. Nino Pearson MD; Dr. 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 [facility] 12-25-2024 Evaluation note Diagnosis Onset Date Resolution Vitamin D deficiency acute 2024 1:54pm Sky thyroiditis chronic Dec 1:54pm Psoriasis chronic December 25 1:54pm Tobacco abuse chronic December 25, 2024 1:54pm Diarrhea acute January 08, 2 025 2:58pm History of IBS acute December 2:58pm Diarrhea acute January 11, 2 025 10:28am Sky thyroiditis chronic Sep 2024 12:57pm [facility] Work Phone: 1(908) 542-476805-02-2025 Evaluation note* Diagnosis Onset Date Resolution Status Admit Date Abnormal thyroid function test acute September 22, 2024 9:38am Family history of lung cancer acute September 22, 2024 9:38am Health care maintenance acute M ay 2024 9:38am Tobacco abuse counseling acute September 22, 2024 9:38am Psoriasis chronic September 22, 2024 9:38am [facility] Work Phone: 1(605) 925-963505-02-2025 Evaluation note* Diagnosis Onset Date Resolution Status Admit Date Abnormal thyroid function test acute September 22, 2024 9:38am Family history of lung cancer acute September 22, 2024 9:38am Health care maintenance acute M ay 2024 9:38am Tobacco abuse counseling acute September 22, 2024 9:38am Psoriasis chronic September 22, 2024 9:38am Vitamin D deficiency acute Aug[facility] 2024 1:54pm Sky thyroiditis chronic Dec us2024 1:54pm Psoriasis chronic December 25 1:54pm Tobacco abuse chronic December 25, 2024 1:54pm [facility] Work Phone: 1(590) 211-364605-02-2025 Evaluation note* Diagnosis Onset Date Resolution Status Admit Date Abnormal thyroid function test acute September 22, 2024 9:38am Family history of lung cancer acute September 22, 2024 9:38am Health care maintenance acute M ay 2024 9:38am Tobacco abuse counseling acute September 22, 2024 9:38am Psoriasis chronic September 22, 2024 9:38am Vitamin D deficiency acute Aug[facility] 2024 1:54pm Sky thyroiditis chronic Dec us2024 1:54pm Psoriasis chronic December 25 1:54pm Tobacco abuse chronic December 25, 2024 1:54pm Diarrhea acute January 08, 2 025 2:58pm History of IBS acute December 2:58pm [facility] Work Phone: 1(259) 556-845905-02-2025 Evaluation note* Diagnosis Onset Date Resolution Status Admit Date Abnormal thyroid function test acute September 22, 2024 9:38am Family history of lung cancer acute September 22, 2024 9:38am Health care maintenance acute M ay 2024 9:38am Tobacco abuse counseling acute September 22, 2024 9:38am Psoriasis chronic September 22, 2024 9:38am Vitamin D deficiency acute Aug[facility] , 2025 1:54pm Syk thyroiditis chronic Dec 1:54pm Psoriasis chronic December 25 1:54pm Tobacco abuse chronic December 25, 2024 1:54pm Diarrhea acute January 08, 2 025 2:58pm History of IBS acute December 2:58pm Diarrhea acute January 11, 2 025 10:28am [facility] Work Phone: 1(358) 330-426812-27-2024 Evaluation note* Diagnosis Onset Date Resolution Status Admit Date Exanthem acute May 19, 2024 9:26am [facility] Work Phone: Evaluation noteNo assessment information available [facility] Work Phone: Evaluation note* Diagnosis Onset Date Resolution Status Urinary urgency acute [facility] Work Phone: Hospital Discharge instructionsAmbulatory Orders* Gastroenterology Location: None [facility] Work Phone: Reason for referral (narrative)No [facility] for [facility] Summary Purpose Family History No Family History Records Found Relationship Condition Age at Onset Recorded Date/T tony father Hypertension Unknown grandmother Diabetes mellitus Unknown Malignant neoplasm of breast Unknown mother Malignant neoplasm of cervix Unknown aunt Malignant neoplasm of breast Unknown Advance Directives No Advanced Directives Records Found Advance Directive Response Recorded Date/ Time Living Will No May 13 11:26am Power of Packer Fuser No May 13, 2021 11:26am Advance Directive Response Recorded Date/ Time Living Will No May 13 10:26am Power of Packer Fuser No May 13, 2021 10:26am Advance Directive Response Recorded Date/ Time Living Will No June 28 10:03am Power of Packer Fuser No June 28, 2023 10:03am Advance Directive Response Recorded Date/ Time Living Will No June 28 11:03am Power of Packer Fuser No June 28, 2023 11:03am Chief Complaint and Reason for Visit Chief Complaint SCREENING Chief Complaint PAIN- COPY PCP Chief Complaint RIGHT HIP ACUTE UTI SYMPTOMS Reason for Visit Urinary urgency Chief Complaint RIGHT HIP ACUTE UTI SYMPTOMS PAIN- COPY PCP Reason for Visit Urinary urgency Chief Complaint Admit Date Psoriasis May 19, 2024 9:26am L EAR PAIN August 15, 2024 9:5 1am SKIN August 30, 2024 2:25 pm Reason for Visit Admit Date Exanthem May 19, 2024 9:26am Chief Complaint Admit Date L EAR PAIN August 15, 2024 9:5 1am SKIN August 30, 2024 2:25 pm DISCUSS LABS September 22, 2024 9:38am Reason for Visit Admit Date Abnormal thyroid function test September 22, 2024 9:38am Family history of lung cancer September 22, 2 025 9:38am Health care maintenance September 22, 2024 9: 38am Tobacco abuse counseling September 22, 2024 9 :38am Psoriasis September 22, 2024 9:38am Chief Complaint Admit Date L EAR PAIN August 15, 2024 9:5 1am SKIN August 30, 2024 2:25 pm DISCUSS LABS September 22, 2024 9:38am Breast Cancer Screening October 03, 2024 1 0:09am Chief Complaint Admit Date SKIN August 30, 2024 2:25 pm DISCUSS LABS September 22, 2024 9:38am Breast Cancer Screening October 03, 2024 1 0:09am PAIN- COPY PCP December 15, 2024 9:45 am Chief Complaint Admit Date SKIN August 30, 2024 2:25 pm DISCUSS LABS September 22, 2024 9:38am Breast Cancer Screening October 03, 2024 1 0:09am PAIN- COPY PCP December 15, 2024 9:45 am BI LATERAL HIPS December 25, 2024 10: 40am 3 M FU December 25, 2024 1:5 4pm Chief Complaint Admit Date DISCUSS LABS September 22, 2024 9:38am Breast Cancer Screening October 03, 2024 1 0:09am PAIN- COPY PCP December 15, 2024 9:45 am BI LATERAL HIPS December 25, 2024 10: 40am 3 M FU December 25, 2024 1:5 4pm Reason for Visit Admit Date Abnormal thyroid function test September 22, 2024 9:38am Family history of lung cancer September 22, 025 9:38am Health care maintenance September 22, 2024 9: 38am Tobacco abuse counseling September 22, 2024 9 :38am Psoriasis September 22, 2024 9:38am Vitamin D deficiency December 25, 2024 1: 54pm Sky thyroiditis December 25, 2024 1 :54pm Psoriasis December 25, 2024 1:5 4pm Tobacco abuse December 25, 2024 1:5 4pm Chief Complaint Admit Date DISCUSS LABS September 22, 2024 9:38am Breast Cancer Screening October 03, 2024 1 0:09am PAIN- COPY PCP December 15, 2024 9:45 am BI LATERAL HIPS December 25, 2024 10: 40am 3 M FU December 25, 2024 1:5 4pm ACUTE-SEVERE DIARRHEA January 08, 2025 2:58pm Reason for Visit Admit Date Abnormal thyroid function test September 22, 2024 9:38am Family history of lung cancer September 22, 025 9:38am Health care maintenance September 22, 2024 9: 38am Tobacco abuse counseling September 22, 2024 9 :38am Psoriasis September 22, 2024 9:38am Vitamin D deficiency December 25, 2024 1: 54pm Sky thyroiditis December 25, 2024 1 :54pm Psoriasis December 25, 2024 1:5 4pm Tobacco abuse December 25, 2024 1:5 4pm Diarrhea January 08, 2025 2: 58pm History of IBS January 08, 2025 2: 58pm Chief Complaint Admit Date DISCUSS LABS September 22, 2024 9:38am Breast Cancer Screening October 03, 2024 1 0:09am PAIN- COPY PCP December 15, 2024 9:45 am BI LATERAL HIPS December 25, 2024 10: 40am 3 M FU December 25, 2024 1:5 4pm ACUTE-SEVERE DIARRHEA January 08, 2025 2:58pm Diarrhea January 11, 2025 10 :28am Reason for Visit Admit Date Abnormal thyroid function test September 22, 2024 9:38am Family history of lung cancer September 22, 2 025 9:38am Health care maintenance September 22, 2024 9: 38am Tobacco abuse counseling September 22, 2024 9 :38am Psoriasis September 22, 2024 9:38am Vitamin D deficiency December 25, 2024 1: 54pm Sky thyroiditis December 25, 2024 1 :54pm Psoriasis December 25, 2024 1:5 4pm Tobacco abuse December 25, 2024 1:5 4pm Diarrhea January 08, 2025 2: 58pm History of IBS January 08, 2025 2: 58pm Diarrhea January 11, 2025 10 :28am Chief Complaint Admit Date Breast Cancer Screening October 03, 2024 1 0:09am PAIN- COPY PCP December 15, 2024 9:45 am BI LATERAL HIPS December 25, 2024 10: 40am 3 M FU December 25, 2024 1:5 4pm ACUTE-SEVERE DIARRHEA January 08, 2025 2:58pm Diarrhea January 11, 2025 10 :28am STOOL January 17, 2025 11 :35am Thyroid January 23, 2025 12:57pm Reason for Visit Admit Date Vitamin D deficiency December 25, 2024 1: 54pm Sky thyroiditis December 25, 2024 1 :54pm Psoriasis December 25, 2024 1:5 4pm Tobacco abuse December 25, 2024 1:5 4pm Diarrhea January 08, 2025 2: 58pm History of IBS January 08, 2025 2: 58pm Diarrhea January 11, 2025 10 :28am Sky thyroiditis January 23 12:57pm Additional Source Comments INFORMATION SOURCE (unrecogn ized section and content) DATE CREATED AUTHOR 10/10/2018 [facility] DATE CREATED AUTHOR AUTHOR'S ORGANIZ ATION 02/11/2025 [facility] Goals (unrecognized section and content) Goals may be documented in a n alternate sectionGoals may be documented in an alternate sectionGoals may be documented in an alternate sectionGoals may be documented in an alternate sectionGoals may be documented in an alternate sectionGoals may be documented in an alternate sectionGoals may be documented in an alternate sectionGoals may be documented in an alternate sectionGoals may be documented in an alternate sectionGoals may be documented in an alternate sectionGoals may be documented in an alternate sectionGoals may be documented in an alternate sectionGoals may be documented in an alternate sectionGoals may be documented in an alternate sectionGoals may be documented in an alternate section Care Teams (unrecognized sec tion and content) Team Status: Active Member Role Status Dates No Primary Care Physician Family Provider Active Dr. Nino Pearson MD Primary Care Provider Active Team Status: Inactive Member Role Status Dates Dr. Nino Pearson MD Primary Care Provider Active Dr. Kaylin Perez MD Attending Provider, Referring Provider Active Team Status: Inactive Member Role Status Dates Dr. Nino Pearson MD Primary Care Provider, Refer ring Provider Active Clarence RUSS, PA Attending Provider Active Team Status: Inactive Member Role Status Dates Dr. Nino Pearson MD Primary Care Provider Active Mark Hamilton MD Attending Provider, Emergency Provid er Active Team Status: Inactive Member Role Status Dates Dr. Nino Pearson MD Primary Care Provider Active JEB Guo Attending Provider, Referring Prov ider Active Team Status: Inactive Member Role Status Dates Dr. Nino Pearson MD Primary Care Provider Active Start: May 19, 2024 End: May 19, 2024 Dr. Nino Pearson MD Referring Provider Active Start: May 19, 2024 End: May 19, 2024 MO Zhang Attending Provider Active Start: May 19, 2024 End: May 19, 2024 Team Status: Inactive Member Role Status Dates Dr. Nino Pearson MD Primary Care Provider Active Start: July 13, 2024 End: July 13, 2024 Dr. Kaylin Perez MD Attending Provider Active Start: July 13, 2024 End: July 13, 2024 Dr. Kaylin Perez MD Referring Provider Active Start: July 13, 2024 End: July 13, 2024 Team Status: Inactive Member Role Status Dates Dr. Nino Pearson MD Primary Care Provider Active Start: August 15, 2024 End: August 15, 2024 Dr. Nino Pearson MD Referring Provider Active Start: August 15, 2024 End: August 15, 2024 Nash RUSS PA Attending Provider Active Start: August 15, 2024 End: August 15, 2024 Team Status: Inactive Member Role Status Dates Dr. Nino Pearson MD Primary Care Provider Active Start: August 30, 2024 End: August 30, 2024 Alyssa RUSS PA-C Attending Provider Active S tart: August 30, 2024 End: August 30, 2024 Alyssa RUSS PAEdwardC Referring Provider Active S tart: August 30, 2024 End: August 30, 2024 Team Status: Active Member Role Status Dates Dr. Nino Pearson MD Primary Care Provider Active Team Status: Inactive Member Role Status Dates Dr. Nino Pearson MD Primary Care Provider Active Start: September 22, 2024 End: September 22, 2024 Dr. Nino Pearson MD Attending Provider Active Start: September 22, 2024 End: September 22, 2024 Dr. Nino Pearson MD Referring Provider Active Start: September 22, 2024 End: September 22, 2024 Team Status: Inactive Member Role Status Dates Dr. Nino Pearson MD Primary Care Provider Active Start: September 26, 2024 End: September 26, 2024 Dr. Nino Pearson MD Attending Provider Active Start: September 26, 2024 End: September 26, 2024 Team Status: Inactive Member Role Status Dates Dr. Nino Pearson MD Primary Care Provider Active Start: October 03, 2024 End: October 03, 2024 Dr. Nino Pearson MD Attending Provider Active Start: October 03, 2024 End: October 03, 2024 Dr. Nino Pearson MD Referring Provider Active Start: October 03, 2024 End: October 03, 2024 Team Status: Active Member Role/Relationship Status Dates Dr. Nino Pearson MD Primary Care Provider Active Team Status: Inactive Member Role/Relationship Status Dates Dr. Nino Pearson MD Primary Care Provider Active Start: August 30, 2024 End: August 30, 2024 Alyssa RUSS PA-C Attending Provider Active S tart: August 30, 2024 End: August 30, 2024 Alyssa RUSS PA-C Referring Provider Active S tart: August 30, 2024 End: August 30, 2024 Team Status: Inactive Member Role/Relationship Status Dates Dr. Nino Pearson MD Primary Care Provider Active Start: September 22, 2024 End: September 22, 2024 Dr. Nino Pearson MD Attending Provider Active Start: September 22, 2024 End: September 22, 2024 Dr. Nino Pearson MD Referring Provider Active Start: September 22, 2024 End: September 22, 2024 Team Status: Inactive Member Role/Relationship Status Dates Dr. Nino Pearson MD Primary Care Provider Active Start: September 26, 2024 End: September 26, 2024 Dr. Nino Pearson MD Attending Provider Active Start: September 26, 2024 End: September 26, 2024 Team Status: Inactive Member Role/Relationship Status Dates Dr. Nino Pearson MD Primary Care Provider Active Start: October 03, 2024 End: October 03, 2024 Dr. Nino Pearson MD Attending Provider Active Start: October 03, 2024 End: October 03, 2024 Dr. Nino Pearson MD Referring Provider Active Start: October 03, 2024 End: October 03, 2024 Team Status: Inactive Member Role/Relationship Status Dates Dr. Nino Pearson MD Primary Care Provider Active Start: December 15, 2024 End: December 15, 2024 Dr. Kaylin Perez MD Attending Provider Active Start: December 15, 2024 End: December 15, 2024 Dr. Kaylin Perez MD Referring Provider Active Start: December 15, 2024 End: December 15, 2024 Team Status: Active Member Role/Relationship Status Dates Dr. Nino Pearson MD Primary Care Provider Active Start: December 25, 2024 Dr. Kaylin Perez MD Attending Provider Active Start: December 25, 2024 Dr. Kaylin Perez MD Referring Provider Active Start: December 25, 2024 Team Status: Inactive Member Role/Relationship Status Dates Dr. Nino Pearson MD Primary Care Provider Active Start: December 25, 2024 End: December 25, 2024 Dr. Nino Pearson MD Attending Provider Active Start: December 25, 2024 End: December 25, 2024 Dr. Nino Pearson MD Referring Provider Active Start: December 25, 2024 End: December 25, 2024 Team Status: Inactive Member Role/Relationship Status Dates Dr. Nino Pearson MD Primary Care Provider Active Start: September 22, 2024 End: September 22, 2024 Dr. Nino Pearson MD Attending Provider Active Start: September 22, 2024 End: September 22, 2024 Dr. Nino Pearson MD Referring Provider Active Start: September 22, 2024 End: September 22, 2024 Team Status: Inactive Member Role/Relationship Status Dates Dr. Nino Pearson MD Primary Care Provider Active Start: September 26, 2024 End: September 26, 2024 Dr. Nino Pearson MD Attending Provider Active Start: September 26, 2024 End: September 26, 2024 Team Status: Inactive Member Role/Relationship Status Dates Dr. Nino Pearson MD Primary Care Provider Active Start: October 03, 2024 End: October 03, 2024 Dr. Nino Pearson MD Attending Provider Active Start: October 03, 2024 End: October 03, 2024 Dr. Nino Pearson MD Referring Provider Active Start: October 03, 2024 End: October 03, 2024 Team Status: Inactive Member Role/Relationship Status Dates Dr. Nino Pearson MD Primary Care Provider Active Start: December 15, 2024 End: December 15, 2024 Dr. Kaylin Perez MD Attending Provider Active Start: December 15, 2024 End: December 15, 2024 Dr. Kaylin Perez MD Referring Provider Active Start: December 15, 2024 End: December 15, 2024 Team Status: Inactive Member Role/Relationship Status Dates Dr. Nino Pearson MD Primary Care Provider Active Start: December 25, 2024 End: December 25, 2024 Dr. Kaylin Perez MD Attending Provider Active Start: December 25, 2024 End: December 25, 2024 Dr. Kaylin Perez MD Referring Provider Active Start: December 25, 2024 End: December 25, 2024 Team Status: Inactive Member Role/Relationship Status Dates Dr. Nino Pearson MD Primary Care Provider Active Start: December 25, 2024 End: December 25, 2024 Dr. Nino Pearson MD Attending Provider Active Start: December 25, 2024 End: December 25, 2024 Dr. Nino Pearson MD Referring Provider Active Start: December 25, 2024 End: December 25, 2024 Team Status: Inactive Member Role/Relationship Status Dates Dr. Nino Pearson MD Primary Care Provider Active Start: January 08, 2025 End: January 08, 2025 Dr. Nino Pearson MD Referring Provider Active Start: January 08, 2025 End: January 08, 2025 MO Reddy Attending Provider Active Start: January 08, 2025 End: January 08, 2025 Team Status: Inactive Member Role/Relationship Status Dates Dr. Nino Pearson MD Primary Care Provider Active Start: January 11, 2025 End: January 11, 2025 JEB Garcia Attending Provider Active Start: January 11, 2025 End: January 11, 2025 MO Reddy Referring Provider Active Start: January 11, 2025 End: January 11, 2025 Team Status: Inactive Member Role/Relationship Status Dates Dr. Nino Pearson MD Primary Care Provider Active Start: September 26, 2024 End: September 26, 2024 Dr. Nino Pearson MD Attending Provider Active Start: September 26, 2024 End: September 26, 2024 Team Status: Inactive Member Role/Relationship Status Dates Dr. Nino Pearson MD Primary Care Provider Active Start: October 03, 2024 End: October 03, 2024 Dr. Nino Pearson MD Attending Provider Active Start: October 03, 2024 End: October 03, 2024 Dr. Nino Pearson MD Referring Provider Active Start: October 03, 2024 End: October 03, 2024 Team Status: Inactive Member Role/Relationship Status Dates Dr. Nino Pearson MD Primary Care Provider Active Start: December 15, 2024 End: December 15, 2024 Dr. Kaylin Perez MD Attending Provider Active Start: December 15, 2024 End: December 15, 2024 Dr. Kaylin Perez MD Referring Provider Active Start: December 15, 2024 End: December 15, 2024 Team Status: Inactive Member Role/Relationship Status Dates Dr. Nino Pearson MD Primary Care Provider Active Start: December 25, 2024 End: December 25, 2024 Dr. Kaylin Perez MD Attending Provider Active Start: December 25, 2024 End: December 25, 2024 Dr. Kaylin Perez MD Referring Provider Active Start: December 25, 2024 End: December 25, 2024 Team Status: Inactive Member Role/Relationship Status Dates Dr. Nnio Pearson MD Primary Care Provider Active Start: December 25, 2024 End: December 25, 2024 Dr. Nino Pearson MD Attending Provider Active Start: December 25, 2024 End: December 25, 2024 Dr. Nino Pearson MD Referring Provider Active Start: December 25, 2024 End: December 25, 2024 Team Status: Inactive Member Role/Relationship Status Dates Dr. Nino Pearson MD Primary Care Provider Active Start: January 08, 2025 End: January 08, 2025 Dr. Nino Pearson MD Referring Provider Active Start: January 08, 2025 End: January 08, 2025 ARISTEO ReddyC Attending Provider Active Start: January 08, 2025 End: January 08, 2025 Team Status: Inactive Member Role/Relationship Status Dates Dr. Nino Pearson MD Primary Care Provider Active Start: January 11, 2025 End: January 11, 2025 JEB Garcia Attending Provider Active Start: January 11, 2025 End: January 11, 2025 ARISTEO ReddyC Referring Provider Active Start: January 11, 2025 End: January 11, 2025 Team Status: Active Member Role/Relationship Status Dates Dr. Nino Pearson MD Primary Care Provider Active Start: January 17, 2025 JEB Garcia Attending Provider Active Start: January 17, 2025 JEB Garcia Referring Provider Active Start: January 17, 2025 Team Status: Inactive Member Role/Relationship Status Dates Dr. Nino Pearson MD Primary Care Provider Active Start: January 23, 2025 End: January 23, 2025 Dr. Nino Pearson MD Referring Provider Active Start: January 23, 2025 End: January 23, 2025 Dr. Esvin Vega MD Attending Provider Active Sta rt: January 23, 2025 End: January 23, 2025 Team Status: Inactive Member Role/Relationship Status Dates Dr. Nino Pearson MD Primary Care Provider Active Start: January 17, 2025 End: January 17, 2025 JEB Garcia Attending Provider Active Start: January 17, 2025 End: January 17, 2025 JEB Garcia Referring Provider Active Start: January 17, 2025 End: January 17, 2025 FOR RECORDS PERTAINING TO PATIENTS WHO ARE [...] BE BASED ON THE PRIMARY CLINICAL RECORDS. [facility]. provides no warranty or guarantee of the accuracy or completeness of information in this document.
--- NOTE | 2025-02-26 06:32 | PRE.ANES_ITS ---
ASA Classification* ASA Classification ASA Classification: 2 Assessment & Plan Anesthesia* Anesthesia Assessment Anesthesia Assessment: Discussed sedation and/or anesthesia options, risks, benefits, and alternatives with patient/parents/legal guardian/POA. Questions invited. The patient/parents/legal guardian/POA seems to understand and agrees to proceed with anesthesia plan. Reviewed the physical assessment, medical history, allergy history and patient home medications list prior to surgery/procedure/anesthetic and documented any changes. Performed airway and anesthesia risk assessments. Anesthesia Type Anesthesia Type: MAC History Source History Obtained from:: Patient and Chart Anesthesia Focused Assessment* Temperature: 97.3 F Pulse Rate: 68 Blood Pressure: 113/59 Respiratory Rate: 16 Pulse Ox: 100 Oxygen Delivery Method: Room Air Airway Assessment Mouth opens: >3 cm Mallampati Score: III Teeth Condition: Caps/Crowns (Patient has several crowns. They are tight.) and Missing (Patient has several missing teeth. Rest are tight.) Neck Range of motion (ROM): Limited ROM (Slight Decrease) Labs Anesthesia Preop lab: CBC WBC, (4.4-11.0) 9.5 K/mm3 12/15/24, 10:09 RBC, (4.2-5.4) 4.33 M/mm3 12/15/24, 10:09 Hgb, (12.0-15.0) 13.5 g/dL 12/15/24, 10:09 Hct, (37-47) 39.0 % 12/15/24, 10:09 Plt Count, (150-450) 285 K/mm3 12/15/24, 10:09 CHEMISTRY Potassium, (3.3-5.1) 4.9 mmol/L 12/15/24, 10:09 Sodium, (133-145) 140 mmol/L 12/15/24, 10:09 Magnesium, (1.6-2.6) 2.1 mg/dL 05/19/21, 10:56 BUN, (4-19) 8 mg/dL 12/15/24, 10:09 Creatinine, (0.70-1.20) 0.77 mg/dL 12/15/24, 10:09 Glucose, (70-99) 83 mg/dL 12/15/24, 10:09 POC Glucose, (70-110) 59 mg/dL L 05/20/21, 05:59 TSH, (0.300-4.200) 1.640 uIU/mL 12/25/24, 14:42 COAG Urine Test Negative Negative 05/20/21, 05:30 Pre-Assessment Diagnosis/Proposed Procedure Planned Operative Procedure(s): colonoscopy Anesthesia History Anesthesia History - test department helper: Anesthesia History - test department helper Hx Hospitalization No 02/21/25 08:27 Any Problems With Anesthesia No 02/21/25 08:27 Cholinesterase deficiency No 02/21/25 08:27 You/Your Family Experience No 02/21/25 08:27 fever (hyperthermia) with Relationship Recent Exposure to Contagious No 08/15/24 09:49 Disease Does patient have nerve No 02/21/25 08:27 stimulator Patient instructed to have device shut off --Does patient have Pacemaker or ICD? When Was Last Pacemaker Check QUESTION #4 FULL TEXT: You/Your Family Experience fever (hyperthermia) with Anesthesia Last Oral Intake Last Oral intake: Last Oral Intake NPO since Meds taken in AM with sips of water? Meds patient instructed to take am of surgery Any additional information?: Yes NPO since: 04:00 (Patient finished her prep at 4 AM.) Meds taken in AM with sips of water?: No PONV PONV - test department helper: PONV - test department helper Female Yes 02/21/25 08:27 HX of Motion Sickness Yes 02/21/25 08:27 HX of N/V After Surgery Yes 02/21/25 08:27 Non-Smoker No 02/21/25 08:27 Duration of Surgery greater No 02/21/25 08:27 than 60 minutes Number of Risk Factors 3 02/21/25 08:27 PONV Score Moderate Risk 02/21/25 08:27 Height & Weight Height & Weight: Anesthesia: Height & Weight Height 5 ft 4 in 01/23/25 12:58 Respiratory Assessment Respiratory Assessment - test department helper: Respiratory Tract Infection Hx - test department helper Hx Respiratory Tract Infection No 02/21/25 08:27 STOP Sleep Apnea STOP Sleep Apnea - test department helper: STOP Sleep Apnea - test department helper Hx Hypertension No 02/21/25 08:27 Hx Sleep Apnea No 02/21/25 08:27 CPAP No 08/15/24 09:49 BIPAP No 08/15/24 09:49 Do you snore loudly (louder No 02/21/25 08:27 than talking or can be heard Do you often feel tired/ No 02/21/25 08:27 fatigued/ sleepy during daytime? Has anyone observed you stop No 02/21/25 08:27 breathing during sleep? STOP Results Negative 02/21/25 08:27 QUESTION #5 FULL TEXT : Do you snore loudly (louder than talking or can be heard through closed doors)? Tobacco Use History Tobacco Use History - test department helper: Tobacco Use History - test department helper Tobacco Use Smoking Status Current every day smoker 02/21/25 08:27 Hx Tobacco Use Yes 02/21/25 08:27 Years Smoking Packs Smoked per Day Smoking Cessation Date was within the last 15 years Hx Smoking Cessation Date Hx Smoking Cessation Counseling Any additional information?: Yes Smoking Status: Current every day smoker (Patient smoked today.) Hematologic Medial History Hematologic Hx - test department helper: Hematologic Medical Hx - food counselor Hx of Blood Transfusion No 02/21/25 08:27 Hx of Transfusion in last 3 No 02/21/25 08:27 Months Date of Last Transfusion (if within last 3 months) Ever experience any problems No 02/21/25 08:27 with transfusion(s)? Specify any problems Hx of Preganancy in last 3 No 02/21/25 08:27 Months Nurse Filling Out Transfusion [place] 02/21/25 08:27 & Questions: Date: 02/21/25 02/21/25 08:27 Time: 08:32 02/21/25 08:27 Patient unable to answer at this time (ie. confused, unrespo /Reproduction History /Reproductive History - test department helper: /Reproductive Hx- test department helper Hx Now No 02/21/25 08:27 Gestational Age (in weeks): EDC: Hx Hx Para Hx Section SAB No 02/21/25 08:27 Active Medications Active Medications: Current Medications Generic Name Dose Route Start Last Admin Trade Name Freq PRN Reason Stop Dose Admin Lactated Ringer's 1,000 mls @ 15 mls/hr 02/26/25 06:15 IV .Q48H APRIL PFSH Medical History Thyroid disease Psoriatic arthritis Gastric reflux Tobacco abuse Sky thyroiditis Family history of lung cancer Health care maintenance Tobacco abuse counseling Vitamin D deficiency Psoriasis Abnormal thyroid function test Wears glasses Alcohol use Restless legs History of IBS Heartburn Smoker Leg cramps Enlarged uterus Shoulder pain Sciatica bladder/ uti infection Back problem Arthritis Seasonal allergies Acute colitis Home Medications ?Medication ?Instructions ?Recorded ?Last Taken ?Type multivitamin 1 ea PO DAILY 09/27/1802/22 History risankizumab-rzaa 150 mg/mL 150 mg subcut Q90D psorasi s 05/19/24 Unknown History subcutaneous pen injector (Skyrizi) nicotine 14 mg/24 hr daily 1 patch transdermal QDAY #2 8 ea 09/22/24 Unknown Rx transdermal patch cholecalciferol (vitamin D3) 10 10 mcg PO QDAY 5 02/22/25 History mcg (400 unit) capsule clobetasol 0.025 % topical cream 1 applic topical QDAY PRN psorasis 01/08/25 Unknown History fluocinolone acetonide oil 0.01 % 5 drp otic (ear) QHS PRN psorasis 01/08/25 Unknown History ear drops ketoconazole 2 % shampoo 1 applic topical DAILY PRN s hampoo 01/08/25 Unknown History mupirocin 2 % topical ointment 1 applic topical TID NH N psorasis 01/08/25 Unknown History levothyroxine 50 mcg tablet 50 mcg PO QDAY #90 tabs 02/24/25 Rx (Euthyrox) prednisone 10 mg tablet 10 mg PO DAILY PRN Flare Up 01/23/25 Unknown History Allergy/AdvReac Type Severity Reaction Status Date / Time Penicillins Allergy Mild severe Verified 02/21/25 09:16 vomiting Sulfa (Sulfonamide Allergy Mild hives Verified 02/21/25 09:16 Antibiotics) Family History Father Hypertension Grandmother Diabetes Breast cancer Mother Cervical cancer Aunt Breast cancer Surgical History S/P laparoscopic assisted vaginal hysterectomy (LAVH) (~05/20/21) History of incision and drainage History of endoscopy History of dental surgery S/P trigger finger release History of lumpectomy of left breast Social History Smoking Status: Current every day smoker tobacco type: cigarettes alcohol intake: current alcohol intake frequency: a few times a month details: occasionally substance use type: does not use caffeine: Yes what type of physical activity do you participate in: other details: work- [employer] seatbelt use: always do you feel safe at home: Yes additional social history: [employer] Patient works at [employer] Review of Systems (Anesthesia) ROS Narrative System reviewed and no additional complaints, except as documented.
[2025-02-26] MEDS: Lactated Ringers 1,000 ML 15 ML IV (06:37)
--- NOTE | 2025-02-26 07:00 | COLBX_PTH ---
PATIENT: AURE CARRERA LOC: EN U#:[id number] AGE/SX: 49/F ROOM: RE02/26/[address]: Dr. Sushil Birch DO : 1975 BED: DIS: 02/26/2025 SPEC #: [id number] RECD: 02/26/25 07:52 STATUS: ALEXIS REShanique #: [id number] AMY: 02/26/25 07:[address]: Sushil Birch DEPT: SURGICAL PATHOLOGY RECD BY: Brady Portillo ENTERED: 02/26/25 10:18 SP TYPE: COLON BX BRANDON DR: Dr. Nino Pearson MD Tissues: A - COLON BIOPSY Procedures: Trichrome (control) Special Stain Group I Surgery Specimen Level IV HEADER OPERATION: Colonoscopy, biopsy PRE-OP DIAGNOSIS: Diarrhea TISSUE SUBMITTED: A- Random colon biopsy MICROSCOPIC DIAGNOSIS A. Colon, random, biopsy: * Collagenous colitis. * Trichrome stain highlights a thickened and irregular subepithelial collagen plate. COMMENT Selected slides/images were reviewed in intradepartmental consultation by the GI pathology consensus group, [facility]. MICROSCOPIC DESCRIPTION Slides are reviewed. All matched controls reacted appropriately. These tests were developed and their performance characteristics determined by [facility]. They may not have been cleared or approved by the U.S. Food and Drug Administration. The FDA has determined that such clearance or approval is not necessary. The above immunohistochemical markers and/or special stains have been reviewed by the Pathologist. GROSS DESCRIPTION A. Received in fixative is one container labeled with the patient's name and designated Random colon biopsy. The specimen consists of multiple irregular fragments of thompson tissue that in aggregate measure 1.7 x 0.8 x 0.2 cm. The specimen is totally submitted in one cassette. ID 02/26/2025 CPT:[id number] ,[id number]
--- NOTE | 2025-02-26 07:05 | PCM.HP.STD ---
[facility] - General General Date of Admission: 02/26/25 Date of Service: 02/26/25 Chief Complaint: Diarrhea HPI Sanket CARRERA, is a 49 F who presents with the Chief Complaint: Diarrhea Patient referred from her primary care provider for diarrhea for 1 month. Patient has a past medical history of microscopic colitis. She has undergone 2 colonoscopies in the past that have both showed microscopic colitis. In the past she has been treated with prednisone and possibly budesonide. For 1 month now she has had urgent watery loose stools after each meal. It is not associated with abdominal pain, blood in her stool, nausea or vomiting. She does not have nocturnal symptoms. Patient is currently on a prednisone taper given to her by her primary care provider which has made her stools more applesauce like. She has had a lot of stress in her life with her mother recently following and her father passing away a few months ago. FOR[facility], LATER [facility] Medical History Thyroid disease Psoriatic arthritis Gastric reflux Tobacco abuse Sky thyroiditis Family history of lung cancer Health care maintenance Tobacco abuse counseling Vitamin D deficiency Psoriasis Abnormal thyroid function test Wears glasses Alcohol use Restless legs History of IBS Heartburn Smoker Leg cramps Enlarged uterus Shoulder pain Sciatica bladder/ uti infection Back problem Arthritis Seasonal allergies Acute colitis Home Medications ?Medication ?Instructions ?Recorded ?Last Taken ?Type multivitamin 1 ea PO DAILY 09/27/18 02/22/25 History risankizumab-rzaa 150 mg/mL 150 mg subcut Q90D psorasis 05/19/24 Unknown History subcutaneous pen injector (Skyrizi) nicotine 14 mg/24 hr daily 1 patch transdermal QDAY #28 ea 09/22/24 Unknown Rx transdermal patch cholecalciferol (vitamin D3) 10 10 mcg PO QDAY 01/08/25 02/22/25 History mcg (400 unit) capsule clobetasol 0.025 % topical cream 1 applic topical QDAY PRN psorasis 01/08/25 Unknown History fluocinolone acetonide oil 0.01 % 5 drp otic (ear) QHS PRN psorasis 01/08/25 Unknown History ear drops ketoconazole 2 % shampoo 1 applic topical DAILY PRN shampoo 01/08/25 Unknown History mupirocin 2 % topical ointment 1 applic topical TID PRN psorasis 01/08/25 Unknown History levothyroxine 50 mcg tablet 50 mcg PO QDAY #90 tabs 01/23/25 02/24/25 Rx (Euthyrox) prednisone 10 mg tablet 10 mg PO DAILY PRN Flare Up 01/23/25 Unknown History Allergy/AdvReac Type Severity Reaction Status Date / Time Penicillins Allergy Mild severe Verified 02/21/25 09:16 vomiting Sulfa (Sulfonamide Allergy Mild hives Verified 02/21/25 09:16 Antibiotics) Family History Father Hypertension Grandmother Diabetes Breast cancer Mother Cervical cancer Aunt Breast cancer Surgical History S/P laparoscopic assisted vaginal hysterectomy ([facility]) (~05/20/21) History of incision and drainage History of endoscopy History of dental surgery S/P trigger finger release History of lumpectomy of left breast Social History Smoking Status: Current every day smoker (Patient smoked today.) tobacco type: cigarettes alcohol intake: current alcohol intake frequency: a few times a month details: occasionally substance use type: does not use caffeine: Yes what type of physical activity do you participate in: other details: work- [employer] seatbelt use: always do you feel safe at home: Yes additional social history: [id number] Patient works at [employer] Constitutional Constitutional: Denies fatigue, fever(s), poor appetite, weight gain or weight loss Gastrointestinal Gastrointestinal: Denies belching, bloating, change in bowel habits, change in stool character, chewing difficulty, coffee ground emesis, constipation, cramping, diarrhea, dyspepsia, dysphagia, early satiety, excessive flatus, fecal incontinence, heartburn, hematemesis, hematochezia, hemorrhoids, loose stools, melena, nausea, odynophagia, rectal bleeding, tenesmus, vomiting or weight changes Vital Signs Vital Signs Vital Signs: 02/26/25 06:32 02/26/25 06:33 02/26/25 06:38 Temperature 97.3 F L 97.3 F L Temperature Source Temporal Pulse Rate 68 68 Respiratory Rate 16 16 Respiratory Pattern Normal Blood Pressure 113/59 L 113/59 L Blood Pressure Mean 77 Blood Pressure Source Monitor Blood Pressure Position Semi-Fowlers Blood Pressure Location Right Arm Pulse Ox 100 100 Oxygen Delivery Method Room Air Room Air Weight Weight: 123 lb 7.342 oz Body Mass Index (BMI) 21.2 Physical Exam Const alert, oriented x3, no apparent distress and healthy appearing General Appearance: cooperative GI normal to inspection, nondistended, normoactive bowel sounds, soft to palpation, non-tender and non-distended Percussion: normal to percussion Rectal Exam: deferred Assessment & Plan Assessment/Plan (1) Diarrhea: PLAN: Assessment and Plan Assessment and Plan (1) Diarrhea: Status: Acute Plan: Manuela is a 49-year-old female patient here today for evaluation of her diarrhea x 1 month. Patient symptoms started after being on prednisone for bursitis. She is having urgent watery stools 3 times per day after eating meals. She does have a history of microscopic colitis and has had 2 colonoscopies in the past. Both of these colonoscopies had shown microscopic colitis. Typically her colitis is treated with prednisone. I will order stool testing to rule out infection or inflammation in her colon. She was also scheduled for colonoscopy. She may complete the prednisone taper which was prescribed by her primary care provider. Will consider budesonide pending results. - Colonoscopy - Stool testing to rule out infection or inflammation -Consider treatment with budesonide - Follow-up after endoscopy Coding]
--- NOTE | 2025-02-26 07:46 | OP.PROVAT_ITS ---
02/26/2025 Nino Pearson MD [address] [place] [address] [place] [address] Re : Colonoscopy procedure for Manuela David Dear Dr. Pearson This procedure was performed on Wednesday, February 26, 2025. My impressions and recommendations are as follows: Impressions : - The entire examined colon is normal. Biopsied. - The examined portion of the ileum was normal. Recommendations : - Discharge patient to home. - Resume previous diet. - Continue present medications. - Await pathology results. - Repeat colonoscopy in 5 years for surveillance. My findings are described in the full procedure note, which is enclosed. If I can be of further assistance, please feel free to contact me at . Sincerely, Sushil Friend, 02/26/2025 7:45:33 AM This report has been signed electronically.
--- NOTE | 2025-02-26 07:46 | OP.COLON_ITS ---
Patient Name: Manuela David Procedure Date: 02/26/2025 7:13 AM Date of : 1975 Age: 49 Procedure: Colonoscopy Indications: Chronic diarrhea Providers: Sushil Birch DO Referring MD: Nino Pearson MD Medicines: Monitored Anesthesia Care Patient Profile: This is a 49 year old female. Refer to note in patient chart for documentation of history and physical. Last Colonoscopy: several years ago. Complications: No immediate complications. Procedure: Pre-Anesthesia Assessment: - Prior to the procedure, a History and Physical was performed, and patient medications and allergies were reviewed. The patient is competent. The risks and benefits of the procedure and the sedation options and risks were discussed with the patient. All questions were answered and informed consent was obtained. Patient identification and proposed procedure were verified by the physician in the pre-procedure area. Mental Status Examination: alert and oriented. Airway Examination: normal oropharyngeal airway and neck mobility. Respiratory Examination: clear to auscultation. CV Examination: normal. Prophylactic Antibiotics: The patient does not require prophylactic antibiotics. Prior Anticoagulants: The patient has taken no anticoagulant or antiplatelet agents except for NSAID medication. ASA Grade Assessment: II - A patient with mild systemic disease. After reviewing the risks and benefits, the patient was deemed in satisfactory condition to undergo the procedure. The anesthesia plan was to use monitored anesthesia care (MAC). Immediately prior to administration of medications, the patient was re-assessed for adequacy to receive sedatives. The heart rate, respiratory rate, oxygen saturations, blood pressure, adequacy of pulmonary ventilation, and response to care were monitored throughout the procedure. The physical status of the patient was re-assessed after the procedure. After I obtained informed consent, the scope was passed under direct vision. Throughout the procedure, the patient's blood pressure, pulse, and oxygen saturations were monitored continuously. The pediatric colonoscope was introduced through the anus and advanced to the terminal ileum. The colonoscopy was performed without difficulty. The patient tolerated the procedure well. The quality of the bowel preparation was good. Scope In: 7:30:26 AM Scope Withdrawal Time 0 hours 6 minutes 46 seconds Scope Out: 7:42:34 AM Total Procedure Duration Time 0 hours 12 minutes 8 seconds Findings: The perianal and digital rectal examinations were normal. The colon (entire examined portion) appeared normal. Biopsies were taken with a cold forceps for histology. Verification of patient identification for the specimen was done. Estimated blood loss was minimal. The terminal ileum appeared normal. Impression: - The entire examined colon is normal. Biopsied. - The examined portion of the ileum was normal. Recommendation: - Discharge patient to home. - Resume previous diet. - Continue present medications. - Await pathology results. - Repeat colonoscopy in 5 years for surveillance. Procedure Code(s): --- Professional --- 16628, Colonoscopy, flexible; with biopsy, single or multiple CPT copyright 2021 [employer]. All rights reserved. The codes documented in this report are preliminary and upon sales correspondent review may be revised to meet current compliance requirements. Sushil Birch DO 02/26/2025 7:45:33 AM This report has been signed electronically. Number of Addenda: 0 Note Initiated On: 02/26/2025 7:13 AM
--- NOTE | 2025-02-26 07:53 | PCM.POST.ANE ---
Anesthesia: Postop Eval I Current Vital Signs Temperature: 97 F Pulse Rate: 72 Blood Pressure: 109/54 Respiratory Rate: 16 Pulse Ox: 100 Oxygen Delivery Method: Room Air Assessment Airway patent: Yes Spontaneous unlabored respirations: Yes Mental status: Asleep nausea: No Vomiting: No Anesthesia Complication: No Fluid Hydration Crystalloid volume administer (ml): 600 Total IV fluid infused: 600 Progress Note Anesthesia document: Postop Eval 1 completed: Yes
--- NOTE | 2025-02-26 12:29 | PCM.POSTANE2 ---
Anesthesia Postop Eval I Sum Postop Eval Completion status Anesthesia document: Postop Eval 1 completed: Yes Anesthesia Postop Eval I Summary Anesthesia Postop Eval I Summary: Anesthesia Postop Eval I: Assessment Summary Airway patent Yes 02/26/25 07:54 [email or web address] Spontaneous unlabored Yes 02/26/25 07:54 [email or web address] respirations Mental status Asleep 02/26/25 07:54 [email or web address] nausea No 02/26/25 07:54 [email or web address] Vomiting No 02/26/25 07:54 [email or web address] Anesthesia Postop Eval I: Fluid Summary Crystalloid volume administer 600 02/26/25 07:54 [email or web address] (ml) Colloids volume administered ( ml) Blood Product volume administered (ml) Total IV fluid infused 600 02/26/25 07:54 [email or web address] Anesthesia Postop Eval I: Summary Notes Anesthesia Complication No 02/26/25 07:54 [email or web address] Anesthesia Complication Comment: Post-operative progress note Anesthesia: Postop Eval II Evaluation Mental status: Awake and Calm Pain Level: 0 nausea: No Vomiting: No Complications Anesthesia Complication: No
== END 2025-02-26 08:30 | disposition home or self-care (01) ==
LOC: EN 05:59 → AC 06:01
PROVIDERS: PCP Internal Medicine; Referring Provider Internal Medicine; Visit Provider Internal Medicine Gastroenterology
PROC: 0DJD8ZZ Inspection of Lower Intestinal Tract, Via Natural or Artificial Opening Endoscopic (ICD-10-PCS; CPT 45378; principal; 2025-02-26 06:55)
DX: K52.831 Collagenous colitis (principal); Z90.710 Acquired absence of both cervix and uterus; F17.210 Nicotine dependence, cigarettes, uncomplicated; K63.89 Other specified diseases of intestine
CPT/HCPCS: 45380; 88305; 88312; J2405